=== PATIENT | female | born 1935 | race Caucasian/White ===

== ENCOUNTER 2022-09-19 14:57 | Outpatient (OUT) | payer MEDICARE, OTHER, SELFPAY ==
[2022-09-19 15:15] LABS: Basophils Absolute Auto 0.1 10^3/uL (0.0-0.1); Basophils Percent Auto 0.6 % (0.2-2.0); Eosinophils Absolute Auto 0.2 10^3/uL (0.0-0.7); Hematocrit 39.6 % (36.0-48.0); Hemoglobin 13.2 g/dL (12.0-16.0); Immature Granulocytes Abs Auto 0.03 10^3/uL (0.00-0.03); Immature Granulocytes Pct Auto 0.4 % (0.0-0.5); Lymphocytes Absolute Auto 2.6 10^3/uL (1.2-3.8); Lymphocytes Percent Auto 32.7 % (20.5-60.0); Mean Corpuscular HGB Conc 33.3 g/dL (29.9-35.2); Mean Platelet Volume 9.6 fL (9.5-13.5); Monocytes Absolute Auto 0.7 10^3/uL (0.3-0.8); Monocytes Percent Auto 8.8 % (1.7-12.0); Neutrophils Absolute Auto 4.3 10^3/uL (1.4-6.5); Neutrophils Percent Auto 54.5 % (43.0-75.0); Platelet Count 246 10^3/uL (150-450); Red Blood Count 4.26 10^6/uL (4.20-5.40); Red Cell Distribution Width 13.3 % (11.0-15.0); White Blood Count 7.9 10^3/uL (4.0-11.0)
[2022-09-19 15:26] LABS: Alanine Aminotransferase 18 U/L (14-59); Albumin Globulin Ratio 0.9; Albumin Level 3.8 g/dL (3.4-5.0); Alkaline Phosphatase 58 U/L (46-116); Anion Gap 11.6; Aspartate Amino Transferase 18 U/L (15-37); BUN Creatinine Ratio 18.8; Bilirubin Total 0.4 mg/dL (0.2-1.0); Carbon Dioxide 27.6 mmol/L (21.0-32.0); Chloride 100 mmol/L (98-107); Estimated GFR (African America >60 (>=60); Estimated GFR (Non-African Ame 52 (>=60); Glucose 95 mg/dL (74-106); Magnesium 2.1 mg/dL (1.8-2.4); Potassium 4.2 mmol/L (3.5-5.1); Sodium 135 mmol/L (136-145); Total Protein 7.8 g/dL (6.4-8.2)
== END 2022-09-19 14:58 | disposition home or self-care (01) ==
LOC: LAB 15:01
PROVIDERS: PCP Internal Medicine; Visit Provider Nurse Practitioner Acute Care
DX: I10 Essential (primary) hypertension (principal)
CPT/HCPCS: 36415; 80053; 83735; 85025

== ENCOUNTER 2022-09-29 08:38 | Outpatient (OUT) | payer MEDICARE, OTHER, SELFPAY ==
--- NOTE | 2022-09-29 09:33 | CA_ITS ---
Patient: HOWARD HOGUE Exam Date: 09/29/2022 : 1935 Gender:F Ordering : MRS. 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 Order #: [id number] CLICK HERE TO VIEW EXAM ECHOCARDIOGRAM REPORT PROCEDURE: CA ECHO DOPPLER COMPLETE INDICATIONS: Nonrheumatic mitral valve regurgitation, hypertension COMPARISON: None. DESCRIPTION: COMPLETE ECHOCARDIOGRAM Real-time transthoracic echocardiography with 2D, M-mode, spectral and color flow Doppler performed. QUALITY: Technical quality was good. LEFT VENTRICLE: Normal chamber size. Thickened septal wall. LV EF: Global left ventricular systolic function is normal; visually estimated ejection fraction is 60 to 65%. No significant wall motion abnormalities. DIASTOLIC: Diastolic function is indeterminate. ATRIAL SEPTUM: Inadequately seen. LEFT ATRIUM: Severe dilatation. RIGHT ATRIUM: Normal chamber size. RIGHT VENTRICLE: Normal chamber size. Normal systolic function. TRICUSPID VALVE: Normal mobility and thickness. No stenosis with trivial regurgitation. No evidence of pulmonary hypertension. RVSP 25 mmHg MITRAL VALVE: Normal mobility and thickness. No evidence of mitral valve stenosis. There is no mitral annular calcification. Mild mitral regurgitation. AORTIC VALVE: Normal trileaflet appearance. Thickened aortic valve. Mildly diminished mobility. No evidence of aortic valve stenosis. Mild aortic regurgitation. AORTIC ROOT: Normal diameter and appearance. PULMONIC VALVE: Normal thickness and mobility. No stenosis. No regurgitation. PERICARDIUM: Anterior free space; trivial effusion versus fat pad. IVC: Collapses with inspirations. CONCLUSION: Global left ventricular systolic function is normal; ejection fraction is estimated to be 60 to 65%. Diastolic function is indeterminate. The left atrium is severely dilated. The right ventricle is normal in size and systolic function. Mild mitral regurgitation. Mild aortic valve regurgitation. Anterior free space; trivial effusion versus fat pad. Adult Echocardiography Procedure Report Left Ventricle LVEDD (3.7 - 5.6 cm): 3.62 cm LVESD (2.2 - 4.0 cm): 2.59 cm LVIVS thickness (0.6 - 1.2 cm): 1.84 cm LVPW thickness (0.5 - 1.0 cm): 0.95 cm e': 0.07 m/s E - e': 8.37 LVOT Max Gradient: 4.03 mm[Hg] LVOT Area (cm2): 1.00 m/s Peak Velocity (LVOT): 1.00 m/s Mean Velocity (LVOT): 0.77 m/s LVOT Diameter 1.81 cm Left Atrium LA Volume Index (2D A2C): 56.59 ml/m2 Left Atrium Systolic Dimension: 3.52 cm Mitral Valve MV E to A Ratio: 0.79 Mitral Valve A-Wave Peak Velocity: 0.70 m/s Mitral Valve E-Wave Peak Velocity: 0.55 m/s Right Ventricle Aorta AO Root Diam: 3.54 cm Ascending Ao Diam: 2.66 cm Aortic Valve AoV Area (Peak Carmelo): 2.19 cm2, 2.19 cm2 AoV Area (VTI): 2.13 cm2, 2.13 cm2 Peak Velocity(Antegrade Flow): 1.18 m/s Peak Gradient(Antegrade Flow): 5.59 mm[Hg] Mean Velocity(Antegrade Flow): 0.93 m/s Mean Gradient(Antegrade Flow): 3.70 mm[Hg] Velocity Time Integral: 27.71 cm Tricuspid Valve Peak Velocity (Regurgitant Flow): 2.13 m/s, 2.37 m/s Pulmonic Valve Peak Velocity: 0.80 m/s Peak Gradient: 3.19 mm[Hg], 2.05 mm[Hg] Right Atrium Right Atrium Systolic Pressure: 28.54 ml, 28.54 ml Dictated by: Iwona Blackman M.D. on 09/29/2022 at 12:56 Approved by: Iwona Blackman M.D. on 09/29/2022 at 13:00
== END 2022-09-29 08:39 | disposition home or self-care (01) ==
LOC: CARD 08:38
PROVIDERS: PCP Internal Medicine; Visit Provider Nurse Practitioner Acute Care
DX: I34.0 Nonrheumatic mitral (valve) insufficiency (principal)
CPT/HCPCS: 93306

== ENCOUNTER 2023-06-14 11:47 | Outpatient (OUT) | payer MEDICARE, SELFPAY ==
--- NOTE | 2023-06-14 11:57 | XR_ITS ---
The [address] [address] Patient Name: HOWARD HOGUE MRN: [id number] date: 1935 Sex: F Assigned Patient Location: [facility] Current Patient Location: [facility] Accession/Order Number: [id number] Exam Date: 06/14/2023 12:15 Report Date: 06/14/2023 12:53 At the request of: SALVADOR PEREIRA Procedure: XR ribs BI min 4V w CXR1V EXAMINATION: XR ribs BI min 4V w CXR1V HISTORY: rib pain R07.81 COMPARISON: No relevant comparison available. FINDINGS: LUNGS: No significant pulmonary parenchymal abnormalities. PLEURA: No pneumothorax, effusion, or pleural thickening. MEDIASTINUM: No visible mass or adenopathy. Aortic atherosclerosis CARDIAC: Mild cardiomegaly RIBS: No acute rib fracture OTHER: Retrocardiac opacity suggesting a small hiatal hernia XR/XR ribs BI min 4V w CXR1V IMPRESSION: Clear lungs Cardiomegaly No acute rib fracture Electronically authenticated by: GLADYS WERNER Date: 06/14/2023 12:53
== END 2023-06-14 11:48 | disposition home or self-care (01) ==
PROVIDERS: PCP Internal Medicine; Visit Provider Physician Assistant
DX: R07.81 Pleurodynia (principal); I51.7 Cardiomegaly
CPT/HCPCS: 71111

== ENCOUNTER 2023-06-24 18:07 | Emergency (ER) | payer OTHER, MEDICARE, SELFPAY ==
[2023-06-24 18:11] VITALS: BP 160/96; PULSE 83; TEMP 36.8; O2SAT 98; BMI 24.2
--- OUTSIDE RECORDS SUMMARY | 2023-06-24 18:14 | XMS_ITS | CCD ---
Author Organization [facility] Care Team Providers Care Demolition Engineer Name Role Phone JOHANN, DR SCHMID Primary Care Unavailable PAY, DR COOMBS Admitting Unavailable PAY, DR COOMBS Attending Unavailable PAY, DR COOMBS Consulting Unavailable JENNI MABRY Attending Unavailable Allergies Allergy Classification Reported Allergen(s) Allergy Type Date of Onset Reaction(s) Facility (2 sources) Penicillins; Translations: [PENICILLINS] Drug allergy (disorder) 06-17-2012 [facility] Repository Problems Active Problems Problem Classification Problem Date Documented Da te Episodic/Chronic Essential hypertension (3 sources) Essential (primary) hypertension; Translations: [ESSENTIAL PRIMARY HYPERTENSION] Onset: 11-08-2021 Chronic Heart valve disorders (2 sources) Nonrheumatic mitral (valve) insufficiency; Translations: [Nonrheumatic mitral (valve) insufficiency] Onset: 09-18-2022 Chronic Unclassified (3 sources) COUGH, UNSPECIFIED; Translations: [COUGH, UNSPECIFIED] Onset: 11-08-2021 Viral infection (1 source) COVID-19; Translations: [COVID-19] Onset: 11-08-2021 Past or Other Problems Problem Classification Problem Date Documented Da te Episodic/Chronic Other aftercare (1 source) Other [place] [facility] (current) drug therapy; Translations: [OTH HIDE CURER CURRENT DRUG THERAPY] Onset: 11-08-2021 Episodic Other upper respiratory infections (1 source) Acute upper respiratory infection, unspecified; Translations: [ACUTE UP RESPIRATORY INFECTION UNS] Onset: 11-08-2021 Episodic Unclassified (1 source) COUGH, UNSPECIFIED; Translations: [COUGH, UNSPECIFIED] Onset: 11-07-2021 Results Test Name Value Interpretation Reference Range Facility Office Visiton 09-19-2022 Follow-up visit [id number] HogueHoward 1935 F Date Provider Department Center 09/19/2022 [id number] MABRY [facility] Family History Problem Relation Age of Onset Cancer Father Colon cancer Sister Heart attack Brother Family Status - Relation Status Age at Father Sister Brother Level of Service:07403 NM OFFICE/OUTPATIENT NEW LOW MDM 30-[address] [facility] Covid-19 PCR (CVDTB)on 10-14 SARS-CoV-2 (COVID-19) RNA REYNALDO+probe Ql (Unsp spec) Detected Critically abnormal NOT DETECTED [facility] Comment on above: Result Comment: This test is not yet approved or cleared by the [place] FDA. When there are no FDA-approved or cleared tests available, and other criteria are met, FDA can make tests available under an emergency access mechanism called an Emergency Use Authorization (EUA). The EUA for this test is supported by the [place] of Health and Human Service's declaration that circumstances exist to justify the emergency use of in vitro diagnostics for the detection and/or diagnosis of the virus that causes COVID-19. This EUA will remain in effect for the duration of the COVID-19 declaration justifying emergency of IVDs, unless it is terminated or revoked by the FDA (after which the test may no longer be used). Performed By: #### C VDTB #### [facility] [address] [place], [place] [address] Dr. Leslie Tejeda Complete Blood Counton 03-01 Erythrocyte distribution width (RBC) [Ratio] 12.4 % Normal 11.0-15.0 [facility] Clerk Comment on above: Performed By: #### C BC, LIPD, CMP #### [facility] [address], [place] [id number] Hematocrit (Bld) [Volume fraction] 38.4 % Normal 35.0-47.0 [facility] Comment on above: Performed By: #### C BC, LIPD, CMP #### [facility] [address], [place] [id number] Hemoglobin (Bld) [Mass/Vol] 12.7 g/dL Normal 11.6-15.5 [facility] Comment on above: Performed By: #### C BC, LIPD, CMP #### [facility] [address], [place] [id number] MCH (RBC) [Entitic mass] 31.7 pg Normal 27.0-33.0 [facility] Specialist Comment on above: Performed By: #### ERNIE GRIGSBY, CMP #### [facility] [address], [place] [id number] MCHC (RBC) [Mass/Vol] 33.1 g/dL Normal 32.0-36.0 [facility] Specialist Comment on above: Performed By: #### Renan BECERRA LIPD, CMP #### [facility] [address], [place] [id number] MCV (RBC) [Entitic vol] 96 fL Normal 80-100 [facility] Specialist Comment on above: Performed By: #### ERNIE GRIGSBY, CMP #### [facility] [address], [place] [id number] Platelet mean volume (Bld) [Entitic vol] 9.70 fL Normal 7.50-12.50 [facility] Specialist Comment on above: Performed By: #### ERNIE GRIGSBY, CMP #### [facility] [address], [place] [id number] Platelets (Bld) [#/Vol] 240 10*3/uL Normal 140-400 [facility] Comment on above: Performed By: #### ERNIE GRIGSBY, CMP #### [facility] [address], [place] [id number] RBC (Bld) [#/Vol] 4.01 10*6/uL Normal 3.90-5.20 [facility] Comment on above: Performed By: #### Renna BECERRA LIPD, CMP #### [facility] [address], [place] [id number] RDW-SD 43.9 fL Normal 37.0-50.0 [facility] Comment on above: Performed By: #### ERNIE GRIGSBY, CMP #### [facility] [address], [place] [id number] WBC (Bld) [#/Vol] 5.1 10*3/uL Normal 3.8-11.0 [facility] Comment on above: Performed By: #### Renan BECERRA LIPD, CMP #### [facility] [address] [facility] [place] [id number] Comprehensive Metabolic Pane melquiades 03-01-2021 Albumin [Mass/Vol] 4.1 g/dL Normal 3.6-5.1 [facility] Comment on above: Performed By: #### C BC, LIPD, CMP #### [facility] [address] [facility] [place] [id number] Albumin/Globulin [Mass ratio] 1.7 {ratio} Normal 1.0-2.5 [facility] Comment on above: Performed By: #### C BC, LIPD, CMP #### [facility] [address] [facility] [place] [id number] ALP [Catalytic activity/Vol] 58 U/L Normal 35-119 [facility] Comment on above: Performed By: #### C BC, LIPD, CMP #### [facility] [address], [place] [id number] ALT [Catalytic activity/Vol] 9 U/L Normal 6-33 [facility] Comment on above: Result Comment: 01/12 Female reference range changed. Performed By: #### C BC, LIPD, CMP #### [facility] [address] [facility] [place] [id number] Anion gap [Moles/Vol] 15 mmol/L Normal 12-20 [facility] Comment on above: Result Comment: Effe ctive 02/17/2019 reference range changed. Performed By: #### C BC, LIPD, CMP #### [facility] [address], [place] [id number] AST [Catalytic activity/Vol] 14 U/L Normal 9-34 [facility] Comment on above: Performed By: #### C BC, LIPD, CMP #### [facility] [address] [facility] [place] [id number] Bilirubin [Mass/Vol] 0.42 mg/dL Normal 0.30-1.20 [facility] Comment on above: Performed By: #### C BC, LIPD, CMP #### [facility] [address] [facility] [place] [id number] BUN/CREA 23 Ratio High 6-22 [facility] [place] [facility] Comment on above: Performed By: #### C HERNAN LIPD, CMP #### [facility] [address] [place] [id number] Calcium [Mass/Vol] 9.4 mg/dL Normal 8.6-10.2 [facility] Clerk Comment on above: Performed By: #### C HERNAN LIPD, CMP #### [facility] [address] [place] [id number] Chloride [Moles/Vol] 102 mmol/L Normal 98-107 [facility] Specialist Comment on above: Performed By: #### C HERNAN LIPD, CMP #### [facility] [address] [place] [id number] CO2 [Moles/Vol] 25 mmol/L Normal 20-31 [facility] Comment on above: Performed By: #### C HERNAN LIPD, CMP #### [facility] [address] [facility] [place] [id number] Creatinine [Mass/Vol] 0.9 mg/dL Normal 0.6-1.4 [facility] Comment on above: Performed By: #### C HERNAN LIPD, CMP #### [facility] [address] [facility] [place] [id number] eGFRAA 71 mL/min/1.73m2 Normal >60 [facility] Comment on above: Performed By: #### Renan BECERRA LIPD, CMP #### [facility] [address] [facility] [place] [id number] eGFRNAA 59 mL/min/1.73m2 Low >60 [facility] Comment on above: Performed By: #### C HERNAN LIPD, CMP #### [facility] [address] [facility] [place] [id number] Globulin (S) [Mass/Vol] 2.4 g/dL Normal 1.9-3.7 [facility] Comment on above: Performed By: #### C HERNAN, LIPD, CMP #### [facility] [address] [facility] [place] [id number] Glucose [Mass/Vol] 96 mg/dL Normal 65-99 [facility] Comment on above: Result Comment: For FASTING Glucose --- ADA reference ranges: Normal 65-99 mg/dl Prediabetes 100-125 Diabetes >/= 126 Performed By: #### C BC, LIPD, CMP #### [facility] [address], [place] [id number] Potassium [Moles/Vol] 4.3 mmol/L Normal 3.5-5.5 [facility] Comment on above: Performed By: #### C BC, LIPD, CMP #### [facility] [address], [place] [id number] Protein [Mass/Vol] 6.5 g/dL Normal 6.1-8.1 [facility] Clerk Comment on above: Performed By: #### C BC, LIPD, CMP #### [facility] [address], [place] [id number] Sodium [Moles/Vol] 138 mmol/L Normal 135-146 [facility] Clerk Comment on above: Performed By: #### C BC, LIPD, CMP #### [facility] [address], [place] [id number] Urea nitrogen [Mass/Vol] 21 mg/dL Normal 7-25 [facility] Clerk Comment on above: Performed By: #### C BC, LIPD, CMP #### [facility] [address], [place] [id number] Lipid Panelon 03-01-2021 Cholesterol [Mass/Vol] 242 mg/dL High 125-200 [facility] Comment on above: Result Comment: Low risk < 200mg/dL Borderline risk 201-239 mg/dl High risk > or equal to 240 Performed By: #### C BC, LIPD, CMP #### [facility] [address], [place] [id number] Cholesterol in HDL [Mass/Vol] 64 mg/dL Normal >40 [facility] Comment on above: Result Comment: High Cardiovascular Risk HDL <40 mg/dL Low Cardiovascular Risk HDL > or equal to 60 mg/dl Performed By: #### C BC, LIPD, CMP #### [facility] [address], [place] [id number] Cholesterol in LDL [Mass/Vol] 166 mg/dL Normal [facility] Comment on above: Result Comment: LDL ATP III CLASSIFICATION LDL less than 100 mg/dl Optimal LDL 100-129 mg/dl Near or above optimal LDL 130-159 Borderline high LDL 160-189 High LDL greater than 189 mg/dl Very High Performed By: #### C HERNAN, LIPD, CMP #### [facility] [address], [place] [id number] Cholesterol in VLDL [Mass/Vol] 12 mg/dL Normal [facility] Comment on above: Performed By: #### C BC, LIPD, CMP #### [facility] [address], [place] [id number] Cholesterol.total/ Cholesterol in HDL [Mass ratio] 4 {ratio} Normal [facility] Comment on above: Performed By: #### C HERNNA, LIPD, CMP #### [facility] [address], [place] [id number] Triglyceride [Mass/Vol] 60 mg/dL Normal 30-150 [facility] Comment on above: Result Comment: TRIG ATPIII CLASSIFICATIONS TRIG less than 150 mg/dl Normal TRIG 150-199 mg/dl Borderline High TRIG 200-500 mg/dl High TRIG greather than 500 mg/dl Very High Performed By: #### C HERNAN, LIPD, CMP #### [facility] [address], [place] [id number] TSHon 03-01-2021 TSH Qn 3.13 m[IU]/L Normal 0.40-4.50 [facility] Comment on above: Order Comment: [facility] Testing performed at: [facility], [facility], [address] [place] [address], [address] [place] [address], [phone], Dishwashing Machine Operator: Joao Graham MD [facility] Collection Date/Time: [id number] [facility] Results Received Date/Time: [id number] [facility] Reported Date/Time: [id number] Performed By: #### T SH #### [facility] [address] [place] [address] Encounters Encounter Date Encounter Type Care Provider Facility Start: 09-19-2022 End: 09-19-2022 ambulatory [facility] Start: 11-07-2021 End: 11-07-[address] SHARMAINE WILLS Facility:[facility]1 Payers Date Payer Category Payer Medicare [id number] 1960 Unknown [id number] 1935 Unknown [id number] Progress note 09-19-2022 Note Date & Type Note Facility 09-19-2022 Note Patient here to re-e stablish care. She was last seen by Dr. Blackman in July of 2018 for hypertension, diastolic dysfunction, and hyperlipidemia. She wants to re-establish care today because she believes she had a recent mini stroke , for which she did not seek medical attention. This happened 4-5 days ago. Symptoms included right handed numbness. She denies chest pain, SOB, lightheadedness, palpitations, and syncope. Has LE edema, which she isn't sure when this started. Used to take lasix a long time ago. C/o fatigue and dry cough. She says PCP wanted to start her on statin when she had lipid profile last year. Patient declined to start it, and instead takes OTC fish oil. Review of Systems Cardiovascular: Positive for leg swelling. Respiratory: Positive for cough. Musculoskeletal: Positive for arthritis, back pain and muscle cramps. Neurological: Positive for numbness and paresthesias. All other systems reviewed and are negative. [facility] Progress note 09-19-2022 Note Date & Type Note Facility 09-19-2022 Note Cardiology Clinic No te Subjective Howard Hogue is a 86 y.o. year old female patient past medical history of hypertension, diastolic dysfunction, severely enlarged left atrium and mild pulmonary hypertension on echocardiogram (2016) here to reestablish care. Patient Active Problem List Diagnosis Acquired spondylolisthesis Age related osteoporosis Osteoporosis Aortic valve disorder Benign essential hypertension Cardiomegaly Chronic bronchitis (CMS/HCC) Degeneration of lumbar intervertebral disc Depressive disorder Diastolic dysfunction Gastroesophageal reflux disease without esophagitis Heart disease Hyperlipidemia Inflamed seborrheic keratosis Malignant tumor of sigmoid colon (CMS/HCC) Pure hypercholesterolemia Varicose veins of lower extremity Family History Problem Relation Name Age of Onset Cancer Father Colon cancer Sister Heart attack Brother Social History Tobacco Use Smoking status: Never Smokeless tobacco: Never Substance Use Topics Alcohol use: Not Currently Update: She developed numbness and tingling in her right hand to forearm which concerned her for a mini stroke Symptoms occurred for two consecutive days on and Sunday lasting less than 10 minutes on both occassions She started a baby Aspirin about a year ago to help with blood draws as she was difficult stick She is doing well from a cardiac standpoint without chest pain, dyspnea, or palpitations No significant lower extremity edema Review of Systems Cardiovascular: Negative for chest pain, dyspnea on exertion, irregular heartbeat, leg swelling, near-syncope, orthopnea, palpitations and syncope. Objective Visit Vitals BP 119/75 (BP Location: Left arm, Patient Position: Sitting) Pulse 59 Ht 1.626 m (5' 4 ) Wt 64.4 kg (142 lb) SpO2 99% BMI 24.37 kg/m??? Smoking Status Never BSA 1.71 m??? Physical Exam General: Awake, alert, NAD Neck: No elevated JVP. No carotid bruit Pulm: Breath sounds clear to ascultation bilaterally with no wheeze, crackles or rhonchi Cards: Regular rate and rhythm, S1, S2. No S3 or S4 gallop. Murmur: none Extr: Lower extremity edema: None. DP pulses:2+ Skin: warm, dry, well perfused Neuro: A&Ox3, No gross deficits Allergies Allergies Allergen Reactions Penicillins Other and Unknown Medications Current Outpatient Medications: aspirin 81 mg EC tablet, Take 81 mg by mouth in the morning., Disp: , Rfl: fish oil concentrate (Fish OiL) 120-180 mg capsule, Take by mouth in the morning., Disp: , Rfl: lisinopril 10 mg tablet, Take 10 mg by mouth in the morning., Disp: , Rfl: metoprolol tartrate (Lopressor) 25 mg tablet, Take 0.5 tablets every day by oral route for 90 days., Disp: , Rfl: Recent Labs 06/21/2016 Cholesterol 2 8, HDL 58, triglycerides 69, LDL 134 Imaging and other tests Echocardiogram: 05/16/2016 Global left ventricular systolic function is normal (visually estimated EF 60%) Grade 2 moderate diastolic dysfunction (pseudonormalized LV filling Katherine) Normal right ventricular systolic function Left atrium is severely enlarged The right atrium is mildly enlarged Mild mitral regurgitation Doppler studies suggest mildly elevated right-sided pressures There is minimal pericardial effusion Assessment Diagnoses and all orders for this visit: Benign essential hypertension - ECG 12 lead - Comprehensive metabolic panel; Future - CBC; Future - Magnesium; Future Nonrheumatic mitral valve regurgitation - Complete Echo (TTE) w/wo Imaging Agent, Strain, 3D, Bubble Study; Future Mixed hyperlipidemia Plan Hypertension -Well controlled, continue metoprolol and Lisinopril. Check labs today. 2. Mitral valve regurgitation -Mild on last echo 6 years ago, she is agreeable to repeat for surveillance. Clinically stable, appears euvolemic. 3. Hyperlipidemia -Discussed importance of management for CVD prevention. She is not interested in statins and reports taking fish oil. -She is preemptively taking Aspirin 81 mg -Unclear cause of brief arm numbness, I encouraged follow-up with PCP. -Check labs and electrolytes. No follow-ups on file. Jenni Mabry APRN-FARM CONSULTANT [facility] Summary Purpose Family History No Family History Records FoundNo Family History Records FoundNo Family History Records Found Advance Directives No Advanced Directives Records FoundNo Advanced Directives Records FoundNo Advanced Directives Records Found Additional Source Comments INFORMATION SOURCE (unrecogn ized section and content) DATE CREATED AUTHOR 03/02/2021 [facility] dical Specialist DATE CREATED AUTHOR AUTHOR'S ORGANIZ ATION 03/29/2022 [facility] pital DATE CREATED AUTHOR AUTHOR'S ORGANIZ ATION 10/05/2022 [facility] FOR RECORDS PERTAINING TO PATIENTS WHO ARE OR HAVE BEEN ENROLLED IN A CHEMICAL DEPENDENCY/SUBSTANCEABUSE PROGRAM, SOME INFORMATION MAY BE OMITTED. This clinical summary was aggregated from multiple sources. Caution should be exercised in using it in the provision of clinical care. This summary normalizes information from multiple sources, and as a consequence, information in this document may materially change the coding, format and clinical context of patient data. In addition, data may be omitted in some cases. CLINICAL DECISIONS SHOULD BE BASED ON THE PRIMARY CLINICAL RECORDS. [employer] provides no warranty or guarantee of the accuracy or completeness of information in this document.
--- NOTE | 2023-06-24 18:18 | XR_ITS ---
The [address] [address] Patient Name: HOWARD HOGUE MRN: [id number] date: 1935 Sex: F Assigned Patient Location: ED.MAIN Current Patient Location: Accession/Order Number: [id number] Exam Date: 06/24/2023 19:10 Report Date: 06/24/2023 20:15 At the request of: ISSA DORAN Procedure: XR forearm RT 2V EXAM: XR forearm RT 2V HISTORY: Dog bite COMPARISON: None. TECHNIQUE: 2 views of the right forearm FINDINGS: A subacute appearing fracture of the distal ulna is seen. The soft tissues appear unremarkable. XR/XR forearm RT 2V IMPRESSION: Subacute appearing fracture of the distal ulna. Electronically authenticated by: AIRAM MAYER Date: 06/24/2023 20:15
--- NOTE | 2023-06-24 18:22 | ED.ANIMALBI1 ---
HPI - Animal Bite General Chief Complaint: Animal Bite Stated Complaint: Bite - Dog Time Seen by Provider: 06/24/23 18:08 Source: patient Mode of arrival: walk-in Limitations: no limitations History of Present Illness HPI narrative: Is an 87-year-old female brought to the emergency department by her son for evaluation of multiple puncture wounds from a dog bite to the right hand and forearm. Patient states this occurred about 2 hours ago. The patient's son's dog bit her. He is fully vaccinated. She sustained multiple puncture wounds to the right arm. Unknown last tetanus. Bleeding is well-controlled. She reports some pain at the right distal ulna. She took ibuprofen prior to arrival. Related Data Home Medications ?Medication ?Instructions ?Recorded ?Confirmed denosumab 60 mg/mL subcutaneous mg subcut 06/24/23 syringe (Prolia) fluoxetine 20 mg capsule 20 mg PO DAILY 06/24/23 06/24/23 lisinopril 10 mg tablet 10 mg PO DAILY 06/24/23 06/24/23 metoprolol tartrate 25 mg tablet 12.5 mg PO DAILY 06/24/23 06/24/23 Previous Rx's ?Medication ?Instructions ?Recorded ciprofloxacin HCl 500 mg tablet 500 mg PO BID #7 tabs 06/24/23 (Cipro) metronidazole 500 mg tablet 500 mg PO Q12H 7 days #14 tabs 06/24/23 ondansetron 4 mg disintegrating 4 mg PO Q6H PRN nausea and 06/24/23 tablet vomiting #12 tabs tramadol 50 mg tablet 50 mg PO Q4H PRN pain 3 days #15 06/24/23 tabs Allergies Allergy/AdvReac Type Severity Reaction Status Date / Time Penicillins Allergy Intermediate Verified 06/24/23 18:18 Review of Systems ROS Constitutional Denies: fever or chills Ears, nose, mouth, and throat Denies: throat pain or nasal congestion Respiratory Denies: shortness of breath Gastrointestinal Denies: nausea or vomiting Integumentary/Breast Denies: rash Hematologic/Lymphatic Denies: easy bruising or easy bleeding Exam Narrative Exam Narrative: Gen.: Awake, alert, in no distress Head: Normocephalic, atraumatic ENT: Moist mucous membranes Respiratory: No respiratory distress Extremities: Moves extremities equally, 2+ right radial pulse with multiple small puncture wounds in the dorsum of the right hand extending over the forearm. Mild tenderness and swelling at the right distal ulna. No obvious deformity.No large lacerations or skin tears noted. Minimal venous oozing from one of the puncture wounds adjacent to the wrist. Psych: Normal mood and affect Neuro: No focal neuro deficit Skin: Warm, dry, intact Constitutional Vital Signs, click to edit/add: Last Vital Signs Temp 98.3 F 06/24/23 18:11 Pulse 83 06/24/23 18:11 Resp 18 06/24/23 18:11 BP 160/96 H 06/24/23 18:11 Pulse Ox 98 06/24/23 18:11 O2 Del Method Room Air 06/24/23 18:11 Course Vital Signs Vital signs: Vital Signs Temperature 98.3 F 06/24/23 18:11 Pulse Rate 83 06/24/23 18:11 Respiratory Rate 18 06/24/23 18:11 Blood Pressure 160/96 H 06/24/23 18:11 Pulse Oximetry 98 06/24/23 18:11 Oxygen Delivery Method Room Air 06/24/23 18:11 Temperature 98.3 F 06/24/23 18:11 Pulse Rate 83 06/24/23 18:11 Respiratory Rate 18 06/24/23 18:11 Blood Pressure 160/96 H 06/24/23 18:11 Pulse Oximetry 98 06/24/23 18:11 Oxygen Delivery Method Room Air 06/24/23 18:11 MDM - Animal Bite MDM Narrative Medical decision making narrative: Areas of puncture wound were cleansed, dressed with bacitracin. Tetanus updated in the ER and the patient is placed on Cipro and Flagyl for antibiotic coverage of the dog bite. She is noted on x-ray to have a nondisplaced fracture of the right distal ulna. She was placed in a metal forearm splint and will be referred to orthopedics for this. She is neurovascularly intact at discharge. We will avoid an OCL splint so the patient can continue to clean the puncture wounds. She was prescribed Cipro and Flagyl for the dog bite as she is allergic to penicillins. A short course of analgesics given for home. She is neurovascularly intact at discharge. Medical Records Attestation: I reviewed the patient's medical records. Imaging Data XR forearm: Attestation: I have reviewed the pertinent imaging results. Discharge Plan Discharge Stand Alone Forms: Portal Instructions Chief Complaint: Animal Bite Clinical Impression: Dog bite, Fracture of distal end of right ulna Patient Disposition: Home, Self-Care Time of Disposition Decision: 18:20 Condition: Good Prescriptions / Home Meds: New metronidazole 500 mg tablet 500 mg PO Q12H 7 Days Qty: 14 0RF ciprofloxacin HCl [Cipro] 500 mg tablet 500 mg PO BID Qty: 7 0RF ondansetron 4 mg tablet,disintegrating 4 mg PO Q6H PRN (Reason: nausea and vomiting) Qty: 12 0RF tramadol 50 mg tablet 50 mg PO Q4H PRN (Reason: pain) 3 Days Qty: 15 0RF Rx Instructions: DX: M79.601 No Action fluoxetine 20 mg capsule 20 mg PO DAILY Prolia 60 mg/mL syringe SUBCUT lisinopril 10 mg tablet 10 mg PO DAILY metoprolol tartrate 25 mg tablet 12.5 mg PO DAILY Print Language: Indonesian Instructions: Animal Bite (ED), Wrist Fracture in Adults (ED) Referrals: SHARMAINE WILLS [Primary Care Provider] - 1 week Dominick Montalvo MD [Physician] - 1 week Santosh Freire MD [Physician] - 07/02/23 11:00 am
[2023-06-24] MEDS: METRONIDAZOLE 250 MG TABLET 500 MG PO (18:34)
[2023-06-24] MEDS: CIPROFLOXACIN HCL 500 MG TABLET PO (18:34)
[2023-06-24] MEDS: ADACEL DIPH,PERTUSS(ACELL),TET VAC/PF 0.5 ML ADULT SYRINGE IM (18:35)
[2023-06-24] MEDS: BACITRACIN OINTMENT 28.4 GM TUBE 1 APPLIC TOPICAL (18:36)
[2023-06-24] MEDS: TRAMADOL HCL 50 MG TABLET PO (19:28)
[2023-06-24 19:33] VITALS: BP 100/99; PULSE 78; O2SAT 97
== END 2023-06-24 19:36 | disposition home or self-care (01) ==
PROVIDERS: Emergency Provider Emergency Medicine; PCP Internal Medicine
DX: S52.601A Unspecified fracture of lower end of right ulna, initial encounter for closed fracture (principal); S51.831A Puncture wound without foreign body of right forearm, initial encounter; S61.431A Puncture wound without foreign body of right hand, initial encounter; W54.0XXA Bitten by dog, initial encounter; Z23 Encounter for immunization
CPT/HCPCS: 73090; 90471; 90715; 99285

== ENCOUNTER 2023-07-02 12:05 | Outpatient (OUT) | payer OTHER, MEDICARE, SELFPAY ==
--- NOTE | 2023-07-02 | XR_ITS ---
The [address] [address] Patient Name: HOWARD HOGUE MRN: [id number] date: 1935 Sex: F Assigned Patient Location: Current Patient Location: Accession/Order Number: [id number] Exam Date: 07/02/2023 11:55 Report Date: 07/03/2023 08:22 At the request of: PATT JOHNSON Procedure: XR wrist RT min 3V PROCEDURE: XR wrist RT min 3V HISTORY: RIGHT WRIST PAIN COMPARISON: XR form right 06/24/2023 FINDINGS: BONES:Transverse fracture through distal ulna at the diametaphyseal junction with 2.5 mm medial displacement of the distal fragment. 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 SOFT TISSUES:Mild soft tissue swelling. Images were obtained to cast material. EFFUSION:None visible. OTHER: Negative. XR/XR wrist RT min 3V IMPRESSION: 1. Acute mildly displaced fracture of the distal ulna, with greater displacement than seen on the prior study. Electronically authenticated by: PATT FLOWERS Date: 07/03/2023 08:22
== END 2023-07-02 12:06 | disposition home or self-care (01) ==
LOC: EC 12:06
PROVIDERS: PCP Internal Medicine; Visit Provider Orthopaedic Surgery
DX: M25.531 Pain in right wrist (principal); S52.691D Other fracture of lower end of right ulna, subsequent encounter for closed fracture with routine healing
CPT/HCPCS: 73110

== ENCOUNTER 2023-07-18 14:24 | Outpatient (OUT) | payer OTHER, MEDICARE, SELFPAY | END 2023-07-18 14:25 | disposition home or self-care (01) | LOC: CARD 14:24 | PROVIDERS: PCP Internal Medicine; Visit Provider Internal Medicine | DX: R55 Syncope and collapse (principal) | CPT/HCPCS: 93242 ==

== ENCOUNTER 2023-07-30 09:00 | Outpatient (OUT) | payer OTHER, MEDICARE, SELFPAY ==
--- NOTE | 2023-07-30 | XR_ITS ---
The [address] [address] Patient Name: HOWARD HOGUE MRN: [id number] date: 1935 Sex: F Assigned Patient Location: Current Patient Location: Accession/Order Number: [id number] Exam Date: 07/30/2023 09:02 Report Date: 07/30/2023 16:42 At the request of: PATT JOHNSON Procedure: XR wrist RT min 3V EXAM: XR wrist RT min 3V HISTORY: RIGHT WRIST PAIN COMPARISON: 07/10/2023 TECHNIQUE: 3 views of the right wrist are performed. FINDINGS: Casting material obscures fine bony detail. The distal ulnar fracture demonstrates similar alignment. No definite signs of healing are seen through the cast. There are degenerative changes within the wrist and at the first CMC joint. XR/XR wrist RT min 3V IMPRESSION: No significant change in alignment to the distal ulnar fracture. Degenerative changes within the hand and wrist. Electronically authenticated by: TIBURCIO GONSALEZ Date: 07/30/2023 16:42
== END 2023-07-30 09:01 | disposition home or self-care (01) ==
LOC: EC 09:01
PROVIDERS: PCP Internal Medicine; Visit Provider Orthopaedic Surgery
DX: S52.691D Other fracture of lower end of right ulna, subsequent encounter for closed fracture with routine healing (principal)
CPT/HCPCS: 73110

== ENCOUNTER 2023-08-13 09:01 | Outpatient (OUT) | payer OTHER, MEDICARE, SELFPAY ==
--- NOTE | 2023-08-13 | XR_ITS ---
The [address] [address] Patient Name: HOWARD HOGUE MRN: [id number] date: 1935 Sex: F Assigned Patient Location: Current Patient Location: Accession/Order Number: [id number] Exam Date: 08/13/2023 09:05 Report Date: 08/14/2023 07:19 At the request of: PATT JOHNSON Procedure: XR wrist RT min 3V PROCEDURE: XR wrist RT min 3V HISTORY: RIGHT WRIST PAIN COMPARISON: XR wrist right 07/30/2023 FINDINGS: BONES:Prior distal ulna fracture with callus formation along the margins. Minimal angulation; stable. Moderate degenerative changes of the scaphoid-trapezium joint. SOFT TISSUES:Cast material has been removed. EFFUSION:None visible. OTHER: Negative. XR/XR wrist RT min 3V IMPRESSION: 1. Stable alignment since and ongoing bone healing of distal ulnar fracture. Electronically authenticated by: PATT FLOWERS Date: 08/14/2023 07:19
== END 2023-08-13 09:02 | disposition home or self-care (01) ==
LOC: EC 09:02
PROVIDERS: PCP Internal Medicine; Visit Provider Orthopaedic Surgery
DX: S52.691D Other fracture of lower end of right ulna, subsequent encounter for closed fracture with routine healing (principal)
CPT/HCPCS: 73110

== ENCOUNTER 2023-09-17 08:38 | Outpatient (OUT) | payer MEDICARE, SELFPAY ==
--- NOTE | 2023-09-17 | XR_ITS ---
[address] [address] Patient Name: HOWARD HOGUE MRN: [id number] date: 1935 Sex: F Assigned Patient Location: Current Patient Location: Accession/Order Number: [id number] Exam Date: 09/17/2023 08:40 Report Date: 09/18/2023 11:16 At the request of: PATT JOHNSON Procedure: XR wrist RT min 3V PROCEDURE: XR wrist RT min 3V HISTORY: RIGHT WRIST PAIN COMPARISON: XR wrist right 08/13/2023 FINDINGS: BONES:Stable alignment is an increasing density and callus formation of distal ulnar fracture. Intact radiocarpal joint. Degenerative changes of the scaphoid-trapezium joint of the wrist. SOFT TISSUES:No visible soft tissue swelling. EFFUSION:None visible. OTHER: Negative. XR/XR wrist RT min 3V IMPRESSION: 1. Stable alignment and ongoing bone healing of distal right ulnar fracture. Electronically authenticated by: PATT FLOWERS Date: 09/18/2023 11:16
--- OUTSIDE RECORDS SUMMARY | 2023-09-17 08:42 | XMS_ITS | CCD ---
Author Organization [facility] Inform ion Partnership [facility] Care Team Providers Care Gold Charmer Name Role Phone DR SHARMAINE WILLS Primary Care Unavailable PAY, DR COOMBS Admitting Unavailable PAY, DR COOMBS Attending Unavailable PAY, DR COOMBS Consulting Unavailable JENNI MABRY Attending Unavailable SHARMAINE WILLS Attending Unavailable SHARMAINE WILLS Referring Unavailable Allergies Allergy Classification Reported Allergen(s) Allergy Type Date of Onset Reaction(s) Facility (2 sources) Penicillins; Translations: [PENICILLINS] Drug allergy (disorder) 06-17-2012 [facility] Repository Problems Active Problems Problem Classification [...] te Episodic/Chronic Other aftercare (1 source) 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; Translations: [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] Onset: 11-08-2021 Episodic Other upper respiratory infections (1 source) Acute upper respiratory infection, unspecified; Translations: [ACUTE UP RESPIRATORY INFECTION UNS] Onset: 11-08-2021 Episodic Unclassified (1 source) COUGH, UNSPECIFIED; Translations: [COUGH, UNSPECIFIED] Onset: 11-07-2021 Results Test Name Value Interpretation Reference Range Facility [facility] US CAROTID ARTERY DUPLE X BILATERALon 07-13-2023 [facility] US CAROTID ARTERY DUPLEX BILATERAL FINDINGS: Right ICA 72 (normal) Right Ratio 0.9 (normal) Left ICA 58 (normal) Left Ratio 0.8 (normal) Scattered echogenic and soft plaque throughout both common carotid and bulb and proximal internal carotid locations. No significant stenosis is present based on visual inspection or velocity and ratio values. Both vertebral arteries have normal cephalad-directed flow. IMPRESSION: Estimated stenosis mild, not hemodynamically significant *COMMENT: These estimates represent a median value within a 95% confidence interval range. They represent percent diameter ICA stenosis derived from regression curve analysis using the NASCET method and Doppler ultrasound velocities. Please note with high-grade stenosis (greater than 95%), an actual reduction in velocity will occur. Reference: Noe Farley. carotid ultrasound, in [facility], 39 (3), Jun, 2000. TRANSCRIBED BY: ELECTRONICALLY SIGNED BY: Noe Garland MD Normal Not Available Office Visiton 09-19-2022 Follow-up visit [id number] Howard Hogue 1935 F Date Provider Department Center 09/19/2022 [id number] MABRY [facility] Family History Problem Relation Age of Onset Cancer Father Colon cancer Sister Heart attack Brother Family Status - Relation Status Age at Father Sister Brother Level of Service:[id number] PA OFFICE/OUTPATIENT NEW LOW MDM 30-44 MINUTES Normal [facility] Covid-19 PCR ([facility])on 10-14 SARS-CoV-2 (COVID-19) RNA REYNALDO+probe Ql (Unsp spec) Detected Critically abnormal NOT DETECTED [facility] Comment on above: Result Comment: This test is not yet approved or cleared by the [place] FDA. When there are no FDA-approved or cleared tests available, and other criteria are met, FDA can make tests available under an emergency access mechanism called an Emergency Use Authorization (EUA). The EUA for this test is supported by the [place] of Health and Human Service's declaration that [...] longer be used). Performed By: #### [facility] #### [facility] [address], [place] [address] Dr. Leslie Tejeda Complete Blood Counton 03-01 Erythrocyte distribution width (RBC) [Ratio] 12.4 % Normal 11.0-15.0 [facility] Comment on above: Performed By: #### C BC LIPD, CMP #### [facility] [address] [place], [place] [id number] Hematocrit (Bld) [Volume fraction] 38.4 % Normal 35.0-47.0 [facility] Comment on above: Performed By: #### C BC LIPD, CMP #### [facility] [address] [facility] [place] [place] [id number] Hemoglobin (Bld) [Mass/Vol] 12.7 g/dL Normal 11.6-15.5 [facility] Comment on above: Performed By: #### C HERNAN LIPD, CMP #### [facility] [address] [facility] [place] [id number] MCH (RBC) [Entitic mass] 31.7 pg Normal 27.0-33.0 [facility] Comment on above: Performed By: #### C HERNAN LIPD, CMP #### [facility] [address] [facility] [place] [id number] MCHC (RBC) [Mass/Vol] 33.1 g/dL Normal 32.0-36.0 [facility] Comment on above: Performed By: #### C HERNAN LIPD, CMP #### [facility] [address] [facility] [place] [id number] MCV (RBC) [Entitic vol] 96 fL Normal 80-100 [facility] Comment on above: Performed By: #### C BC LIPD, CMP #### [facility] [address] [facility] [place] [id number] Platelet mean volume (Bld) [Entitic vol] 9.70 fL Normal 7.50-12.50 [facility] Comment on above: Performed By: #### C BC, LIPD, CMP #### [facility] [address] [facility] [place] [id number] Platelets (Bld) [#/Vol] 240 10*3/uL Normal 140-400 [facility] Comment on above: Performed By: #### C BC LIPD, CMP #### [facility] [address] [place], [place] [id number] RBC (Bld) [#/Vol] 4.01 10*6/uL Normal 3.90-5.[address] [facility] Comment on above: Performed By: #### C BC LIPD, CMP #### [facility] [address] [place], [place] [id number] RDW-SD 43.9 fL Normal 37.0-50.0 [facility] Comment on above: Performed By: #### C BC LIPD, CMP #### [facility] [address] [place], [place] [id number] WBC (Bld) [#/Vol] 5.1 10*3/uL Normal 3.8-11.0 [facility] Comment on above: Performed By: #### C BC LIPD, CMP #### [facility] [address] [place], [place] [id number] [facility] 03-01-2021 Albumin [Mass/Vol] 4.1 g/dL Normal 3.6-5.1 [facility] Comment on above: Performed By: #### C BC LIPD, CMP #### [facility] [address] [place], [place] [id number] Albumin/Globulin [Mass ratio] 1.7 {ratio} Normal 1.0-2.5 [facility] Comment on above: Performed By: #### C BC LIPD, CMP #### [facility] [address] [place], [place] [id number] ALP [Catalytic activity/Vol] 58 U/L Normal 35-119 [facility] Comment on above: Performed By: #### C BC LIPD, CMP #### [facility] [address] [place], [place] [id number] ALT [Catalytic activity/Vol] 9 U/L Normal 6-33 [facility] Comment on above: Result Comment: 01/12 Female reference range changed. Performed By: #### C BC LIPD, CMP #### [facility] [address] [place], [place] [id number] Anion gap [Moles/Vol] 15 mmol/L Normal 12-20 [facility] Comment on above: Result Comment: Effmirna ctive 02/17/2019 reference range changed. Performed By: #### C HERNAN LIPD, CMP #### [facility] [address] [place] [id number] AST [Catalytic activity/Vol] 14 U/L Normal 9-34 [facility] Comment on above: Performed By: #### C BC, LIPD, CMP #### [facility] [address] [place] [id number] Bilirubin [Mass/Vol] 0.42 mg/dL Normal 0.30-1.20 [facility] Comment on above: Performed By: #### C HERNAN LIPD, CMP #### [facility] [address] [facility] [facility] [place] [id number] BUN/CREA 23 Ratio High 6-22 [facility] Comment on above: Performed By: #### C HERNAN LIPD, CMP #### [facility] [address] [place] [id number] Calcium [Mass/Vol] 9.4 mg/dL Normal 8.6-10.2 [facility] Comment on above: Performed By: #### C HERNAN LIPD, CMP #### [facility] [address] [facility] [place] [id number] Chloride [Moles/Vol] 102 mmol/L Normal 98-107 [facility] Comment on above: Performed By: #### C BC, LIPD, CMP #### [facility] [address] [facility] [place] [id number] CO2 [Moles/Vol] 25 mmol/L Normal 20-31 [facility] Comment on above: Performed By: #### C BC LIPD, CMP #### [facility] [address] [facility] [place] [id number] Creatinine [Mass/Vol] 0.9 mg/dL Normal 0.6-1.4 [facility] Comment on above: Performed By: #### C BC, LIPD, CMP #### [facility] [address] [place], [place] [id number] eGFRAA 71 mL/min/1.73m2 Normal >60 [facility] Comment on above: Performed By: #### ERNIE GRIGSBY, CMP #### [facility] [address] [place], [place] [id number] eGFRNAA 59 mL/min/1.73m2 Low >60 [facility] Comment on above: Performed By: #### Renan BECERRA LIPD, CMP #### [facility] [address] [place], [place] [id number] Globulin (S) [Mass/Vol] 2.4 g/dL Normal 1.9-3.7 [facility] Comment on above: Performed By: #### ERNIE GRIGSBY, CMP #### [facility] [address] [place], [place] [id number] Glucose [Mass/Vol] 96 mg/dL Normal 65-99 [facility] Comment on above: Result Comment: For FASTING Glucose --- ADA reference ranges: Normal 65-99 mg/dl Prediabetes 100-125 Diabetes >/= 126 Performed By: #### C ERNIE BECERRA, CMP #### [facility] [address] [place], [place] [id number] Potassium [Moles/Vol] 4.3 mmol/L Normal 3.5-5.5 [facility] Comment on above: Performed By: #### Renan BECERRA LIPD, CMP #### [facility] [address] [place], [place] [id number] Protein [Mass/Vol] 6.5 g/dL Normal 6.1-8.1 [facility] Comment on above: Performed By: #### Renan BECERRA LIPD, CMP #### [facility] [address] [place], [place] [id number] Sodium [Moles/Vol] 138 mmol/L Normal 135-146 [facility] Comment on above: Performed By: #### Renan BECERRA LIPD, CMP #### [facility] [address] [place], [place] [id number] Urea nitrogen [Mass/Vol] 21 mg/dL Normal 7-25 [facility] Comment on above: Performed By: #### C BC, LIPD, CMP #### [facility] [address] [place], [place] [id number] Lipid Panelon 03-01-2021 Cholesterol [Mass/Vol] 242 mg/dL High 125-200 [facility] Comment on above: Result Comment: Low risk < 200mg/dL Borderline risk 201-239 mg/dl High risk > or equal to 240 Performed By: #### C BC, LIPD, CMP #### [facility] [address] [place], [place] [id number] Cholesterol in HDL [Mass/Vol] 64 mg/dL Normal >40 [facility] Comment on above: Result Comment: High Cardiovascular Risk HDL <40 mg/dL Low Cardiovascular Risk HDL > or equal to 60 mg/dl Performed By: #### C BC, LIPD, CMP #### [facility] [address] [place], [place] [id number] Cholesterol in LDL [Mass/Vol] 166 mg/dL Normal [facility] Comment on above: Result Comment: LDL ATP III CLASSIFICATION LDL less than 100 mg/dl Optimal LDL 100-129 mg/dl Near or above optimal LDL 130-159 Borderline high LDL 160-189 High LDL greater than 189 mg/dl Very High Performed By: #### C BC, LIPD, CMP #### [facility] [address] [place], [place] [id number] Cholesterol in VLDL [Mass/Vol] 12 mg/dL Normal [facility] Comment on above: Performed By: #### C BC, LIPD, CMP #### [facility] [address] [place], [place] [id number] Cholesterol.total/ Cholesterol in HDL [Mass ratio] 4 {ratio} Normal [facility] Comment on above: Performed By: #### C BC, LIPD, CMP #### [facility] [address] [place], [place] [id number] Triglyceride [Mass/Vol] 60 mg/dL Normal 30-150 [facility] Comment on above: Result Comment: TRIG ATPIII CLASSIFICATIONS TRIG less than 150 mg/dl Normal TRIG 150-199 mg/dl Borderline High TRIG 200-500 mg/dl High TRIG greather than 500 mg/dl Very High Performed By: #### C BC, LIPD, CMP #### [facility] [address] [place] [id number] TSHon 03-01-2021 TSH Qn 3.13 m[IU]/L Normal 0.40-4.50 [facility] Comment on above: Order Comment: [facility] performed at: QPT, [facility], [address], [address] [facility], [place], [address], Avionics Integration Engineer: Joao Graham MD [facility] Collection Date/Time: [facility] Results Received Date/Time: [facility] Reported Date/Time: Performed By: #### T #### [facility] Default [address] [place] [address] Encounters Encounter Date Encounter Type Care Provider Facility Start: 07-13-2023 End: 07-13-2023 ambulatory SHARMAINE WILLS Not Available Start: 07-02-2023 End: 07-02-2023 ambulatory SHARMAINE WILLS Not Available Start: 09-19-2022 End: 09-19-2022 ambulatory [facility] Start: 11-07-2021 End: 11-07-[address] SHARMAINE WILLS Facility: Payers Date Payer Category Payer Medicare [id number] 1960 Medicare [id number] 1960 Unknown [id number] 1935 Unknown [id number] 2.16.84 [id number] 1935 Unknown [id number] 2.16.84 [id number] 1935 Unknown [id number] 2.16.84 [id number] Progress note 09-19-2022 Note Date & Type [...] All other systems reviewed and are negative. [facility] Progress note 09-19-2022 Note Date & [...] electrolytes. No follow-ups on file. Jenni Mabry APRN-SANJUANITA [facility] Physicians Cardiovascular Medicine [facility] Summary Purpose Family History No Family History Records FoundNo Family History Records FoundNo Family History Records FoundNo Family History Records Found Advance Directives No Advanced Directives Records FoundNo Advanced Directives Records FoundNo Advanced Directives Records FoundNo Advanced Directives Records Found Additional Source Comments INFORMATION SOURCE (unrecogn ized section and content) DATE CREATED AUTHOR 03/02/2021 [facility] dical Specialist DATE CREATED AUTHOR AUTHOR'S ORGANIZ ATION 03/29/2022 [facility] DATE CREATED AUTHOR AUTHOR'S ORGANIZ ATION 10/05/2022 [facility] DATE CREATED AUTHOR AUTHOR'S ORGANIZ ATION 07/17/2023 [facility] dical Specialists EPIC FOR RECORDS PERTAINING TO PATIENTS WHO ARE [...] BE BASED ON THE PRIMARY CLINICAL RECORDS. [employer] provides no warranty or guarantee of the accuracy or completeness of information in this document.
== END 2023-09-17 08:39 | disposition home or self-care (01) ==
LOC: EC 08:38
PROVIDERS: PCP Internal Medicine; Visit Provider Orthopaedic Surgery
DX: S52.691D Other fracture of lower end of right ulna, subsequent encounter for closed fracture with routine healing (principal)
CPT/HCPCS: 73110

== ENCOUNTER 2023-10-19 08:48 | Outpatient (OUT) | payer MEDICARE, SELFPAY ==
--- NOTE | 2023-10-19 09:11 | XR_ITS ---
[address] [address] Patient Name: HOWARD HOGUE MRN: [id number] date: 1935 Sex: F Assigned Patient Location: [facility] Current Patient Location: [facility] Accession/Order Number: [id number] Exam Date: 10/19/2023 09:00 Report Date: 10/19/2023 11:42 At the request of: SHARMAINE WILLS Procedure: XR DEXA axial skeleton EXAMINATION: XR DEXA axial skeleton HISTORY: Estrogen Deficiency E28.39 COMPARISON: DEXA bone densitometry 09/20/2020 TECHNIQUE: Dual-energy X-ray absorptiometry (DXA) was performed. FINDINGS: SPINE ANALYSIS: Average bone mineral density is 0.869 g/cm2. T-score (standard deviation relative to young adult mean): -2.6 . +5.0% change since prior study. HIP ANALYSIS: Lowest bone mineral density is within the left femoral neck, 0.694 g/cm2. T-score (standard deviation relative to young adult mean): -2.5 . +2.6% change since prior study. XR/XR DEXA axial skeleton IMPRESSION: World Health Organization Classification: Osteoporosis - High Fracture Risk FRAX: Cannot calculate. Pharmacologic treatment recommendations * No uniform recommendation applies to all patients. Management plans must be individualized. * Consider initiating pharmacologic treatment in postmenopausal women and men >= 50 years of age who have the following: Primary fracture prevention: * T-score <= - 2.5 at the femoral neck, total hip, lumbar spine, 33% radius (some uncertainty with existing data) by DXA. * Low bone mass (osteopenia: T-score between - 1.0 and - 2.5) at the femoral neck or total hip by DXA with a 10-year hip fracture risk >= 3% or a 10-year major osteoporosis-related fracture risk >= 20% (i.e., clinical vertebral, hip, forearm, or proximal humerus) based on the [place]-adapted FRAXregistered model. Secondary fracture prevention: * Fracture of the hip or vertebra regardless of BMD [4, 5]. * Fracture of proximal humerus, pelvis, or distal forearm in persons with low bone mass (osteopenia: T-score between - 1.0 and - 2.5). The decision to treat should be individualized in persons with a fracture of the proximal humerus, pelvis, or distal forearm who do not have osteopenia or low BMD [12, 13]. Esdras MS, Abdulaziz SL, Delphine KL, Edu EM, Jonathon KG, AJ, Daniel ES. The clinician's guide to prevention and treatment of osteoporosis. Osteoporos Int. 2021;33(10):0743-2898. doi: 10.1007/z42827-406-85649-c. Epub 2021Jun 09. Erratum in: Osteoporos Int. 2021Sep 08;: PMID: 98016503; PMCID: [id number]. Electronically authenticated by: PATT FLOWERS Date: 10/19/2023 11:42
== END 2023-10-19 08:49 | disposition home or self-care (01) ==
LOC: RAD 08:48
PROVIDERS: PCP Internal Medicine; Visit Provider Internal Medicine
DX: E28.39 Other primary ovarian failure (principal); M81.0 Age-related osteoporosis without current pathological fracture
CPT/HCPCS: 77080

== ENCOUNTER 2023-10-29 09:01 | Outpatient (OUT) | payer MEDICARE, SELFPAY ==
--- NOTE | 2023-10-29 | XR_ITS ---
The [address] [address] Patient Name: HOWARD HOGUE MRN: [id number] date: 1935 Sex: F Assigned Patient Location: Current Patient Location: Accession/Order Number: [id number] Exam Date: 10/29/2023 09:35 Report Date: 10/29/2023 16:14 At the request of: PATT JOHNSON Procedure: XR wrist RT min 3V EXAM: XR wrist RT min 3V HISTORY: RIGHT WRIST PAIN COMPARISON: 09/17/2023 TECHNIQUE: 3 views the right wrist were obtained. FINDINGS: Again seen is the comminuted fracture involving the distal ulnar metaphysis. There is been slight interval worsening of the impaction fracture fragments and interval increase in the slight radial angulation of the distal fracture fragment. No significant osseous healing is identified. There is no other evidence of an acute fracture or dislocation. There is prominent narrowing of the joint spaces at the distal scaphoid bone. XR/XR wrist RT min 3V IMPRESSION: There has been interval worsening of the slightly impacted comminuted fracture of the distal ulna, with worsening of position and alignment, as described above. There is also very little evidence of ongoing osseous healing. Electronically authenticated by: ALVA JANSEN Date: 10/29/2023 16:14
== END 2023-10-29 09:02 | disposition home or self-care (01) ==
LOC: EC 09:02
PROVIDERS: PCP Internal Medicine; Visit Provider Orthopaedic Surgery
DX: S52.691G Other fracture of lower end of right ulna, subsequent encounter for closed fracture with delayed healing (principal)
CPT/HCPCS: 73110

== ENCOUNTER 2023-12-31 08:55 | Outpatient (OUT) | payer MEDICARE, SELFPAY ==
--- NOTE | 2023-12-31 | XR_ITS ---
[address] [address] Patient Name: HOWARD HOGUE MRN: [id number] date: 1935 Sex: F Assigned Patient Location: Current Patient Location: Accession/Order Number: [id number] Exam Date: 12/31/2023 08:57 Report Date: 01/01/2024 05:45 At the request of: PATT JOHNSON Procedure: XR wrist RT min 3V 3 views of the right wrist INDICATION: Pain COMPARISON: 10/29/2023 XR/XR wrist RT min 3V IMPRESSION: Displaced distal ulna fracture in worsened alignment compared to prior without significant interval healing. 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 Joint alignment is intact. Soft tissue swelling about the wrist. Electronically authenticated by: JACQUELIN CARREON Date: 01/01/2024 05:45
--- OUTSIDE RECORDS SUMMARY | 2023-12-31 09:18 | XMS_ITS | CCD ---
Author Organization [facility] Care Team Providers Care Workers Compensation Claims Supervisor Name Role Phone DR SHARMAINE WILLS Primary Care Unavailable PAY, DR COOMBS Admitting Unavailable PAY, DR COOMBS Attending Unavailable PAY, DR COOMBS Consulting Unavailable JENNI MABRY Attending Unavailable SHARMAINE WILLS Attending Unavailable SHARMAINE WILLS Referring Unavailable SHARMAINE WILLS Attending Unavailable Allergies Allergy Classification Reported Allergen(s) Allergy Type Date of Onset Reaction(s) Facility (2 sources) Penicillins; Translations: [PENICILLINS] Drug allergy (disorder) 06-17-2012 [facility] Repository Problems Active Problems Problem Classification Problem [...] te Episodic/Chronic Other aftercare (1 source) Other director of physical therapy (current) drug therapy; Translations: [[facility] CURRENT DRUG THERAPY] Onset: 11-08-2021 Episodic Other upper respiratory infections (1 source) Acute upper respiratory infection, unspecified; Translations: [ACUTE UP RESPIRATORY INFECTION UNS] Onset: 11-08-2021 Episodic Unclassified (1 source) COUGH, UNSPECIFIED; Translations: [COUGH, UNSPECIFIED] Onset: 11-07-2021 Results Test Name Value Interpretation Reference Range Facility VAS US CAROTID ARTERY DUPLE X BILATERALon 07-13-2023 VASC US CAROTID ARTERY DUPLEX BILATERAL FINDINGS: Right [...] Not Available Office Visiton 09-19-2022 Follow-up visit [id number] Howard Hogue 1935 F Date Provider Department Center 09/19/2022 [id number] MABRY [facility] Family History Problem Relation Age of Onset Cancer Father Colon cancer Sister Heart attack Brother Family Status - Relation Status Age at Father Sister Brother Level of Service:23626 NE OFFICE/OUTPATIENT NEW LOW MDM 30-44 MINUTES Normal [facility] Covid-19 PCR (CVDTB)on 10-14 SARS-CoV-2 (COVID-19) RNA REYNALDO+probe Ql (Unsp spec) Detected Critically abnormal NOT DETECTED [facility] Comment on above: Result Comment: This test is not yet approved or cleared by the [place] FDA. When there are no FDA-approved or cleared tests available, and other criteria are met, FDA can make tests available under an emergency access mechanism called an Emergency Use Authorization (EUA). The EUA for this test is supported by the [place] of Health and Human Service's declaration that [...] longer be used). Performed By: #### C VDTBH #### [facility] [address] [place], [place] [address] Dr. Leslie Tejeda Complete Blood Counton 03-01 Erythrocyte distribution width (RBC) [Ratio] 12.4 % Normal 11.0-15.0 [facility] Public Health Physician Comment on above: Performed By: #### C HERNAN LIPD, CMP #### [facility] [address] [place], [place] [id number] Hematocrit (Bld) [Volume fraction] 38.4 % Normal 35.0-47.0 [facility] Public [facility] Physician Comment on above: Performed By: #### C HERNAN LIPShraddha, CMP #### [facility] [address] [place], [place] [id number] Hemoglobin (Bld) [Mass/Vol] 12.7 g/dL Normal 11.6-15.5 [facility] Physician Comment on above: Performed By: #### C HERNAN LIPShraddha, CMP #### [facility] [address] [place], [place] [id number] MCH (RBC) [Entitic mass] 31.7 pg Normal 27.0-33.0 [facility] Public [facility] Physician Comment on above: Performed By: #### C HERNAN LIPShraddha, CMP #### [facility] [address] [place], [place] [id number] MCHC (RBC) [Mass/Vol] 33.1 g/dL Normal 32.0-36.0 [facility] Public [facility] Physician Comment on above: Performed By: #### C HERNAN LIPD, CMP #### [facility] [address] [place], [place] [id number] MCV (RBC) [Entitic vol] 96 fL Normal 80-100 [facility] Public [facility] Physician Comment on above: Performed By: #### C HERNAN LIPD, CMP #### [facility] [address] [place], [place] [id number] Platelet mean volume (Bld) [Entitic vol] 9.70 fL Normal 7.50-12.50 [facility] Public [facility] Physician Comment on above: Performed By: #### C HERNAN LIPD, CMP #### [facility] [address] [place], [place] [id number] Platelets (Bld) [#/Vol] 240 10*3/uL Normal 140-400 [facility] Specialist Comment on above: Performed By: #### C ERNIE BECERRA, CMP #### [facility] [address] [place], [place] [id number] RBC (Bld) [#/Vol] 4.01 10*6/uL Normal 3.90-5.20 [facility] Specialist Comment on above: Performed By: #### C BLANCA BECERRAD, CMP #### [facility] [address] [place], [place] [id number] RDW-SD 43.9 fL Normal 37.0-50.0 [facility] Specialist Comment on above: Performed By: #### C ERNIE BECERRA, CMP #### [facility] [address] [place], [place] [id number] WBC (Bld) [#/Vol] 5.1 10*3/uL Normal 3.8-11.0 [facility] Specialist Comment on above: Performed By: #### C ERNIE BECERRA, CMP #### [facility] [address] [place], [place] [id number] Comprehensive Metabolic Pane [facility] 03-01-2021 Albumin [Mass/Vol] 4.1 g/dL Normal 3.6-5.1 [facility] Specialist Comment on above: Performed By: #### C HERNAN LIPShraddha, CMP #### [facility] [address] [place], [place] [id number] Albumin/Globulin [Mass ratio] 1.7 {ratio} Normal 1.0-2.5 [facility] Specialist Comment on above: Performed By: #### C HERNAN LIPD, CMP #### [facility] [address] [place], [place] [id number] ALP [Catalytic activity/Vol] 58 U/L Normal 35-119 [facility] Specialist Comment on above: Performed By: #### C HERNAN LIPD, CMP #### [facility] [address] [place], [place] [id number] ALT [Catalytic activity/Vol] 9 U/L Normal 6-33 [facility] Specialist Comment on above: Result Comment: 01/12 Female reference range changed. Performed By: #### C BC, LIPD, CMP #### [facility] [address] [place], [place] [id number] Anion gap [Moles/Vol] 15 mmol/L Normal 12-20 [facility] Specialist Comment on above: Result Comment: Eli ctive 02/17/2019 reference range changed. Performed By: #### C BC, LIPD, CMP #### [facility] [address] [place], [place] [id number] AST [Catalytic activity/Vol] 14 U/L Normal 9-34 [facility] Specialist Comment on above: Performed By: #### C BC, LIPD, CMP #### [facility] [address] [place], [place] [id number] Bilirubin [Mass/Vol] 0.42 mg/dL Normal 0.30-1.20 [facility] Specialist Comment on above: Performed By: #### C BC, LIPD, CMP #### [facility] [address] [place], [place] [id number] BUN/CREA 23 Ratio High 6-22 [facility] Comment on above: Performed By: #### C BC, LIPD, CMP #### [facility] [address] [place], [place] [id number] Calcium [Mass/Vol] 9.4 mg/dL Normal 8.6-10.2 [facility] Comment on above: Performed By: #### C BC, LIPD, CMP #### [facility] [address] [place] [id number] Chloride [Moles/Vol] 102 mmol/L Normal 98-107 [facility] Specialist Comment on above: Performed By: #### C BC, LIPD, CMP #### [facility] [address] [place], [place] [id number] CO2 [Moles/Vol] 25 mmol/L Normal 20-31 [facility] Comment on above: Performed By: #### C BC, LIPD, CMP #### [facility] [address] [place] [id number] Creatinine [Mass/Vol] 0.9 mg/dL Normal 0.6-1.4 [facility] Comment on above: Performed By: #### C BC, LIPD, CMP #### [facility] [address] [place], [place] [id number] eGFRAA 71 mL/min/1.73m2 Normal >60 [facility] Public Health Physician Comment on above: Performed By: #### C HERNAN LIPD, CMP #### [facility] [address] [place], [place] [id number] eGFRNAA 59 mL/min/1.73m2 Low >60 [facility] Public [facility] Physician Comment on above: Performed By: #### C HERNAN LIPD, CMP #### [facility] [address] [place], [place] [id number] Globulin (S) [Mass/Vol] 2.4 g/dL Normal 1.9-3.7 [facility] Public [facility] Physician Comment on above: Performed By: #### C HERNAN LIPShraddha, CMP #### [facility] [address] [place], [place] [id number] Glucose [Mass/Vol] 96 mg/dL Normal 65-99 [facility] Public Health Physician Comment on above: Result Comment: For FASTING Glucose --- ADA reference ranges: Normal 65-99 mg/dl Prediabetes 100-125 Diabetes >/= 126 Performed By: #### C HERNAN LIPShraddha, CMP #### [facility] [address] [place], [place] [id number] Potassium [Moles/Vol] 4.3 mmol/L Normal 3.5-5.5 [facility] Public [facility] Physician Comment on above: Performed By: #### C HERNAN LIPD, CMP #### [facility] [address] [place], [place] [id number] Protein [Mass/Vol] 6.5 g/dL Normal 6.1-8.1 [place] [facility] Public [facility] Physician Comment on above: Performed By: #### C HERNAN LIPD, CMP #### [facility] [address] [place], [place] [id number] Sodium [Moles/Vol] 138 mmol/L Normal 135-146 [facility] [place] [facility] Physician Comment on above: Performed By: #### C HERNAN LIPD, CMP #### [facility] [address] [facility] [facility] [id number] Urea nitrogen [Mass/Vol] 21 mg/dL Normal 7-25 [place] [facility] Physician Comment on above: Performed By: #### C BC, LIPD, CMP #### [facility] [address] [place], [place] [id number] Lipid Panelon 03-01-2021 Cholesterol [Mass/Vol] 242 mg/dL High 125-200 [facility] Specialist Comment on above: Result Comment: Low risk < 200mg/dL Borderline risk 201-239 mg/dl High risk > or equal to 240 Performed By: #### C BC, LIPD, CMP #### [facility] [address] [place], [place] [id number] Cholesterol in HDL [Mass/Vol] 64 mg/dL Normal >40 [facility] Specialist Comment on above: Result Comment: High Cardiovascular Risk HDL <40 mg/dL Low Cardiovascular Risk HDL > or equal to 60 mg/dl Performed By: #### C BC, LIPD, CMP #### [facility] [address] [place], [place] [id number] Cholesterol in LDL [Mass/Vol] 166 mg/dL Normal [facility] Specialist Comment on above: Result Comment: LDL ATP III CLASSIFICATION LDL less than 100 mg/dl Optimal LDL 100-129 mg/dl Near or above optimal LDL 130-159 Borderline high LDL 160-189 High LDL greater than 189 mg/dl Very High Performed By: #### C BC, LIPD, CMP #### [facility] [address] [place], [place] [id number] Cholesterol in VLDL [Mass/Vol] 12 mg/dL Normal [facility] Specialist Comment on above: Performed By: #### C BC, LIPD, CMP #### [facility] [address] [place], [place] [id number] Cholesterol.total/ Cholesterol in HDL [Mass ratio] 4 {ratio} Normal [facility] Specialist Comment on above: Performed By: #### C BC, LIPD, CMP #### [facility] [address] [place], [place] [id number] Triglyceride [Mass/Vol] 60 mg/dL Normal 30-150 [facility] Specialist Comment on above: Result Comment: TRIG ATPIII CLASSIFICATIONS TRIG less than 150 mg/dl Normal TRIG 150-199 mg/dl Borderline High TRIG 200-500 mg/dl High TRIG greather than 500 mg/dl Very High Performed By: #### C BC, LIPD, CMP #### [facility] [address] [place], [place] [id number] TSHon 03-01-2021 TSH Qn 3.13 m[IU]/L Normal 0.40-4.50 [facility] Public Health Physician Comment on above: Order Comment: [facility] performed at: QPT, [facility], [address], [address] [place], [address], County Treasurer: Joao Graham MD [facility] Collection Date/Time: [facility] Results Received Date/Time: [facility] Reported Date/Time: Performed By: #### T SH #### [facility] Default [address] [place] [address] Encounters Encounter Date Encounter Type Care Provider Facility Start: 10-04-2023 End: 10-04-2023 ambulatory SHARMAINE WILLS Not Available Start: 07-13-2023 End: 07-13-2023 ambulatory SHARMAINE WILLS Not Available Start: 07-02-2023 End: 07-02-2023 ambulatory SHARMAINE WILLS Not Available Start: 09-19-2022 End: 09-19-[address] [facility] Start: 11-07-2021 End: 11-07-[address] SHARMAINE WILLS Facility: Payers Date Payer Category Payer Medicare [id number] 1960 Medicare [id number] 1960 Unknown [id number] 1935 Unknown [id number] 2.16.84 [id number] 1935 Unknown [id number] 2.16.84 [id number] 1935 Unknown [id number] 2.16.84 [id number] 1935 Unknown [id number] 2.16.84 [id number] Progress note 09-19-2022 Note Date & Type [...] All other systems reviewed and are negative. [facility] Progress note 09-19-2022 Note Date & [...] electrolytes. No follow-ups on file. Jenni Mabry APRN-MILLWRIGHT HELPER [facility] Physicians Cardiovascular Medicine [facility] Summary Purpose Family History No Family History Records FoundNo Family History Records FoundNo Family History Records FoundNo Family History Records Found Advance Directives No Advanced Directives Records FoundNo Advanced Directives Records FoundNo Advanced Directives Records FoundNo Advanced Directives Records Found Additional Source Comments INFORMATION SOURCE (unrecogn ized section and content) DATE CREATED AUTHOR 03/02/2021 [facility] dical Specialist DATE CREATED AUTHOR AUTHOR'S ORGANIZ ATION 03/29/2022 [facility] DATE CREATED AUTHOR AUTHOR'S ORGANIZ ATION 10/05/[address] [facility] DATE CREATED AUTHOR AUTHOR'S ORGANIZ ATION 10/06/2023 [facility] dical Specialists [facility] FOR RECORDS PERTAINING TO PATIENTS WHO ARE [...] BE BASED ON THE PRIMARY CLINICAL RECORDS. [employer] provides no warranty or guarantee of the accuracy or completeness of information in this document.
== END 2023-12-31 08:56 | disposition home or self-care (01) ==
LOC: EC 08:57
PROVIDERS: PCP Internal Medicine; Visit Provider Orthopaedic Surgery
DX: S52.6 Fracture of lower end of ulna (principal)
CPT/HCPCS: 73110

== ENCOUNTER 2024-02-03 12:26 | Inpatient (IN) | payer MEDICARE, SELFPAY ==
[2024-02-03] VITALS (37 sets, daily range): BP systolic 137–155; BP diastolic 76–105; PULSE 76–107; TEMP 36.6–36.8; O2SAT 89–100; BMI 24.2; BMI 24.4
--- OUTSIDE RECORDS SUMMARY | 2024-02-03 12:34 | XMS_ITS | CCD ---
Author Organization [facility] Inform ion Partnership [facility] Care Team Providers Care Radiation / Chemistry Technician Name Role Phone DR ALPESH TRINH Primary Care Unavailable PAY, DR COOMBS Admitting Unavailable PAY, DR COOMBS Attending Unavailable PAY, DR COOMBS Consulting Unavailable JENNI MABRY Attending Unavailable Alpesh Trinh MD Primary Care Provider [phone] ALPESH TRINH Attending ALPESH Huizar Referring Unavailable ALPESH TRINH Attending ALPESH Huizar Attending Unavailable Allergies Allergy Classification Reported Allergen(s) Allergy Type Date of Onset Reaction(s) Facility (2 sources) Penicillins; Translations: [PENICILLINS] Drug allergy (disorder) 06-17-2012 [facility] Repository (7 sources) Penicillin V Drug Allergy 12-07-2022 Unknown [facility] Healthcare (7 sources) Penicillins Drug Allergy 01-30-2014 Unknown [facility] Healthcare Medications Current Medications Medication Drug Class(es) Dates Sig (Normalized) Sig (Original) aspirin 81 mg delayed release oral tablet (7 sources) Platelet Aggregation Inhibitor, Nonsteroidal Anti-inflammatory Drug take 1 tablet by mouth in the morning aspirin 81 MG EC tablet Take 81 mg by mouth in the morning. Active FLUoxetine 20 mg oral capsule (7 sources) Serotonin Reuptake Inhibitor Start: 02-19-2023 take 1 capsule by mouth once daily FLUoxetine (PROzac) 20 MG capsule Indications: Major depressive disorder, single episode, unspecified (CMS/HCC) TAKE 1 CAPSULE BY MOUTH DAILY 100 capsule 3 02/19/2023 Active furosemide 20 mg oral tablet (7 sources) Loop Diuretic take 1 tablet by mouth in the morning furosemide (Lasix) 20 MG tablet Take 20 mg by mouth in the morning. Active lisinopril 10 mg oral tablet (7 sources) Angiotensin Converting Enzyme Inhibitor Start: 08-30-2023 take 1 tablet by mouth in the morning lisinopril 10 MG tablet Indications: Essential (primary) hypertension (CMS/HCC) TAKE 1 TABLET BY MOUTH IN THE MORNING 100 tablet 3 08/30/2023 Active metoprolol tartrate 25 mg oral tablet (7 sources) beta-Adrenergic Radha Start: 08-30-2023 take 0.5 tablet by mouth once daily metoprolol tartrate (Lopressor) 25 MG tablet Indications: Essential (primary) hypertension (CMS/HCC) TAKE 1/2 (ONE-HALF) OF A TABLET BY MOUTH DAILY 50 tablet 3 08/30/2023 Active 28 actuat teriparatide 0.02 mg/actuat pen injector (2 sources) Parathyroid Hormone Analog Start: 01-09-2024 inject 0.08 mL by subcutaneous injection once daily teriparatide (Forteo) injection Indications: 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, subsequent encounter Inject 0.08 mL (20 mcg) under the skin Daily 2.24 mL 2 01/09/2024 Active Start: 01-09-2024 inject 0.08 mL by eubanks bcutaneous injection once daily teriparatide (Forteo) injection Indications: 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 Take before meals. 10/04/2023 Discontinued Problems Active Problems Problem Classification Problem Date Documented Date Episodic/Chronic Cancer of colon (9 sources) Malignant tumor of sigmoid colon; Translations: [Malignant neoplasm of sigmoid colon] Onset: 04-18-2016 12-07-2022 Chronic Chronic kidney disease (2 sources) Chronic kidney disease stage 3A ; Translations: [Chronic kidney disease, stage 3a (HCC) (CMS/HCC)] 10-04-2023 Chronic Chronic obstructive pulmonary disease and bronchiectasis (9 sources) Chronic bronchitis; Translations: [Unspecified chronic bronchitis] Onset: 10-30-2011 12-07-2022 Chronic Disorders of lipid metabolism (16 sources) Pure hypercholesterolemia; Translations: [Pure hypercholesterolemia, unspecified] Onset: 10-30-2011 Resolved: 10-04-2023 12-07-2022 Chronic Esophageal disorders (9 sources) Gastroesophageal reflux disease without esophagitis; Translations: [Gastro-esophageal reflux disease without esophagitis] Onset: 02-06-2018 12-07-2022 Chronic Essential hypertension (12 sources) Essential (primary) hypertension; Translations: [Benign essential hypertension] Onset: 10-30-2011 Chronic Heart valve disorders (9 sources) Nonrheumatic mitral (valve) insufficiency; Translations: [Aortic valve disorder] Onset: 11-01-2011 Chronic Menopausal disorders (2 sources) Decreased estrogen level; Translations: [Other primary ovarian failure] 10-04-2023 Chronic Mood disorders (7 sources) Depressive disorder; Translations: [Depressive disorder] Onset: 04-18-2016 12-07-2022 Chronic Osteoporosis (14 sources) Senile osteoporosis; Translations: [Age-related osteoporosis without current pathological fracture] Onset: 10-30-2011 12-07-2022 Chronic Other and ill-defined heart disease (7 sources) Cardiomegaly; Translations: [Cardiomegaly] Onset: 04-18-2016 12-07-2022 Chronic Other and ill-defined heart disease (7 sources) Diastolic dysfunction; Translations: [Other ill-defined heart diseases] Onset: 09-18-2022 12-07-2022 Chronic Other and ill-defined heart disease (7 sources) Heart disease; Translations: [Heart disease, unspecified] Onset: 01-22-2018 12-07-2022 Chronic Other and ill-defined heart disease (9 sources) Left ventricular diastolic dysfunction ; Translations: [Other ill-defined heart diseases] Onset: 12-07-2022 12-07-2022 Chronic Pathological fracture (4 sources) Pathological fracture due to osteoporosis; Translations: [Age-related osteoporosis with current pathological fracture, unspecified site, subsequent encounter for fracture with nonunion] 01-09-2024 Episodic Spondylosis; intervertebral disc disorders; other back problems (7 sources) Degeneration of lumbar intervertebral disc; Translations: [Degeneration of intervertebral disc of lumbar region] Onset: 01-22-2018 12-07-2022 Chronic Unclassified (3 sources) COUGH, UNSPECIFIED; Translations: [COUGH, UNSPECIFIED] Onset: 11-08-2021 Viral infection (1 source) COVID-19; Translations: [COVID-19] Onset: 11-08-2021 Past or Other Problems Problem Classification Problem Date Documented Da te Episodic/Chronic Administrative/social admission (2 sources) Patient encounter status; Translations: [Other specified counseling] 10-04-2023 Episodic Other acquired deformities (7 sources) Acquired spondylolisthesis; Translations: [Spondylolisthesis, site unspecified] Onset: 05-30-2016 12-07-2022 Episodic Other acquired deformities (7 sources) Lumbar spondylolisthesis; Translations: [Spondylolisthesis, lumbar region] Onset: 12-07-2022 12-07-2022 Episodic Other aftercare (1 source) Other intermodal customer service (current) drug therapy; Translations: [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 DOCK 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 CURRENT DRUG THERAPY] Onset: 11-08-2021 Episodic Other nervous system disorders (7 sources) Ataxic gait; Translations: [Ataxic gait] Onset: 07-02-2023 07-02-2023 Episodic Other skin disorders (7 sources) Inflamed seborrheic keratosis; Translations: [Inflamed seborrheic keratosis] Onset: 04-18-2016 12-07-2022 Episodic Other upper respiratory infections (1 source) Acute upper respiratory infection, unspecified; Translations: [ACUTE UP RESPIRATORY INFECTION UNS] Onset: 11-08-2021 Episodic Unclassified (1 source) COUGH, UNSPECIFIED; Translations: [COUGH, UNSPECIFIED] Onset: 11-07-2021 Varicose veins of lower extremity (14 sources) Venous varices; Translations: [Asymptomatic varicose veins of unspecified lower extremity] Onset: 04-18-2016 12-07-2022 Episodic Results Test Name Value Interpretation Reference Range Facility [facility] US CAROTID ARTERY DUPLE X BILATERALon 07-13-2023 [facility] US CAROTID ARTERY DUPLEX BILATERAL FINDINGS: Right [...] Not Available Office Visiton 09-19-2022 Follow-up visit [id number] Gloria Roque 1935 F Date Provider Department Center 09/19/2022 [id number] MABRY [facility] Family History Problem Relation Age of Onset Cancer Father Colon cancer Sister Heart attack Brother Family Status - Relation Status Age at Father Sister Brother Level of Service:97445 [place] OFFICE/OUTPATIENT [facility] MDM 30-44 MINUTES Normal [facility] Covid-19 PCR ([facility])on 10-14 SARS-CoV-2 (COVID-19) RNA REYNALDO+probe Ql (Unsp spec) Detected Critically abnormal NOT DETECTED [facility] Comment on above: Result Comment: This test is not yet approved or cleared by the [place] FDA. When there are no FDA-approved or cleared tests available, and other criteria are met, FDA can make tests available under an emergency access mechanism called an Emergency Use Authorization (EUA). The EUA for this test is supported by the Resource Technician of Health and Human Service's declaration that [...] used). Performed By: #### C VDTBH #### [facility] [address], [place] [address] Dr. Leslie Tejeda Complete Blood Counton 03-01 Erythrocyte distribution width (RBC) [Ratio] 12.4 % Normal 11.0-15.0 [facility] Comment on above: Performed By: #### C BC, LIPD, CMP #### [facility] [address] [place], [place] [id number] Hematocrit (Bld) [Volume fraction] 38.4 % Normal 35.0-47.0 [facility] Comment on above: Performed By: #### ERNIE GRIGSBY, CMP #### [facility] [address], [place] [id number] Hemoglobin (Bld) [Mass/Vol] 12.7 g/dL Normal 11.6-15.5 [facility] Comment on above: Performed By: #### ERNIE GRIGSBY, CMP #### [facility] [address], [place] [id number] MCH (RBC) [Entitic mass] 31.7 pg Normal 27.0-33.0 [facility] Comment on above: Performed By: #### ERNIE GRIGSBY, CMP #### [facility] [address], [place] [id number] MCHC (RBC) [Mass/Vol] 33.1 g/dL Normal 32.0-36.0 [facility] Comment on above: Performed By: #### ERNIE GRIGSBY, CMP #### [facility] [address], [place] [id number] MCV (RBC) [Entitic vol] 96 fL Normal 80-100 [facility] Comment on above: Performed By: #### ERNIE GRIGSBY, CMP #### [facility] [address], [place] [id number] Platelet mean volume (Bld) [Entitic vol] 9.70 fL Normal 7.50-12.50 [facility] Comment on above: Performed By: #### ERNIE GRIGSBY, CMP #### [facility] [address], [place] [id number] Platelets (Bld) [#/Vol] 240 10*3/uL Normal 140-400 [facility] Comment on above: Performed By: #### ERNIE GRIGSBY, CMP #### [facility] [address], [place] [id number] RBC (Bld) [#/Vol] 4.01 10*6/uL Normal 3.90-5.20 [facility] Comment on above: Performed By: #### ERNIE GRIGSBY, CMP #### [facility] [address], [place] [id number] RDW-SD 43.9 fL Normal 37.0-50.0 [facility] Comment on above: Performed By: #### C BC, LIPD, CMP #### [facility] [address], [place] [id number] WBC (Bld) [#/Vol] 5.1 10*3/uL Normal 3.8-11.0 [facility] Comment on above: Performed By: #### C BC, LIPD, CMP #### [facility] [address], [place] [id number] Comprehensive Metabolic Pane melquiades 03-01-2021 Albumin [Mass/Vol] 4.1 g/dL Normal 3.6-5.1 [facility] Comment on above: Performed By: #### C BC, LIPD, CMP #### [facility] [address], [place] [id number] Albumin/Globulin [Mass ratio] 1.7 {ratio} Normal 1.0-2.5 [facility] Comment on above: Performed By: #### C BC, LIPD, CMP #### [facility] [address], [place] [id number] ALP [Catalytic activity/Vol] 58 U/L Normal 35-119 [facility] Comment on above: Performed By: #### C BC, LIPD, CMP #### [facility] [address], [place] [id number] ALT [Catalytic activity/Vol] 9 U/L Normal 6-33 [facility] Comment on above: Result Comment: 01/12 Female reference range changed. Performed By: #### C BC, LIPD, CMP #### [facility] [address], [place] [id number] Anion gap [Moles/Vol] 15 mmol/L Normal 12-20 [facility] Comment on above: Result Comment: Effe ctive 02/17/2019 reference range changed. Performed By: #### C BC, LIPD, CMP #### [facility] [address], [place] [id number] AST [Catalytic activity/Vol] 14 U/L Normal 9-34 [facility] Comment on above: Performed By: #### C BC LIPD, CMP #### [facility] [address] [place], [place] [id number] Bilirubin [Mass/Vol] 0.42 mg/dL Normal 0.30-1.20 [facility] Comment on above: Performed By: #### C BC, LIPD, CMP #### [facility] [address] [place], [place] [id number] BUN/CREA 23 Ratio High 6-22 [facility] Comment on above: Performed By: #### C BC, LIPD, CMP #### [facility] [address] [place], [place] [id number] Calcium [Mass/Vol] 9.4 mg/dL Normal 8.6-10.2 [facility] Comment on above: Performed By: #### C BC, LIPD, CMP #### [facility] [address] [facility] [place] [place] [id number] Chloride [Moles/Vol] 102 mmol/L Normal 98-107 [facility] Comment on above: Performed By: #### C BC, LIPD, CMP #### [facility] [address] [place], [place] [id number] CO2 [Moles/Vol] 25 mmol/L Normal 20-31 [facility] Comment on above: Performed By: #### C BC, LIPD, CMP #### [facility] [address] [facility] [place] [place] [id number] Creatinine [Mass/Vol] 0.9 mg/dL Normal 0.6-1.4 [facility] Comment on above: Performed By: #### C BC, LIPD, CMP #### [facility] [address] [place], [place] [id number] eGFRAA 71 mL/min/1.73m2 Normal >60 [facility] Comment on above: Performed By: #### C BC, LIPD, CMP #### [facility] [address] [place], [place] [id number] eGFRNAA 59 mL/min/1.73m2 Low >60 [facility] Comment on above: Performed By: #### C BC, LIPD, CMP #### [facility] [address] [place], [place] [id number] Globulin (S) [Mass/Vol] 2.4 g/dL Normal 1.9-3.7 [facility] Comment on above: Performed By: #### C BC, LIPD, CMP #### [facility] [address], [place] [id number] Glucose [Mass/Vol] 96 mg/dL Normal 65-99 [facility] Comment on above: Result Comment: For FASTING Glucose --- ADA reference ranges: Normal 65-99 mg/dl Prediabetes 100-125 Diabetes >/= 126 Performed By: #### C BC, LIPD, CMP #### [facility] [address], [place] [id number] Potassium [Moles/Vol] 4.3 mmol/L Normal 3.5-5.5 [facility] Comment on above: Performed By: #### C BC, LIPD, CMP #### [facility] [address], [place] [id number] Protein [Mass/Vol] 6.5 g/dL Normal 6.1-8.1 [facility] Comment on above: Performed By: #### C BC, LIPD, CMP #### [facility] [address], [place] [id number] Sodium [Moles/Vol] 138 mmol/L Normal 135-146 [facility] Comment on above: Performed By: #### C BC, LIPD, CMP #### [facility] [address], [place] [id number] Urea nitrogen [Mass/Vol] 21 mg/dL Normal 7-25 [facility] Comment on above: Performed By: #### C BC, LIPD, CMP #### [facility] [address], [place] [id number] Lipid Panelon 03-01-2021 Cholesterol [Mass/Vol] 242 mg/dL High 125-200 [facility] Comment on above: Result Comment: Low risk < 200mg/dL Borderline risk 201-239 mg/dl High risk > or equal to 240 Performed By: #### C BC, LIPD, CMP #### [facility] [address], [place] [id number] Cholesterol in HDL [Mass/Vol] 64 mg/dL Normal >40 [facility] Comment on above: Result Comment: High Cardiovascular Risk HDL <40 mg/dL Low Cardiovascular Risk HDL > or equal to 60 mg/dl Performed By: #### C BC, LIPD, CMP #### [facility] [address], [place] [id number] Cholesterol in LDL [Mass/Vol] 166 mg/dL Normal [facility] Comment on above: Result Comment: LDL ATP III CLASSIFICATION LDL less than 100 mg/dl Optimal LDL 100-129 mg/dl Near or above optimal LDL 130-159 Borderline high LDL 160-189 High LDL greater than 189 mg/dl Very High Performed By: #### C BC, LIPD, CMP #### [facility] [address], [place] [id number] Cholesterol in VLDL [Mass/Vol] 12 mg/dL Normal [facility] Comment on above: Performed By: #### C BC, LIPD, CMP #### [facility] [address], [place] [id number] Cholesterol.total/ Cholesterol in HDL [Mass ratio] 4 {ratio} Normal [facility] Comment on above: Performed By: #### C BC, LIPD, CMP #### [facility] [address], [place] [id number] Triglyceride [Mass/Vol] 60 mg/dL Normal 30-150 [facility] Comment on above: Result Comment: TRIG ATPIII CLASSIFICATIONS TRIG less than 150 mg/dl Normal TRIG 150-199 mg/dl Borderline High TRIG 200-500 mg/dl High TRIG greather than 500 mg/dl Very High Performed By: #### C BC, LIPD, CMP #### [facility] [address], [place] [id number] TSHon 03-01-2021 TSH Qn 3.13 m[IU]/L Normal 0.40-4.50 [facility] Comment on above: Order Comment: [facility] Testing performed at: [facility], [facility], [address] [facility], [address] [place] [address], [place], [address], [place] Laborer: Joao Graham MD [facility] Collection Date/Time: [id number] [facility] Results Received Date/Time: [id number] [facility] Reported Date/Time: [id number] Performed By: #### T #### [facility] Default [address] [place] [address] Vital Signs Date Time Vital Sign Value Performing Clinician Faci lity 01-09-2024 09:02-0500 Body height 163.8 cm Alpesh Trinh MD Work Phone: [facility] 01-09-2024 09:02-0500 Body mass index (BMI) [Ratio] 24 kg/m2 Alpesh Trinh MD Work Phone: [facility] 01-09-2024 09:02-0500 Body weight 64.41 kg Alpesh Trinh MD Work Phone: [facility] 01-09-2024 09:02-0500 Diastolic blood pressure 70 mm[Hg] Alpesh Trinh MD Work Phone: [facility] 01-09-2024 09:02-0500 Heart rate 68 /min Alpesh Trinh MD Work Phone: [facility] 01-09-2024 09:02-0500 SaO2% (BldA) [Mass fraction] 96 % Alpesh Trinh MD Work Phone: [facility] 01-09-2024 09:02-0500 Systolic blood pressure 130 mm[Hg] Alpesh Trinh MD Work Phone: [facility] 10-04-2023 12:59-0400 Body height 163.8 cm Alpesh Trinh MD Work Phone: [facility] 10-04-2023 12:59-0400 Diastolic blood pressure 74 mm[Hg] Alpesh Trinh MD Work Phone: [facility] 10-04-2023 12:59-0400 Heart rate 74 /min Alpesh Trinh MD Work Phone: [facility] 10-04-2023 12:59-0400 SaO2% (BldA) [Mass fraction] 96 % Alpesh Trinh MD Work Phone: [facility] 10-04-2023 12:59-0400 Systolic blood pressure 130 mm[Hg] Alpesh Trinh MD Work Phone: [facility] Encounters Encounter Date Encounter Type Care Provider Facility Start: 01-09-2024 End: 01-09-2024 Bamboo flowsheet Alpesh Trinh MD Work Phone: [facility] Start: 01-09-2024 End: 01-09-2024 Bamboo flowsheet Alpesh Trinh MD Work Phone: [facility] Start: 01-09-2024 End: 01-09-2024 Office outpatient visit 15 minutes Alpesh Trinh MD Work Phone: [facility] Comment on above: Age-related osteopor osis with current pathological fracture with nonunion, subsequent encounter Start: 01-09-2024 End: 01-09-2024 ambulatory ALPESH TRINH Not Available Start: 10-24-2023 End: 12-25-2023 Telephone encounter Alpesh Trinh MD Work Phone: [facility] Start: 10-04-2023 End: 10-04-2023 Bamboo flowsheet Alpesh Trinh MD Work Phone: [facility] Start: 10-04-2023 End: 10-04-2023 Bamboo flowsheet Alpesh Trinh MD Work Phone: [facility] Start: 10-04-2023 End: 10-04-2023 Assay of hemosiderin, quant Alpesh Trinh MD Work Phone: [facility] Work Phone: Start: 10-04-2023 End: 10-04-2023 Patient encounter procedure Alpesh Trinh MD Work Phone: [facility] Comment on above: Routine general medi zach examination at health care facility (Primary Dx); ACP (advance care planning); Estrogen deficiency; Chronic kidney disease, stage 3a (HCC) (CMS/HCC); Malignant neoplasm of sigmoid colon (CMS/HCC); Unspecified chronic bronchitis (CMS/HCC); Benign essential hypertension (CMS/HCC); Left ventricular diastolic dysfunction, NYHA class 2; Gastroesophageal reflux disease without esophagitis; Pure hypercholesterolemia ([facility]/HCC) Start: 10-04-2023 End: 10-04-2023 ambulatory ALPESH TRINH Not Available Start: 07-13-2023 End: 07-13-2023 ambulatory ALPESH TRINH Not Available Start: 07-02-2023 End: 07-02-2023 ambulatory ALPESH TRINH Not Available Start: 09-19-2022 End: 09-19-2022 ambulatory [facility] Start: 11-07-2021 End: 11-07-[address] ALPESH TRINH Facility: Plan of Treatment Date Care Activity Detail Author Start: 10-03-2024 Medicare Annual Wellness (AWV) Medicare Annual Wellness (AWV) [facility] Healthcare Start: 02-04-2024 End: 02-04-2024 Patient encounter procedure 02/04/2024 10:30 AM EST Office Visit [facility] [address] [facility] [address] [place] [id number] Alpesh Trinh MD [address] [facility] [address] [place] [address] [facility] Start: 01-09-2024 End: 01-09-2024 Patient encounter procedure [facility] Comment on above: Arrived Start: 10-14-2023 Influenza vaccination Influenza Vacc ine (#1) [facility] Healthcare Start: 10-04-2023 End: 10-03-2024 DXA Skeletal system Views for bone density DEXA bone density Imaging Routine Estrogen deficiency Expected: 10/04/2023 (Approximate), Expires: 10/03/2024 [facility] Healthcare Work Phone: Comment on above: Expected: 10/04/2023 (Approximate), Expires: 10/03/2024 Start: 10-04-2023 End: 10-04-2023 Patient encounter procedure 10/04/2023 1:00 PM EDT Office Visit [facility] [address] [facility] [address] [place] [id number] Alpesh Trinh MD [address] [facility] [address] [place] [address] Arrived [facility] Comment on above: Arrived Start: 05-11-2023 Medicare Annual Wellness (AWV) Medicare Annual Wellness (AWV) [facility] Healthcare Immunizations Immunization Date Immunization Notes Care Provider Fa cility 12-07-2023 influenza, high dose seasonal, preservative-free Alpesh Trinh MD Work Phone: [facility] 12-07-2023 influenza virus vacc ine, unspecified formulation Alpesh Trinh MD Work Phone: [facility] 10-20-2022 Influenza, Seasonal, Quadrivalent, Adjuvanted Alpesh Trinh MD Work Phone: [facility] 10-20-2022 influenza virus vacc ine, unspecified formulation Alpesh Trinh MD Work Phone: [facility] 10-26-2021 Influenza, High-dose Seasonal, Quadrivalent, Preservative Free Alpesh Trinh MD Work Phone: [facility] 11-16-2020 Influenza, High-dose Seasonal, Quadrivalent, Preservative Free Alpesh Trinh MD Work Phone: [facility] 12-09-2019 Influenza, High-dose Seasonal, Quadrivalent, Preservative Free Alpesh Trinh MD Work Phone: [facility] 12-07-2018 influenza, high dose seasonal, preservative-free Alpesh Trinh MD Work Phone: [facility] 01-18-2018 pneumococcal conjuga te vaccine, 13 valent Alpesh Trinh MD Work Phone: [facility] 11-18-2017 Seasonal trivalent influenza vaccine, adjuvanted, preservative free Alpesh Trinh MD Work Phone: [facility] 11-22-2016 Seasonal trivalent influenza vaccine, adjuvanted, preservative free Alpesh Trinh MD Work Phone: [facility] 11-26-2015 influenza, high dose gabriele, preservative-free Alpesh Trinh MD Work Phone: [facility] 11-02-2014 pneumococcal polysaccharide vaccine, 23 valent Alpesh Trinh MD Work Phone: [facility] 11-02-2014 seasonal influenza, intradermal, preservative free Alpesh Trinh MD Work Phone: [facility] 11-16-2013 influenza, high dose seasonal, preservative-free Alpesh Trinh MD Work Phone: [facility] 11-12-2013 influenza, seasonal, injectable Alpesh Trinh MD Work Phone: [facility] 12-04-2012 influenza, seasonal, injectable Alpesh Trinh MD Work Phone: [facility] 11-14-2011 influenza virus vacc ine, whole virus Alpesh Trinh MD Work Phone: [facility] 11-28-2010 influenza virus vacc ine, whole virus Alpesh Trinh MD Work Phone: [facility] 02-12-2010 zoster vaccine, live Alpesh Trinh MD Work Phone: [facility] 11-24-2009 influenza virus vacc ine, whole virus Alpesh Trinh MD Work Phone: [facility] 11-28-2006 influenza virus vacc ine, whole virus Alpesh Trinh MD Work Phone: [facility] 02-12-2005 pneumococcal polysaccharide vaccine, 23 valent Alpesh Trinh MD Work Phone: [facility] Payers Date Payer Category Payer Medicare (Managed Care) [employer] [id number] 2023 Medicare [id number] 2019 Unknown GENERIC [employer]IC [employer]ERCIAL [id number] 2019-Present [phone] [address] [address] [place] [address] [id number] 1999 Medicare [id number] 1959 Medicare [id number] 1959 Unknown [id number] 1935 Unknown [id number] 1934 Unknown [id number] 1934 Unknown [id number] 1934 Unknown [id number] 1934 Unknown [id number] Social History Date Type Detail Facility Start: 12-07-[address] [facility] Never smoked tobacco [facility] Start: 12-07-2022 Tobacco use and exposure Smoke less tobacco non-user [facility] Start: 07-02-2023 End: 10-04-2023 Alcoholic beverage intake Lifetime non-drinker (finding) [facility] Start: 07-02-2023 End: 10-04-2023 [facility] of [facility] Start: 07-02-2023 End: 10-04-2023 Tobacco use panel [facility] Start: 1935 Sex assigned at Not on file [facility] History of Present illness Narrative 01-09-2024 Alpesh Trinh MD - 01/09/2024 9:00 AM EST Note Date & Type Note Facility 01-09-2024 History of Presen t illness Narrative Images from the original note were not included. HPI prolia injection Additional comments: From jonathan Last edited by Ayleen Gross LPN on 01/09/2024 9:02 AM. Subjective Patient ID: Gloria Roque is a 88 y.o. female who presents for prolia injection (From [facility] ). Subjective Gloria Roque is a 87 y.o. female who I am asked to see in consultation for evaluation of osteoporosis. She was diagnosed with osteoporosis by a bone density scan Patient denies history of fracture. The cause of osteoporosis is felt to be due to postmenopausal estrogen deficiency. She is not currently being treated with calcium and vitamin D supplementation. She is currently being treated with prolia Current Outpatient Medications on File Prior to Visit Medication Sig Dispense Refill aspirin 81 MG EC tablet Take 81 mg by mouth in the morning. FLUoxetine (PROzac) 20 MG capsule TAKE 1 CAPSULE BY MOUTH DAILY 100 capsule 3 furosemide (Lasix) 20 MG tablet Take 20 mg by mouth in the morning. lisinopril 10 MG tablet TAKE 1 TABLET BY MOUTH IN THE MORNING 100 tablet 3 metoprolol tartrate (Lopressor) 25 MG tablet TAKE 1/2 (ONE-HALF) OF A TABLET BY MOUTH DAILY 50 tablet 3 No current facility-administered medications on file prior to visit. I have reviewed and reconciled the history and medication list with the patient today. Allergies Allergen Reactions Penicillin V Unknown Penicillins Unknown Social History Tobacco Use Smoking status: Never Smokeless tobacco: Never Substance Use Topics Alcohol use: Never Family History Problem Relation Name Age of Onset Cancer Mother Hypertension Father Heart disease Father Past Medical History: Diagnosis Date Aortic valve disorder Depression (CMS/HCC) Hypercholesteremia (CMS/HCC) Hypertension (CMS/HCC) Osteoporosis (CMS/HCC) Past Surgical History: Procedure Laterality Date CATARACT EXTRACTION Bilateral 2013 COLONOSCOPY 2007 VERTEBROPLASTY/KYPHOPLASTY 2015 Visit Vitals BP 130/70 Pulse 68 Ht 5' 4.5 Wt 142 lb SpO2 96% BMI 24.00 kg/m Smoking Status Never BSA 1.71 m Review of Systems Objective Physical Exam Cardiovascular: Rate and Rhythm: Normal rate and regular rhythm. Pulmonary: Effort: Pulmonary effort is normal. Breath sounds: Normal breath sounds. Neurological: Mental Status: She is oriented to person, place, and time. Cranial Nerves: No cranial nerve deficit. Sensory: No sensory deficit. Motor: No weakness. Coordination: Coordination abnormal. Gait: Gait abnormal. 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 Add Forteo daily. RTC 4 weeks, may re-image wrist on RTC. Risks of Osteosarcoma discussed. Follow up in about 4 weeks (around 02/06/2024) for F/U med changes. documented in this encounter [facility] Telephone encounter Note 12-25-2023 Telephone Encounter - CHARLI Maya - 12/25/2023 11:58 AM EST Note Date & Type Note Facility 12-25-2023 Telephone encounter Note No notes for encounter [facility] Work Phone: Note 12-25-2023 Telephone Encounter - CHARLI Maya - 12/25/2023 11:58 AM EST Note Date & Type Note Facility 12-25-2023 Miscellaneous Notes Formattin g of this note might be different from the original. No notes for encounter documented in this encounter [facility] History of Present illness Narrative 10-04-2023 Alpesh Trinh MD - 10/04/2023 1:00 PM EDT Note Date & Type Note Facility 10-04-2023 History of Presen t illness Narrative Images from the original note were not included. Subjective : Chief Complaint: Gloria Roque is an 87 y.o. female here for an annual wellness visit. I have reviewed and reconciled the history and medication list with the patient today. Current Outpatient Medications Medication Sig Dispense Refill aspirin 81 MG EC tablet Take 81 mg by mouth in the morning. FLUoxetine (PROzac) 20 MG capsule TAKE 1 CAPSULE BY MOUTH DAILY 100 capsule 3 furosemide (Lasix) 20 MG tablet Take 20 mg by mouth in the morning. lisinopril 10 MG tablet TAKE 1 TABLET BY MOUTH IN THE MORNING 100 tablet 3 metoprolol tartrate (Lopressor) 25 MG tablet TAKE 1/2 (ONE-HALF) OF A TABLET BY MOUTH DAILY 50 tablet 3 No current facility-administered medications for this visit. Review of Systems List of current healthcare providers: Patient Care Team: Alpesh Trinh MD as PCP - General (Internal Medicine) Medicare Annual Visit Over the past 2 weeks, how often have you been bothered by any of the following problems? Little interest or pleasure in doing things: Not at all Feeling down, depressed, or hopeless: Not at all Patient Health Questionnaire-2 Score: 0 Quinones Fall Risk History of Falling, Immediate or Within 3 Months: Yes Secondary Diagnosis: No Ambulatory Aid: Walks without aid/bedrest/nurse assist Health Risk Assessment Form Do you need help eating, bathing, using the toilet, dressing, or getting around your home?: No Can you prepare your own meals?: Yes Can you do your own housework without help?: Yes Can you shop for groceries or clothes without help?: No Do you exercise for about 20 minutes 3 or more days a week?: Yes How confident are you that you can control and manage most of your health problems?: Very confident Can you mange your money, credit cards and accounts, pay bills and taxes?: Yes Cognitive Screening Three Word Registration: Brayan Mueller, Finger Clock Drawing: Normal Clock - 2 Three Word Recall: 2/3 words correct - 2 Total Score (0-5 Points): 4 Pain Assessment Pain Score: 5 - Moderate pain Advance Care Planning Do you have a living will?: Yes Do you have a medical power of knitting demonstrator?: Yes Who is your medical power of knitting demonstrator?: son Objective : BP 130/74 Pulse 74 Ht 5' 4.5 SpO2 96% BMI 24.34 kg/m No results found. Physical Exam External Result Encounter on 07/06/2023 Component Date Value Ref Range Status TSH W/REFLEX TO FT4 07/06/2023 2.95 0.40 - 4.50 mIU/L Final External Result Encounter on 07/06/2023 Component Date Value Ref Range Status WHITE BLOOD CELL COUNT 07/06/2023 6.6 3.8 - 10.8 Thousand/uL Final RED BLOOD CELL COUNT 07/06/2023 4.32 3.80 - 5.10 Million/uL Final HEMOGLOBIN 07/06/2023 13.4 11.7 - 15.5 g/dL Final HEMATOCRIT 07/06/2023 43.3 35.0 - 45.0 % Final MCV 07/06/2023 100.2 (H) 80.0 - 100.0 fL Final MCH 07/06/2023 31.0 27.0 - 33.0 pg Final MCHC 07/06/2023 30.9 (L) 32.0 - 36.0 g/dL Final RDW 07/06/2023 14.3 11.0 - 15.0 % Final PLATELET COUNT 07/06/2023 314 140 - 400 Thousand/uL Final MPV 07/06/2023 10.5 7.5 - 12.5 fL Final ABSOLUTE NEUTROPHILS 07/06/2023 TNP cells/uL Final Comment: TEST(S) NOT PERFORMED: ABSOLUTE NEUTROPHILS ABSOLUTE MONOCYTES ABSOLUTE EOSINOPHILS ABSOLUTE BASOPHILS NEUTROPHILS LYMPHOCYTES MONOCYTES EOSINOPHILS BASOPHILS Unable to report due to degeneration of cellular morphology. External Result Encounter on 07/06/2023 Component Date Value Ref Range Status Glucose 07/06/2023 74 65 - 99 mg/dL Final Comment: Fasting reference interval BUN 07/06/2023 13 7 - 25 mg/dL Final Creatinine 07/06/2023 0.99 (H) 0.60 - 0.95 mg/dL Final EGFR 07/06/2023 55 (L) > OR = 60 mL/min/1.73m2 Final BUN/CREATININE RATIO 07/06/2023 13 6 - 22 (calc) Final Sodium 07/06/2023 133 (L) 135 - 146 mmol/L Final Potassium, Bld 07/06/2023 4.4 3.5 - 5.3 mmol/L Final Chloride 07/06/2023 100 98 - 110 mmol/L Final Carbon Dioxide 07/06/2023 25 20 - 32 mmol/L Final Calcium 07/06/2023 8.9 8.6 - 10.4 mg/dL Final PROTEIN, TOTAL 07/06/2023 7.0 6.1 - 8.1 g/dL Final ALBUMIN 07/06/2023 4.1 3.6 - 5.1 g/dL Final GLOBULIN 07/06/2023 2.9 1.9 - 3.7 g/dL (calc) Final ALBUMIN/GLOBULIN RATIO 07/06/2023 1.4 1.0 - 2.5 (calc) Final BILIRUBIN, TOTAL 07/06/2023 0.6 0.2 - 1.2 mg/dL Final ALKALINE PHOSPHATASE 07/06/2023 43 37 - 153 U/L Final AST 07/06/2023 17 10 - 35 U/L Final ALT 07/06/2023 11 6 - 29 U/L Final External Result Encounter on 07/06/2023 Component Date Value Ref Range Status CHOLESTEROL, TOTAL 07/06/2023 228 (H) <200 mg/dL Final HDL CHOLESTEROL 07/06/2023 61 > OR = 50 mg/dL Final TRIGLYCERIDES 07/06/2023 122 <150 mg/dL Final LDL-CHOLESTEROL 07/06/2023 143 (H) mg/dL (calc) Final Comment: Reference range: <100 Desirable range <100 mg/dL for primary prevention; <70 mg/dL for patients with CHD or diabetic patients with > or = 2 CHD risk factors. LDL-C is now calculated using the Shelton calculation, which is a validated novel method providing better accuracy than the Friedewald equation in the estimation of LDL-C. Sherman LOPEZ et al. DHARA. 2013;310(19): 7952-7445 (http://education.[employer].com/f aq/XHV506) CHOL/HDLC RATIO 07/06/2023 3.7 <5.0 (calc) Final NON HDL CHOLESTEROL 07/06/2023 167 (H) <130 mg/dL (calc) Final Comment: For patients with diabetes plus 1 major ASCVD risk factor, treating to a non-HDL-C goal of <100 mg/dL (LDL-C of <70 mg/dL) is considered a therapeutic option. Assessment/Plan : The following health maintenance schedule was reviewed with the patient and provided in printed form in the after visit summary: Health Maintenance Topic Date Due Medicare Annual Wellness (AWV) 05/11/2023 Influenza Vaccine (1) 10/14/2023 Pneumococcal Vaccine: 65+ Years Completed Advance Care Planning Patient agreed to discuss advance care planning at today's wellness visit. We discussed that an advance directive is a legal document that only goes into effect if the patient is incapacitated and unable to speak for himself or herself. This would help healthcare providers to ensure that the patient gets the care that he or she wishes to receive. The goal is to provide a patient with the best possible quality of life. Encouraged patient to obtain a living will and durable power of knitting demonstrator for healthcare. We discussed telling benítez people about their advance directives such as close family members, and requested a copy to scan into the patient's EHR. An advance directive packet was offered to the patient. Assessment/Plan Diagnoses and all orders for this visit: Routine general medical examination at health care facility ACP (advance care planning) Estrogen deficiency - DEXA bone density; Future Chronic kidney disease, stage 3a (HCC) ([facility]/HCC) Malignant neoplasm of sigmoid colon ([facility]/HCC) Unspecified chronic bronchitis ([facility]/HCC) Benign essential hypertension ([facility]/HCC) Left ventricular diastolic dysfunction, NYHA class 2 Gastroesophageal reflux disease without esophagitis Pure hypercholesterolemia ([facility]) Orders Placed This Encounter Procedures DEXA bone density Standing Status: Future Standing Expiration Date: 10/03/2024 Order Specific Question: Reason for exam: Answer: see dx Follow up in about 3 months (around 01/04/2024) for Routine F/U. Electronically signed by Alpesh Trinh MD on October 04, 2023 documented in this encounter [facility] Progress note 09-19-2022 Note Date & Type [...] All other systems reviewed and are negative. [facility] Progress note 09-19-2022 Note Date & Type Note Facility 09-19-2022 Note Cardiology Clinic No te Subjective Gloria Roque is a 86 y.o. year old female patient past medical history of hypertension, diastolic dysfunction, severely enlarged left atrium and mild pulmonary hypertension on echocardiogram (2017) here to reestablish care. Patient Active Problem [...] electrolytes. No follow-ups on file. 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, subsequent encounter documented in this encounter [facility] Evaluation note Note Date & Type Note Facility Evaluation note Diagnosis Routine general medical examination at health care facility- Primary Routine general medical examination at a health care facility ACP (advance care planning) Other specified counseling Estrogen deficiency Other ovarian failure Chronic kidney disease, stage 3a (HCC) (CMS/HCC) Malignant neoplasm of sigmoid colon (CMS/HCC) Malignant neoplasm of sigmoid colon Unspecified chronic bronchitis (CMS/HCC) Unspecified chronic bronchitis Benign essential hypertension (CMS/HCC) Essential hypertension, benign Left ventricular diastolic dysfunction, NYHA class 2 Gastroesophageal reflux disease without esophagitis Esophageal reflux Pure hypercholesterolemia (CMS/HCC) Pure hypercholesterolemia documented in this encounter [facility] Summary Purpose Family History No Family History Records FoundNo Family History Records FoundNo Family History Records FoundNo Family History Records Found Advance Directives No Advanced Directives Records FoundNo Advanced Directives Records FoundNo Advanced Directives Records FoundNo Advanced Directives Records Found Additional Source Comments INFORMATION SOURCE (unrecogn ized section and content) DATE CREATED AUTHOR 03/02/2021 [facility] dical Specialist DATE CREATED AUTHOR AUTHOR'S ORGANIZ ATION 03/29/2022 [facility] DATE CREATED AUTHOR AUTHOR'S ORGANIZ ATION 10/05/2022 [facility] DATE CREATED AUTHOR AUTHOR'S ORGANIZ ATION 01/11/2024 [facility] dical Specialists EPIC Care Teams (unrecognized sec tion and content) Radiation / Chemistry Technician Relationship Specialty Start Date End Date Alpesh Trinh MD [address] [facility] [address] [place] [address] PCP - General Internal Medicine 08/28/22 Radiation / Chemistry Technician Relationship Specialty Start Date End Date Alpesh Trinh MD [address] [facility] [address] [place] [address] PCP - General Internal Medicine 08/28/22 Radiation / Chemistry Technician Relationship Specialty Start Date End Date Alpesh Trinh MD [address] [facility] [address] [place] [address] PCP - General Internal Medicine 08/28/22 Radiation / Chemistry Technician Relationship Specialty Start Date End Date Alpesh Trinh MD [address] [facility] [address] [place] [address] PCP - General Internal Medicine 08/28/22 Reason for Visit (unrecogniz ed section and content) Reason Comments prolia injection From [employer] Reason Comments Medicare Annual Wellness Visit Subsequen t Results labs FOR RECORDS PERTAINING TO PATIENTS WHO ARE [...] BE BASED ON THE PRIMARY CLINICAL RECORDS. [facility] [employer] [facility]. provides no warranty or guarantee of the accuracy or completeness of information in this document.
--- NOTE | 2024-02-03 12:52 | ECG_ITS ---
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1935 Requested By: SHARMAINE WILLS Order Number: [id number] Reading MD: YOLANDA STORY Measurements Intervals [place] Rate: 77 P: -[id number] WI: 280 QRS: 67 QRSD: 76 T: 238 QT: 400 QTc: 432 Interpretive Statements Sinus rhythm with first degree AV block [address] depression, possible subendocardial injury or digitalis effect 60726 Twave abnormality, possible anterolateral ischemia or digitalis effect 40338 Twave abnormality, possible inferior ischemia or digitalis effect 5211 Minimal voltage criteria for LVH, may be normal variant 9150 abnormal ECG No previous ECG available for comparison Electronically Signed On 02-03-2024 17:57:25 EST by YOLANDA STORY
--- NOTE | 2024-02-03 12:52 | CT_ITS ---
The [address] [address] Patient Name: HOWARD HOGUE MRN: [id number] date: 1935 Sex: F Assigned Patient Location: ER Current Patient Location: ER Accession/Order Number: [id number] Exam Date: 02/03/2024 13:45 Report Date: 02/03/2024 15:17 At the request of: KELSI PIEDRA Procedure: CT lumbar spine wo con EXAM: CT lumbar spine wo con HISTORY: fall fall from standing, found down. Back pain. COMPARISON: None. TECHNIQUE: CT lumbar spine noncontrast. Axial scans with reformatted coronal and sagittal images. Individualized radiation dose reduction used for this exam. FINDINGS: 5 lumbar vertebra. No fracture or suspicious bone lesion. 5 mm anterolisthesis L4 felt to be degenerative. Mild disc bulging T12-L1, L1-2, L2-3 and L3-4. Moderate to severe disc space narrowing vacuum disc and minor spurring L4-5 and L5-S1. No disc protrusion. Facet arthropathy most prominent L4-5 and L5-S1. No findings suggesting canal or foraminal stenosis. No paraspinal fluid or hematoma . Normal caliber aorta. CT/CT lumbar spine wo con IMPRESSION: 1. Negative for fracture or suspicious bone lesion. No paraspinal fluid or hematoma. 2. Diffuse degenerative changes most prominent disc base narrowing L4-5 and L5-S1. No evidence of disc protrusion or significant stenosis. Electronically authenticated by: TETE WERNER Date: 02/03/2024 15:17
--- NOTE | 2024-02-03 12:52 | CT_ITS ---
The [address] [address] Patient Name: HOWARD HOGUE MRN: [id number] date: 1935 Sex: F Assigned Patient Location: ER Current Patient Location: Accession/Order Number: [id number] Exam Date: 02/03/2024 13:45 Report Date: 02/03/2024 14:56 At the request of: KELSI PIEDRA Procedure: CT head/brain wo con EXAM: CT head/brain wo con HISTORY: fall fall from standing, found down. COMPARISON: None. TECHNIQUE: A CT noncontrast. Axial scans with reformatted coronal sagittal images. Individualized radiation dose reduction used for this exam. FINDINGS: No intracranial hemorrhage seen. Low-attenuation there is a right basal ganglia which could be a recent or subacute infarct. Approximately 1.5 cm size. Areas of deep white matter low-attenuation elsewhere likely chronic although no comparison is available. Ventricles sulci are prominent consistent with atrophy. No mass effect or midline shift. A few incidental intracranial calcifications noted. No skull skull fracture or suspicious bone lesion. Visualized mastoid, middle ear cavities and sinuses clear. CT/CT head/brain wo con IMPRESSION: No evidence of intracranial hemorrhage. . Low-attenuation right basal ganglia area, subacute versus chronic ischemia/infarct. Size approximately 1.5 cm Consider follow-up, could be better assessed with MRI. Other areas of deep white matter low-attenuation noted likely chronic. Electronically authenticated by: TETE WERNER Date: 02/03/2024 14:56
[2024-02-03 13:23] LABS: Basophils Percent Auto 0.1 % (0.2-2.0); Eosinophils Percent Auto 0.1 % (0.9-7.0); Hematocrit 37.6 % (36.0-48.0); Hemoglobin 12.6 g/dL (12.0-16.0); Immature Granulocytes Abs Auto 0.03 10^3/uL (0.00-0.03); Immature Granulocytes Pct Auto 0.3 % (0.0-0.5); Lymphocytes Absolute Auto 1.2 10^3/uL (1.2-3.8); Mean Corpuscular HGB Conc 33.5 g/dL (29.9-35.2); Mean Corpuscular Hemoglobin 31.3 pg (26.7-34.0); Mean Corpuscular Volume 93.3 fL (81.0-99.0); Mean Platelet Volume 9.7 fL (9.5-13.5); Monocytes Percent Auto 10.2 % (1.7-12.0); Neutrophils Absolute Auto 7.8 10^3/uL (1.4-6.5); Neutrophils Percent Auto 77.3 % (43.0-75.0); Platelet Count 256 10^3/uL (150-450); Red Blood Count 4.03 10^6/uL (4.20-5.40); Red Cell Distribution Width 12.7 % (11.0-15.0); White Blood Count 10.1 10^3/uL (4.0-11.0)
[2024-02-03 13:45] LABS: INR 1.01; Prothrombin Time 10.7 sec (9.0-11.6)
[2024-02-03 13:46] LABS: Alanine Aminotransferase 15 U/L (14-59); Albumin Level 3.3 g/dL (3.4-5.0); Alkaline Phosphatase 63 U/L (46-116); Anion Gap 17.5; Aspartate Amino Transferase 27 U/L (15-37); BUN Creatinine Ratio 10.9; Bilirubin Total 0.7 mg/dL (0.2-1.0); Calcium 8.9 mg/dL (8.5-10.1); Carbon Dioxide 24.3 mmol/L (21.0-32.0); Chloride 98 mmol/L (98-107); Estimated GFR (African America 47 (>=60 mL/min/1.73m^2); Estimated GFR (Non-African Ame 39 (>=60 mL/min/1.73m^2); Globulin 3.4 g/dL; Glucose 113 mg/dL (74-106); Potassium 3.8 mmol/L (3.5-5.1); Sodium 136 mmol/L (136-145); Total Protein 6.7 g/dL (6.4-8.2)
[2024-02-03 14:11] LABS: Creatine Kinase 511 U/L (26-192)
[2024-02-03 14:16] LABS: Troponin I High Sensitivity 153.4 pg/mL (4.0-51.3)
--- NOTE | 2024-02-03 14:28 | XR_ITS ---
The [address] [address] Patient Name: HOWARD HOGUE MRN: [id number] date: 1935 Sex: F Assigned Patient Location: ER Current Patient Location: ER Accession/Order Number: [id number] Exam Date: 02/03/2024 14:36 Report Date: 02/03/2024 15:21 At the request of: KELSI PIEDRA Procedure: XR chest 1V EXAM: XR chest 1V HISTORY: left sided chest pain fall from standing, found down. COMPARISON: 07/02/2023. TECHNIQUE: AP upright chest x-ray FINDINGS: Cardiac enlargement is unchanged accentuated by magnification. Lung markings diffusely prominent increased from previous. No focal lung density, consolidation or contusion seen. No pleural effusion or pneumothorax. No displaced fracture seen. Ribs are not optimally visualized. Scoliosis. XR/XR chest 1V IMPRESSION: Diffuse increased lung markings without focal density, infiltrate or contusion. No definite fracture noted. Electronically authenticated by: TETE WERNER Date: 02/03/2024 15:21
[2024-02-03] MEDS: 0.9 % SODIUM CHLORIDE 1,000 ML 1000 ML IV (14:50)
[2024-02-03 15:34] LABS: Troponin I High Sensitivity 164.7 pg/mL (4.0-51.3)
--- NOTE | 2024-02-03 15:45 | ED.FALL1 ---
HPI HPI - Fall General Chief Complaint: Fall Stated Complaint: FALL LAST NIGHT, BODY PAIN Time Seen by Provider: 02/03/24 12:45 Source: patient Mode of arrival: walk-in Limitations: no limitations History of Present Illness HPI Narrative: Patient brought to us by the son for concern that for the last week the patient has been having more falls, almost on a daily basis, patient live by herself and apparently she had a fall yesterday and she was in the floor till he came and found her today, the patient did not eat or drink because of that fall She is complaining of lower back pain she did not hit her head, the patient son mentioned that when she goes to the store she has been favoring the right side and the team that she have some weakness in the left side The patient herself mentioned that sometime when she is standing up she cannot elevate her left leg and walk Related Data Home Medications ?Medication ?Instructions ?Recorded ?Confirmed denosumab 60 mg/mL subcutaneous mg subcut 06/24/23 syringe (Prolia) fluoxetine 20 mg capsule 20 mg PO DAILY 06/24/23 06/24/23 lisinopril 10 mg tablet 10 mg PO DAILY 06/24/23 06/24/23 metoprolol tartrate 25 mg tablet 12.5 mg PO DAILY 06/24/23 06/24/23 Previous Rx's ?Medication ?Instructions ?Recorded ciprofloxacin HCl 500 mg tablet 500 mg PO BID #7 tabs 06/24/23 (Cipro) metronidazole 500 mg tablet 500 mg PO Q12H 7 days #14 tabs 06/24/23 ondansetron 4 mg disintegrating 4 mg PO Q6H PRN nausea and 06/24/23 tablet vomiting #12 tabs tramadol 50 mg tablet 50 mg PO Q4H PRN pain 3 days #15 06/24/23 tabs Allergies Allergy/AdvReac Type Severity Reaction Status Date / Time Penicillins Allergy Intermediate Verified 06/24/23 18:18 Opioid HPI Opioid Management Most Recent Pain and Opioid Data: Last Pain Scale 5 02/03/24 12:40 02/03/24 Review of Systems ROS Status of ROS 10 or more systems reviewed and unremarkable except as noted in history and below PFSH PFSH Social History Little interest or pleasure in doing things: not at all Feeling down, depressed, or hopeless: not at all Exam Narrative Exam Narrative: Nurses notes and vital signs reviewed and patient is not hypoxic. General: Well-appearing and in no apparent distress. Skin: Warm, dry, no pallor noted. No rash. Head: Normocephalic, atraumatic. Neck: Supple, non-tender. Eye: Pupils are equal, round and EOMI. No scleral icterus. Ears, Nose, Mouth, and Throat: TM are clear, no nasal mucosal hypertrophy. Oral mucosa is moist, no posterior oropharynx erythema, uvula is mid-line Cardiovascular: Regular Rate and Rhythm without murmur, gallop or rub. Respiratory: No accessory muscle use or respiratory distress. Lungs are clear to auscultation, no wheezing, rales or rhonchi Chest Wall: no tenderness Back: No midline thoracic or lumbar vertebral tenderness. No CVA tenderness Musculoskeletal: normal ROM, no calf or popliteal tenderness, no lower extremity edema/swelling GI: Abdomen is soft, non-distended. Normal bowel sounds. No masses appreciated. No tenderness to palpation. No rebound, guarding, or rigidity noted. Neurological: A&O x2. No cranial nerve dysfunction observed. 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 Normal mood and affect. Constitutional Vital Signs, click to edit/add: Last Vital Signs Temp 98.3 F 02/03/24 12:30 Pulse 95 H 02/03/24 16:00 Resp 25 H 02/03/24 16:00 BP 145/92 H 02/03/24 15:00 Pulse Ox 100 02/03/24 16:00 O2 Del Method Room Air 02/03/24 12:30 Course Vital Signs Vital signs: Vital Signs Temperature 98.3 F 02/03/24 12:30 Pulse Rate 81 02/03/24 12:30 Respiratory Rate 18 02/03/24 12:30 Blood Pressure 149/82 H 02/03/24 12:30 Pulse Oximetry 95 02/03/24 12:30 Oxygen Delivery Method Room Air 02/03/24 12:30 Temperature 98.3 F 02/03/24 12:30 Pulse Rate 95 H 02/03/24 16:00 Respiratory Rate 25 H 02/03/24 16:00 Blood Pressure 145/92 H 02/03/24 15:00 Pulse Oximetry 100 02/03/24 16:00 Oxygen Delivery Method Room Air 02/03/24 12:30 MDM - Fall MDM Narrative Medical decision making narrative: Initially upon arrival the concern was mostly just multiple falls The patient apparently added to that the fact that she has been short of breath on exertion sometimes and she Head: Left-sided chest pain that she mentioned that it could be due to fall although she is not tender on examination for chest wall There is no old EKG for comparison but the patient have a lot of ST depression in the EKG with a sinus rhythm at 77 the patient also had some T wave inversion that is nonspecific on her EKG with no old EKG for comparison The patient troponin initially was found to be elevated with the second repeated troponin was not significantly trending up with a reading of 153 and 164 The patient chest x-ray showed no acute significant pathology The patient CT head shows right ganglia subacute possible stroke which could explain the patient's symptoms that been going on for the last week I did examine the patient and evaluated her gait in the ER and she does favor the right side to the left side when walking and she need to be assisted, The patient case was discussed with Dr. Bellamy regarding her cardiac workup and the right now although the patient is having elevated troponin and she would definitely need some cardiac workup including an echo and further evaluation of the troponin the patient can be admitted to our facility for further evaluation Patient case was discussed with Dr Sullivan and he agreed on above-mentioned plan Lab Data Labs: Lab Results 02/03/24 02/03/24 02/03/24 Range/Units 12:50 13:03 14:59 WBC 10.1 (4.0-11.0) 10^3/uL RBC 4.03 L (4.20-5.40) 10^6/uL Hgb 12.6 (12.0-16.0) g/dL Hct 37.6 (36.0-48.0) % MCV 93.3 (81.0-99.0) fL MCH 31.3 (26.7-34.0) pg MCHC 33.5 (29.9-35.2) g/dL RDW 12.7 (11.0-15.0) % Plt Count 256 (150-450) 10^3/uL MPV 9.7 (9.5-13.5) fL Neut % (Auto) 77.3 H (43.0-75.0) % Lymph % (Auto) 12.0 L (20.5-60.0) % Mcmullen % (Auto) 10.2 (1.7-12.0) % Eos % (Auto) 0.1 L (0.9-7.0) % Baso % (Auto) 0.1 L (0.2-2.0) % Neut # (Auto) 7.8 H (1.4-6.5) 10^3/uL Lymph # (Auto) 1.2 (1.2-3.8) 10^3/uL Mcmullen # (Auto) 1.0 H (0.3-0.8) 10^3/uL Eos # (Auto) 0.0 (0.0-0.7) 10^3/uL Baso # (Auto) 0.0 (0.0-0.1) 10^3/uL Abs Immat Gran (auto) 0.03 (0.00-0.03) 10^3/uL Imm/Tot Granulo (auto) 0.3 (0.0-0.5) % PT 10.7 (9.0-11.6) sec INR 1.01 Sodium 136 (136-145) mmol/L Potassium 3.8 (3.5-5.1) mmol/L Chloride 98 (98-107) mmol/L Carbon Dioxide 24.3 (21.0-32.0) mmol/L Anion Gap 17.5 BUN 14.0 (7.0-18.0) mg/dL Creatinine 1.29 H (0.55-1.02) mg/dL Est GFR ( Amer) 47 L (>=60 mL/min/1.73m^2) Est GFR (Non-Af Amer) 39 L (>=60 mL/min/1.73m^2) BUN/Creatinine Ratio 10.9 Glucose 113 H (74-106) mg/dL Calcium 8.9 (8.5-10.1) mg/dL Total Bilirubin 0.7 (0.2-1.0) mg/dL AST 27 (15-37) U/L ALT 15 (14-59) U/L Alkaline Phosphatase 63 (46-116) U/L Total Creatine Kinase 511 H* (26-192) U/L Troponin I High Sens 153.4 H* 164.7 H* (4.0-51.3) pg/mL NT-Pro-B Natriuret Pep 5015.0 H* (<=1800.0) pg/mL Total Protein 6.7 (6.4-8.2) g/dL Albumin 3.3 L (3.4-5.0) g/dL Globulin 3.4 g/dL Albumin/Globulin Ratio 1.0 Discharge Plan Discharge Chief Complaint: Fall Clinical Impression: Stroke, Non-ST elevation VA (NSTEMI), Multiple falls, Back pain, Elevated CK Patient Disposition: Admitted As Inpatient Time of Disposition Decision: 16:31
[2024-02-03] MEDS: ASPIRIN 81 MG TAB.CHEW 324 MG PO (16:12)
--- NOTE | 2024-02-03 16:36 | CT_ITS ---
[address] [address] Patient Name: HOWARD HOGUE MRN: [id number] date: 1935 Sex: F Assigned Patient Location: ER Current Patient Location: ICU Accession/Order Number: [id number] Exam Date: 02/03/2024 17:26 Report Date: 02/03/2024 19:48 At the request of: SHAIKH MAHAMED Procedure: CT angio head CTA HEAD/NECK. CLINICAL HISTORY: Stroke COMPARISON: None. TECHNIQUE: Initially, unenhanced head CT was obtained. CT angiogram of the head and neck obtained after administration of nonionic intravenous contrast material, Multiplanar and volume rendered 3-D reformats were created. NASCET criteria was used for evaluation of luminal stenosis. 3-D vascular images were constructed on a separate workstation. FINDINGS: THORACIC AORTA: Normal. There is a normal anatomy at the origin of the great vessels. RIGHT COMMON CAROTID ARTERY: No significant stenosis. RIGHT EXTERNAL CAROTID ARTERY: No significant stenosis. RIGHT INTERNAL CAROTID ARTERY: No significant stenosis. LEFT COMMON CAROTID ARTERY: No significant stenosis. LEFT EXTERNAL CAROTID ARTERY: No significant stenosis. LEFT INTERNAL CAROTID ARTERY: No significant stenosis. There is approximately 20% stenosis of the origin of the ICA secondary to mixed calcified and noncalcified atherosclerotic plaque. RIGHT VERTEBRAL ARTERY: No significant stenosis. LEFT VERTEBRAL ARTERY: No significant stenosis. [place]: The bilateral intracranial internal carotid arteries, anterior cerebral arteries, middle cerebral arteries and anterior and posterior communicating arteries are normal. There is ectasia of the bilateral cavernous ICA. POSTERIOR INTRACRANIAL CIRCULATION: The basilar artery and posterior cerebral arteries are patent, without stenosis or occlusion. DURAL SINUSES: Patent. No intracranial aneurysm measuring least 2 mm identified. No intracranial AVM. LUNG APICES: The lung apices are clear. There is thickening of the midesophagus. SOFT TISSUES: The prevertebral soft tissues are normal. No soft tissue inflammation. OSSEOUS STRUCTURES: No acute osseous abnormality throughout the imaged axial skeleton and skull base. NONCONTRAST CT HEAD: EXTRA-AXIAL SPACE: Age-appropriate ventricles. No acute extra-axial collection. No extra-axial mass. No midline shift. CEREBRUM: No focal abnormality. No CT evidence of acute large territorial cortical infarct, hemorrhage or mass effect. CEREBELLUM: No focal abnormality. No CT evidence of acute infarct, hemorrhage or mass effect. BRAINSTEM: No focal abnormality. No CT evidence of acute infarct, hemorrhage or mass effect. EXTRACRANIAL STRUCTURES. The paranasal sinuses are clear. Mastoid air cells are clear. Orbits are unremarkable No discrete pituitary mass. Intact calvarium. CT/CT angio head IMPRESSION: 1. No high-grade or hemodynamically flow-limiting stenosis of the major arteries of the head and neck. 2. Thickening of the mid esophagus. Correlate for esophagitis and consider upper endoscopy. Electronically authenticated by: APRIL ENG Date: 02/03/2024 19:48
--- NOTE | 2024-02-03 16:36 | CA_ITS ---
Patient Name: HOWARD HOGUE MR#: [id number] : 1935 Exam Date: 02/04/2024 Ordering Doctor: SHAIKH Shawna IRBY . ECHOCARDIOGRAM REPORT PROCEDURE: CA ECHO DOPPLER COMPLETE INDICATIONS: stroke, elevated BNP COMPARISON: None. DESCRIPTION: COMPLETE ECHOCARDIOGRAM Real-time transthoracic echocardiography with 2D, M-mode, spectral and color flow Doppler performed. QUALITY: Technical quality was good. LEFT VENTRICLE: Normal chamber size. Mild concentric left ventricular hypertrophy. LV EF: Global left ventricular systolic function is hyperdynamic; visually estimated ejection fraction of 65 to 70%. No obvious wall motion abnormalities. DIASTOLIC: Unable to assess diastolic function due to underlying rhythm. ATRIAL SEPTUM: Inadequately seen. LEFT ATRIUM: Severe dilatation. RIGHT ATRIUM: Normal chamber size. RIGHT VENTRICLE: Normal chamber size. Normal right ventricular systolic function. TRICUSPID VALVE: Normal mobility and thickness. No stenosis with trivial regurgitation. No evidence of pulmonary hypertension. RVSP 33 mmHg MITRAL VALVE: Normal mobility and thickness. No evidence of mitral valve stenosis. Mild mitral annular calcification. Trivial mitral regurgitation. AORTIC VALVE: Normal trileaflet appearance. No visible sclerosis. Normal leaflet mobility. No evidence of aortic valve stenosis. Trivial aortic regurgitation. AORTIC ROOT: Normal diameter and appearance. PULMONIC VALVE: Normal thickness and mobility. No stenosis. No regurgitation. PERICARDIUM: No evidence of pericardial effusion. IVC: Collapses with inspirations. IVC is normal in size. CONCLUSION: 1. Global left ventricular systolic function is hyperdynamic; visually estimated ejection fraction is 65 to 70% 2. Normal right ventricular size and systolic function 3. Mild left ventricular hypertrophy 4. The left atrium is severely dilated 5. Unable to assess diastolic function due to underlying rhythm 6. No significant valvular abnormalities Adult Echocardiography Procedure Report Left Ventricle LVEDD (3.7 - 5.6 cm): 3.38 cm LVESD (2.2 - 4.0 cm): 2.74 cm LVIVS thickness (0.6 - 1.2 cm): 1.19 cm LVPW thickness (0.5 - 1.0 cm): 1.11 cm e': 0.07 m/s E - e': 12.25 LVOT Max Gradient: 2.91 mm[Hg] LVOT Area (cm2): 0.85 m/s Peak Velocity (LVOT): 0.85 m/s Mean Velocity (LVOT): 0.57 m/s LVOT Diameter 1.88 cm Left Atrium LA Volume Index (2D A2C): 57.56 ml/m2 Left Atrium Systolic Dimension: 3.96 cm Mitral Valve MV E to A Ratio: Mitral Valve A-Wave Peak Velocity: Mitral Valve E-Wave Peak Velocity: 0.82 m/s Right Ventricle Aorta AO Root Diam: 3.43 cm Aortic Valve AoV Area (Peak Carmelo): 2.39 cm2, 2.39 cm2 AoV Area (VTI): 2.25 cm2, 2.25 cm2 Peak Velocity(Antegrade Flow): 0.99 m/s Peak Gradient(Antegrade Flow): 3.95 mm[Hg] Mean Velocity(Antegrade Flow): 0.69 m/s Mean Gradient(Antegrade Flow): 2.11 mm[Hg] Velocity Time Integral: 24.46 cm Tricuspid Valve Peak Velocity (Regurgitant Flow): 2.75 m/s Pulmonic Valve Mean Gradient: 0.98 mm[Hg] Mean Velocity: 0.47 m/s Peak Velocity: 0.62 m/s, 0.64 m/s Peak Gradient: 1.62 mm[Hg], 1.55 mm[Hg] Right Atrium Right Atrium Systolic Pressure: 37.18 ml, 37.18 ml Dictated by: Iwona Blackman M.D. on 02/04/2024 at 12:20 Approved by: Iwona Blackman M.D. on 02/04/2024 at 12:25
--- NOTE | 2024-02-03 16:36 | CT_ITS ---
[address] [address] Patient Name: HOWARD HOGUE MRN: [id number] date: 1935 Sex: F Assigned Patient Location: ER Current Patient Location: ICU Accession/Order Number: [id number] Exam Date: 02/03/2024 17:26 Report Date: 02/03/2024 19:48 At the request of: SHAIKH MAHAMED Procedure: CT angio neck CTA HEAD/NECK. CLINICAL HISTORY: Stroke COMPARISON: None. TECHNIQUE: Initially, unenhanced head CT was obtained. CT angiogram of the head and neck obtained after administration of nonionic intravenous contrast material, Multiplanar and volume rendered 3-D reformats were created. NASCET criteria was used for evaluation of luminal stenosis. 3-D vascular images were constructed on a separate workstation. FINDINGS: THORACIC AORTA: Normal. There is a normal anatomy at the origin of the great vessels. RIGHT COMMON CAROTID ARTERY: No significant stenosis. RIGHT EXTERNAL CAROTID ARTERY: No significant stenosis. RIGHT INTERNAL CAROTID ARTERY: No significant stenosis. LEFT COMMON CAROTID ARTERY: No significant stenosis. LEFT EXTERNAL CAROTID ARTERY: No significant stenosis. LEFT INTERNAL CAROTID ARTERY: No significant stenosis. There is approximately 20% stenosis of the origin of the ICA secondary to mixed calcified and noncalcified atherosclerotic plaque. RIGHT VERTEBRAL ARTERY: No significant stenosis. LEFT VERTEBRAL ARTERY: No significant stenosis. [place]: The bilateral intracranial internal carotid arteries, anterior cerebral arteries, middle cerebral arteries and anterior and posterior communicating arteries are normal. There is ectasia of the bilateral cavernous ICA. POSTERIOR INTRACRANIAL CIRCULATION: The basilar artery and posterior cerebral arteries are patent, without stenosis or occlusion. DURAL SINUSES: Patent. No intracranial aneurysm measuring least 2 mm identified. No intracranial AVM. LUNG APICES: The lung apices are clear. There is thickening of the midesophagus. SOFT TISSUES: The prevertebral soft tissues are normal. No soft tissue inflammation. OSSEOUS STRUCTURES: No acute osseous abnormality throughout the imaged axial skeleton and skull base. NONCONTRAST CT HEAD: EXTRA-AXIAL SPACE: Age-appropriate ventricles. No acute extra-axial collection. No extra-axial mass. No midline shift. CEREBRUM: No focal abnormality. No CT evidence of acute large territorial cortical infarct, hemorrhage or mass effect. CEREBELLUM: No focal abnormality. No CT evidence of acute infarct, hemorrhage or mass effect. BRAINSTEM: No focal abnormality. No CT evidence of acute infarct, hemorrhage or mass effect. EXTRACRANIAL STRUCTURES. The paranasal sinuses are clear. Mastoid air cells are clear. Orbits are unremarkable No discrete pituitary mass. Intact calvarium. CT/CT angio neck IMPRESSION: 1. No high-grade or hemodynamically flow-limiting stenosis of the major arteries of the head and neck. 2. Thickening of the mid esophagus. Correlate for esophagitis and consider upper endoscopy. Electronically authenticated by: APRIL ENG Date: 02/03/2024 19:48
[2024-02-03 16:55] LABS: Bilirubin Urine NEGATIVE (NEGATIVE); Blood Urine SMALL (NEGATIVE); Clarity Urine CLEAR (CLEAR); Color Urine LT. YELLOW (YELLOW); Glucose Urine UA NEGATIVE (NEGATIVE); Ketones Urine 40 mg/dL (NEGATIVE); Leukocyte Esterase Urine SMALL (NEGATIVE); Nitrite Urine NEGATIVE (NEGATIVE); Protein Urine TRACE mg/dL (NEG/TRACE); Urobilinogen Urine 0.2 EU/dL (0.2-1.0)
[2024-02-03 17:04] LABS: Urine Microscopic Indicated YES
[2024-02-03 17:04] LABS: Estimated Average Glucose 108 mg/dL; Glycohemoglobin A1C 5.4 % (4.5-6.2)
[2024-02-03 17:08] LABS: Bacteria Urine SMALL #/HPF (NONE SEEN); Cast Seen? SEEN #/LPF (NONE SEEN); Hyaline Casts Urine FEW; Mucus Urine SMALL (NONE SEEN); Squamous Epithelial Cell Urine FEW #/LPF (NONE/RARE); Urine Culture Indicated YES
[2024-02-03 17:17] LABS: Chol HDL Ratio 2.8; Cholesterol 229 mg/dL (<=200); HDL Cholesterol 81 mg/dL (40-60); Triglycerides 60 mg/dL (<=150)
--- OUTSIDE RECORDS SUMMARY | 2024-02-03 18:29 | XMS_ITS | CCD ---
Author Organization [facility] Inform ion Partnership [facility] Care Team Providers Care Fire Operations Forester Name Role Phone DR ALPESH TRINH Primary Care Unavailable PAY, DR COOMBS Admitting Unavailable PAY, DR COOMBS Attending Unavailable PAY, DR COOMBS Consulting Unavailable JENNI MABRY Attending Unavailable Alpesh Trinh MD Primary Care Provider ALPESH TRINH Attending ALPESH Huizar Referring Unavailable ALPESH TRINH Attending ALPESH Huizar Attending Unavailable Allergies Allergy Classification Reported Allergen(s) Allergy Type Date of Onset Reaction(s) Facility (2 sources) Penicillins; Translations: [PENICILLINS] Drug allergy (disorder) 06-17-[address] [facility] Repository (7 sources) Penicillin V Drug Allergy 12-07-2022 Unknown [facility] Healthcare (7 sources) Penicillins Drug Allergy 01-30-2014 Unknown [facility] Healthcare Medications Current Medications Medication [...] 12-07-2022 Episodic Other aftercare (1 source) Other intermediate frame tender (current) drug therapy; Translations: [OTH JORDAN MAN CURRENT DRUG THERAPY] Onset: 11-08-2021 Episodic Other [...] Test Name Value Interpretation Reference Range Facility [facility] US CAROTID ARTERY DUPLE X BILATERALon 07-13-2023 [facility] US CAROTID ARTERY DUPLEX BILATERAL FINDINGS: Right [...] Not Available Office Visiton 09-19-2022 Follow-up visit [id number] Gloria Roque 1935 F Date Provider Department Center 09/19/2022 [id number] MABRY [facility] Family History Problem Relation Age of Onset Cancer Father Colon cancer Sister Heart attack Brother Family Status - Relation Status Age at Father Sister Brother Level of Service:[address] [place] OFFICE/OUTPATIENT NEW [facility] MDM 30-[address] [facility] Covid-19 PCR ([facility])on 10-14 SARS-CoV-2 (COVID-19) RNA REYNALDO+probe Ql (Unsp spec) Detected Critically abnormal NOT DETECTED [facility] Comment on above: Result Comment: This test is not yet approved or cleared by the [place] FDA. When there are no FDA-approved or cleared tests available, and other criteria are met, FDA can make tests available under an emergency access mechanism called an Emergency Use Authorization (EUA). The EUA for this test is supported by the [employer] of Health and Human Service's declaration that [...] used). Performed By: #### C VDTBH #### [facility] [address] [place], [place] [address] Dr. Leslie Tejeda Complete Blood Counton 03-01 Erythrocyte distribution width (RBC) [Ratio] 12.4 % Normal 11.0-15.[address] [facility] Comment on above: Performed By: #### C BC, LIPD, CMP #### [facility] [address] [place], [place] [id number] Hematocrit (Bld) [Volume fraction] 38.4 % Normal 35.0-47.[address] [facility] Comment on above: Performed By: #### ERNIE GRIGSBY, CMP #### [facility] [address] [place], [place] [id number] Hemoglobin (Bld) [Mass/Vol] 12.7 g/dL Normal 11.6-15.[address] [facility] Comment on above: Performed By: #### ERNIE GRIGSBY, CMP #### [facility] [address] [place], [place] [id number] MCH (RBC) [Entitic mass] 31.7 pg Normal 27.0-33.[address] [facility] Comment on above: Performed By: #### ERNIE GRIGSBY, CMP #### [facility] [address] [place], [place] [id number] MCHC (RBC) [Mass/Vol] 33.1 g/dL Normal 32.0-36.[address] [facility] Comment on above: Performed By: #### ERNIE GRIGSBY, CMP #### [facility] [address] [place], [place] [id number] MCV (RBC) [Entitic vol] 96 fL Normal 80-[address] [facility] Comment on above: Performed By: #### ERNIE GRIGSBY, CMP #### [facility] [address] [place], [place] [id number] Platelet mean volume (Bld) [Entitic vol] 9.70 fL Normal 7.50-12.[address] [facility] Comment on above: Performed By: #### ERNIE GRIGSBY, CMP #### [facility] [address] [place], [place] [id number] Platelets (Bld) [#/Vol] 240 10*3/uL Normal 140-[address] [facility] Comment on above: Performed By: #### ERNIE GRIGSBY, CMP #### [facility] [address] [place], [place] [id number] RBC (Bld) [#/Vol] 4.01 10*6/uL Normal 3.90-5.20 [facility] Comment on above: Performed By: #### ERNIE GRIGSBY, CMP #### [facility] [address] [place], [place] [id number] RDW-SD 43.9 fL Normal 37.0-50.[address] [facility] Comment on above: Performed By: #### C BC, LIPD, CMP #### [facility] [address] [place], [place] [id number] WBC (Bld) [#/Vol] 5.1 10*3/uL Normal 3.8-11.0 [facility] [place] [facility] Comment on above: Performed By: #### C BC, LIPD, CMP #### [facility] [address] [place], [place] [id number] Comprehensive Metabolic Pane melquiades 03-01-2021 Albumin [Mass/Vol] 4.1 g/dL Normal 3.6-5.1 [facility] [place] [facility] Comment on above: Performed By: #### C BC, LIPD, CMP #### [facility] [address] [place], [place] [id number] Albumin/Globulin [Mass ratio] 1.7 {ratio} Normal 1.0-2.[address] [facility] Comment on above: Performed By: #### C BC, LIPD, CMP #### [facility] [address] [place], [place] [id number] ALP [Catalytic activity/Vol] 58 U/L Normal 35-[address] [facility] Comment on above: Performed By: #### C BC, LIPD, CMP #### [facility] [address] [place], [place] [id number] ALT [Catalytic activity/Vol] 9 U/L Normal 6-[address] [facility] Comment on above: Result Comment: 01/12 Female reference range changed. Performed By: #### C BC, LIPD, CMP #### [facility] [address] [place], [place] [id number] Anion gap [Moles/Vol] 15 mmol/L Normal 12-[address] [facility] Comment on above: Result Comment: Effe ctive 02/17/2019 reference range changed. Performed By: #### C BC, LIPD, CMP #### [facility] [address] [place], [place] [id number] AST [Catalytic activity/Vol] 14 U/L Normal 9-34 [facility] [place] [facility] Comment on above: Performed By: #### C BC LIPD, CMP #### [facility] [address] [place], [place] [id number] Bilirubin [Mass/Vol] 0.42 mg/dL Normal 0.30-1.20 [facility] Comment on above: Performed By: #### C BC, LIPD, CMP #### [facility] [address] [place], [place] [id number] BUN/CREA 23 Ratio High 6-22 [facility] Comment on above: Performed By: #### C BC, LIPD, CMP #### [facility] [address] [place], [place] [id number] Calcium [Mass/Vol] 9.4 mg/dL Normal 8.6-10.2 [facility] Comment on above: Performed By: #### C BC, LIPD, CMP #### [facility] [address] [facility] [place] [place] [id number] Chloride [Moles/Vol] 102 mmol/L Normal 98-107 [facility] Comment on above: Performed By: #### C BC, LIPD, CMP #### [facility] [address] [place], [place] [id number] CO2 [Moles/Vol] 25 mmol/L Normal 20-31 [facility] Comment on above: Performed By: #### C BC, LIPD, CMP #### [facility] [address] [facility] [place] [place] [id number] Creatinine [Mass/Vol] 0.9 mg/dL Normal 0.6-1.4 [facility] Comment on above: Performed By: #### C BC, LIPD, CMP #### [facility] [address] [place], [place] [id number] eGFRAA 71 mL/min/1.73m2 Normal >60 [facility] Comment on above: Performed By: #### C BC, LIPD, CMP #### [facility] [address] [place], [place] [id number] eGFRNAA 59 mL/min/1.73m2 Low >60 [facility] Comment on above: Performed By: #### C BC, LIPD, CMP #### [facility] [address] [place], [place] [id number] Globulin (S) [Mass/Vol] 2.4 g/dL Normal 1.9-3.[address] [facility] Comment on above: Performed By: #### C BC, LIPD, CMP #### [facility] [address] [place], [place] [id number] Glucose [Mass/Vol] 96 mg/dL Normal 65-99 [facility] Comment on above: Result Comment: For FASTING Glucose --- ADA reference ranges: Normal 65-99 mg/dl Prediabetes 100-125 Diabetes >/= 126 Performed By: #### C BC, LIPD, CMP #### [facility] [address] [place], [place] [id number] Potassium [Moles/Vol] 4.3 mmol/L Normal 3.5-5.[address] [facility] Comment on above: Performed By: #### C BC, LIPD, CMP #### [facility] [address] [place], [place] [id number] Protein [Mass/Vol] 6.5 g/dL Normal 6.1-8.1 [facility] Comment on above: Performed By: #### C BC, LIPD, CMP #### [facility] [address] [place], [place] [id number] Sodium [Moles/Vol] 138 mmol/L Normal 135-146 [facility] Comment on above: Performed By: #### C BC, LIPD, CMP #### [facility] [address] [place], [place] [id number] Urea nitrogen [Mass/Vol] 21 mg/dL Normal 7-[address] [facility] Comment on above: Performed By: #### C BC, LIPD, CMP #### [facility] [address] [place], [place] [id number] Lipid Panelon 03-01-2021 Cholesterol [Mass/Vol] 242 mg/dL High 125-[address] [facility] Comment on above: Result Comment: Low risk < 200mg/dL Borderline risk 201-239 mg/dl High risk > or equal to 240 Performed By: #### C BC, LIPD, CMP #### [facility] [address] [place], [place] [id number] Cholesterol in HDL [Mass/Vol] 64 mg/dL Normal >40 [facility] Comment on above: Result Comment: High Cardiovascular Risk HDL <40 mg/dL Low Cardiovascular Risk HDL > or equal to 60 mg/dl Performed By: #### C BC, LIPD, CMP #### [facility] [address] [place], [place] [id number] Cholesterol in LDL [Mass/Vol] 166 mg/dL Normal [facility] Comment on above: Result Comment: LDL ATP III CLASSIFICATION LDL less than 100 mg/dl Optimal LDL 100-129 mg/dl Near or above optimal LDL 130-159 Borderline high LDL 160-189 High LDL greater than 189 mg/dl Very High Performed By: #### C BC, LIPD, CMP #### [facility] [address] [place], [place] [id number] Cholesterol in VLDL [Mass/Vol] 12 mg/dL Normal [facility] Comment on above: Performed By: #### C BC, LIPD, CMP #### [facility] [address] [place], [place] [id number] Cholesterol.total/ Cholesterol in HDL [Mass ratio] 4 {ratio} Normal [facility] Comment on above: Performed By: #### C BC, LIPD, CMP #### [facility] [address] [place], [place] [id number] Triglyceride [Mass/Vol] 60 mg/dL Normal 30-150 [facility] Comment on above: Result Comment: TRIG ATPIII CLASSIFICATIONS TRIG less than 150 mg/dl Normal TRIG 150-199 mg/dl Borderline High TRIG 200-500 mg/dl High TRIG greather than 500 mg/dl Very High Performed By: #### C BC, LIPD, CMP #### [facility] [address] [place], [place] [id number] TSHon 03-01-2021 TSH Qn 3.13 m[IU]/L Normal 0.40-4.50 [facility] Specialist Comment on above: Order Comment: [facility] Testing performed at: QPT, [facility], [address], [address] [place] [address], [place], [address], Residential Sales Executive: Joao Graham MD [facility] Collection Date/Time: [id number] [facility] Results Received Date/Time: [id number] [facility] Reported Date/Time: [id number] Performed By: #### T #### [facility] Default [address] [place] [address] Vital Signs Date Time Vital Sign Value Performing Clinician Faci lity 01-09-2024 09:02-0500 Body height 163.8 cm Alpesh Trinh MD Work Phone: [facility] 01-09-2024 09:02-0500 Body mass index (BMI) [Ratio] 24 kg/m2 Alpesh Trinh MD Work Phone: [facility] 01-09-2024 09:02-0500 Body weight 64.41 kg Alpesh Trinh MD Work Phone: [facility] 01-09-2024 09:02-0500 Diastolic blood pressure 70 mm[Hg] Alpesh Trinh MD Work Phone: [facility] 01-09-2024 09:02-0500 Heart rate 68 /min Alpesh Trinh MD Work Phone: [facility] 01-09-2024 09:02-0500 SaO2% (BldA) [Mass fraction] 96 % Alpesh Trinh MD Work Phone: [facility] 01-09-2024 09:02-0500 Systolic blood pressure 130 mm[Hg] Alpesh Trinh MD Work Phone: [facility] 10-04-2023 12:59-0400 Body height 163.8 cm Alpesh Trinh MD Work Phone: [facility] 10-04-2023 12:59-0400 Diastolic blood pressure 74 mm[Hg] Alpesh Trinh MD Work Phone: [facility] 10-04-2023 12:59-0400 Heart rate 74 /min Alpesh Trinh MD Work Phone: [facility] 10-04-2023 12:59-0400 SaO2% (BldA) [Mass fraction] 96 % Alpesh Trinh MD Work Phone: [facility] 10-04-2023 12:59-0400 Systolic blood pressure 130 [...] Gastroesophageal reflux disease without esophagitis; Pure hypercholesterolemia ([facility]/HCC) Start: 10-04-2023 End: 10-04-2023 ambulatory ALPESH TRINH Not Available Start: 07-13-2023 End: 07-13-2023 ambulatory ALPESH TRINH Not Available Start: 07-02-2023 End: 07-02-2023 ambulatory ALPESH TRINH Not Available Start: 09-19-2022 End: 09-19-2022 ambulatory [facility] Start: 11-07-2021 End: 11-07-[address] ALPESH TRINH Facility: Plan of Treatment Date Care Activity Detail Author Start: 10-03-2024 Medicare Annual Wellness (AWV) Medicare Annual Wellness (AWV) [facility] Healthcare Start: 02-04-2024 End: 02-04-2024 Patient encounter procedure 02/04/2024 10:30 AM EST Office Visit [facility] [address] [facility] [address] [place] [id number] Alpesh Trinh MD [address] [facility] [address] [place] [address] [facility] Start: 01-09-2024 End: 01-09-2024 Patient encounter procedure [facility] Comment on above: Arrived Start: 10-14-2023 Influenza vaccination Influenza Vacc ine (#1) [facility] Healthcare Start: 10-04-2023 End: 10-03-2024 DXA Skeletal system Views for bone density DEXA bone density Imaging Routine Estrogen deficiency Expected: 10/04/2023 (Approximate), Expires: 10/03/2024 [facility] Healthcare Work Phone: Comment on above: Expected: 10/04/2023 (Approximate), Expires: 10/03/2024 Start: 10-04-2023 End: 10-04-2023 Patient encounter procedure 10/04/2023 1:00 PM EDT Office Visit [facility] [address] [facility] [address] [place] [id number] Alpesh Trinh MD [address] [facility] [address] [place] [address] Arrived [facility] Comment on above: Arrived Start: 05-11-2023 Medicare Annual Wellness (AWV) Medicare Annual Wellness (AWV) [facility] Healthcare Immunizations Immunization Date Immunization Notes Care Provider Fa cility 12-07-2023 influenza, high dose seasonal, preservative-free Alpesh Trinh MD Work Phone: [facility] 12-07-2023 influenza virus vacc ine, unspecified formulation Alpesh Trinh MD Work Phone: [facility] 10-20-2022 Influenza, Seasonal, Quadrivalent, Adjuvanted Alpesh Trinh MD Work Phone: [facility] 10-20-2022 influenza virus vacc ine, unspecified formulation Alpesh Trinh MD Work Phone: [facility] 10-26-2021 Influenza, High-dose Seasonal, Quadrivalent, Preservative Free Alpesh Trinh MD Work Phone: [facility] 11-16-2020 Influenza, High-dose Seasonal, Quadrivalent, Preservative Free Alpesh Trinh MD Work Phone: [facility] 12-09-2019 Influenza, High-dose Seasonal, Quadrivalent, Preservative Free Alpesh Trinh MD Work Phone: [facility] 12-07-2018 influenza, high dose seasonal, preservative-free Alpesh Trinh MD Work Phone: [facility] 01-18-2018 pneumococcal conjuga te vaccine, 13 valent Alpesh Trinh MD Work Phone: [facility] 11-18-2017 Seasonal trivalent influenza vaccine, adjuvanted, preservative free Alpesh Trinh MD Work Phone: [facility] 11-22-2016 Seasonal trivalent influenza vaccine, adjuvanted, preservative free Alpesh Trinh MD Work Phone: [facility] 11-26-2015 influenza, high dose gabriele, preservative-free Alpesh Trinh MD Work Phone: [facility] 11-02-2014 pneumococcal polysaccharide vaccine, 23 valent Alpesh Trinh MD Work Phone: [facility] 11-02-2014 seasonal influenza, intradermal, preservative free Alpesh Trinh MD Work Phone: [facility] 11-16-2013 influenza, high dose seasonal, preservative-free Alpesh Trinh MD Work Phone: [facility] 11-12-2013 influenza, seasonal, injectable Alpesh Trinh MD Work Phone: [facility] 12-04-2012 influenza, seasonal, injectable Alpesh Trinh MD Work Phone: [facility] 11-14-2011 influenza virus vacc ine, whole virus Alpesh Trinh MD Work Phone: [facility] 11-28-2010 influenza virus vacc ine, whole virus Alpesh Trinh MD Work Phone: [facility] 02-12-2010 zoster vaccine, live Alpesh Trinh MD Work Phone: [facility] 11-24-2009 influenza virus vacc ine, whole virus Alpesh Trinh MD Work Phone: [facility] 11-28-2006 influenza virus vacc ine, whole virus Alpesh Trinh MD Work Phone: [facility] 02-12-2005 pneumococcal polysaccharide vaccine, 23 valent Alpesh Trinh MD Work Phone: [facility] Payers Date Payer Category Payer Medicare (Managed Care) [employer] M [employer] ADVANTAGE [id number] 2023 Medicare [id number] 2019 Unknown GENERIC [employer]ERCI AL GENERIC COMMERCIAL [id number] 2019-Present [phone] [address] [address] [place] [address] [id number] 1999 Medicare [id number] 1959 Medicare [id number] 1959 Unknown [id number] 1934 Unknown [id number] 1934 Unknown [id number] 1934 Unknown [id number] 1934 Unknown [id number] 1934 Unknown [id number] Social History Date Type Detail Facility Start: 12-07-2022 Tobacco smoking stat [facility] Never smoked tobacco [facility] Start: 12-07-2022 [...] female who presents for prolia injection (From [facility] ). Subjective Gloria Roque is a 87 [...] F/U med changes. documented in this encounter [facility] Healthcare Telephone encounter Note 12-25-2023 Telephone Encounter - CHARLI Maya - 12/25/2023 11:58 AM EST Note Date & Type Note Facility 12-25-2023 Telephone encounter Note No notes for encounter [facility] Work Phone: Note 12-25-2023 Telephone Encounter - CHARLI Maya - 12/25/2023 11:58 AM EST Note Date & Type Note Facility 12-25-2023 Miscellaneous Notes Formattin g of this note might be different from the original. No notes for encounter documented in this encounter [facility] History of Present illness [...] Do you have a medical power of litigation attorney?: Yes Who is your medical power of litigation attorney?: son Objective : BP 130/74 Pulse 74 [...] LDL-C. Sherman LOPEZ et al. DHARA. 2013;310(19): 3583-4039 (http://education.QuantuModeling.com/f aq/EAX005) CHOL/HDLC RATIO 07/06/2023 3.7 <5.0 (calc) Final [...] a living will and durable power of litigation attorney for healthcare. We discussed telling benítez people [...] Future Chronic kidney disease, stage 3a (HCC) ([facility]/HCC) Malignant neoplasm of sigmoid colon ([facility]/HCC) Unspecified chronic bronchitis ([facility]/HCC) Benign essential hypertension ([facility]/HCC) Left ventricular diastolic dysfunction, NYHA class 2 Gastroesophageal reflux disease without esophagitis Pure hypercholesterolemia ([facility]) Orders Placed This Encounter Procedures DEXA bone [...] All other systems reviewed and are negative. [facility] Progress note 09-19-2022 Note Date & [...] electrolytes. No follow-ups on file. Jenni Mabry APRN-SOLE LEVELER [facility] Cardi[facility] Evaluation note Note Date & Type [...] section and content) DATE CREATED AUTHOR 03/02/2021 [facility] dical Specialist DATE CREATED AUTHOR AUTHOR'S ORGANIZ ATION 03/29/2022 [facility] pital DATE CREATED AUTHOR AUTHOR'S ORGANIZ ATION 10/05/2022 [facility] DATE CREATED AUTHOR AUTHOR'S ORGANIZ ATION 01/11/2024 [facility] dical Specialists EPIC Care Teams (unrecognized sec tion and content) Fire Operations Forester Relationship Specialty Start Date End Date Alpesh Trinh MD [address] [facility] [address] [place] [address] PCP - General Internal Medicine 08/28/22 Fire Operations Forester Relationship Specialty Start Date End Date Alpesh Trinh MD [address] [facility] [address] [place] [address] PCP - General Internal Medicine 08/28/22 Fire Operations Forester Relationship Specialty Start Date End Date Alpesh Trinh MD [address] [facility] [address] [place] [address] PCP - General Internal Medicine 08/28/22 Fire Operations Forester Relationship Specialty Start Date End Date Alpesh Trinh MD [address] [facility] [address] [place] [address] PCP - General Internal Medicine 08/28/22 Reason for Visit (unrecogniz ed section and content) Reason Comments prolia injection From [facility] Reason Comments Medicare Annual Wellness Visit Subsequen [...] BE BASED ON THE PRIMARY CLINICAL RECORDS. [facility] [email or web address] [facility]. provides no warranty or guarantee of the accuracy or completeness of information in this document.
[2024-02-03] MEDS: ACETAMINOPHEN 325 MG TABLET 650 MG PO (20:02)
[2024-02-03] MEDS: ENOXAPARIN SODIUM 30 MG/0.3 ML SYRINGE SUBQ (20:02)
[2024-02-03] MEDS: LACTATED RINGER'S SOLUTION 1,000 ML 100 ML IV (20:02)
[2024-02-03] MEDS: ATORVASTATIN CALCIUM 40 MG TABLET PO (22:15)
[2024-02-03 23:14] LABS: Troponin I High Sensitivity 158.9 pg/mL (4.0-51.3)
[2024-02-04] VITALS (55 sets, daily range): BP systolic 125–144; BP diastolic 59–82; PULSE 61–98; TEMP 36.2–36.6; O2SAT 92–97
--- NOTE | 2024-02-04 | MR_ITS ---
The [address] [address] Patient Name: HOWARD HOGUE MRN: [id number] date: 1935 Sex: F Assigned Patient Location: ICU Current Patient Location: ICU Accession/Order Number: [id number] Exam Date: 02/04/2024 10:00 Report Date: 02/04/2024 11:09 At the request of: SHAIKH MAHAMED Procedure: MR head/brain wo con MR head/brain wo con, 02/04/2024 10:00 AM EST INDICATION: stroke COMPARISON: Prior CT and CTA dated 02/03/2024 TECHNIQUE: Multiplanar, multisequential MRI images of brain were obtained without injection of contrast. FINDINGS: The sensitivity of the study has been decreased due to motion artifact. The cerebral sulci as well as ventricular system are enlarged consistent with moderate ex vacuo cerebral volume loss. There is focal restricted diffusion in the right putamen and the globus pallidus extending superiorly to the body of the right caudate nucleus. No hemorrhagic change is noted. Hyperintensities on T2 and FLAIR images in the frank radiata and centrum semiovale with sparing of U fibers are nonspecific, statistically most likely consistent with moderate to severe microvascular ischemic changes. There is no intracranial mass, mass effect, midline shift, intra or extra-axial fluid collection or large hemorrhage. Normal flow-void in the intracranial vessels is noted. The visualized portions of orbits, mastoid air cells as well as paranasal sinuses are unremarkable. There is status post bilateral lens replacement. MR/MR head/brain wo con IMPRESSION: Limited study. 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 A stat note was submitted to inform the clinician at 11:08 AM. Electronically authenticated by: JOEL DESHPANDE Date: 02/04/2024 11:09
[2024-02-04 05:48] LABS: Basophils Percent Auto 0.5 % (0.2-2.0); Eosinophils Absolute Auto 0.1 10^3/uL (0.0-0.7); Eosinophils Percent Auto 1.1 % (0.9-7.0); Hematocrit 33.6 % (36.0-48.0); Hemoglobin 11.2 g/dL (12.0-16.0); Immature Granulocytes Abs Auto 0.03 10^3/uL (0.00-0.03); Immature Granulocytes Pct Auto 0.4 % (0.0-0.5); Lymphocytes Absolute Auto 2.2 10^3/uL (1.2-3.8); Lymphocytes Percent Auto 25.1 % (20.5-60.0); Mean Corpuscular HGB Conc 33.3 g/dL (29.9-35.2); Mean Corpuscular Hemoglobin 31.3 pg (26.7-34.0); Mean Corpuscular Volume 93.9 fL (81.0-99.0); Monocytes Absolute Auto 1.1 10^3/uL (0.3-0.8); Monocytes Percent Auto 12.7 % (1.7-12.0); Neutrophils Absolute Auto 5.2 10^3/uL (1.4-6.5); Neutrophils Percent Auto 60.2 % (43.0-75.0); Platelet Count 224 10^3/uL (150-450); Red Blood Count 3.58 10^6/uL (4.20-5.40); Red Cell Distribution Width 12.8 % (11.0-15.0); White Blood Count 8.6 10^3/uL (4.0-11.0)
[2024-02-04] MEDS: LACTATED RINGER'S SOLUTION 1,000 ML 100 ML IV (05:54)
[2024-02-04 06:05] LABS: Alanine Aminotransferase 15 U/L (14-59); Albumin Level 2.9 g/dL (3.4-5.0); Alkaline Phosphatase 52 U/L (46-116); Anion Gap 13.2; Aspartate Amino Transferase 30 U/L (15-37); BUN Creatinine Ratio 10.4; Bilirubin Total 0.7 mg/dL (0.2-1.0); Calcium 8.2 mg/dL (8.5-10.1); Carbon Dioxide 26.2 mmol/L (21.0-32.0); Chloride 103 mmol/L (98-107); Estimated GFR (African America >60 (>=60 mL/min/1.73m^2); Estimated GFR (Non-African Ame 55 (>=60 mL/min/1.73m^2); Globulin 2.8 g/dL; Glucose 90 mg/dL (74-106); Potassium 3.4 mmol/L (3.5-5.1); Sodium 139 mmol/L (136-145); Total Protein 5.7 g/dL (6.4-8.2)
[2024-02-04 06:14] LABS: Creatine Kinase 397 U/L (26-192)
[2024-02-04] MEDS: FLUOXETINE HCL 20 MG CAPSULE PO (08:40)
[2024-02-04] MEDS: ASPIRIN 81 MG TAB.CHEW PO (08:40)
[2024-02-04] MEDS: METOPROLOL TARTRATE 25 MG TABLET 12.5 MG PO (08:40)
--- NOTE | 2024-02-04 09:30 | CM.NOTE ---
Rounds made with Dr. Sullivan, pt having cardiac echo at this time.
[2024-02-04] MEDS: POTASSIUM CHLORIDE 10 MEQ ER TABLET 40 MEQ PO (09:53)
[2024-02-04] MEDS: CEFTRIAXONE 1,000 MG in 0.9 % SODIUM CHLORIDE 50 ML 100 MG IV (10:50)
--- NOTE | 2024-02-04 11:28 | PC.NURSE ---
pt sitting up in chair. a/o, denies pain. pt asked for menu, given to pt. pt holding menu upside down, did not make attempt to correct it. this nurse flipped menu over for pt. pt answers questions appropriately with some prompting.
--- NOTE | 2024-02-04 12:09 | PM.HP ---
HPI H&P: HPI History of Present Illness Chief complaint: FALL LAST NIGHT, BODY PAIN STROKE MULTIPLE FALLS Narrative: 88 y o female, who lives by herself was brought over by her son for frequent falls at home. He also noticed that patient was favoring her right side upon ambulation. Patient at baseline does not require any assistive devices to ambulate. According the son, he found her laying on the floor and brought her over here. Patient does not recall that but admits to frequent fall and that she feels weak overall. Work up in ED revealed elevation in CK, Trop and BNP and CT imaging revealed possible sub acute right basal ganglia infarct. She was noted to have mild left sided weakness upon exam in ED. Her work up also revealed abnormal UA c/w UTI. She reports polyuria but denies dysuria, hematuria or abdominal pain. At the time of my eval, she has no active complaints to offer, except for low back pain from her fall. Opioid HPI Opioid Management Most Recent Pain and Opioid Data: Last Pain Scale 2 02/04/24 09:05 02/04/24 Last Pain Intensity 2 02/04/24 09:05 02/04/24 Last Pain Assessment 02/04/24 11:38 Last ORT Total Score 0 02/03/24 18:34 02/03/24 Last ORT Risk Category Low Risk 02/03/24 18:34 02/03/24 Review of Systems ROS Status of ROS 10 or more systems reviewed and unremarkable except as noted in history and below [facility] Medical History (Updated 02/04/24 @ 12:20 by Shaikh Nate MD) HTN (hypertension) ?I10 - Essential (primary) hypertension (ICD-10) HLD (hyperlipidemia) ?E78.5 - Hyperlipidemia, unspecified (ICD-10) Social History (Updated 02/04/24 @ 12:16 by Shaikh Nate MD) Within the past year, how often did you have a drink containing alcohol: never Score interpretation: A score less than 3 is consistent with normal alcohol consumption. Smoking status: Never smoker Highest level of school completed/degree received: high school graduate Little interest or pleasure in doing things: several days Feeling down, depressed, or hopeless: not at all Meds Home Medications and Allergies Home Medications ?Medication ?Instructions ?Recorded ?Confirmed ?Type denosumab 60 mg/mL subcutaneous 60 mg subcut .every 6 months 06/24/23 02/04/24 History syringe (Prolia) fluoxetine 20 mg capsule 20 mg PO DAILY 06/24/23 02/03/24 History lisinopril 10 mg tablet 10 mg PO DAILY 06/24/23 02/03/24 History metoprolol tartrate 25 mg tablet 12.5 mg PO DAILY 06/24/23 02/03/24 History Allergies Allergy/AdvReac Type Severity Reaction Status Date / Time Penicillins Allergy Intermediate Verified 06/24/23 18:18 Exam Constitutional Vital Signs, click to edit/add: Last Vital Signs Temp 97.8 F 02/04/24 08:00 Pulse 68 02/04/24 11:38 Resp 18 02/04/24 11:22 BP 125/64 02/04/24 11:22 Pulse Ox 92 L 02/04/24 11:21 O2 Del Method Room Air 02/04/24 11:26 Documenting provider has reviewed patient's vital signs: yes Common normals: no apparent distress and oriented x3 General appearance: cooperative HENMT Common normals: normocephalic and head/scalp atraumatic Head and scalp: normocephalic and atraumatic Eye Common normals: conjunctivae normal and no scleral icterus Conjunctiva: conjunctiva(e) normal Respiratory Common normals: normal respiratory effort and clear to auscultation bilaterally Effort & inspection: able to speak in complete sentences Auscultation: clear to auscultation bilaterally Cardio Common normals: regular rate, S1 normal heart sound and S2 normal heart sound Rate: regular rate Heart sounds: S1 normal and S2 normal GI Common normals: Normal to inspection, nondistended, normoactive bowel sounds present, soft to palpation, non-tender and no hepatosplenomegaly Palpation: soft and no hepatosplenomegaly Extremity Common normals: no clubbing, cyanosis or edema Neuro Common normals: oriented x3, moves all extremities and no sensory deficits noted Motor exam: strength 5/5 throughout Psych Common normals: mental status grossly normal, denies hallucinations, denies homicidal ideation and denies suicidal ideation Results Labs Labs: Short CBC 02/03/24 02/04/24 Range/Units 13:03 05:03 WBC 10.1 8.6 (4.0-11.0) 10^3/uL Hgb 12.6 11.2 L (12.0-16.0) g/dL Hct 37.6 33.6 L (36.0-48.0) % Plt Count 256 224 (150-450) 10^3/uL BMP 02/03/24 02/04/24 12:50 05:03 Sodium 136 139 Potassium 3.8 3.4 L Chloride 98 103 Carbon Dioxide 24.3 26.2 BUN 14.0 10.0 Creatinine 1.29 H 0.96 Glucose 113 H 90 Calcium 8.9 8.2 L Cardiac Enzymes 02/03/24 02/04/24 Range/Units 13:03 05:03 Total Creatine Kinase 511 H* 397 H* (26-192) U/L Liver Function 02/03/24 02/04/24 Range/Units 12:50 05:03 Total Bilirubin 0.7 0.7 (0.2-1.0) mg/dL AST 27 30 (15-37) U/L ALT 15 15 (14-59) U/L Alkaline Phosphatase 63 52 (46-116) U/L Albumin 3.3 L 2.9 L (3.4-5.0) g/dL Urine 02/03/24 Range/Units 16:45 Urine Color Lt. yellow (YELLOW) Urine Clarity Clear (CLEAR) Urine pH 6.0 (5.0-9.0) Ur Specific [place] 1.020 (1.005-1.025) Urine Protein Trace (NEG/TRACE) mg/dL Urine Glucose (UA) Negative (NEGATIVE) mg/dL Assessment and Plan Assessment and Plan (1) Acute ischemic stroke: Assessment and Plan: Acute right basal ganglia stroke on MRI. CTA head/neck - no acute finding. On ASA, statin. C/w tele monitoring and neuro checks Tele stroke consult pending. ECHO for stroke work up - official report pending. (2) Dehydration determined by examination: Assessment and Plan: Improved with hydration. D/c IVF. (3) Elevated CK: Assessment and Plan: Due to fall, being on the floor for prolonged period of time. Improved. (4) Elevated troponin: Assessment and Plan: Trending down. No symptoms of active cardiac ischemia. On ASA, statin. ECHO pending. (5) Multiple falls: Assessment and Plan: Likely because of acute stroke. PT/OT eval. Recommend Rolling walker for safe ambulation with her recent stroke and frequent falls especially since she lives by herself. (6) Elevated brain natriuretic peptide (BNP) level: Assessment and Plan: Was clinically dry on arrival and required IVF. D/C IVF. ECHO pending. (7) HTN (hypertension): Assessment and Plan: Stable BP. c/w home medications. Qualifiers: Hypertension type: primary hypertension Qualified Code(s): I10 - Essential (primary) hypertension (8) UTI (urinary tract infection): Assessment and Plan: Abnormal UA, no specific symptoms to suggest UTI except for polyuria. Will treat with IV rocephin. Fu urine cx. Qualifiers: Urinary tract infection type: acute cystitis Hematuria presence: without hematuria Qualified Code(s): N30.00 - Acute cystitis without hematuria
--- NOTE | 2024-02-04 13:44 | SWNOTE1 ---
MANUELA received a call from pt's son, Tyree. He was asking if we had her HCPOA paperwork scanned in. He stated she had one done many years ago, but he can't find it. He called her PCP earlier today to let them know she was at hospital, but they told him he was not on her HIPAA form. He was wondering if pt was willing to do one if SW could complete with pt. SW let pt's son know that SW will assess and determine if pt is capable of completing one. If she is, SW will complete with her. SW also let him know that therapy recommended Home health services and a walker. Pt's son in agreement with everything. He voiced she is stubborn and she may not want any of it. SW to assess pt. SW did let her son know that she may be discharged later today. Tyree voiced he could get her after work around 5:30 if needed. He stated there is not anyone else besides him to help care for her. SW met with pt to discuss dc needs. SW advised pt that therapy did recommend she return home with home health services. Pt voiced she is open to this and does not have any preferences on HH company, as she has never had it before. SW did ask her about using a walker or cane at home. Pt voiced she does not want to use a walker and that her hallway is narrow and she does not feel it will fit. Pt voiced she was fine without one. SW asked pt if she still drove? She stated no her son took her keys away. She does go to the grocery store with him. She stated Tyree is her only child and he is very helpful. She stated he does everything for her; yard work, snow blowing, shopping, etc. SW asked if he comes over everyday to check on her? She stated yes and on his days off he comes over 2-3 times a day. SW then spoke with pt about completing HCPOA. She stated she went to a magnetic healer at a bank about 5 years ago and did one. She stated it is in a cabinet behind her couch. She voiced that Tyree is listed in it as he is all that she has. Pt is open to completing a new HCPOA. SW did ask her all the questions and pt did answer appropriately. Pt is aware of where she is, the date, the month, the year, and the President. SW to come back and complete HCPOA. Referral sent to [address] . Referral included face sheet, ED note, H&P, provider notes, and PT/OT notes.
--- NOTE | 2024-02-04 14:32 | SWNOTE1 ---
Important Message from [employer] reviewed and discussed with patient. Pt. verbalized understanding and signed the form. Original given to patient and copy placed in patient?s chart.
--- NOTE | 2024-02-04 14:32 | SWNOTE1 ---
SW started HCPOA, but telestroke called in and pt and nurse had to complete there assessment. SW to stop back in and finish HCPOA with pt. SW received a call from [address] and they are able to accept and plan on seeing pt tomorrow if she does discharge today.
--- NOTE | 2024-02-04 15:17 | SWNOTE1 ---
MANUELA went back in and completed HCPOA. SW to make copy for pt and take one down to medical records. MANUELA also again asked pt if she would like a wheeled walker for at home. She then stated she would like one. MANUELA called [employer] and they do not take insurance. Ciara Neal does not either. MANUELA called [facility] and they do take that insurance. MANUELA sent PT note, H&P, demographic sheet, and script to [facility]
[2024-02-04 15:23] LABS: BOX Test Reference Lab FIRELANDS
[2024-02-04] MEDS: CLOPIDOGREL BISULFATE 75 MG TABLET PO (15:47)
--- NOTE | 2024-02-04 18:00 | PC.NURSE ---
discharge instructions given to son and grandson, verbalize understanding. pt taken to exit via wheelchair with belongings. discharge to private vehicle
--- NOTE | 2024-02-07 11:48 | CM.DCFOLLOWU ---
Person spoke with:patient's sonTyree How are you feeling? she is doing alright, pretty tired How is your pain? no pain Did you understand your discharge instructions? yes Do you have any questions about your discharge instructions? no Were you given any prescriptions at discharge? yes Were you able to get your prescriptions filled?yes Do you understand how to take your medications as ordered? yes Do you have any questions about your follow up appointment and do you plan to keep your follow up appointment? no questions follow up reviewed, plans on talking to Dr. Trinh about her meds. Spoke about AL and custodial care and private caregivers with son. HH did come in and see patient Is there anything else that you would like to discuss?no Questions/Comments/Concerns/Other: none
== END 2024-02-04 18:00 | disposition home health service (06) | DRG 65 ==
LOC: ER 16:31 → ICU 18:27
PROVIDERS: Admitting Provider Internal Medicine; Emergency Provider Emergency Medicine; PCP Internal Medicine; Visit Provider Internal Medicine
DX: I63.9 Cerebral infarction, unspecified (principal); G81.94 Hemiplegia, unspecified affecting left nondominant side; N30.00 Acute cystitis without hematuria; I10 Essential (primary) hypertension; E86.0 Dehydration; M54.50 Low back pain, unspecified; R29.6 Repeated falls; R79.89 Other specified abnormal findings of blood chemistry; Z91.81 History of falling; Z79.620 Long term (current) use of immunosuppressive biologic; Z79.899 Other long term (current) drug therapy; Z88.0 Allergy status to penicillin; W19.XXXA Unspecified fall, initial encounter; Y92.009 Unspecified place in unspecified non-institutional (private) residence as the place of occurrence of the external cause
CPT/HCPCS: 36415; 70450; 70496; 70498; 70551; 71045; 72131; 80053; 80061; 81001; 82550; 83036; 83880; 84484; 85025; 85610; 87086; 93005; 93270; 93306; 94761; 97161; 97165; 99285; J0696; J1650; Q9967

== ENCOUNTER 2024-02-08 17:28 | Outpatient (OUT) | payer MEDICARE, SELFPAY ==
--- OUTSIDE RECORDS SUMMARY | 2024-02-08 17:31 | XMS_ITS | CCD ---
Author Organization [facility] Care Team Providers Care Glass Fitter Name Role Phone DR ALPESH TRINH Primary Care Unavailable PAY, DR COOMBS Admitting Unavailable PAY, DR COOMBS Attending Unavailable PAY, DR COOMBS Consulting Unavailable JENNI AMBRY Attending Unavailable Alpesh Trinh MD Primary Care Provider [phone] ALPESH TRINH Attending Unavailable ALPESH TRINH Referring Unavailable ALPESH TRINH Attending Unavailable ALPESH TRINH Attending Unavailable Unavailable Primary Care Provider UnavailEvelia Cook Attending Unavailable Evelia Pineda Admitting Unavailable Allergies Allergy Classification Reported Allergen(s) Allergy Type Date of Onset Reaction(s) Facility (2 sources) Penicillins; Translations: [PENICILLINS] Drug allergy (disorder) 06-17-2012 [facility] Repository (7 sources) Penicillin V Drug Allergy 12-07-2022 Unknown [facility] Healthcare (7 sources) Penicillins Drug Allergy 01-30-2014 Unknown [facility] Healthcare Medications Current Medications Medication [...] Problem Classification Problem Date Documented Date Episodic/Chronic Acute cerebrovascular disease (1 source) Acute cerebrovascular disease Onset: 02-04-2024 Cancer of colon (9 sources) Malignant tumor [...] encounter for fracture with nonunion] 01-09-2024 Episodic Residual codes; unclassified (1 source) Pain, unspecified; Translations: [Pain, unspecified] Onset: 02-07-2024 Episodic Spondylosis; intervertebral disc disorders; other back [...] Episodic Other aftercare (1 source) Other intermediate (current) drug therapy; Translations: [OTH SHELTER CURRENT DRUG THERAPY] Onset: 11-08-2021 Episodic Other [...] Test Name Value Interpretation Reference Range Facility Urine Cultureon 02-04-2024 Bacteria identified Cx Nom (U) <9,000 colonies/ml mixed bacterial skin contaminants 2 Days PERFORMED BY: [place] [address] [place] [address] PATHOLOGIST SENIOR SOFTWARE ENGINEER MARTITA FLORENTINO M.D. Normal [facility] Comment on above: Performed By: #### C UU #### [facility] [address] US CAROTID ARTERY DUPLE X BILATERALon 07-13-2023 [facility] US CAROTID ARTERY DUPLEX BILATERAL [...] Not Available Office Visiton 09-19-2022 Follow-up visit [id number] Howard Roque 1935 F Date Provider Department Center 09/19/2022 [id number] MABRY [facility] Family History Problem Relation Age of Onset Cancer Father Colon cancer Sister Heart attack Brother Family Status - Relation Status Age at Father Sister Brother Level of Service:50488 ND OFFICE/OUTPATIENT NEW [facility] 30-44 MINUTES [facility] Covid-19 PCR (CVDTBH)on 10-14 SARS-CoV-2 (COVID-19) RNA REYNALDO+probe Ql (Unsp spec) Detected Critically abnormal NOT DETECTED [facility] Comment on above: Result Comment: This test is not yet approved or cleared by the [place] FDA. When there are no FDA-approved or cleared tests available, and other criteria are met, FDA can make tests available under an emergency access mechanism called an Emergency Use Authorization (EUA). The EUA for this test is supported by the [place] of Health and Human Service's declaration that [...] used). Performed By: #### C VDTB #### [facility] [address] [place], [place] [address] Dr. Leslie Tejeda Complete Blood Counton 03-01 Erythrocyte distribution width (RBC) [Ratio] 12.4 % Normal 11.0-15.0 [facility] Specialist Comment on above: Performed By: #### C ERNIE BECERRA CMP #### [facility] [address], [place] [id number] Hematocrit (Bld) [Volume fraction] 38.4 % Normal 35.0-47.0 [facility] [employer] Comment on above: Performed By: #### C ERNIE BECERRA, CMP #### [facility] [address], [place] [id number] Hemoglobin (Bld) [Mass/Vol] 12.7 g/dL Normal 11.6-15.5 [facility] Specialist Comment on above: Performed By: #### C ERNIE BECERRA, CMP #### [facility] [address], [place] [id number] MCH (RBC) [Entitic mass] 31.7 pg Normal 27.0-33.0 [facility] [employer] Comment on above: Performed By: #### C ERNIE BECERRA, CMP #### [facility] [address], [place] [id number] MCHC (RBC) [Mass/Vol] 33.1 g/dL Normal 32.0-36.0 [facility] Specialist Comment on above: Performed By: #### ERNIE GRIGSBY, CMP #### [facility] [address], [place] [id number] MCV (RBC) [Entitic vol] 96 fL Normal 80-100 [facility] [employer] Comment on above: Performed By: #### ERNIE GRIGSBY, CMP #### [facility] [address], [place] [id number] Platelet mean volume (Bld) [Entitic vol] 9.70 fL Normal 7.50-12.50 [facility] Specialist Comment on above: Performed By: #### C BLANCA BECERRAD, CMP #### [facility] [address], [place] [id number] Platelets (Bld) [#/Vol] 240 10*3/uL Normal 140-400 [facility] Specialist Comment on above: Performed By: #### C HERNAN LIPD, CMP #### [facility] [address], [place] [id number] RBC (Bld) [#/Vol] 4.01 10*6/uL Normal 3.90-5.20 [facility] Specialist Comment on above: Performed By: #### C ERNIE BECERRA, CMP #### [facility] [address], [place] [id number] RDW-SD 43.9 fL Normal 37.0-50.0 [facility] Specialist Comment on above: Performed By: #### C HERNAN LIPD, CMP #### [facility] [address], [place] [id number] WBC (Bld) [#/Vol] 5.1 10*3/uL Normal 3.8-11.0 [facility] Senior Mortgage Loan Processor Comment on above: Performed By: #### C HERNAN LIPD, CMP #### [facility] [address], [place] [id number] Comprehensive Metabolic P[facility] 03-01-2021 Albumin [Mass/Vol] 4.1 g/dL Normal 3.6-5.1 [facility] [employer] Comment on above: Performed By: #### C BC LIPD, CMP #### [facility] [address], [place] [id number] Albumin/Globulin [Mass ratio] 1.7 {ratio} Normal 1.0-2.5 [facility] Specialist Comment on above: Performed By: #### C BC LIPD, CMP #### [facility] [address], [place] [id number] ALP [Catalytic activity/Vol] 58 U/L Normal 35-119 [facility] Specialist Comment on above: Performed By: #### C BC, LIPD, CMP #### [facility] [address] [place], [place] [id number] ALT [Catalytic activity/Vol] 9 U/L Normal 6-33 [facility] Comment on above: Result Comment: 01/12 Female reference range changed. Performed By: #### C BC, LIPD, CMP #### [facility] [address] [place], [place] [id number] Anion gap [Moles/Vol] 15 mmol/L Normal 12-20 [facility] Comment on above: Result Comment: Effe ctive 02/17/2019 reference range changed. Performed By: #### C BC, LIPD, CMP #### [facility] [address] [place], [place] [id number] AST [Catalytic activity/Vol] 14 U/L Normal 9-34 [facility] Comment on above: Performed By: #### C BC, LIPD, CMP #### [facility] [address] [place], [place] [id number] Bilirubin [Mass/Vol] 0.42 mg/dL Normal 0.30-1.20 [facility] Comment on above: Performed By: #### C BC, LIPD, CMP #### [facility] [address] [facility] [place] [id number] BUN/CREA 23 Ratio High 6-22 [facility] Comment on above: Performed By: #### C BC, LIPD, CMP #### [facility] [address] [facility] [place] [id number] Calcium [Mass/Vol] 9.4 mg/dL Normal 8.6-10.2 [facility] Comment on above: Performed By: #### C BC, LIPD, CMP #### [facility] [address] [place], [place] [id number] Chloride [Moles/Vol] 102 mmol/L Normal 98-107 [facility] Comment on above: Performed By: #### C BC, LIPD, CMP #### [facility] [address] [facility] [place] [id number] CO2 [Moles/Vol] 25 mmol/L Normal 20-31 [facility] Comment on above: Performed By: #### C BC, LIPD, CMP #### [facility] [address], [place] [id number] Creatinine [Mass/Vol] 0.9 mg/dL Normal 0.6-1.4 [facility] [employer] Comment on above: Performed By: #### C HERNAN LIPD, CMP #### [facility] [address], [place] [id number] eGFRAA 71 mL/min/1.73m2 Normal >60 [facility] [employer] Comment on above: Performed By: #### C HERNAN LIPD, CMP #### [facility] [address], [place] [id number] eGFRNAA 59 mL/min/1.73m2 Low >60 [facility] [employer] Comment on above: Performed By: #### C HERNAN LIPShraddha, CMP #### [facility] [address], [place] [id number] Globulin (S) [Mass/Vol] 2.4 g/dL Normal 1.9-3.7 [facility] [employer] Comment on above: Performed By: #### Renan BECERRA LIPD, CMP #### [facility] [address] [facility] [place] [id number] Glucose [Mass/Vol] 96 mg/dL Normal 65-99 [facility] [employer] Comment on above: Result Comment: For FASTING Glucose --- ADA reference ranges: Normal 65-99 mg/dl Prediabetes 100-125 Diabetes >/= 126 Performed By: #### Renan BECERRA LIPD, CMP #### [facility] [address], [place] [id number] Potassium [Moles/Vol] 4.3 mmol/L Normal 3.5-5.5 [facility] [employer] Comment on above: Performed By: #### C HERNAN LIPD, CMP #### [facility] [address] [facility] [place] [id number] Protein [Mass/Vol] 6.5 g/dL Normal 6.1-8.1 [facility] [employer] Loan Processor Comment on above: Performed By: #### C HERNAN, LIPD, CMP #### [facility] [address] [facility] [place] [id number] Sodium [Moles/Vol] 138 mmol/L Normal 135-146 [facility] Comment on above: Performed By: #### C BC, LIPD, CMP #### [facility] [address], [place] [id number] Urea nitrogen [Mass/Vol] 21 mg/dL Normal 7-25 [facility] Specialist Comment on above: Performed By: #### C BC, LIPD, CMP #### [facility] [address], [place] [id number] Lipid Panelon 03-01-2021 Cholesterol [Mass/Vol] 242 mg/dL High 125-200 [facility] Specialist Comment on above: Result Comment: Low risk < 200mg/dL Borderline risk 201-239 mg/dl High risk > or equal to 240 Performed By: #### C BC, LIPD, CMP #### [facility] [address], [place] [id number] Cholesterol in HDL [Mass/Vol] 64 mg/dL Normal >40 [facility] Specialist Comment on above: Result Comment: High Cardiovascular Risk HDL <40 mg/dL Low Cardiovascular Risk HDL > or equal to 60 mg/dl Performed By: #### C BC, LIPD, CMP #### [facility] [address], [place] [id number] Cholesterol in LDL [Mass/Vol] 166 mg/dL Normal [facility] Comment on above: Result Comment: LDL ATP III CLASSIFICATION LDL less than 100 mg/dl Optimal LDL 100-129 mg/dl Near or above optimal LDL 130-159 Borderline high LDL 160-189 High LDL greater than 189 mg/dl Very High Performed By: #### C BC, LIPD, CMP #### [facility] [address], [place] [id number] Cholesterol in VLDL [Mass/Vol] 12 mg/dL Normal [facility] Specialist Comment on above: Performed By: #### C BC, LIPD, CMP #### [facility] [address], [place] [id number] Cholesterol.total/ Cholesterol in HDL [Mass ratio] 4 {ratio} Normal [facility] Specialist Comment on above: Performed By: #### C BC, LIPD, CMP #### [facility] [address], [place] [id number] Triglyceride [Mass/Vol] 60 mg/dL Normal 30-150 [facility] [employer] Loan [employer] Comment on above: Result Comment: TRIG ATPIII CLASSIFICATIONS TRIG less than 150 mg/dl Normal TRIG 150-199 mg/dl Borderline High TRIG 200-500 mg/dl High TRIG greather than 500 mg/dl Very High Performed By: #### C BC, LIPD, CMP #### [facility] [address] [place], [place] [id number] TSHon 03-01-2021 TSH Qn 3.13 m[IU]/L Normal 0.40-4.50 [facility] Senior Mortgage Loan Processor Comment on above: Order Comment: [facility] Testing performed at: [facility], [employer] [facility], [address] [place] [address], [address] [place] [address], [id number], Tow Car Driver: Joao Graham MD [facility] Collection Date/Time: [facility] Results Received Date/Time: [facility] Reported Date/Time: Performed By: #### T #### [facility] Default [address] [place] [address] Vital Signs Date Time Vital Sign Value Performing Clinician Faci lity 01-09-2024 09:02-0500 Body height 163.8 cm Alpesh Trinh MD Work Phone: [facility] 01-09-2024 09:02-0500 Body mass index (BMI) [Ratio] 24 kg/m2 Alpesh Trinh MD Work Phone: [facility] 01-09-2024 09:02-0500 Body weight 64.41 kg Alpesh Trinh MD Work Phone: [facility] 01-09-2024 09:02-0500 Diastolic blood pressure 70 mm[Hg] Alpesh Trinh MD Work Phone: [facility] 01-09-2024 09:02-0500 Heart rate 68 /min Alpesh Trinh MD Work Phone: [facility] 01-09-2024 09:02-0500 SaO2% (BldA) [Mass fraction] 96 % Alpesh Trinh MD Work Phone: [facility] 01-09-2024 09:02-0500 Systolic blood pressure 130 mm[Hg] Alpesh Trinh MD Work Phone: [facility] 10-04-2023 12:59-0400 Body height 163.8 cm Alpesh Trinh MD Work Phone: [facility] 10-04-2023 12:59-0400 Diastolic blood pressure 74 mm[Hg] Alpesh Trinh MD Work Phone: [facility] 10-04-2023 12:59-0400 Heart rate 74 /min Alpesh Trinh MD Work Phone: [facility] 10-04-2023 12:59-0400 SaO2% (BldA) [Mass fraction] 96 % Alpesh Trinh MD Work Phone: [facility] 10-04-2023 12:59-0400 Systolic blood pressure 130 mm[Hg] Alpesh Trinh MD Work Phone: [facility] Healthcare Encounters Encounter Date Encounter Type Care Provider Facility Start: 02-07-2024 ambulatory [facility] Start: 02-04-2024 End: 02-04-2024 ambulatory [facility] Facility:[facility] Start: 02-04-2024 End: 02-04-2024 Telephone encounter Lima Mitchell MD Work Phone: [facility] Start: 02-04-2024 End: 02-07-2024 Emergency department patient visit [facility] Start: 01-09-2024 End: 01-09-2024 Bamboo flowsheet Alpesh [...] Gastroesophageal reflux disease without esophagitis; Pure hypercholesterolemia (CMS/HCC) Start: 10-04-2023 End: 10-04-2023 ambulatory ALPESH TRINH Not Available Start: 07-13-2023 End: 07-13-2023 ambulatory ALPESH TRINH Not Available Start: 07-02-2023 End: 07-02-2023 ambulatory ALPESH TRINH Not Available Start: 09-19-2022 End: 09-19-2022 ambulatory [facility] Start: 11-07-2021 End: 11-07-[address] ALPESH TRINH Facility:H1 Plan of Treatment Date Care Activity Detail Author Start: 10-03-2024 Medicare Annual Well ness (AWV) Medicare Annual Wellness (AWV) [facility] Start: 04-10-2024 End: 04-10-2024 Patient encounter procedure 04/10/2024 11:30 AM EST Office Visit [facility] [place] [phone] [place] [address] [place] [address], [address] [place] [phone] [facility] Start: 02-04-2024 End: 02-04-2024 Patient encounter procedure 02/04/2024 10:30 AM EST Office Visit [facility] [address] [facility] [address] [place] [address] Alpesh Trinh MD [address] [facility] [address] [place] [address] [facility] Start: 01-09-2024 End: 01-09-2024 Patient encounter procedure [facility] Comment on above: Arrived Start: 10-14-2023 COVID-19 Vaccine () COVID-19 Vaccine () [facility] Start: 10-14-2023 Influenza vaccination Influenza Vacc ine (#1) [facility] Start: 10-04-2023 End: 10-03-2024 DXA Skeletal system Views for bone density DEXA bone density Imaging Routine Estrogen deficiency Expected: 10/04/2023 (Approximate), Expires: 10/03/2024 [facility] Work Phone: Comment on above: Expected: 10/04/2023 (Approximate), Expires: 10/03/2024 Start: 10-04-2023 End: 10-04-2023 Patient encounter procedure 10/04/2023 1:00 PM EDT Office Visit [facility] [address] [facility] [address] [place] [phone] Alpesh Trinh MD [address] [facility] [address] [place] [address] Arrived [facility] Comment on above: Arrived Start: 05-11-2023 Medicare Annual Well ness (AWV) Medicare Annual Wellness (AWV) [facility] Start: 04-09-2010 Administration of varicella zoster vaccine Zoster (Shingles) Vaccine (2 of 3) [facility] Start: 11-24-1999 Fall Risk Screening Fall Risk Screen ing [facility] Start: 1953 DTaP,Tdap and Td Vac cines (1 - Tdap) DTaP,Tdap and Td Vaccines (1 - Tdap) [facility] Start: 1946 Depression Screening Depression Scre ening [facility] Start: 1946 Tobacco Screening Tobacco Screening [facility] Immunizations Immunization Date Immunization Notes Care Provider Fa cility 12-07-2023 influenza, high dose seasonal, preservative-free Alpesh Trinh MD Work Phone: [facility] 12-07-2023 influenza virus vacc ine, unspecified formulation Alpesh Trinh MD Work Phone: [facility] 10-20-2022 Influenza, Seasonal, Quadrivalent, Adjuvanted Alpesh Trinh MD Work Phone: [facility] 10-20-2022 influenza virus vacc ine, unspecified formulation Alpesh Trinh MD Work Phone: [facility] 10-26-2021 Influenza, High-dose Seasonal, Quadrivalent, Preservative Free Alpesh Trinh MD Work Phone: [facility] 11-16-2020 Influenza, High-dose Seasonal, Quadrivalent, Preservative Free Alpesh Trinh MD Work Phone: [facility] 12-09-2019 Influenza, High-dose Seasonal, Quadrivalent, Preservative Free Alpesh Trinh MD Work Phone: [facility] 12-07-2018 influenza, high dose seasonal, preservative-free Alpesh Trinh MD Work Phone: [facility] 01-18-2018 pneumococcal conjuga te vaccine, 13 valent Alpesh Trinh MD Work Phone: [facility] 11-18-2017 Seasonal trivalent influenza vaccine, adjuvanted, preservative free Alpesh Trinh MD Work Phone: [facility] 11-22-2016 Seasonal trivalent influenza vaccine, adjuvanted, preservative free Alpesh Trinh MD Work Phone: [facility] 11-26-2015 influenza, high dose seasonal, preservative-free Alpesh Trinh MD Work Phone: [facility] 11-02-2014 pneumococcal polysaccharide vaccine, 23 valent Alpesh Trinh MD Work Phone: [facility] 11-02-2014 seasonal influenza, intradermal, preservative free Alpesh Trinh MD Work Phone: [facility] 11-16-2013 influenza, high dose seasonal, preservative-free Alpesh Trinh MD Work Phone: [facility] 11-12-2013 influenza, seasonal, injectable Alpesh Trinh MD Work Phone: [facility] 12-04-2012 influenza, seasonal, injectable Alpesh Trinh MD Work Phone: [facility] 11-14-2011 influenza virus vacc ine, whole virus Alpesh Trinh MD Work Phone: [facility] 11-28-2010 influenza virus vacc ine, whole virus Alpesh Trinh MD Work Phone: [facility] 02-12-2010 zoster vaccine, live Alpesh Trinh MD Work Phone: [facility] 02-12-2010 zoster vaccine, unspecified formulation Lima Mitchell MD Work Phone: [facility] 11-24-2009 influenza virus vacc ine, whole virus Alpseh Trinh MD Work Phone: [facility] 11-28-2006 influenza virus vacc ine, whole virus Alpesh Trinh MD Work Phone: [facility] 02-12-2005 pneumococcal polysaccharide vaccine, 23 valent Alpesh Trinh MD Work Phone: [facility] Payers Date Payer Category Payer Self-pay 2023 Medicare (Managed Care) [employer] [id number] 2023 Medicare [id number] 2019 Unknown [employer]IC [employer] [id number] 2019-Present [phone] [address] [address] [place] [address] [id number] 1999 Medicare [id number] 1959 Medicare [id number] 1959 Unknown [id number] 1934 Unknown [id number] 1934 Unknown [id number] [id number] 1934 Unknown [id number] [id number] 1934 Unknown [id number] [id number] 1934 Unknown [id number] [id number] Unknown [id number] [id number] Social History Date Type Detail Facility Start: 12-07-[address] [facility] Never smoked tobacco [facility] Start: 12-07-2022 Tobacco use and exposure Smokeless tobacco non-user [facility] Start: 07-02-2023 End: 10-04-2023 Alcoholic beverage intake Lifetime non-drinker (finding) [facility] Start: 07-24-2018 End: 10-04-2023 History of Social function [facility] Start: 07-24-2018 End: 10-04-2023 Tobacco use panel [facility] Healthcare Start: 1935 Sex assigned at Not on file [facility] Childcare Unknown [facility] Start: 09-17-2014 Sex Female (finding) [facility] Clinical Notes 09-19-2022 to 02-04-2024 Telephone Encounter - Poly Joe - 02/04/2024 5:35 PM ESTTelephone Encounter - Poly Joe - 02/04/2024 5:35 PM ESTTelephone Encounter - Polylisbet Diaz - 02/04/2024 5:35 PM EST Note Date & Type Note Facility 02-04-2024 Miscellaneous Notes ----- Message from CHARLI Gibson sent at 02/04/2024 4:57 PM EST ----- Regarding: [place] This is a patient with a R MCA ischemic stroke. Dr. Andre wants her to FU in Stroke clinic after 30 day cardiac event monitoring is completed. She can see Paula, Luz Maria or fellow. She also needs referred to [facility]: Dr. Vick to be seen at his [facility] for recent stroke and abnormal echo. Please help arrange this referral/ follow up. If needed you can place referral order under my name. Thanks! Scheduled Called patient and left Vm Called [facility]- ICU floor, [place] and scheduled appt. Patient to be D/C 02/04/24 Tyree patients son is the POA documented in this encounter [facility] 02-04-2024 Telephone encounter Note ----- Message from CHARLI Gibson sent at 02/04/2024 4:57 PM EST ----- Regarding: [facility] This is a patient with a R MCA ischemic stroke. Dr. Andre wants her to FU in Stroke clinic after 30 day cardiac event monitoring is completed. She can see Luz Maria Mitchell or fellow. She also needs referred to [facility]: Dr. Vick to be seen at his [facility] for recent stroke and abnormal echo. Please help arrange this referral/ follow up. If needed you can place referral order under my name. Thanks! [facility] 02-04-2024 Telephone encounter Note Scheduled Called patient and left Vm Called [facility]- ICU floor, [place] and scheduled appt. Patient to be D/C 02/04/24 Tyree patients son is the POA [facility] 01-09-2024 History of Present illness Narrative Images from the original note were not included. HPI prolia injection Additional comments: From jonathan Last edited by Ayleen Gross LPN on 01/09/2024 9:02 AM. Subjective Patient ID: Howard Roque is a 88 y.o. female who presents for prolia injection (From shankarkirsty ). Subjective Howard Roque is a 87 y.o. female who [...] Date CATARACT EXTRACTION Bilateral 2013 COLONOSCOPY 2007 VL VERTEBROPLASTY/KYPHOPLASTY 2015 Visit [facility] 130/70 Pulse [...] F/U med changes. documented in this encounter [facility] 12-25-2023 Telephone encounter Note No notes for encounter [facility] Work Phone: 12-25-2023 Miscellaneous Notes No notes for encounter documented in this encounter [facility] 10-04-2023 History of Present illness Narrative Images from the original note were not included. Subjective : Chief Complaint: Howard Roque is an 87 y.o. female here [...] Do you have a medical power of trade mark attorney?: Yes Who is your medical power of trade mark attorney?: son Objective : BP 130/74 Pulse [...] factors. LDL-C is now calculated using the Sherman-Abebe calculation, which is a validated novel method providing better accuracy than the Friedewald equation in the estimation of LDL-C. Sherman LOPEZ et al. DHARA. 2013;310(19): 1286-0939 (http://education.Loaded Pocket .com/faq/HXR054) CHOL/HDLC RATIO 07/06/2023 3.7 <5.0 (calc) Final [...] a living will and durable power of trade mark attorney for healthcare. We discussed telling benítez [...] Future Chronic kidney disease, stage 3a (HCC) (CMS/HCC) Malignant neoplasm of sigmoid colon (CMS/HCC) Unspecified chronic bronchitis (CMS/HCC) Benign essential hypertension (CMS/HCC) Left ventricular diastolic dysfunction, NYHA class 2 Gastroesophageal reflux disease without esophagitis Pure hypercholesterolemia (CMS/HCC) Orders Placed This Encounter Procedures DEXA bone density Standing Status: Future Standing Expiration Date: 10/03/2024 Order Specific Question: Reason for exam: Answer: see dx Follow up in about 3 months (around 01/04/2024) for Routine F/U. Electronically signed by Alpesh Trinh MD on October 04, 2023 documented in this encounter [facility] 09-19-2022 Note Patient here to re-e stablish [...] All other systems reviewed and are negative. [facility] 09-19-2022 Note Cardiology Clinic No te Subjective Howard Roque is a 86 y.o. year old [...] electrolytes. No follow-ups on file. 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, subsequent encounter documented [facility] this encounter [facility] Diagnosis Routine general medical examination at health [...] Pure hypercholesterolemia documented in this encounter [facility]ructionsNot on filedocumented in [facility] Purpose Family History No Family History [...] section and content) DATE CREATED AUTHOR 03/02/2021 [facility] DATE CREATED AUTHOR AUTHOR'S ORGANIZ ATION 03/29/2022 [facility] DATE CREATED AUTHOR AUTHOR'S ORGANIZ ATION 10/05/2022 [facility] DATE CREATED AUTHOR AUTHOR'S ORGANIZ ATION 01/11/2024 [facility] Specialists EPIC DATE CREATED AUTHOR AUTHOR'S ORGANIZ ATION 02/07/2024 [facility] DATE CREATED AUTHOR AUTHOR'S ORGANIZ ATION 02/08/2024 [facility] Care Teams (unrecognized sec tion and content) Glass Fitter Relationship Specialty Start Date End Date Alpesh Trinh MD [address] [place] [address] PCP - General Internal Medicine 08/28/22 Glass Fitter Relationship Specialty Start Date End Date Alpesh Trinh MD [address] [place] [address] PCP - General Internal Medicine 08/28/22 Glass Fitter Relationship Specialty Start Date End Date Alpesh Trinh MD [address] [facility] [address] [place] [address] PCP - General Internal Medicine 08/28/22 Glass Fitter Relationship Specialty Start Date End Date Alpesh Trinh MD [address] [facility] [address] [place] [address] PCP - General Internal Medicine 08/28/22 Reason for Visit (unrecogniz ed section and content) Reason Comments prolia injection From [facility] Reason Comments Medicare Annual Wellness Visit Subsequen [...] BE BASED ON THE PRIMARY CLINICAL RECORDS. [facility]. provides no warranty or guarantee of the accuracy or completeness of information in this document.
--- NOTE | 2024-02-08 17:33 | US_ITS ---
The [address] [address] Patient Name: HOWARD HOGUE MRN: [id number] date: 1935 Sex: F Assigned Patient Location: Current Patient Location: US Accession/Order Number: [id number] Exam Date: 02/08/2024 17:40 Report Date: 02/12/2024 09:52 At the request of: SHAIKH AMHAMED Procedure: US carotid duplex BI DUPLEX ULTRASOUND EXAMINATION OF THE CAROTID ARTERIES. COMPARISON: None. HISTORY / INDICATIONS: Evaluate carotid stenosis. TECHNIQUE: Bilateral common carotid arteries, extracranial internal and external carotid arteries are evaluated with james-scale imaging, color Doppler, and spectral analysis according to a standard protocol. ICA-CCA ratios are calculated with roofing sales representative peak-systolic velocities and recorded. Vertebral arteries are evaluated in one segment to evaluate for patency and character of flow. Comparison with previous evaluation is performed when available. Unless otherwise specified, all velocities are measured in cm/sec. Carotid stenosis is reported according to validated velocity parameters, similar to NASCET criteria. FINDINGS: Right Carotid: Mild plaque was noted. Velocity measurements as follows: Internal Carotid Artery 79/16 and 72/13. ICA to CCA ratio: 1.5. Left Carotid: Mild plaque was noted. Velocity measurements as follows: Internal Carotid Artery 53/11 and 62/15. ICA to CCA ratio: 1.9. Antegrade flow was seen in both vertebral arteries. CONCLUSION: 1. Less than 50% stenosis of the right ICA. 2. Less than 50% stenosis of the left ICA. 3. Vertebral arteries are patent and demonstrate antegrade flow. Electronically authenticated by: Alonzo RIGGS Date: 02/12/2024 09:52
== END 2024-02-08 17:29 | disposition home or self-care (01) ==
LOC: US 17:29
PROVIDERS: PCP Internal Medicine; Visit Provider Internal Medicine
DX: I63.50 Cerebral infarction due to unspecified occlusion or stenosis of unspecified cerebral artery (principal); I63.9 Cerebral infarction, unspecified
CPT/HCPCS: 93880

== ENCOUNTER 2024-02-13 14:30 | Inpatient (IN) | payer MEDICARE, SELFPAY ==
[2024-02-13] VITALS (13 sets, daily range): BP systolic 116–174; BP diastolic 74–98; PULSE 59–92; TEMP 36.6–36.9; O2SAT 94–99; BMI 23.8; BMI 23.5
--- NOTE | 2024-02-13 14:35 | CT_ITS ---
The [address] [address] Patient Name: HOWARD HOGUE MRN: [id number] date: 1935 Sex: F Assigned Patient Location: ER Current Patient Location: ER Accession/Order Number: [id number] Exam Date: 02/13/2024 14:58 Report Date: 02/13/2024 15:52 At the request of: KELSI PIEDRA Procedure: CT cervical spine wo con EXAM: CT cervical spine wo con HISTORY: fall COMPARISON: CT angiogram neck including the cervical spine 02/03/2024. TECHNIQUE: CT C-spine noncontrast. Axial scans with reformatted coronal sagittal images. Individualized radiation dose reduction used for this exam. FINDINGS: There for fracture or subluxation moderate to marked degenerative disc disease C3-4, C4-5 and C6-7 and [id number] diffuse facet arthropathy similar to previous. There is a mild bony foraminal encroachment. No severe canal stenosis. Prevertebral soft tissues unremarkable. CT/CT cervical spine wo con IMPRESSION: Negative for fracture or traumatic subluxation. Degenerative changes. Electronically authenticated by: TETE WERNER Date: 02/13/2024 15:52
--- NOTE | 2024-02-13 14:35 | ECG_ITS ---
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
--- NOTE | 2024-02-13 14:35 | CT_ITS ---
The [address] [address] Patient Name: HOWARD HOGUE MRN: [id number] date: 1935 Sex: F Assigned Patient Location: ER Current Patient Location: ER Accession/Order Number: [id number] Exam Date: 02/13/2024 14:58 Report Date: 02/13/2024 15:46 At the request of: KELSI PIEDRA Procedure: CT head/brain wo con EXAM: CT head/brain wo con HISTORY: fall COMPARISON: PET/CT 02/03/2024. MRI 02/04/2024. TECHNIQUE: CT head noncontrast. Axial scans with reformatted coronal and sagittal images. Individualized radiation dose reduction used for this exam FINDINGS: Brain density stable without acute or new edema or hemorrhage. Basal ganglia edema from recent ischemia/infarct unchanged from prior head CT. Restricted diffusion seen in this area previous MRI. Areas of deep white matter low-attenuation noted most prominent left ventricular parietal area stable. Reconstructed diffusion seen in these areas on MRI. Prominent ventricles sulci consistent with atrophy unchanged. No extra-axial or subdural fluid collection or hematoma. No mass effect or ventricular compression or shift. Incidental basal ganglia calcification unchanged. No skull fracture or suspicious bone lesion. Visualized mastoid, middle ear cavities and sinuses clear. CT/CT head/brain wo con IMPRESSION: Stable head CT with area of deep white matter low density unchanged. The right basal ganglia area consistent with recent stroke on prior head CT and MRI is unchanged. No hemorrhage or new abnormality seen. Electronically authenticated by: TETE WERNER Date: 02/13/2024 15:46
--- OUTSIDE RECORDS SUMMARY | 2024-02-13 14:40 | XMS_ITS | CCD ---
Author Organization [facility] Care Team Providers Care Realtime Reporter Name Role Phone DR ALPESH TRINH Primary Care Unavailable PAY, DR COOMBS Admitting Unavailable PAY, DR COOMBS Attending Unavailable PAY, DR COOMBS Consulting Unavailable JENNI MBARY Attending Unavailable Alpesh Trinh MD Primary Care Provider [phone] Unavailable Primary Care Provider UnavailEvelia Cook Attending Unavailable Evelia Pineda Admitting Unavailable Sunday Suzy VOGEL Unavailable ALPESH TRINH Attending ALPESH Huizar Referring Unavailable ALPESH TRINH Attending Unavailable ALPESH TRINH Attending Unavailable ALPESH TRINH Attending Unavailable Allergies Allergy Classification Reported Allergen(s) Allergy Type Date of Onset Reaction(s) Facility (2 sources) Penicillins; Translations: [PENICILLINS] Drug allergy (disorder) 06-17-2012 [facility] Repository (10 sources) Penicillin V Drug Allergy 12-07-2022 Unknown [facility] Healthcare (10 sources) Penicillins Drug Allergy 01-30-2014 Unknown [facility] Healthcare Medications Current Medications Medication Drug Class(es) Dates Sig (Normalized) Sig (Original) aspirin 81 mg delayed release oral tablet (10 sources) Platelet Aggregation Inhibitor, Nonsteroidal Anti-inflammatory Drug take 1 tablet by mouth in the morning aspirin 81 MG EC tablet Take 81 mg by mouth in the morning. Active atorvastatin 40 mg oral tablet (2 sources) HMG-CoA Reductase Inhibitor Start: 02-04-2024 take 1 tablet by mouth once daily atorvastatin (Lipitor) 40 MG tablet Take 40 mg by mouth Daily 02/04/2024 Active cefuroxime 500 mg oral tablet (2 sources) Cephalosporin Antibacterial Start: 02-04-2024 End: 02-12-2024 take 1 tablet by mouth in the morning cefuroxime (Ceftin) 500 MG tablet Take 500 mg by mouth in the morning and 500 mg before bedtime. 02/04/2024 02/12/2024 Active clopidogrel 75 mg oral tablet (2 sources) P2Y12 Platelet Inhibitor Start: 02-04-2024 take 1 tablet by mouth once daily clopidogrel (Plavix) 75 MG tablet Take 75 mg by mouth Daily 02/04/2024 Active FLUoxetine 20 mg oral capsule (10 sources) Serotonin Reuptake Inhibitor Start: 02-19-2023 take 1 capsule by mouth once daily FLUoxetine (PROzac) 20 MG capsule Indications: Major depressive disorder, single episode, unspecified (CMS/HCC) TAKE 1 CAPSULE BY MOUTH DAILY 100 capsule 3 02/19/2023 Active furosemide 20 mg oral tablet (10 sources) Loop Diuretic take 1 tablet by mouth in the morning furosemide (Lasix) 20 MG tablet Take 20 mg by mouth in the morning. Active lisinopril 10 mg oral tablet (10 sources) Angiotensin Converting Enzyme Inhibitor Start: 08-30-2023 take 1 tablet by mouth in the morning lisinopril 10 MG tablet Indications: Essential (primary) hypertension (CMS/HCC) TAKE 1 TABLET BY MOUTH IN THE MORNING 100 tablet 3 08/30/2023 Active metoprolol tartrate 25 mg oral tablet (10 sources) beta-Adrenergic Radha Start: 08-30-2023 take 0.5 tablet by mouth once daily metoprolol tartrate (Lopressor) 25 MG tablet Indications: Essential (primary) hypertension (CMS/HCC) TAKE 1/2 (ONE-HALF) OF A TABLET BY MOUTH DAILY 50 tablet 3 08/30/2023 Active 28 actuat teriparatide 0.02 mg/actuat pen injector (5 sources) Parathyroid Hormone Analog Start: 01-14-2024 inject 0.08 mL by subcutaneous injection once daily teriparatide (Forteo) injection Indications: 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, subsequent encounter INJECT 0.08 ml SUBCUTANEOUSLY (UNDER THE SKIN) DAILY 2.4 mL 2 01/14/2024 Active Start: 01-09-2024 inject 0.08 mL by [...] Date Documented Date Episodic/Chronic Acute cerebrovascular disease (4 sources) 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; Translations: [Cerebral infarction due to unspecified occlusion or stenosis of unspecified cerebral artery] 02-11-2024 Chronic Acute cerebrovascular disease (1 source) Acute cerebrovascular disease Onset: 02-04-2024 Cancer of colon (12 sources) Malignant tumor of sigmoid colon; Translations: [Malignant neoplasm of sigmoid colon] Onset: 04-18-2016 12-07-2022 Chronic Chronic kidney disease (2 sources) Chronic kidney disease stage 3A ; Translations: [Chronic kidney disease, stage 3a (HCC) (CMS/HCC)] 10-04-2023 Chronic Chronic obstructive pulmonary disease and bronchiectasis (12 sources) Chronic bronchitis; Translations: [Unspecified chronic bronchitis] Onset: 10-30-2011 12-07-2022 Chronic Disorders of lipid metabolism (20 sources) Pure hypercholesterolemia; Translations: [Pure hypercholesterolemia, unspecified] Onset: 10-30-2011 Resolved: 10-04-2023 12-07-2022 Chronic Esophageal disorders (12 sources) Gastroesophageal reflux disease without esophagitis; Translations: [Gastro-esophageal reflux disease without esophagitis] Onset: 02-06-2018 12-07-2022 Chronic Essential hypertension (15 sources) Essential (primary) hypertension; Translations: [Benign essential hypertension] Onset: 10-30-2011 Chronic Heart valve disorders (12 sources) Nonrheumatic mitral (valve) insufficiency; Translations: [Aortic valve disorder] Onset: 11-01-2011 Chronic Menopausal disorders (2 sources) Decreased estrogen level; Translations: [Other primary ovarian failure] 10-04-2023 Chronic Mood disorders (10 sources) Depressive disorder; Translations: [Depressive disorder] Onset: 04-18-2016 12-07-2022 Chronic Osteoporosis (20 sources) Senile osteoporosis; Translations: [Age-related osteoporosis without current pathological fracture] Onset: 10-30-2011 12-07-2022 Chronic Other and ill-defined cerebrovascular disease (2 sources) Ataxia; 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] 02-11-2024 Chronic Other and ill-defined cerebrovascular disease (2 sources) Cerebrovascular disease; Translations: [Other cerebrovascular vasospasm and vasoconstriction] 02-12-2024 Chronic Other and ill-defined heart disease (10 sources) Cardiomegaly; Translations: [Cardiomegaly] Onset: 04-18-2016 12-07-2022 Chronic Other and ill-defined heart disease (10 sources) Diastolic dysfunction; Translations: [Other ill-defined heart diseases] Onset: 09-18-2022 12-07-2022 Chronic Other and ill-defined heart disease (10 sources) Heart disease; Translations: [Heart disease, unspecified] Onset: 01-22-2018 12-07-2022 Chronic Other and ill-defined heart disease (12 sources) Left ventricular diastolic dysfunction ; Translations: [Other ill-defined heart diseases] Onset: 12-07-2022 12-07-2022 Chronic Other connective tissue disease (2 sources) Recurrent falls ; Translations: [Repeated falls] 02-11-2024 Episodic Pathological fracture (4 sources) Pathological fracture due to osteoporosis; Translations: [Age-related osteoporosis with current pathological fracture, unspecified site, subsequent encounter for fracture with nonunion] 01-09-2024 Episodic Residual codes; unclassified (1 source) Pain, unspecified; Translations: [Pain, unspecified] Onset: 02-07-2024 Episodic Spondylosis; intervertebral disc disorders; other back problems (12 sources) Degeneration of lumbar intervertebral disc; Translations: [...] specified counseling] 10-04-2023 Episodic Other acquired deformities (10 sources) Acquired spondylolisthesis; Translations: [Spondylolisthesis, site unspecified] Onset: 05-30-2016 12-07-2022 Episodic Other acquired deformities (10 sources) Lumbar spondylolisthesis; Translations: [Spondylolisthesis, lumbar region] Onset: 12-07-2022 12-07-2022 Episodic Other aftercare (1 source) Other prison (current) drug therapy; Translations: [OTH CLINIC PHYSICIAN CURRENT DRUG THERAPY] Onset: 11-08-2021 Episodic Other nervous system disorders (10 sources) Ataxic gait; Translations: [Ataxic gait] Onset: 07-02-2023 07-02-2023 Episodic Other skin disorders (10 sources) Inflamed seborrheic keratosis; Translations: [Inflamed seborrheic keratosis] Onset: 04-18-2016 12-07-2022 Episodic Other upper respiratory infections (1 source) Acute upper respiratory infection, unspecified; Translations: [ACUTE UP RESPIRATORY INFECTION UNS] Onset: 11-08-2021 Episodic Unclassified (1 source) COUGH, UNSPECIFIED; Translations: [COUGH, UNSPECIFIED] Onset: 11-07-2021 Varicose veins of lower extremity (20 sources) Venous varices; Translations: [Asymptomatic varicose veins of unspecified lower extremity] Onset: 04-18-2016 12-07-2022 Episodic Results Test Name Value Interpretation Reference Range Facility Urine Cultureon 02-04-2024 Bacteria identified Cx Nom (U) <9,000 colonies/ml mixed bacterial skin contaminants 2 Days PERFORMED BY: [place] [address] PATHOLOGIST FIELD ACCOUNT MANAGER MARTITA FLORENTINO M.D. Normal [facility] Comment on above: Performed By: #### C UU #### [address] VAS US CAROTID ARTERY DUPLE X BILATERALon [...] Not Available Office Visiton 09-19-2022 Follow-up visit [id number] Gloria Roque 1935 F Date Provider Department Center 09/19/2022 [id number] MABRY [facility] Family History Problem Relation Age of Onset Cancer Father Colon cancer Sister Heart attack Brother Family Status - Relation Status Age at Father Sister Brother Level of Service:[address] [place] OFFICE/OUTPATIENT [facility] MDM 30-44 MINUTES Normal [facility] Covid-19 PCR (CVDTBH)on 10-14 SARS-CoV-2 (COVID-19) RNA REYNALDO+probe Ql (Unsp spec) Detected Critically abnormal NOT DETECTED [facility] Comment on above: Result Comment: This test is not yet approved or cleared by the [place] FDA. When there are no FDA-approved or cleared tests available, and other criteria are met, FDA can make tests available under an emergency access mechanism called an Emergency Use Authorization (EUA). The EUA for this test is supported by the Purchasing Internship of Health and Human Service's declaration that [...] used). Performed By: #### C VDTB #### [facility] [address] [place] [address] Dr. Leslie Tejeda Complete Blood Counton 03-01 Erythrocyte distribution width (RBC) [Ratio] 12.4 % Normal 11.0-15.0 [facility] [employer] Comment on above: Performed By: #### ERNIE GRIGSBY, CMP #### [facility] [address] [place], [place] [id number] Hematocrit (Bld) [Volume fraction] 38.4 % Normal 35.0-47.0 [facility] [employer] Comment on above: Performed By: #### ERNIE GRIGSBY, CMP #### [facility] [address] [place], [place] [id number] Hemoglobin (Bld) [Mass/Vol] 12.7 g/dL Normal 11.6-15.5 [facility] [employer] Comment on above: Performed By: #### ERNIE GRIGSBY, CMP #### [facility] [address] [place], [place] [id number] MCH (RBC) [Entitic mass] 31.7 pg Normal 27.0-33.0 [facility] [employer] Comment on above: Performed By: #### ERNIE GRIGSBY, CMP #### [facility] [address] [place], [place] [id number] MCHC (RBC) [Mass/Vol] 33.1 g/dL Normal 32.0-36.0 [facility] [employer] Comment on above: Performed By: #### ERNIE GRIGSBY, CMP #### [facility] [address] [place], [place] [id number] MCV (RBC) [Entitic vol] 96 fL Normal 80-100 [facility] [employer] Comment on above: Performed By: #### ERNIE GRIGSBY, CMP #### [facility] [address] [place], [place] [id number] Platelet mean volume (Bld) [Entitic vol] 9.70 fL Normal 7.50-12.50 [facility] [employer] Comment on above: Performed By: #### ERNIE GRIGSBY, CMP #### [facility] [address] [place], [place] [id number] Platelets (Bld) [#/Vol] 240 10*3/uL Normal 140-400 [facility] [employer] Comment on above: Performed By: #### ERNIE GRIGSBY, CMP #### [facility] [address] [place], [place] [id number] RBC (Bld) [#/Vol] 4.01 10*6/uL Normal 3.90-5.20 [facility] Specialist Comment on above: Performed By: #### C BC, LIPD, CMP #### [facility] [address] [place], [place] [id number] RDW-SD 43.9 fL Normal 37.0-50.0 [facility] Specialist Comment on above: Performed By: #### C BC, LIPD, CMP #### [facility] [address] [place], [place] [id number] WBC (Bld) [#/Vol] 5.1 10*3/uL Normal 3.8-11.0 [facility] [employer] Comment on above: Performed By: #### C BC LIPD, CMP #### [facility] [address] [place], [place] [id number] Comprehensive Metabolic Pane melquiades 03-01-2021 Albumin [Mass/Vol] 4.1 g/dL Normal 3.6-5.1 [facility] [employer] Comment on above: Performed By: #### C BC, LIPD, CMP #### [facility] [address] [place], [place] [id number] Albumin/Globulin [Mass ratio] 1.7 {ratio} Normal 1.0-2.5 [facility] Comment on above: Performed By: #### C BC, LIPD, CMP #### [facility] [address] [place], [place] [id number] ALP [Catalytic activity/Vol] 58 U/L Normal 35-119 [facility] Specialist Comment on above: Performed By: #### C BC, LIPD, CMP #### [facility] [address] [place], [place] [id number] ALT [Catalytic activity/Vol] 9 U/L Normal 6-33 [facility] Specialist Comment on above: Result Comment: 01/12 Female reference range changed. Performed By: #### C BC, LIPD, CMP #### [facility] [address] [place], [place] [id number] Anion gap [Moles/Vol] 15 mmol/L Normal 12-20 [facility] Specialist Comment on above: Result Comment: [place] ctive 02/17/2019 reference range changed. Performed By: #### C HERNAN LIPD, CMP #### [facility] [address] [place], [place] [id number] AST [Catalytic activity/Vol] 14 U/L Normal 9-34 [facility] Specialist Comment on above: Performed By: #### C BC LIPD, CMP #### [facility] [address] [place], [place] [id number] Bilirubin [Mass/Vol] 0.42 mg/dL Normal 0.30-1.20 [facility] Specialist Comment on above: Performed By: #### C HERNAN LIPD, CMP #### [facility] [address] [place], [place] [id number] BUN/CREA 23 Ratio High 6-22 [facility] Specialist Comment on above: Performed By: #### C EHRNAN LIPD, CMP #### [facility] [address] [place], [place] [id number] Calcium [Mass/Vol] 9.4 mg/dL Normal 8.6-10.2 [facility] Comment on above: Performed By: #### C HERNAN LIPD, CMP #### [facility] [address] [place], [place] [id number] Chloride [Moles/Vol] 102 mmol/L Normal 98-107 [facility] Specialist Comment on above: Performed By: #### C HERNAN LIPD, CMP #### [facility] [address] [place], [place] [id number] CO2 [Moles/Vol] 25 mmol/L Normal 20-31 [facility] Specialist Comment on above: Performed By: #### C HERNAN LIPD, CMP #### [facility] [address] [place], [place] [id number] Creatinine [Mass/Vol] 0.9 mg/dL Normal 0.6-1.4 [facility] Specialist Comment on above: Performed By: #### Renan BC LIPD, CMP #### [facility] [address] [place], [place] [id number] eGFRAA 71 mL/min/1.73m2 Normal >60 [place] [employer] Comment on above: Performed By: #### C BC LIPD, CMP #### [facility] [address] [place], [place] [id number] eGFRNAA 59 mL/min/1.73m2 Low >60 [facility] [employer] Comment on above: Performed By: #### C BC, LIPD, CMP #### [facility] [address] [place], [place] [id number] Globulin (S) [Mass/Vol] 2.4 g/dL Normal 1.9-3.7 [facility] [employer] Comment on above: Performed By: #### C BC LIPD, CMP #### [facility] [address] [place], [place] [id number] Glucose [Mass/Vol] 96 mg/dL Normal 65-99 [facility] [place] [employer] Comment on above: Result Comment: For FASTING Glucose --- ADA reference ranges: Normal 65-99 mg/dl Prediabetes 100-125 Diabetes >/= 126 Performed By: #### C HERNAN LIPD, CMP #### [facility] [address] [place], [place] [id number] Potassium [Moles/Vol] 4.3 mmol/L Normal 3.5-5.5 [facility] [employer] Comment on above: Performed By: #### C HERNAN LIPD, CMP #### [facility] [address] [place], [place] [id number] Protein [Mass/Vol] 6.5 g/dL Normal 6.1-8.1 [place] [facility] [place] [employer] Comment on above: Performed By: #### C BC LIPD, CMP #### [facility] [address] [place], [place] [id number] Sodium [Moles/Vol] 138 mmol/L Normal 135-146 [facility] [place] [employer] Comment on above: Performed By: #### C BC, LIPD, CMP #### [facility] [address] [place], [place] [id number] Urea nitrogen [Mass/Vol] 21 mg/dL Normal 7-25 [facility] [employer] Comment on above: Performed By: #### C BC, LIPD, CMP #### [facility] [address] [place], [place] [id number] Lipid Panelon 03-01-2021 Cholesterol [Mass/Vol] 242 mg/dL High 125-200 [facility] Specialist Comment on above: Result Comment: Low risk < 200mg/dL Borderline risk 201-239 mg/dl High risk > or equal to 240 Performed By: #### C BC, LIPD, CMP #### [facility] [address] [place], [place] [id number] Cholesterol in HDL [Mass/Vol] 64 mg/dL Normal >40 [facility] [employer] Comment on above: Result Comment: High Cardiovascular Risk HDL <40 mg/dL Low Cardiovascular Risk HDL > or equal to 60 mg/dl Performed By: #### C BC, LIPD, CMP #### [facility] [address] [place], [place] [id number] Cholesterol in LDL [Mass/Vol] 166 mg/dL Normal [facility] Specialist Comment on above: Result Comment: LDL ATP III CLASSIFICATION LDL less than 100 mg/dl Optimal LDL 100-129 mg/dl Near or above optimal LDL 130-159 Borderline high LDL 160-189 High LDL greater than 189 mg/dl Very High Performed By: #### C BC, LIPD, CMP #### [facility] [address] [place], [place] [id number] Cholesterol in VLDL [Mass/Vol] 12 mg/dL Normal [facility] Specialist Comment on above: Performed By: #### C BC, LIPD, CMP #### [facility] [address] [place], [place] [id number] Cholesterol.total/ Cholesterol in HDL [Mass ratio] 4 {ratio} Normal [facility] Specialist Comment on above: Performed By: #### C BC, LIPD, CMP #### [facility] [address] [place], [place] [id number] Triglyceride [Mass/Vol] 60 mg/dL Normal 30-150 [facility] Specialist Comment on above: Result Comment: TRIG ATPIII CLASSIFICATIONS TRIG less than 150 mg/dl Normal TRIG 150-199 mg/dl Borderline High TRIG 200-500 mg/dl High TRIG greather than 500 mg/dl Very High Performed By: #### C BC, LIPD, CMP #### [facility] [address] [place], [place] [id number] TSHon 03-01-2021 TSH Qn 3.13 m[IU]/L Normal 0.40-4.50 [facility] o [employer] Comment on above: Order Comment: [facility] Testing performed at: [facility], [facility], [address], [address] [facility], [place], [address], Crew Leader: Joao Graham MD [facility] Collection Date/Time: [id number] [facility] Results Received Date/Time: [facility] Reported Date/Time: Performed By: #### T #### [facility] Laboratory Default [address] [place] [address] Vital Signs Date Time Vital Sign Value Performing Clinician Faci lity 02-11-2024 09:30-0500 Body height 163.8 cm Alpesh Trinh MD Work Phone: [facility] 02-11-2024 09:30-0500 Body mass index (BMI) [Ratio] 24.17 kg/m2 Alpesh Trinh MD Work Phone: [facility] 02-11-2024 09:30-0500 Body weight 64.86 kg Alpesh Trinh MD Work Phone: [facility] 02-11-2024 09:30-0500 Diastolic blood pressure 64 mm[Hg] Alpesh Trinh MD Work Phone: [facility] 02-11-2024 09:30-0500 Heart rate 58 /min Alpesh Trinh MD Work Phone: [facility] 02-11-2024 09:30-0500 SaO2% (BldA) [Mass fraction] 96 % Alpesh Trinh MD Work Phone: [facility] 02-11-2024 09:30-0500 Systolic blood pressure 114 mm[Hg] Alpesh Trinh MD Work Phone: [facility] 01-09-2024 09:02-0500 Body height 163.8 cm Alpesh Trinh MD Work Phone: [facility] 01-09-2024 09:02-0500 Body mass index (BMI) [Ratio] 24 kg/m2 Alpesh Trinh MD Work Phone: [facility] 01-09-2024 09:02-0500 Body weight 64.41 kg Alpesh Trinh MD Work Phone: [facility] 01-09-2024 09:02-0500 Diastolic blood pressure 70 mm[Hg] Alpesh Trinh MD Work Phone: [facility] 01-09-2024 09:02-0500 Heart rate 68 /min Alpesh Trinh MD Work Phone: [facility] 01-09-2024 09:02-0500 SaO2% (BldA) [Mass fraction] 96 % Alpesh Trinh MD Work Phone: [facility] 01-09-2024 09:02-0500 Systolic blood pressure 130 mm[Hg] Alpesh Trinh MD Work Phone: [facility] 10-04-2023 12:59-0400 Body height 163.8 cm Alpesh Trinh MD Work Phone: [facility] 10-04-2023 12:59-0400 Diastolic blood pressure 74 mm[Hg] Alpesh Trinh MD Work Phone: [facility] 10-04-2023 12:59-0400 Heart rate 74 /min Alpesh Trinh MD Work Phone: [facility] 10-04-2023 12:59-0400 SaO2% (BldA) [Mass fraction] 96 % Alpesh Trinh MD Work Phone: [facility] 10-04-2023 12:59-0400 Systolic blood pressure 130 mm[Hg] Alpesh Trinh MD Work Phone: [facility] Healthcare Encounters Encounter Date Encounter Type Care Provider Facility Start: 02-12-2024 End: 02-12-2024 Orders Only Shalini Liz RN [facility] Comment on above: Cerebrovascular acci dent (CVA), unspecified mechanism (CMS- HCC) (Primary Dx); Other cerebrovascular vasospasm and vasoconstriction Start: 02-11-2024 End: 02-11-2024 Bamboo flowsheet Alpesh Trinh MD Work Phone: [facility] Start: 02-11-2024 End: 02-11-2024 Bamboo flowsheet Alpesh Trinh MD Work Phone: [facility] Start: 02-11-2024 End: 02-11-2024 Transitional care manage srvc 14 day discharge Alpesh Trinh MD Work Phone: [facility] Comment on above: Cerebrovascular acci dent (CVA) due to occlusion of cerebral artery (CMS/HCC) (Primary Dx); Ataxia due to acute cerebrovascular disease; Frequent falls; Degeneration of intervertebral disc of lumbar region, unspecified whether pain present Start: 02-11-2024 End: 02-11-2024 ambulatory ALPESH TRINH Not Available Start: 02-07-2024 ambulatory [facility] Start: 02-04-2024 End: 02-04-2024 ambulatory [facility] Facility:[facility] Start: 02-04-2024 End: 02-04-2024 Telephone encounter Lima Mitchell MD Work Phone: [facility] Start: 02-04-2024 End: 02-07-2024 Emergency department patient visit [facility] Start: 01-09-2024 End: 01-09-2024 Bamboo [...] Not Available Start: 09-19-2022 End: 09-19-2022 ambulatory [facility] Start: 11-07-2021 End: 11-07-[address] ALPESH TRINH Facility: Plan of Treatment Date Care Activity Detail Author Start: 10-03-2024 Medicare Annual Wellness (AWV) Medicare Annual Wellness (AWV) [facility] Start: 04-10-2024 End: 04-10-2024 Patient encounter procedure 04/10/2024 11:30 AM EST Office Visit [facility] [address] [place] [phone] Paul Loera MD [address] [place] [address], [address] [phone] [facility] Start: 02-12-2024 End: 02-11-2025 Wireless Telemetry (In Office) [facility] Work Phone: Comment on above: Expected: 02/12/2024, Expires: Start: 02-12-2024 End: 02-12-2024 Professional / ancillary services management 02/12/2024 12:15 PM EST Ancillary Procedure [facility] [address] [place] [id number] Cerebrovascular accident (CVA), unspecified mechanism (CMS-HCC); Other cerebrovascular vasospasm and vasoconstriction [facility] Comment on above: Cerebrovascular accident (CVA), unspecif ied mechanism (CMS-HCC); Other cerebrovascular vasospasm and vasoconstriction Start: 02-11-2024 End: 02-11-2024 Patient encounter procedure 02/11/2024 9:30 AM EST Office Visit [facility] [address] [facility] [address] [place] [address] Alpesh Trinh MD [address] [facility] [place] [address] [place] [address] Arrived [facility] Comment on above: Arrived Start: 02-04-2024 End: 02-04-2024 Patient encounter procedure 02/04/2024 10:30 AM EST Office Visit [facility] [address] [facility] [address] [place] [phone] Alpesh Trinh MD [address] [facility] [address] [place] [address] [facility] Start: 01-09-2024 End: 01-09-2024 Patient encounter procedure [facility] Comment on above: Arrived Start: 10-14-2023 COVID-19 Vaccine ( season) COVID-19 Vaccine ( season) [facility] Start: 10-14-2023 Influenza vaccination Influenza Vaccine (#1) [facility] Start: 10-04-2023 End: 10-03-2024 DXA Skeletal system Views for bone density DEXA bone density Imaging Routine Estrogen deficiency Expected: 10/04/2023 (Approximate), Expires: 10/03/2024 [facility] Work Phone: Comment on above: Expected: 10/04/2023 (Approximate), Expi res: 10/03/2024 Start: 10-04-2023 End: 10-04-2023 Patient encounter procedure 10/04/2023 1:00 PM EDT Office Visit [facility]PHERD [address] [facility] [address] [place] [id number] Alpesh Trinh MD [address] [facility] [place] [address] [place] [address] Arrived [facility] Comment on above: Arrived Start: 05-11-2023 Medicare Annual Wellness (AWV) Medicare Annual Wellness (AWV) [facility] Start: 04-09-2010 Administration of varicella zoster vaccine Zoster (Shingles) Vaccine (2 of 3) [facility] Start: 11-24-1999 Fall Risk Screening Fall Risk Screening [facility] Start: 1953 DTaP,Tdap and Td Vaccines (1 - Tdap) DTaP,Tdap and Td Vaccines (1 - Tdap) [facility] Start: 1946 Depression Screening Depression Screening [facility] Start: 1946 Tobacco Screening Tobacco Screening [facility] Immunizations Immunization Date Immunization Notes Care Provider Fa cili 12-07-2023 influenza, high dose seasonal, preservative-free Alpesh Trinh MD Work Phone: [facility] 12-07-2023 influenza virus vacc ine, unspecified formulation Alpesh Trinh MD Work Phone: [facility] 10-20-2022 Influenza, Seasonal, Quadrivalent, Adjuvanted Alpesh Trinh MD Work Phone: [facility] 10-20-2022 influenza virus vacc ine, unspecified formulation Alpesh Trinh MD Work Phone: [facility] 10-26-2021 Influenza, High-dose Seasonal, Quadrivalent, Preservative Free Alpesh Trinh MD Work Phone: [facility] 11-16-2020 Influenza, High-dose Seasonal, Quadrivalent, Preservative Free Alpesh Trinh MD Work Phone: [facility] 12-09-2019 Influenza, High-dose Seasonal, Quadrivalent, Preservative Free Alpesh Trinh MD Work Phone: [facility] 12-07-2018 influenza, high dose seasonal, preservative-free Alpesh Trinh MD Work Phone: [facility] 01-18-2018 pneumococcal conjuga te vaccine, 13 valent Alpesh Trinh MD Work Phone: [facility] 11-18-2017 Seasonal trivalent influenza vaccine, adjuvanted, preservative free Alpesh Trinh MD Work Phone: [facility] 11-22-2016 Seasonal trivalent influenza vaccine, adjuvanted, preservative free Alpesh Trinh MD Work Phone: [facility] 11-26-2015 influenza, high dose gabriele, preservative-free Alpesh Trinh MD Work Phone: [facility] 11-02-2014 pneumococcal polysaccharide vaccine, 23 valent Alpesh Trinh MD Work Phone: [facility] 11-02-2014 seasonal influenza, intradermal, preservative free Alpesh Trinh MD Work Phone: [facility] 11-16-2013 influenza, high dose gabriele, preservative-free Alpesh Trinh MD Work Phone: [facility] 11-12-2013 influenza, seasonal, injectable Alpesh Trinh MD Work Phone: [facility] 12-04-2012 influenza, seasonal, injectable Alpesh Trinh MD Work Phone: [facility] 11-14-2011 influenza virus vacc ine, whole virus Alpesh Trinh MD Work Phone: [facility] 11-28-2010 influenza virus vacc ine, whole virus Alpesh Trinh MD Work Phone: [facility] 02-12-2010 zoster vaccine, live Alpesh Trinh MD Work Phone: [facility] 02-12-2010 zoster vaccine, unspecified formulation Lima Mitchell MD Work Phone: [facility] 11-24-2009 influenza virus vacc ine, whole virus Alpesh Trinh MD Work Phone: [facility] 11-28-2006 influenza virus vacc ine, whole virus Alpesh Trinh MD Work Phone: [facility] 02-12-2005 pneumococcal polysaccharide vaccine, 23 valent Alpesh Trinh MD Work Phone: [facility] Healthcare Payers Date Payer Category Payer Self-pay 2023 Medicare (Managed Care) [employer] [id number] 2023 Medicare [id number] 2019 Unknown [employer]IC [employer]CIAL [id number] 2019-Present [phone] [address] [address] [place] [address] [id number] 1999 Medicare [id number] 1959 Medicare [id number] 1959 Unknown [id number] 1934 Unknown [id number] 1934 Unknown [id number] 1934 Unknown [id number] 1934 Unknown [id number] 1934 Unknown [id number] 1934 Unknown [id number] Unknown [id number] Social History Date Type Detail Facility Start: 12-07-2022 Tobacco smoking stat [facility] Never smoked tobacco [facility] Start: 12-07-2022 Tobacco use and exposure Smokeless tobacco non-user [facility] Start: 10-04-2023 End: 02-11-2024 Alcoholic beverage intake Lifetime non-drinker (finding) [facility] Start: 07-24-2018 End: 10-04-2023 History of Social function [facility] Start: 07-24-2018 End: 10-04-2023 Tobacco use panel [facility] Start: 1935 Sex assigned at Not on file [facility] Tobacco smoking stat [facility] Tobacco smoking consumption unknown [facility] Childcare Unknown [facility] Start: 09-17-2014 Sex Female (finding[facility] Notes 09-19-2022 to 02-11-2024 Alpesh Trinh MD - 02/11/2024 9:30 AM ESTTelephone Encounter - Poly Diaz - 02/04/2024 5:35 PM ESTTelephone Encounter - Poly Diaz - 02/04/2024 5:35 PM EST Note Date & Type Note Facility 02-11-2024 History of Present illness Narrative Images from the original note were not included. HPI Follow-up Additional comments: Admitted [facility] 02/03/24 dx: CVA,UTI discharged home 02/04/24 started on ASA, plavx x 21 days and Ceftin Has follow up appts with cardiology 02/18/24 and neurology 04/10/24 Last edited by Ayleen Gross LPN on 02/11/2024 9:30 AM. Subjective Patient ID: Gloria Roque is a 88 y.o. female who presents for Follow-up (Admitted [facility] 02/03/24 dx: CVA,UTI discharged home 02/04/24 started on ASA, plavx x 21 days and Ceftin/Has follow up appts with cardiology 02/18/24 and neurology 04/10/24). Flowsheet Row Documentation from 06/25/2023 in [facility] with Debi Tomlinman [place] Hospital Information ED, Hospital or Usp Facility Discharge? ED Patient has been contacted within 1 week of being seen in the ED Yes Discharge Date 06/24/23 Discharged To: Home Setting Discharge Hospital [facility] Engagement Call Start Time 1643 Medications Discharge medications reviewed and reconciled from hospital? Yes Is the patient having any side effects they believe may be caused by any medication additions or changes? No Does the patient have all medications ordered at discharge? Yes Appointments Does the patient have a primary care provider? Yes Self Management Patient Teaching Does the patient have access to their discharge instructions? Yes What is the patient's perception of their health status since discharge? Improving Wrap Up Call End Time 1645 Pt has felt fatigued and weak since discharged from hosp Taking meds as directed Pt states DM is trying to get Forteo from specialty pharmacy Pt has home health coming in --home PT/OT has not started yert Current Outpatient Medications on File Prior to Visit Medication Sig Dispense Refill aspirin 81 MG EC tablet Take 81 mg by mouth in the morning. atorvastatin (Lipitor) 40 MG tablet Take 40 mg by mouth Daily cefuroxime (Ceftin) 500 MG tablet Take 500 mg by mouth in the morning and 500 mg before bedtime. clopidogrel (Plavix) 75 MG tablet Take 75 mg by mouth Daily FLUoxetine (PROzac) 20 MG capsule TAKE 1 CAPSULE BY MOUTH DAILY 100 capsule 3 furosemide (Lasix) 20 MG tablet Take 20 mg by mouth in the morning. lisinopril 10 MG tablet TAKE 1 TABLET BY MOUTH IN THE MORNING 100 tablet 3 metoprolol tartrate (Lopressor) 25 MG tablet TAKE 1/2 (ONE-HALF) OF A TABLET BY MOUTH DAILY 50 tablet 3 teriparatide (Forteo) injection INJECT 0.08 ml SUBCUTANEOUSLY (UNDER THE SKIN) DAILY (Patient not taking: Reported on 02/11/2024) 2.4 mL 2 No current facility-administered medications on file prior [...] 2007 VL VERTEBROPLASTY/KYPHOPLASTY 2015 Visit Vitals BP 114/64 Pulse 58 Ht 5' 4.5 Wt 143 lb SpO2 96% BMI 24.17 kg/m Smoking Status Never BSA 1.72 m Review of Systems Objective Physical Exam Constitutional: General: She is awake. Comments: Frail Cardiovascular: Rate and Rhythm: Normal rate and regular rhythm. Pulmonary: Effort: Pulmonary effort is normal. Breath sounds: Normal breath sounds. Neurological: Mental Status: She is alert and oriented to person, place, and time. Cranial Nerves: No cranial nerve deficit. Sensory: No sensory deficit. Motor: No weakness. Coordination: Coordination abnormal. Gait: Gait abnormal. Assessment/Plan Diagnoses and all orders for this visit: Cerebrovascular accident (CVA) due to occlusion of cerebral artery (CMS/HCC) - The patient was seen today in follow up of recent hospital stay. All available hospital records were reviewed and discussed with the patient. Hospital discharge meds were reviewed. Any changes are noted above. Ataxia due to acute cerebrovascular disease - Post CVA. I encouraged Rehab at a retirement Facility. She is a fall risk at home, in fact has fallen several times since her recent hospital discharge. Frequent falls Degeneration of intervertebral disc of lumbar region, unspecified whether pain present - Handicap Placard 5 Years Follow up in about 4 weeks (around 03/10/2024) for Routine F/U. documented in this encounter [facility] 02-04-2024 Miscellaneous Notes ----- Message from CHARLI Gibson sent at 02/04/2024 4:57 PM EST ----- Regarding: [facility] This is a patient with a R MCA ischemic stroke. Dr. Andre wants her to FU in Stroke clinic after 30 day cardiac event monitoring is completed. She can see Luz Maria Mitchell or fellow. She also needs referred to [facility]: Dr. Vick to be seen at his [place] for recent stroke and abnormal echo. Please help arrange this referral/ follow up. If needed you can place referral order under my name. Thanks! Scheduled Called patient and left Vm Called [facility]- ICU floor, Ayleen and scheduled appt. Patient to be D/C 02/04/24 Tyree patients son is the POA documented in this encounter [facility] 02-04-2024 Telephone encounter Note ----- Message from CHARLI Gibson sent at 02/04/2024 4:57 PM EST ----- Regarding: [facility] This is a patient with a R MCA ischemic stroke. Dr. Andre wants her to FU in Stroke clinic after 30 day cardiac event monitoring is completed. She can see Luz Maria Mitchell or fellow. She also needs referred to [facility]: Dr. Vick to be seen at his [place] clinic for recent stroke and abnormal echo. Please help arrange this referral/ follow up. If needed you can place referral order under my name. Thanks! [employer] 02-04-2024 Telephone encounter Note Scheduled Called patient and left Vm Called [facility]- ICU floor, Ayleen and scheduled appt. Patient to be D/C 02/04/24 Tyree patients son is the POA [employer] 01-09-2024 History of Present illness Narrative Images from the original note were not included. HPI prolia injection Additional comments: From jonathan Last edited by Ayleen Gross LPN on 01/09/2024 9:02 AM. Subjective Patient ID: Gloria Roque is a 88 y.o. female who presents for prolia injection (From jonathan ). Subjective Gloria Roque is a 87 [...] Laterality Date CATARACT EXTRACTION Bilateral 2013 COLONOSCOPY 2008 VL VERTEBROPLASTY/KYPHOPLASTY 2015 Visit Vitals BP 130/70 [...] F/U med changes. documented in this encounter [facility] 12-25-2023 Telephone encounter Note No notes for encounter [facility] Work Phone: 12-25-2023 Miscellaneous Notes No notes for encounter documented in this encounter [facility] 10-04-2023 History of Present illness Narrative [...] taxes?: Yes Cognitive Screening Three Word Registration: River, Nation, Finger Clock Drawing: Normal Clock - 2 Three Word Recall: 2/3 words correct - 2 Total Score (0-5 Points): 4 Pain Assessment Pain Score: 5 - Moderate pain Advance Care Planning Do you have a living will?: Yes Do you have a medical power of veterinary science teacher?: Yes Who is your medical power of veterinary science teacher?: son Objective : BP 130/74 Pulse 74 [...] factors. LDL-C is now calculated using the Sherman-Lomas calculation, which is a validated novel method providing better accuracy than the Friedewald equation in the estimation of LDL-C. Sherman LOPEZ et al. DHARA. 2013;310(19): 6216-4628 (http://education.[employer]/faq/WQZ126) CHOL/HDLC RATIO 07/06/2023 3.7 <5.0 (calc) Final [...] a living will and durable power of veterinary science teacher for healthcare. We discussed telling benítez people [...] October 04, 2023 documented in this encounter [facility] 09-19-2022 Note Patient here to re-e [...] All other systems reviewed and are negative. [facility] 09-19-2022 Note Cardiology Clinic Madonna Hennessy Gloria Roque is a 86 y.o. year [...] electrolytes. No follow-ups on file. 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, subsequent encounter documented in this encounter [facility] HealthcareEvaluation note* Diagnosis Routine general medical examination [...] (CMS/HCC) Pure hypercholesterolemia documented in this encounter [facility] HealthcareEvaluation note* Diagnosis Cerebrovascular accident (CVA) due to occlusion of cerebral artery (CMS/HCC)- Primary Ataxia due to acute cerebrovascular disease Frequent falls Degeneration of intervertebral disc of lumbar region, unspecified whether pain present documented in this encounter [facility] Diagnosis Cerebrovascular accident (CVA), unspecified mechanism (CMS-HCC)- Primary Other cerebrovascular vasospasm and vasoconstriction Cerebrovascular accident (CVA), unspecified mechanism (CMS-HCC) Other cerebrovascular vasospasm and vasoconstriction [facility] filed[facility] this [facility] Summary Purpose Family History No Family History Records FoundNo Family History Records FoundNo Family History Records FoundNo Family History Records FoundNo Family History Records FoundNo Family History Records Found Advance Directives Healthcare Agents on File Name Relationship Healthcare Agent Relationship Communication Tyree Roque Son First Alternate Health Care Agent jourdan Roque Friend Second Alterna te Health Care Agent jourdan Healthcare Agents on File Name Relationship Healthcare Agent Relationship Communication Tyree Roque Son First Alternate Health Care Agent jourdan Roque Friend Second Alterna te Health Care Agent m Additional Source Comments INFORMATION SOURCE (unrecogn ized section and content) DATE CREATED AUTHOR 03/02/2021 [facility] dical Specialist DATE CREATED AUTHOR AUTHOR'S ORGANIZ ATION 03/29/2022 [facility] DATE CREATED AUTHOR AUTHOR'S ORGANIZ ATION 10/05/2022 [facility] DATE CREATED AUTHOR AUTHOR'S ORGANIZ ATION 02/07/2024 [facility] DATE CREATED AUTHOR AUTHOR'S ORGANIZ ATION 02/08/2024 [facility] DATE CREATED AUTHOR AUTHOR'S ORGANIZ ATION 02/11/2024 [facility] dical Specialists EPIC Care Teams (unrecognized sec tion and content) Realtime Reporter Relationship Specialty Start Date End Date Alpesh Trinh MD [address] [facility] [place] [address] [place] [address] PCP - General Internal Medicine 08/28/22 Realtime Reporter Relationship Specialty Start Date End Date Alpesh Trinh MD [address] [facility] [address] [place] [address] PCP - General Internal Medicine 08/28/22 Realtime Reporter Relationship Specialty Start Date End Date Alpesh Trinh MD [address] [facility] [address] [place] [address] PCP - General Internal Medicine 08/28/22 Realtime Reporter Relationship Specialty Start Date End Date Alpesh Trinh MD [address] [facility] [address] [place] [address] PCP - General Internal Medicine 08/28/22 Realtime Reporter Relationship Specialty Start Date End Date Alpesh Trinh MD [address] [facility] [address] [place] [address] PCP - General Internal Medicine 08/28/22 Realtime Reporter Relationship Specialty Start Date End Date Alpesh Trinh MD [address] [facility] [address] [place] [address] PCP - General Internal Medicine 08/28/22SundaySuzy LPN [address] [place] [address] Licensed Practical Nurse Family Medicine 02/11/24 Reason for Visit (unrecogniz ed section and content) Reason Comments prolia injection From [facility] Reason Comments Medicare Annual Wellness Visit Subsequen t Results labs Reason Comments Follow-up Admitted [facility] 4 dx: CVA,UTI discharged home 02/04/24 started on ASA, plavx x 21 days and CeftinHas follow up appts with cardiology 02/18/24 and neurology 04/10/24 FOR RECORDS PERTAINING TO PATIENTS WHO ARE [...] BE BASED ON THE PRIMARY CLINICAL RECORDS. [facility]. provides no warranty or guarantee of the accuracy or completeness of information in this document.
[2024-02-13 15:10] LABS: Basophils Absolute Auto 0.1 10^3/uL (0.0-0.1); Basophils Percent Auto 0.6 % (0.2-2.0); Eosinophils Absolute Auto 0.2 10^3/uL (0.0-0.7); Eosinophils Percent Auto 2.8 % (0.9-7.0); Hemoglobin 11.9 g/dL (12.0-16.0); Immature Granulocytes Abs Auto 0.03 10^3/uL (0.00-0.03); Immature Granulocytes Pct Auto 0.4 % (0.0-0.5); Lymphocytes Absolute Auto 1.7 10^3/uL (1.2-3.8); Mean Corpuscular HGB Conc 33.1 g/dL (29.9-35.2); Mean Corpuscular Hemoglobin 31.6 pg (26.7-34.0); Mean Corpuscular Volume 95.5 fL (81.0-99.0); Mean Platelet Volume 9.1 fL (9.5-13.5); Monocytes Absolute Auto 0.8 10^3/uL (0.3-0.8); Monocytes Percent Auto 10.4 % (1.7-12.0); Neutrophils Absolute Auto 5.1 10^3/uL (1.4-6.5); Neutrophils Percent Auto 64.8 % (43.0-75.0); Platelet Count 318 10^3/uL (150-450); Red Blood Count 3.77 10^6/uL (4.20-5.40); Red Cell Distribution Width 13.2 % (11.0-15.0); White Blood Count 7.9 10^3/uL (4.0-11.0)
[2024-02-13 15:35] LABS: Alanine Aminotransferase 29 U/L (14-59); Albumin Level 3.2 g/dL (3.4-5.0); Alkaline Phosphatase 70 U/L (46-116); Anion Gap 12.5; Aspartate Amino Transferase 22 U/L (15-37); BUN Creatinine Ratio 13.5; Bilirubin Total 0.5 mg/dL (0.2-1.0); Calcium 9.1 mg/dL (8.5-10.1); Carbon Dioxide 27.5 mmol/L (21.0-32.0); Chloride 101 mmol/L (98-107); Estimated GFR (African America >60 (>=60 mL/min/1.73m^2); Estimated GFR (Non-African Ame 50 (>=60 mL/min/1.73m^2); Globulin 3.2 g/dL; Glucose 91 mg/dL (74-106); Sodium 137 mmol/L (136-145); Total Protein 6.4 g/dL (6.4-8.2); Troponin I High Sensitivity 35.4 pg/mL (4.0-51.3)
--- NOTE | 2024-02-13 15:52 | ED.GENADUL1 ---
HPI HPI - General Adult General Chief complaint: Fall Stated complaint: FALL Time Seen by Provider: 02/13/24 14:34 Mode of arrival: walk-in History of Present Illness HPI narrative: 88 years old female who live by herself is coming to the ER after her family was concerned because she had multiple falls over the last few days, patient was evaluated for similar concern almost 8 days ago when she was admitted to the hospital for a stroke diagnosis, patient is coming to the ER after she had another fall according to the EMS she had no loss of consciousness and the patient herself denies any complaints She mentioned that she is here just because her family was concerned and she herself does not have any complaint Related Data Home Medications ?Medication ?Instructions ?Recorded ?Confirmed denosumab 60 mg/mL subcutaneous 60 mg subcut .every 6 months 06/24/23 02/13/24 syringe (Prolia) fluoxetine 20 mg capsule 20 mg PO DAILY 06/24/23 02/13/24 lisinopril 10 mg tablet 10 mg PO DAILY 06/24/23 02/13/24 Previous Rx's ?Medication ?Instructions ?Recorded aspirin 81 mg chewable tablet 81 mg PO DAILY #30 tabs 02/04/24 atorvastatin 40 mg tablet (Lipitor) 40 mg PO DAILY #30 tabs 02/04/24 cefuroxime axetil 500 mg tablet 500 mg PO BID 7 days #14 tabs 02/04/24 clopidogrel 75 mg tablet (Plavix) 75 mg PO DAILY 20 days #20 tabs 02/04/24 metoprolol succinate 25 mg 25 mg PO DAILY #30 tabs 02/04/24 tablet,extended release 24 hr (Toprol XL) Allergies Allergy/AdvReac Type Severity Reaction Status Date / Time Penicillins Allergy Intermediate Verified 06/24/23 18:18 Opioid HPI Opioid Management Most Recent Opioid Data: Last Pain Scale 2 02/04/24 09:05 02/04/24 Last Pain Intensity 2 02/04/24 09:05 02/04/24 Last ORT Total Score 0 02/03/24 18:34 02/03/24 Last ORT Risk Category Low Risk 02/03/24 18:34 02/03/24 Review of Systems ROS Status of ROS 10 or more systems reviewed and unremarkable except as noted in history and below [facility] Medical History (Updated 02/13/24 @ 16:45 by Evelia Pineda MD) UTI (urinary tract infection) ?N39.0 - Urinary tract infection, site not specified (ICD-10) Elevated brain natriuretic peptide (BNP) level ?R79.89 - Other specified abnormal findings of blood chemistry (ICD-10) Elevated troponin ?R79.89 - Other specified abnormal findings of blood chemistry (ICD-10) Acute ischemic stroke ?I63.9 - Cerebral infarction, unspecified (ICD-10) Elevated CK ?R74.8 - Abnormal levels of other serum enzymes (ICD-10) Back pain ?M54.9 - Dorsalgia, unspecified (ICD-10) Multiple falls ?R29.6 - Repeated falls (ICD-10) Stroke ?I63.9 - Cerebral infarction, unspecified (ICD-10) HTN (hypertension) ?I10 - Essential (primary) hypertension (ICD-10) HLD (hyperlipidemia) ?E78.5 - Hyperlipidemia, unspecified (ICD-10) Social History (Updated 02/04/24 @ 12:16 by Shaikh Nate MD) Within the past year, how often did you have a drink containing alcohol: never Score interpretation: A score less than 3 is consistent with normal alcohol consumption. Smoking status: Never smoker Highest level of school completed/degree received: high school graduate Little interest or pleasure in doing things: not at all Feeling down, depressed, or hopeless: not at all Exam Narrative Exam Narrative: Nurses notes and vital signs reviewed and patient is not hypoxic. General: Well-appearing and in no apparent distress. Skin: Warm, dry, no pallor noted. No rash. Head: Normocephalic, atraumatic. Neck: Supple, non-tender. Eye: Pupils are equal, round and EOMI. No scleral icterus. Ears, Nose, Mouth, and Throat: TM are clear, no nasal mucosal hypertrophy. Oral mucosa is moist, no posterior oropharynx erythema, uvula is mid-line Cardiovascular: Regular Rate and Rhythm without murmur, gallop or rub. Respiratory: No accessory muscle use or respiratory distress. Lungs are clear to auscultation, no wheezing, rales or rhonchi Chest Wall: no tenderness Back: No midline thoracic or lumbar vertebral tenderness. No CVA tenderness Musculoskeletal: normal ROM, no calf or popliteal tenderness, no lower extremity edema/swelling GI: Abdomen is soft, non-distended. Normal bowel sounds. No masses appreciated. No tenderness to palpation. No rebound, guarding, or rigidity noted. Neurological: A&O x4. No cranial nerve dysfunction observed. No truncal ataxia. Moves all extremities. Sensation intact. Psychiatric: Cooperative and interactive. Normal mood and affect. Constitutional Vital Signs, click to edit/add: Last Vital Signs Temp 97.9 F 02/13/24 14:34 Pulse 77 02/13/24 16:00 Resp 16 02/13/24 16:00 BP 159/84 H 02/13/24 15:30 Pulse Ox 97 02/13/24 16:00 O2 Del Method Room Air 02/13/24 14:34 Course Vital Signs Vital signs: Vital Signs Temperature 97.9 F 02/13/24 14:34 Pulse Rate 71 02/13/24 14:34 Respiratory Rate 18 02/13/24 14:34 Blood Pressure 149/98 H 02/13/24 14:34 Pulse Oximetry 99 02/13/24 14:34 Oxygen Delivery Method Room Air 02/13/24 14:34 Temperature 97.9 F 02/13/24 14:34 Pulse Rate 77 02/13/24 16:00 Respiratory Rate 16 02/13/24 16:00 Blood Pressure 159/84 H 02/13/24 15:30 Pulse Oximetry 97 02/13/24 16:00 Oxygen Delivery Method Room Air 02/13/24 14:34 Medical Decision Making [facility] Narrative Medical decision making narrative: The patient EKG showing A-fib with a heart rate of 74 which is a new finding compared to the patient's sinus rhythm but it could explain the patient's stroke The patient CBC and chemistry showed no acute significant pathology otherwise CT of the head as well as CT cervical spine shows no acute pathology The patient still able to ambulate with a walker but she need assistance and according to the family at the bedside the patient has been having multiple falls there is a home health care nurse comes in twice a week which is according to the family members is not enough for assistance The patient still deconditioned and she needs more help and she is agreeable to go for rehab as it is needed at this moment The patient with her history of A-fib further evaluation for anticoagulation is needed specially with the patient being on aspirin Plavix and the fact that she have multiple falls I discussed the case with and he agreed to admit the patient for further evaluation of her A-fib and her multiple falls and recent stroke Lab Data Labs: Lab Results 02/13/24 02/13/24 Range/Units 14:53 14:53 WBC 7.9 (4.0-11.0) 10^3/uL RBC 3.77 L (4.20-5.40) 10^6/uL Hgb 11.9 L (12.0-16.0) g/dL Hct 36.0 (36.0-48.0) % MCV 95.5 (81.0-99.0) fL MCH 31.6 (26.7-34.0) pg MCHC 33.1 (29.9-35.2) g/dL RDW 13.2 (11.0-15.0) % Plt Count 318 (150-450) 10^3/uL MPV 9.1 L (9.5-13.5) fL Neut % (Auto) 64.8 (43.0-75.0) % Lymph % (Auto) 21.0 (20.5-60.0) % [place] % (Auto) 10.4 (1.7-12.0) % Eos % (Auto) 2.8 (0.9-7.0) % Baso % (Auto) 0.6 (0.2-2.0) % Neut # (Auto) 5.1 (1.4-6.5) 10^3/uL Lymph # (Auto) 1.7 (1.2-3.8) 10^3/uL [place] # (Auto) 0.8 (0.3-0.8) 10^3/uL Eos # (Auto) 0.2 (0.0-0.7) 10^3/uL Baso # (Auto) 0.1 (0.0-0.1) 10^3/uL Abs Immat Gran (auto) 0.03 (0.00-0.03) 10^3/uL Imm/Tot Granulo (auto) 0.4 (0.0-0.5) % Sodium 137 (136-145) mmol/L Potassium 4.0 (3.5-5.1) mmol/L Chloride 101 (98-107) mmol/L Carbon Dioxide 27.5 (21.0-32.0) mmol/L Anion Gap 12.5 BUN 14.0 (7.0-18.0) mg/dL Creatinine 1.04 H (0.55-1.02) mg/dL Est GFR ( Amer) >60 (>=60 mL/min/1.73m^2) Est GFR (Non-Af Amer) 50 L (>=60 mL/min/1.73m^2) BUN/Creatinine Ratio 13.5 Glucose 91 (74-106) mg/dL Calcium 9.1 (8.5-10.1) mg/dL Total Bilirubin 0.5 (0.2-1.0) mg/dL AST 22 (15-37) U/L ALT 29 (14-59) U/L Alkaline Phosphatase 70 (46-116) U/L Troponin I High Sens 35.4 34.0 (4.0-51.3) pg/mL Total Protein 6.4 (6.4-8.2) g/dL Albumin 3.2 L (3.4-5.0) g/dL Globulin 3.2 g/dL Albumin/Globulin Ratio 1.0 Discharge Plan Discharge Chief Complaint: Fall Clinical Impression: Multiple falls, A-fib Patient Disposition: Admitted As Inpatient Time of Disposition Decision: 16:45
--- NOTE | 2024-02-13 17:17 | PM.HP ---
HPI H&P: HPI History of Present Illness Chief complaint: GENERAL WEAKNESS Opioid HPI Opioid Management Most Recent Pain and Opioid Data: Last Pain Scale 2 02/04/24 09:05 02/04/24 Last Pain Intensity 2 02/04/24 09:05 02/04/24 Last ORT Total Score 0 02/03/24 18:34 02/03/24 Last ORT Risk Category Low Risk 02/03/24 18:34 02/03/24 PFSH PFSH Medical History UTI (urinary tract infection) ?N39.0 - Urinary tract infection, site not specified (ICD-10) Elevated brain natriuretic peptide (BNP) level ?R79.89 - Other specified abnormal findings of blood chemistry (ICD-10) Elevated troponin ?R79.89 - Other specified abnormal findings of blood chemistry (ICD-10) Acute ischemic stroke ?I63.9 - Cerebral infarction, unspecified (ICD-10) Elevated CK ?R74.8 - Abnormal levels of other serum enzymes (ICD-10) Back pain ?M54.9 - Dorsalgia, unspecified (ICD-10) Multiple falls ?R29.6 - Repeated falls (ICD-10) Stroke ?I63.9 - Cerebral infarction, unspecified (ICD-10) HTN (hypertension) ?I10 - Essential (primary) hypertension (ICD-10) HLD (hyperlipidemia) ?E78.5 - Hyperlipidemia, unspecified (ICD-10) Social History (Updated 02/04/24 @ 12:16 by Shaikh Nate MD) Within the past year, how often did you have a drink containing alcohol: never Score interpretation: A score less than 3 is consistent with normal alcohol consumption. Smoking status: Never smoker Highest level of school completed/degree received: high school graduate Little interest or pleasure in doing things: not at all Feeling down, depressed, or hopeless: not at all Meds Home Medications and Allergies Home Medications ?Medication ?Instructions ?Recorded ?Confirmed ?Type denosumab 60 mg/mL subcutaneous 60 mg subcut .every 6 months 06/24/23 02/13/24 History syringe (Prolia) fluoxetine 20 mg capsule 20 mg PO DAILY 06/24/23 02/13/24 History lisinopril 10 mg tablet 10 mg PO DAILY 06/24/23 02/13/24 History aspirin 81 mg chewable tablet 81 mg PO DAILY #30 tabs 02/04/24 02/13/24 Rx atorvastatin 40 mg tablet (Lipitor) 40 mg PO DAILY #30 tabs 02/04/24 02/13/24 Rx cefuroxime axetil 500 mg tablet 500 mg PO BID 7 days #14 tabs 02/04/24 02/13/24 Rx clopidogrel 75 mg tablet (Plavix) 75 mg PO DAILY 20 days #20 tabs 02/04/24 02/13/24 Rx metoprolol succinate 25 mg 25 mg PO DAILY #30 tabs 02/04/24 02/13/24 Rx tablet,extended release 24 hr (Toprol XL) Allergies Allergy/AdvReac Type Severity Reaction Status Date / Time Penicillins Allergy Intermediate Verified 06/24/23 18:18 Exam Constitutional Vital Signs, click to edit/add: Last Vital Signs Temp 97.9 F 02/13/24 14:34 Pulse 83 02/13/24 16:30 Resp 19 02/13/24 16:30 BP 159/84 H 02/13/24 15:30 Pulse Ox 96 02/13/24 16:30 O2 Del Method Room Air 02/13/24 14:34 Results Labs Labs: Short CBC 02/13/24 Range/Units 14:53 WBC 7.9 (4.0-11.0) 10^3/uL Hgb 11.9 L (12.0-16.0) g/dL Hct 36.0 (36.0-48.0) % Plt Count 318 (150-450) 10^3/uL BMP 02/13/24 14:53 Sodium 137 Potassium 4.0 Chloride 101 Carbon Dioxide 27.5 BUN 14.0 Creatinine 1.04 H Glucose 91 Calcium 9.1 Liver Function 02/13/24 Range/Units 14:53 Total Bilirubin 0.5 (0.2-1.0) mg/dL AST 22 (15-37) U/L ALT 29 (14-59) U/L Alkaline Phosphatase 70 (46-116) U/L Albumin 3.2 L (3.4-5.0) g/dL
--- OUTSIDE RECORDS SUMMARY | 2024-02-13 17:31 | XMS_ITS | CCD ---
Author Organization [facility] Care Team Providers Care Plant And Instrument Engineer Name Role Phone DR ALPESH TRINH Primary Care Unavailable PAY, DR COOMBS Admitting Unavailable PAY, DR COOMBS Attending Unavailable PAY, DR COOMBS Consulting Unavailable JENNI MABRY Attending Unavailable Alpesh Trinh MD Primary Care Provider [phone] Unavailable Primary Care Provider UnavailEvelia Cook Attending Unavailable Evelia Pineda Admitting Unavailable Sunday Suzy VOGEL Unavailable ALPESH TRINH Attending ALPESH Huizar Referring Unavailable ALPESH TRINH Attending Unavailable ALPESH TRINH Attending Unavailable ALPESH TRINH Attending Unavailable Allergies Allergy Classification Reported Allergen(s) Allergy Type Date of Onset Reaction(s) Facility (2 sources) Penicillins; Translations: [PENICILLINS] Drug allergy (disorder) 06-17-2012 [facility] Repository (10 sources) Penicillin V Drug Allergy 12-07-[address] [facility] Healthcare (10 sources) Penicillins Drug Allergy 01-30-[address] [facility] Healthcare Medications Current Medications Medication Drug [...] 12-07-2022 Episodic Other aftercare (1 source) Other nursing home (current) drug therapy; Translations: [OTH SOLID WASTE MANAGER CURRENT DRUG THERAPY] Onset: 11-08-2021 Episodic Other [...] bacterial skin contaminants 2 Days PERFORMED BY: [place] [address] PATHOLOGIST SUPERVISORY GEOGRAPHER MARTITA FLORENTINO M.D. Normal [facility] Comment on above: Performed By: #### C UU #### [address] VAS US CAROTID ARTERY DUPLE X [...] Not Available Office Visiton 09-19-2022 Follow-up visit [id number] Gloria Roque 1935 F Date Provider Department Center 09/19/2022 [id number] MABRY [facility] Family History Problem Relation Age of Onset Cancer Father Colon cancer Sister Heart attack Brother Family Status - Relation Status Age at Father Sister Brother Level of Service:10066 [place] OFFICE/OUTPATIENT NEW [facility] MDM 30-44 MINUTES Normal [facility] Covid-19 PCR (CVDTBH)on 10-14 SARS-CoV-2 (COVID-19) RNA REYNALDO+probe Ql (Unsp spec) Detected Critically abnormal NOT DETECTED [facility] Comment on above: Result Comment: This test is not yet approved or cleared by the [place] FDA. When there are no FDA-approved or cleared tests available, and other criteria are met, FDA can make tests available under an emergency access mechanism called an Emergency Use Authorization (EUA). The EUA for this test is supported by the Assistant Professor Of Forestry of Health and Human Service's declaration that [...] used). Performed By: #### C VDTB #### [facility] [address] [place] [address] Dr. Leslie Tejeda Complete Blood Counton 03-01 Erythrocyte distribution width (RBC) [Ratio] 12.4 % Normal 11.0-15.0 [facility] Audio Visual Engineer Comment on above: Performed By: #### ERNIE GRIGSBY, CMP #### [facility] [address], [place] [id number] Hematocrit (Bld) [Volume fraction] 38.4 % Normal 35.0-47.0 [facility] Audio Visual Engineer Comment on above: Performed By: #### ERNIE GRIGSBY, CMP #### [facility] [address], [place] [id number] Hemoglobin (Bld) [Mass/Vol] 12.7 g/dL Normal 11.6-15.5 [facility] Audio Visual Engineer Comment on above: Performed By: #### ERNIE GRIGSBY, CMP #### [facility] [address], [place] [id number] MCH (RBC) [Entitic mass] 31.7 pg Normal 27.0-33.0 [facility] Audio Visual Engineer Comment on above: Performed By: #### ERNIE GRIGSBY, CMP #### [facility] [address], [place] [id number] MCHC (RBC) [Mass/Vol] 33.1 g/dL Normal 32.0-36.0 [facility] Audio Visual Engineer Comment on above: Performed By: #### ERNIE GRIGSBY, CMP #### [facility] [address], [place] [id number] MCV (RBC) [Entitic vol] 96 fL Normal 80-100 [facility] Audio Visual Engineer Comment on above: Performed By: #### ERNIE GRIGSBY, CMP #### [facility] [address], [place] [id number] Platelet mean volume (Bld) [Entitic vol] 9.70 fL Normal 7.50-12.50 [facility] Audio Visual Engineer Comment on above: Performed By: #### ERNIE GRIGSBY, CMP #### [facility] [address], [place] [id number] Platelets (Bld) [#/Vol] 240 10*3/uL Normal 140-400 [facility] Audio Visual Engineer Comment on above: Performed By: #### ERNIE GRIGSBY, CMP #### [facility] [address], [place] [id number] RBC (Bld) [#/Vol] 4.01 10*6/uL Normal 3.90-5.20 [facility] Specialist Comment on above: Performed By: #### C BC, LIPD, CMP #### [facility] [address], [place] [id number] RDW-SD 43.9 fL Normal 37.0-50.0 [facility] Specialist Comment on above: Performed By: #### C BC, LIPD, CMP #### [facility] [address], [place] [id number] WBC (Bld) [#/Vol] 5.1 10*3/uL Normal 3.8-11.0 [facility] Audio Visual Engineer Comment on above: Performed By: #### C BC LIPD, CMP #### [facility] [address], [place] [id number] Comprehensive Metabolic Pane melquiades 03-01-2021 Albumin [Mass/Vol] 4.1 g/dL Normal 3.6-5.1 [facility] Audio Visual Engineer Comment on above: Performed By: #### C BC, LIPD, CMP #### [facility] [address], [place] [id number] Albumin/Globulin [Mass ratio] 1.7 {ratio} Normal 1.0-2.5 [facility] Comment on above: Performed By: #### C BC, LIPD, CMP #### [facility] [address], [place] [id number] ALP [Catalytic activity/Vol] 58 U/L Normal 35-119 [facility] Specialist Comment on above: Performed By: #### C BC, LIPD, CMP #### [facility] [address], [place] [id number] ALT [Catalytic activity/Vol] 9 U/L Normal 6-33 [facility] Specialist Comment on above: Result Comment: 01/12 Female reference range changed. Performed By: #### C BC, LIPD, CMP #### [facility] [address], [place] [id number] Anion gap [Moles/Vol] 15 mmol/L Normal 12-20 [facility] Specialist Comment on above: Result Comment: [place] ctive 02/17/2019 reference range changed. Performed By: #### C HERNAN LIPD, CMP #### [facility] [address], [place] [id number] AST [Catalytic activity/Vol] 14 U/L Normal 9-34 [facility] Specialist Comment on above: Performed By: #### C BC LIPD, CMP #### [facility] [address], [place] [id number] Bilirubin [Mass/Vol] 0.42 mg/dL Normal 0.30-1.20 [facility] Specialist Comment on above: Performed By: #### C HERNAN LIPD, CMP #### [facility] [address], [place] [id number] BUN/CREA 23 Ratio High 6-22 [facility] Specialist Comment on above: Performed By: #### C HERNAN LIPD, CMP #### [facility] [address], [place] [id number] Calcium [Mass/Vol] 9.4 mg/dL Normal 8.6-10.2 [facility] Comment on above: Performed By: #### C HERNAN LIPD, CMP #### [facility] [address], [place] [id number] Chloride [Moles/Vol] 102 mmol/L Normal 98-107 [facility] Specialist Comment on above: Performed By: #### C HERNAN LIPD, CMP #### [facility] [address], [place] [id number] CO2 [Moles/Vol] 25 mmol/L Normal 20-31 [facility] Specialist Comment on above: Performed By: #### C HERNAN LIPD, CMP #### [facility] [address], [place] [id number] Creatinine [Mass/Vol] 0.9 mg/dL Normal 0.6-1.4 [facility] Specialist Comment on above: Performed By: #### Renan BC LIPD, CMP #### [facility] [address], [place] [id number] eGFRAA 71 mL/min/1.73m2 Normal >60 [place] Audio Visual Engineer Comment on above: Performed By: #### C BC LIPD, CMP #### [facility] [address], [place] [id number] eGFRNAA 59 mL/min/1.73m2 Low >60 [facility] Audio Visual Engineer Comment on above: Performed By: #### C BC, LIPD, CMP #### [facility] [address], [place] [id number] Globulin (S) [Mass/Vol] 2.4 g/dL Normal 1.9-3.7 [facility] Audio Visual Engineer Comment on above: Performed By: #### C BC LIPD, CMP #### [facility] [address], [place] [id number] Glucose [Mass/Vol] 96 mg/dL Normal 65-99 [facility] [place] Audio Visual Engineer Comment on above: Result Comment: For FASTING Glucose --- ADA reference ranges: Normal 65-99 mg/dl Prediabetes 100-125 Diabetes >/= 126 Performed By: #### C HERNAN LIPD, CMP #### [facility] [address], [place] [id number] Potassium [Moles/Vol] 4.3 mmol/L Normal 3.5-5.5 [facility] Audio Visual Engineer Comment on above: Performed By: #### C HERNAN LIPD, CMP #### [facility] [address], [place] [id number] Protein [Mass/Vol] 6.5 g/dL Normal 6.1-8.1 [facility] [place] Audio Visual Engineer Comment on above: Performed By: #### C BC LIPD, CMP #### [facility] [address], [place] [id number] Sodium [Moles/Vol] 138 mmol/L Normal 135-146 [facility] [place] Audio Visual Engineer Comment on above: Performed By: #### C BC, LIPD, CMP #### [facility] [address], [place] [id number] Urea nitrogen [Mass/Vol] 21 mg/dL Normal 7-25 [facility] Audio Visual Engineer Comment on above: Performed By: #### C BC, LIPD, CMP #### [facility] [address], [place] [id number] Lipid Panelon 03-01-2021 Cholesterol [Mass/Vol] 242 mg/dL High 125-200 [facility] Specialist Comment on above: Result Comment: Low risk < 200mg/dL Borderline risk 201-239 mg/dl High risk > or equal to 240 Performed By: #### C BC, LIPD, CMP #### [facility] [address], [place] [id number] Cholesterol in HDL [Mass/Vol] 64 mg/dL Normal >40 [facility] Audio Visual Engineer Comment on above: Result Comment: High Cardiovascular Risk HDL <40 mg/dL Low Cardiovascular Risk HDL > or equal to 60 mg/dl Performed By: #### C BC, LIPD, CMP #### [facility] [address], [place] [id number] Cholesterol in LDL [Mass/Vol] 166 mg/dL Normal [facility] Specialist Comment on above: Result Comment: LDL ATP III CLASSIFICATION LDL less than 100 mg/dl Optimal LDL 100-129 mg/dl Near or above optimal LDL 130-159 Borderline high LDL 160-189 High LDL greater than 189 mg/dl Very High Performed By: #### C BC, LIPD, CMP #### [facility] [address], [place] [id number] Cholesterol in VLDL [Mass/Vol] 12 mg/dL Normal [facility] Specialist Comment on above: Performed By: #### C BC, LIPD, CMP #### [facility] [address], [place] [id number] Cholesterol.total/ Cholesterol in HDL [Mass ratio] 4 {ratio} Normal [facility] Specialist Comment on above: Performed By: #### C BC, LIPD, CMP #### [facility] [address], [place] [id number] Triglyceride [Mass/Vol] 60 mg/dL Normal 30-150 [facility] Specialist Comment on above: Result Comment: TRIG ATPIII CLASSIFICATIONS TRIG less than 150 mg/dl Normal TRIG 150-199 mg/dl Borderline High TRIG 200-500 mg/dl High TRIG greather than 500 mg/dl Very High Performed By: #### C BC, LIPD, CMP #### [facility] [address], [place] [id number] TSHon 03-01-2021 TSH Qn 3.13 m[IU]/L Normal 0.40-4.50 [facility] o Audio Visual Engineer Comment on above: Order Comment: [facility] Testing performed at: QPT, [employer] [facility], [address], [address] [facility], [place], [address], Sales And Customer Relations Rep: Joao Graham MD [facility] Collection Date/Time: [id number] [facility] Results Received Date/Time: [facility] Reported Date/Time: Performed By: #### T #### [facility] Default [address] [place] [address] Vital Signs Date Time Vital Sign Value Performing Clinician Faci lity 02-11-2024 09:30-0500 Body height 163.8 cm Alpesh Trinh MD Work Phone: [facility] 02-11-2024 09:30-0500 Body mass index (BMI) [Ratio] 24.17 kg/m2 Alpesh Trnih MD Work Phone: [facility] 02-11-2024 09:30-0500 Body weight 64.86 kg Alpesh Trinh MD Work Phone: [facility] 02-11-2024 09:30-0500 Diastolic blood pressure 64 mm[Hg] Alpesh Trinh MD Work Phone: [facility] 02-11-2024 09:30-0500 Heart rate 58 /min Alpesh Trinh MD Work Phone: [facility] 02-11-2024 09:30-0500 SaO2% (BldA) [Mass fraction] 96 % Alpesh Trinh MD Work Phone: [facility] 02-11-2024 09:30-0500 Systolic blood pressure 114 mm[Hg] Alpesh Trinh MD Work Phone: [facility] 01-09-2024 09:02-0500 Body height 163.8 cm Alpesh Trinh MD Work Phone: [facility] 01-09-2024 09:02-0500 Body mass index (BMI) [Ratio] 24 kg/m2 Alpesh Trinh MD Work Phone: [facility] 01-09-2024 09:02-0500 Body weight 64.41 kg Alpesh Trinh MD Work Phone: [facility] 01-09-2024 09:02-0500 Diastolic blood pressure 70 mm[Hg] Alpesh Trinh MD Work Phone: [facility] 01-09-2024 09:02-0500 Heart rate 68 /min Alpesh Trinh MD Work Phone: [facility] 01-09-2024 09:02-0500 SaO2% (BldA) [Mass fraction] 96 % Alpesh Trinh MD Work Phone: [facility] 01-09-2024 09:02-0500 Systolic blood pressure 130 mm[Hg] Alpesh Trinh MD Work Phone: [facility] 10-04-2023 12:59-0400 Body height 163.8 cm Alpesh Trinh MD Work Phone: [facility] 10-04-2023 12:59-0400 Diastolic blood pressure 74 mm[Hg] Alpesh Trinh MD Work Phone: [facility] 10-04-2023 12:59-0400 Heart rate 74 /min Alpesh Trinh MD Work Phone: [facility] 10-04-2023 12:59-0400 SaO2% (BldA) [Mass fraction] 96 % Alpesh Trinh MD Work Phone: [facility] 10-04-2023 12:59-0400 Systolic blood pressure 130 mm[Hg] Alpesh Trinh MD Work Phone: [facility] Healthcare Encounters Encounter Date Encounter Type Care Provider Facility Start: 02-12-2024 End: 02-12-2024 Orders Only Shalini Liz RN [facility] Comment on above: Cerebrovascular acci dent (CVA), unspecified mechanism (CMS- HCC) (Primary Dx); Other cerebrovascular vasospasm and vasoconstriction Start: 02-11-2024 End: 02-11-2024 Bamboo flowsheet Alpesh Trinh MD Work Phone: [facility] Start: 02-11-2024 End: 02-11-2024 Bamboo [...] ALPESH TRINH Not Available Start: 02-07-2024 ambulatory [facility] Start: 02-04-2024 End: 02-04-[address] [facility] Facility:[facility] Start: 02-04-2024 End: 02-04-2024 Telephone encounter Lima Mitchell MD [facility] Start: 02-04-2024 End: 02-07-2024 Emergency department patient visit [facility] Start: 01-09-2024 End: [...] Not Available Start: 09-19-2022 End: 09-19-2022 ambulatory [facility] Start: 11-07-2021 End: 11-07-[address] ALPESH TRINH Facility: Plan of Treatment Date Care Activity Detail Author Start: 10-03-2024 Medicare Annual Wellness (AWV) Medicare Annual Wellness (AWV) [facility] Start: 04-10-2024 End: 04-10-2024 Patient encounter procedure 04/10/2024 11:30 AM EST Office Visit [facility] [address] [place] [id number] Paul Loera MD [address] [place] [address], [address] [phone] [facility] Start: 02-12-2024 End: 02-11-2025 Wireless Telemetry (In Office) [facility] Work Phone: Comment on above: Expected: 02/12/2024, Expires: Start: 02-12-2024 End: 02-12-2024 Professional / ancillary services management 02/12/2024 12:15 PM EST Ancillary Procedure [facility] [address] [place] [id number] Cerebrovascular accident (CVA), unspecified mechanism (CMS-HCC); Other cerebrovascular vasospasm and vasoconstriction [facility] Comment on above: Cerebrovascular accident (CVA), unspecif ied mechanism (CMS-HCC); Other cerebrovascular vasospasm and vasoconstriction Start: 02-11-2024 End: 02-11-2024 Patient encounter procedure 02/11/2024 9:30 AM EST Office Visit [facility] [address] [facility] [address] [place] [address] Alpesh Trinh MD [address] [facility] [address] [place] [address] Arrived [facility] Comment on above: Arrived Start: 02-04-2024 End: 02-04-2024 Patient encounter procedure 02/04/2024 10:30 AM EST Office Visit [facility] [address] [facility] [address] [place] [address] Alpesh Trinh MD [address] [facility] [address] [place] [address] [facility] Start: 01-09-2024 End: 01-09-2024 Patient encounter procedure [facility] Comment on above: Arrived Start: 10-14-2023 COVID-19 Vaccine ( season) COVID-19 Vaccine ( season) [facility] Start: 10-14-2023 Influenza vaccination Influenza Vaccine (#1) [facility] Start: 10-04-2023 End: 10-03-2024 DXA Skeletal system Views for bone density DEXA bone density Imaging Routine Estrogen deficiency Expected: 10/04/2023 (Approximate), Expires: 10/03/2024 [facility] Work Phone: Comment on above: Expected: 10/04/2023 (Approximate), Expi res: 10/03/2024 Start: 10-04-2023 End: 10-04-2023 Patient encounter procedure 10/04/2023 1:00 PM EDT Office Visit [facility] [address] [facility] [address] [place] [id number] Alpesh Trinh MD [address] [facility] [address] [place] [address] Arrived [facility] Comment on above: Arrived Start: 05-11-2023 Medicare Annual Wellness (AWV) Medicare Annual Wellness (AWV) [facility] Start: 04-09-2010 Administration of varicella zoster vaccine Zoster (Shingles) Vaccine (2 of 3) [facility] Start: 11-24-1999 Fall Risk Screening Fall Risk Screening [facility] Start: 1953 DTaP,Tdap and Td Vaccines (1 - Tdap) DTaP,Tdap and Td Vaccines (1 - Tdap) [facility] Start: 1946 Depression Screening Depression Screening [facility] Start: 1946 Tobacco Screening Tobacco Screening [facility] Immunizations Immunization Date Immunization Notes Care Provider Fa cili 12-07-2023 influenza, high dose seasonal, preservative-free Alpesh Trinh MD Work Phone: [facility] 12-07-2023 influenza virus vacc ine, unspecified formulation Alpesh Trinh MD Work Phone: [facility] 10-20-2022 Influenza, Seasonal, Quadrivalent, Adjuvanted Alpesh Trinh MD Work Phone: [facility] 10-20-2022 influenza virus vacc ine, unspecified formulation Alpesh Trinh MD Work Phone: [facility] 10-26-2021 Influenza, High-dose Seasonal, Quadrivalent, Preservative Free Alpesh Trinh MD Work Phone: [facility] 11-16-2020 Influenza, High-dose Seasonal, Quadrivalent, Preservative Free Alpesh Trinh MD Work Phone: [facility] 12-09-2019 Influenza, High-dose Seasonal, Quadrivalent, Preservative Free Alpesh Trinh MD Work Phone: [facility] 12-07-2018 influenza, high dose seasonal, preservative-free Alpesh Trinh MD Work Phone: [facility] 01-18-2018 pneumococcal conjuga te vaccine, 13 valent Alpesh Trinh MD Work Phone: [facility] 11-18-2017 Seasonal trivalent influenza vaccine, adjuvanted, preservative free Alpesh Trinh MD Work Phone: [facility] 11-22-2016 Seasonal trivalent influenza vaccine, adjuvanted, preservative free Alpesh Trinh MD Work Phone: [facility] 11-26-2015 influenza, high dose gabriele, preservative-free Alpesh Trinh MD Work Phone: [facility] 11-02-2014 pneumococcal polysaccharide vaccine, 23 valent Alpesh Trinh MD Work Phone: [facility] 11-02-2014 seasonal influenza, intradermal, preservative free Alpesh Trinh MD Work Phone: [facility] 11-16-2013 influenza, high dose gabriele, preservative-free Alpesh Trinh MD Work Phone: [facility] 11-12-2013 influenza, seasonal, injectable Alpesh Trinh MD Work Phone: [facility] 12-04-2012 influenza, seasonal, injectable Alpesh Trinh MD Work Phone: [facility] 11-14-2011 influenza virus vacc ine, whole virus Alpesh Trinh MD Work Phone: [facility] 11-28-2010 influenza virus vacc ine, whole virus Alpesh Trinh MD Work Phone: [facility] 02-12-2010 zoster vaccine, live Alpesh Trinh MD Work Phone: [facility] 02-12-2010 zoster vaccine, unspecified formulation Lima Mitchell MD Work Phone: [facility] 11-24-2009 influenza virus vacc ine, whole virus Alpesh Trinh MD Work Phone: [facility] 11-28-2006 influenza virus vacc ine, whole virus Alpesh Trinh MD Work Phone: [facility] 02-12-2005 pneumococcal polysaccharide vaccine, 23 valent Alpesh Trinh MD Work Phone: [facility] Healthcare Payers Date Payer Category Payer Self-pay 2023 Medicare (Managed Care) [employer] ADV[employer]AGE [id number] 2023 Medicare [id number] 2019 Unknown GENERIC COMMERCI AL GENERIC COMMERCIAL [id number] 2019-Present [phone] [address] [address] [place] [address] [id number] 1999 Medicare [id number] 1959 Medicare [id number] 1959 Unknown [id number] 1934 Unknown [id number] 1934 Unknown [id number] [id number] 1934 Unknown [id number] [id number] 1934 Unknown [id number] [id number] 1934 Unknown [id number] [id number] 1934 Unknown [id number] [id number] Unknown [id number] [id number] Social History Date Type Detail Facility Start: 12-07-2022 Tobacco smoking stat [facility] Never smoked tobacco [facility] Start: 12-07-2022 Tobacco use and exposure Smokeless tobacco non-user [facility] Start: 10-04-2023 End: 02-11-2024 Alcoholic beverage intake Lifetime non-drinker (finding) [facility] Start: 07-24-2018 End: 10-04-2023 History of Social function [facility] Start: 07-24-2018 End: 10-04-2023 Tobacco use panel [facility] Start: 1935 Sex assigned at Not on file [facility] Tobacco smoking stat [facility] Tobacco smoking consumption unknown [facility] Childcare Unknown [facility] Start: 09-17-2014 Sex Female (finding) [facility] Clinical Notes 09-19-2022 to 02-11-2024 Alpesh Trinh MD - 02/11/2024 9:30 AM ESTTelephone Encounter - Poly Diaz - 02/04/2024 5:35 PM ESTTelephone Encounter - Poly Diaz - 02/04/2024 5:35 PM EST Note Date & Type Note Facility 02-11-2024 History of Present illness Narrative Images from the original note were not included. HPI Follow-up Additional comments: Admitted [facility] 02/03/24 dx: CVA,UTI discharged home 02/04/24 started on ASA, plavx x 21 days and Ceftin Has follow up appts with cardiology 02/18/24 and neurology 04/10/24 Last edited by Ayleen Gross LPN on 02/11/2024 9:30 AM. Subjective Patient ID: Gloria Roque is a 88 y.o. female who presents for Follow-up (Admitted [facility] 02/03/24 dx: CVA,UTI discharged home 02/04/24 started on ASA, plavx x 21 days and Ceftin/Has follow up appts with cardiology 02/18/24 and neurology 04/10/24). Flowsheet Row Documentation from 06/25/2023 in [facility] with Debi Tomlinman [place] Hospital Information ED, Hospital or Prison Facility Discharge? ED Patient has been contacted within 1 week of being seen in the ED Yes Discharge Date 06/24/23 Discharged To: Home Setting Discharge Hospital [facility] Engagement Call Start Time 1643 Medications [...] Post CVA. I encouraged Rehab at a [facility] Facility. She is a fall risk at home, in fact has fallen several times since her recent hospital discharge. Frequent falls Degeneration of intervertebral disc of lumbar region, unspecified whether pain present - Handicap Placard 5 Years Follow up in about 4 weeks (around 03/10/2024) for Routine F/U. documented in this encounter [facility] 02-04-2024 Miscellaneous Notes ----- Message from CHARLI Gibson sent at 02/04/2024 4:57 PM EST ----- Regarding: [facility] This is a patient with a R MCA ischemic stroke. Dr. Andre wants her to FU in Stroke clinic after 30 day cardiac event monitoring is completed. She can see Luz Maria Mitchell or fellow. She also needs referred to [facility]: Dr. Vick to be seen at his [facility] for recent stroke and abnormal echo. Please help arrange this referral/ follow up. If needed you can place referral order under my name. Thanks! Scheduled Called patient and left Vm Called [facility]- ICU floor, [place] and scheduled appt. Patient to be D/C 02/04/24 Tyree patients son is the POA [facility] encounter Note ----- Message from CHARLI Gibson sent at 02/04/2024 4:57 PM EST ----- Regarding: [facility] This is a patient with a R MCA ischemic stroke. Dr. Andre wants her to FU in Stroke clinic after 30 day cardiac event monitoring is completed. She can see Luz Maria Mitchell or fellow. She also needs referred to [facility]: Dr. Vick to be seen at his [facility] for recent stroke and abnormal echo. Please help arrange this referral/ follow up. If needed you can place referral order under my name. Thanks! [facility] 02-04-2024 Telephone encounter Note Scheduled Called patient and left Vm Called [facility]- [facility] floor, [place] and scheduled appt. Patient to be D/C 02/04/24 Tyree patients son is the POA [facility] 01-09-2024 History of Present illness Narrative Images [...] F/U med changes. documented in this encounter [facility] 12-25-2023 Telephone encounter Note No notes for encounter [facility] Work Phone: 12-25-2023 Miscellaneous Notes No notes for encounter documented in this encounter [facility] 10-04-2023 History of Present illness Narrative Images [...] Do you have a medical power of diamond merchant?: Yes Who is your medical power of diamond merchant?: son Objective : BP 130/74 Pulse 74 [...] LDL-C. Sherman LOPEZ et al. DHARA. 2013;310(19): 7814-7030 (http://education.Adnexus/faq/JYJ914) CHOL/HDLC RATIO 07/06/2023 3.7 <5.0 (calc) Final [...] a living will and durable power of diamond merchant for healthcare. We discussed telling benítez people [...] October 04, 2023 documented in this encounter [facility] 09-19-2022 Note Patient here to re-e stablish [...] systems reviewed and are negative. [facility] 09-19-2022 Note Cardiology Clinic Madonna Hennessy [...] electrolytes. No follow-ups on file. 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 HealthcareEvaluation note* Diagnosis Routine general medical examination [...] (CMS/HCC) Pure hypercholesterolemia documented in this encounter [facility] HealthcareEvaluation note* Diagnosis Cerebrovascular accident (CVA) [...] section and content) DATE CREATED AUTHOR 03/02/2021 [facility] dical Specialist DATE CREATED AUTHOR AUTHOR'S ORGANIZ ATION 03/29/2022 [facility] DATE CREATED AUTHOR AUTHOR'S ORGANIZ ATION 10/05/2022 [facility] DATE CREATED AUTHOR AUTHOR'S ORGANIZ ATION 02/07/2024 [facility] DATE CREATED AUTHOR AUTHOR'S ORGANIZ ATION 02/08/2024 [facility] DATE CREATED AUTHOR AUTHOR'S ORGANIZ ATION 02/11/2024 [facility] dical Specialists EPIC Care Teams (unrecognized sec tion and content) Plant And Instrument Engineer Relationship Specialty Start Date End Date Alpesh Trinh MD [address] [facility] [address] [place] [address] PCP - General Internal Medicine 08/28/22 Plant And Instrument Engineer Relationship Specialty Start Date End Date Alpesh Trinh MD [address] [place] [address] PCP - General Internal Medicine 08/28/22 Plant And Instrument Engineer Relationship Specialty Start Date End Date Alpesh Trinh MD [address] [place] [address] PCP - General Internal Medicine 08/28/22 Plant And Instrument Engineer Relationship Specialty Start Date End Date Alpesh Trinh MD [address] [place] [address] PCP - General Internal Medicine 08/28/22 Plant And Instrument Engineer Relationship Specialty Start Date End Date Alpesh Trinh MD [address] [place] [address] PCP - General Internal Medicine 08/28/22 Plant And Instrument Engineer Relationship Specialty Start Date End Date Alpesh Trinh MD [address] [place] [address] PCP - General Internal Medicine 08/28/22SundaySuzy LPN [address] [place] [address] Licensed Practical Nurse Family Medicine 02/11/24 Reason [...] BE BASED ON THE PRIMARY CLINICAL RECORDS. [facility] [facility]. provides no warranty or guarantee of the accuracy or completeness of information in this document.
[2024-02-13] MEDS: LACTATED RINGER'S SOLUTION 1,000 ML 100 ML IV (17:44)
--- NOTE | 2024-02-13 17:59 | P.HP_ITS ---
HPI H&P: HPI History of Present Illness Chief complaint: A-Fib Multiple Falls Narrative: Patient scented emergency room with frequent falls, found to be in atrial fibrillation. Trying to assess her history to see if this is new or old, with the high risk falls, would hold off on anticoagulation at this time Patient lives by herself so uncertain if these were syncopal episodes, she required cardiac monitoring. Opioid HPI Opioid Management Most Recent Pain and Opioid Data: Last Pain Scale 2 02/04/24 09:05 02/04/24 Last Pain Intensity 2 02/04/24 09:05 02/04/24 Last Pain Assessment 02/14/24 10:30 Last ORT Total Score 0 02/13/24 17:44 02/13/24 Last ORT Risk Category Low Risk 02/13/24 17:44 02/13/24 Review of Systems ROS Status of ROS 10 or more systems reviewed and unremark able except as noted in history and below PFS PFS Medical History UTI (urinary tract infection) ?N39.0 - Urinary tract infection, site not specified (ICD-10) Elevated brain natriuretic peptide (BNP) level ?R79.89 - Other specified abnormal findings of blood chemistry (ICD-10) Elevated troponin ?R79.89 - Other specified abnormal findings of blood chemistry (ICD-10) Acute ischemic stroke ?I63.9 - Cerebral infarction, unspecified (ICD-10) Elevated CK ?R74.8 - Abnormal levels of other serum enzymes (ICD-10) Back pain ?M54.9 - Dorsalgia, unspecified (ICD-10) Multiple falls ?R29.6 - Repeated falls (ICD-10) Stroke ?I63.9 - Cerebral infarction, unspecified (ICD-10) HTN (hypertension) ?I10 - Essential (primary) hypertension (ICD-10) HLD (hyperlipidemia) ?E78.5 - Hyperlipidemia, unspecified (ICD-10) Family History (Updated 02/13/24 @ 17:37 by Martha Araujo RN) Father Family history of cancer Family history of hypertension Sister Family history of cancer Mother Family history of hypertension Brother Family history of myocardial infarction Family history of CHF (congestive heart failure) Social History (Updated 02/13/24 @ 17:37 by Martha Araujo RN) Within the past year, how often did you have a drink containing alcohol: never Score interpretation: A score less than 3 is consistent with normal alcohol consumption. Smoking status: Never smoker Non-prescribed substance use: denies use Highest level of school completed/degree received: high school graduate Little interest or pleasure in doing things: not at all Feeling down, depressed, or hopeless: not at all Meds Home Medications and Allergies Home Medications ?Medication ?Instructions ?Recorded ?Confirmed ?Type denosumab 60 mg/mL subcutaneous 60 mg subcut .every 6 months 06/24/23 02/13/24 History syringe (Prolia) fluoxetine 20 mg capsule 20 mg PO DAILY 06/24/23 02/13/24 History lisinopril 10 mg tablet 10 mg PO DAILY 06/24/23 02/13/24 History aspirin 81 mg chewable tablet 81 mg PO DAILY #30 tabs 02/04/24 02/13/24 Rx atorvastatin 40 mg tablet (Lipitor) 40 mg PO DAILY #30 tabs 02/04/24 02/13/24 Rx cefuroxime axetil 500 mg tablet 500 mg PO BID 7 days #14 tabs 02/04/24 02/13/24 Rx clopidogrel 75 mg tablet (Plavix) 75 mg PO DAILY 20 days #20 tabs 02/04/24 02/13/24 Rx metoprolol succinate 25 mg 25 mg PO DAILY #30 tabs 02/04/24 02/13/24 Rx tablet,extended release 24 hr (Toprol XL) Allergies Allergy/AdvReac Type Severity Reaction Status Date / Time Penicillins Allergy Intermediate Verified 06/24/23 18:18 Exam Constitutional Vital Signs, click to edit/add: Last Vital Signs Temp 97.9 F 02/13/24 14:34 Pulse 79 02/13/24 17:45 Resp 19 02/13/24 16:30 BP 159/84 H 02/13/24 15:30 Pulse Ox 96 02/13/24 16:30 O2 Del Method Room Air 02/13/24 14:34 Documenting provider has reviewed patient's vital signs: yes Common normals: no apparent distress Lymph Lymphatic: no lymphadenopathy noted Chest Common normals: inspection of chest normal and palpation of chest normal Respiratory Common normals: normal respiratory effort and no retractions Cardio Common normals: regular rate; irregular rhythm Rhythm: abnormal rhythm GI Common normals: Normal to inspection, nondistended, normoactive bowel sounds present Results Labs Labs: Short CBC 02/13/24 Range/Units 14:53 WBC 7.9 (4.0-11.0) 10^3/uL Hgb 11.9 L (12.0-16.0) g/dL Hct 36.0 (36.0-48.0) % Plt Count 318 (150-450) 10^3/uL BMP 02/13/24 14:53 Sodium 137 Potassium 4.0 Chloride 101 Carbon Dioxide 27.5 BUN 14.0 Creatinine 1.04 H Glucose 91 Calcium 9.1 Liver Function 02/13/24 Range/Units 14:53 Total Bilirubin 0.5 (0.2-1.0) mg/dL AST 22 (15-37) U/L ALT 29 (14-59) U/L Alkaline Phosphatase 70 (46-116) U/L Albumin 3.2 L (3.4-5.0) g/dL Assessment and Plan Assessment and Plan (1) A-fib: (2) Multiple falls: (3) Acute ischemic stroke: (4) HTN (hypertension): Qualifiers: Hypertension type: primary hypertension Qualified Code(s): I10 - Essential (primary) hypertension Plan Admission findings: Frequent falls status post right basal ganglia stroke, she also has some respiratory distress and uncontrolled hypertension and bradycardia, falls may be related to the bradycardia Atrial fibrillation with mild bradycardia-Place patient on telemetry, consult to cardiology, BNP is elevated on admission but improved today, will reevaluate with echocardiogram shows patient require monitoring for etiology of her falls Acute UTI-treat patient IV antibiotics Acute elevation in BUN and creatinine but improved this morning. Likely secondary to mild dehydration Hypothyroidism-start patient on Synthroid Admission status: Patient with fall status post right basal ganglia stroke, concern for deterioration extension of the stroke but would hold off on MRI she is having no further symptoms. Maintain current anticoagulation and monitor. If any signs for progression of the stroke occur will obtain MRI stat, medically necessary treatment will span 2 midnights. Inpatient status
[2024-02-13 21:13] LABS: Free T3 2.28 pg/mL (2.18-3.98); Thyroid Stimulating Hormone 5.155 uIU/mL (0.358-3.740)
[2024-02-13] MEDS: CEFUROXIME AXETIL 250 MG TABLET 500 MG PO (21:34)
[2024-02-13 22:11] LABS: Bilirubin Urine NEGATIVE (NEGATIVE); Blood Urine NEGATIVE (NEGATIVE); Color Urine LT. YELLOW (YELLOW); Glucose Urine UA NEGATIVE (NEGATIVE); Ketones Urine NEGATIVE (NEGATIVE); Leukocyte Esterase Urine SMALL (NEGATIVE); Nitrite Urine NEGATIVE (NEGATIVE); Protein Urine NEGATIVE (NEG/TRACE); Specific Gravity Urine 1.015 (1.005-1.025); Urobilinogen Urine 0.2 EU/dL (0.2-1.0)
[2024-02-13 22:22] LABS: Clarity Urine CLEAR (CLEAR)
[2024-02-13 22:27] LABS: Bacteria Urine TRACE #/HPF (NONE SEEN); Cast Seen? NONE SEEN #/LPF (NONE SEEN); Crystals Seen? None Seen #/HPF (None Seen); Mucus Urine NONE SEEN (NONE SEEN); RBC Urine NONE SEEN #/HPF (0-2); Squamous Epithelial Cell Urine RARE #/LPF (NONE/RARE); Urine Culture Indicated YES
[2024-02-14] VITALS (20 sets, daily range): BP systolic 121–156; BP diastolic 83–97; PULSE 68–91; TEMP 36.6–37.2; O2SAT 92–95
[2024-02-14] MEDS: LACTATED RINGER'S SOLUTION 1,000 ML 100 ML IV (05:56)
[2024-02-14 06:49] LABS: Anion Gap 10.2; BUN Creatinine Ratio 11.7; Calcium 8.8 mg/dL (8.5-10.1); Carbon Dioxide 27.8 mmol/L (21.0-32.0); Chloride 103 mmol/L (98-107); Estimated GFR (African America >60 (>=60 mL/min/1.73m^2); Estimated GFR (Non-African Ame 56 (>=60 mL/min/1.73m^2); Glucose 89 mg/dL (74-106); Magnesium 1.9 mg/dL (1.8-2.4); Sodium 137 mmol/L (136-145); Troponin I High Sensitivity 41.3 pg/mL (4.0-51.3)
[2024-02-14 06:57] LABS: Basophils Absolute Auto 0.1 10^3/uL (0.0-0.1); Basophils Percent Auto 0.7 % (0.2-2.0); Eosinophils Absolute Auto 0.3 10^3/uL (0.0-0.7); Eosinophils Percent Auto 3.9 % (0.9-7.0); Hematocrit 34.4 % (36.0-48.0); Hemoglobin 11.5 g/dL (12.0-16.0); Immature Granulocytes Abs Auto 0.03 10^3/uL (0.00-0.03); Immature Granulocytes Pct Auto 0.4 % (0.0-0.5); Lymphocytes Absolute Auto 2.1 10^3/uL (1.2-3.8); Lymphocytes Percent Auto 29.5 % (20.5-60.0); Mean Corpuscular HGB Conc 33.4 g/dL (29.9-35.2); Mean Corpuscular Hemoglobin 31.6 pg (26.7-34.0); Mean Corpuscular Volume 94.5 fL (81.0-99.0); Mean Platelet Volume 9.4 fL (9.5-13.5); Monocytes Absolute Auto 0.7 10^3/uL (0.3-0.8); Monocytes Percent Auto 9.4 % (1.7-12.0); Neutrophils Absolute Auto 4.1 10^3/uL (1.4-6.5); Neutrophils Percent Auto 56.1 % (43.0-75.0); Platelet Count 326 10^3/uL (150-450); Red Blood Count 3.64 10^6/uL (4.20-5.40); Red Cell Distribution Width 13.2 % (11.0-15.0); White Blood Count 7.2 10^3/uL (4.0-11.0)
--- NOTE | 2024-02-14 09:26 | P.PN_ITS ---
Progress Note: Subjective Subjective Interval history: Patient with no new complaints this morning. Exam Constitutional Vital Signs, click to edit/add: Last Vital Signs Temp 98.8 F 02/14/24 07:36 Pulse 75 02/14/24 07:56 Resp 18 02/14/24 07:36 BP 144/97 H 02/14/24 07:36 Pulse Ox 94 L 02/14/24 07:36 O2 Del Method Room Air 02/14/24 07:36 Documenting provider has reviewed patient's vital signs: yes Common normals: no apparent distress Lymph Lymphatic: no lymphadenopathy noted Chest Common normals: inspection of chest normal and palpation of chest normal Respiratory Common normals: normal respiratory effort and no retractions Auscultation: no rhonchi and no wheezes Cardio Common normals: regular rate and no murmurs; irregular rhythm Rhythm: abnormal rhythm GI Common normals: Normal to inspection, nondistended, normoactive bowel sounds present Progress Note: Objective Labs Labs: Short CBC 02/13/24 02/14/24 Range/Units 14:53 05:38 WBC 7.9 7.2 (4.0-11.0) 10^3/uL Hgb 11.9 L 11.5 L (12.0-16.0) g/dL Hct 36.0 34.4 L (36.0-48.0) % Plt Count 318 326 (150-450) 10^3/uL BMP 02/13/24 02/14/24 14:53 05:38 Sodium 137 137 Potassium 4.0 4.0 Chloride 101 103 Carbon Dioxide 27.5 27.8 BUN 14.0 11.0 Creatinine 1.04 H 0.94 Glucose 91 89 Calcium 9.1 8.8 Liver Function 02/13/24 Range/Units 14:53 Total Bilirubin 0.5 (0.2-1.0) mg/dL AST 22 (15-37) U/L ALT 29 (14-59) U/L Alkaline Phosphatase 70 (46-116) U/L Albumin 3.2 L (3.4-5.0) g/dL Urine 02/13/24 Range/Units 21:50 Urine Color Lt. yellow (YELLOW) Urine Clarity Clear (CLEAR) Urine pH 6.0 (5.0-9.0) Ur Specific [place] 1.015 (1.005-1.025) Urine Protein Negative (NEG/TRACE) mg/dL Urine Glucose (UA) Negative (NEGATIVE) mg/dL Progress Note: A&P Assessment and Plan (1) A-fib: (2) Multiple falls: Plan Admission findings: Frequent falls status post right basal ganglia stroke, she also has some respiratory distress and uncontrolled hypertension and bradycardia, falls may be related to the bradycardia Atrial fibrillation with mild bradycardia-check on echo Acute UTI-treat patient IV antibiotics - cx pending Acute elevation in BUN and creatinine but improved this morning. checkl on tomorrow Hypothyroidism-started patient on Synthroid Admission status: Patient with fall status post right basal ganglia stroke, concern for deterioration extension of the stroke but would hold off on MRI she is having no further symptoms. Maintain current anticoagulation and monitor. If any signs for progression of the stroke occur will obtain MRI stat, medically necessary treatment will span 2 midnights. Inpatient status ?
[2024-02-14] MEDS: ASPIRIN 81 MG TAB.CHEW PO (09:39)
[2024-02-14] MEDS: FLUOXETINE HCL 20 MG CAPSULE PO (09:39)
[2024-02-14] MEDS: LEVOFLOXACIN IN DEXTROSE 5 % 750 MG/150 ML PREMIX 100 MG IV (09:39)
[2024-02-14] MEDS: ATORVASTATIN CALCIUM 40 MG TABLET PO (09:39)
[2024-02-14] MEDS: LISINOPRIL 10 MG TABLET PO (09:39)
[2024-02-14] MEDS: METOPROLOL SUCCINATE 25 MG TAB.ER.24H PO (09:39)
[2024-02-14] MEDS: CLOPIDOGREL BISULFATE 75 MG TABLET PO (09:39)
[2024-02-14] MEDS: CEFUROXIME AXETIL 250 MG TABLET 500 MG PO ×2 (09:39→21:26)
--- NOTE | 2024-02-14 09:56 | CM.NOTE ---
Rounds made with Dr. Olmos, PT and OT will evaluate pt today for discharge planning. Pt has had several falls at home and is interested in looking into skilled therapy at discharge ([facility] is pt's preference).
--- NOTE | 2024-02-14 10:04 | SWNOTE1 ---
SW spoke to case management and pt will need rehab as rehab is recommended. Pt would like to go to [facility]. Referral sent to [facility]. Referral included face sheet, ED note, H&P, provider notes, case management report, wound consult, nursing notes, diagnostic imaging, med list, and PT/OT notes.
--- NOTE | 2024-02-14 10:18 | CM.NOTE ---
Important Message From Medicare discussed with pt, pt verbalizes understanding and signs paper. Original given to pt and copy placed in pt's chart.
--- NOTE | 2024-02-14 10:31 | SWNOTE1 ---
SW received a message back from [facility] and they have a precert going for patient already as they started it Sunday. They received information from pt's HH company, [employer] , and they were able to start precert with that information for pt to go skilled.
--- NOTE | 2024-02-14 11:37 | SWNOTE1 ---
SW sent OT and H&P to Lilian at [facility] for precert.
[2024-02-14] MEDS: ARTIFICIAL TEARS 300 DROP/15 ML BOTTLE OP (16:25)
[2024-02-14] MEDS: ONDANSETRON PF 4 MG/2 ML VIAL IV (18:21)
[2024-02-15] VITALS (10 sets, daily range): BP systolic 138–163; BP diastolic 75–81; PULSE 74–93; TEMP 36–36.9; O2SAT 92–95
[2024-02-15 06:31] LABS: Basophils Percent Auto 0.5 % (0.2-2.0); Eosinophils Absolute Auto 0.2 10^3/uL (0.0-0.7); Eosinophils Percent Auto 2.3 % (0.9-7.0); Hematocrit 35.7 % (36.0-48.0); Hemoglobin 11.7 g/dL (12.0-16.0); Immature Granulocytes Abs Auto 0.03 10^3/uL (0.00-0.03); Immature Granulocytes Pct Auto 0.4 % (0.0-0.5); Mean Corpuscular HGB Conc 32.8 g/dL (29.9-35.2); Mean Corpuscular Volume 94.4 fL (81.0-99.0); Mean Platelet Volume 8.8 fL (9.5-13.5); Monocytes Absolute Auto 0.8 10^3/uL (0.3-0.8); Monocytes Percent Auto 10.4 % (1.7-12.0); Neutrophils Absolute Auto 4.6 10^3/uL (1.4-6.5); Neutrophils Percent Auto 60.4 % (43.0-75.0); Platelet Count 306 10^3/uL (150-450); Red Blood Count 3.78 10^6/uL (4.20-5.40); Red Cell Distribution Width 13.1 % (11.0-15.0); White Blood Count 7.7 10^3/uL (4.0-11.0)
[2024-02-15] MEDS: LEVOTHYROXINE SODIUM 25 MCG TABLET 50 MCG PO (06:39)
[2024-02-15 06:51] LABS: Anion Gap 9.7; BUN Creatinine Ratio 7.8; Carbon Dioxide 29.2 mmol/L (21.0-32.0); Chloride 102 mmol/L (98-107); Estimated GFR (African America 54 (>=60 mL/min/1.73m^2); Estimated GFR (Non-African Ame 44 (>=60 mL/min/1.73m^2); Glucose 97 mg/dL (74-106); Magnesium 1.9 mg/dL (1.8-2.4); Potassium 3.9 mmol/L (3.5-5.1); Sodium 137 mmol/L (136-145); Troponin I High Sensitivity 45.4 pg/mL (4.0-51.3)
[2024-02-15 07:56] LABS: BOX Test Reference Lab FIRELANDS
[2024-02-15] MEDS: LISINOPRIL 10 MG TABLET PO (08:56)
[2024-02-15] MEDS: CEFUROXIME AXETIL 250 MG TABLET 500 MG PO (08:56)
[2024-02-15] MEDS: FLUOXETINE HCL 20 MG CAPSULE PO (08:56)
[2024-02-15] MEDS: CLOPIDOGREL BISULFATE 75 MG TABLET PO (08:56)
[2024-02-15] MEDS: ATORVASTATIN CALCIUM 40 MG TABLET PO (08:56)
[2024-02-15] MEDS: ASPIRIN 81 MG TAB.CHEW PO (08:56)
[2024-02-15] MEDS: METOPROLOL SUCCINATE 25 MG TAB.ER.24H PO (08:57)
[2024-02-15] MEDS: ARTIFICIAL TEARS 300 DROP/15 ML BOTTLE OP (08:59)
--- NOTE | 2024-02-15 09:23 | SWNOTE1 ---
MANUELA recevied an email from Linda at [facility] and pt's insurance is intending to deny for rehab. Dr. perry has option of doing peer to peer. Linda sent MANUELA peer to peer information and MANUELA sent to Dr. Perry. Dr. Perry completed peer to peer and now we are waiting to see what insurance decides.
--- NOTE | 2024-02-15 09:41 | CM.NOTE ---
Rounds made with Dr. Olmos. Dr Olmos discussed treatment plan and currently awaiting precert to [facility].
--- NOTE | 2024-02-15 09:54 | P.DS_ITS ---
DS: Providers Provider Date of admission: 02/13/24 17:26 Primary care physician: SHARMAINE WILLS Consults: 02/13/24 17:03 Occupational Therapy Eval and Treat Routine Reason for consultation: Only if needed for Rehab Has provider been notified: No Physical Therapy Eval and Treat Routine Reason for consultation: Eval and Treat Has provider been notified: No 02/14/24 06:46 Consult to Cardiology Routine Reason for consultation: A-fib - Anticoagulation choices in fall Has provider been notified: No DS: Diagnosis Discharge Diagnosis (1) A-fib: (2) Multiple falls: Plan Admission findings: Frequent falls status post right basal ganglia stroke, she also has some respiratory distress and uncontrolled hypertension and bradycardia, falls may be related to the bradycardia Atrial fibrillation with mild bradycardia-check on echo Acute UTI-treat patient IV antibiotics - cx pending Acute elevation in BUN and creatinine but improved this morning. checkl on tomorrow Hypothyroidism-started patient on Synthroid Admission status: Patient with fall status post right basal ganglia stroke, concern for deterioration extension of the stroke but would hold off on MRI she is having no further symptoms. Maintain current anticoagulation and monitor. If any signs for progression of the stroke occur will obtain MRI stat, medically necessary treatment will span 2 midnights. Inpatient status DS: Summary Hospital Course Hospital Course: Patient admitted with frequent falls, she recently had a basal ganglia stroke, there was not really a concern for that extending, she was found of atrial fibrillation and an acute UTI which may be leading to her weakness and imbalance and frequent falls. Patient did fairly well here, she is improving overall but still with significant balance disorder, medically stable for discharge, medically beneficial to have her go to rehabilitation for 2 to 3 weeks to prevent further falls and limiting her fracture risk. Medications see list. Follow-up PCP at rehab Time Spent with Patient Time attestation: Total time spent providing and/or coordinating discharge services: Exam Constitutional Vital Signs, click to edit/add: Last Vital Signs Temp 96.8 F L 02/15/24 09:08 Pulse 74 02/15/24 09:53 Resp 18 02/15/24 09:08 BP 163/81 H 02/15/24 09:08 Pulse Ox 94 L 02/15/24 09:08 O2 Del Method Room Air 02/15/24 09:08 Documenting provider has reviewed patient's vital signs: yes Common normals: no apparent distress Lymph Lymphatic: no lymphadenopathy noted Chest Common normals: inspection of chest normal and palpation of chest normal Respiratory Common normals: normal respiratory effort and no retractions Auscultation: no rhonchi and no wheezes Cardio Common normals: regular rate and no murmurs; irregular rhythm Rhythm: abnormal rhythm GI Common normals: Normal to inspection, nondistended, normoactive bowel sounds present DS: Data Data Completed and Pending Labs on day of discharge: Labs from last 24 hours 02/15/24 02/13/24 06:18 21:50 WBC 7.7 RBC 3.78 L Hgb 11.7 L Hct 35.7 L MCV 94.4 MCH 31.0 MCHC 32.8 RDW 13.1 Plt Count 306 MPV 8.8 L Neut % (Auto) 60.4 Lymph % (Auto) 26.0 Bureau % (Auto) 10.4 Eos % (Auto) 2.3 Baso % (Auto) 0.5 Neut # (Auto) 4.6 Lymph # (Auto) 2.0 Bureau # (Auto) 0.8 Eos # (Auto) 0.2 Baso # (Auto) 0.0 Abs Immat Gran (auto) 0.03 Imm/Tot Granulo (auto) 0.4 Sodium 137 Potassium 3.9 Chloride 102 Carbon Dioxide 29.2 Anion Gap 9.7 BUN 9.0 Creatinine 1.15 H Est GFR ( Amer) 54 L Est GFR (Non-Af Amer) 44 L BUN/Creatinine Ratio 7.8 Glucose 97 Calcium 9.0 Magnesium 1.9 Troponin I High Sens 45.4 NT-Pro-B Natriuret Pep 3813.0 H* Ref Lab Order Date 02/13/24 Ref Lab Test Name Urine culture Ref Test Addition Info [facility] Discharge Plan Discharge Disposition: Xfer [facility] Discharge Medications: New levofloxacin 500 mg tablet 500 mg PO DAILY 7 Days Qty: 7 0RF Continued fluoxetine 20 mg capsule 20 mg PO DAILY Prolia 60 mg/mL syringe 60 mg SUBCUT .every 6 months lisinopril 10 mg tablet 10 mg PO DAILY aspirin 81 mg tablet,chewable 81 mg PO DAILY Qty: 30 0RF clopidogrel [Plavix] 75 mg tablet 75 mg PO DAILY 20 Days Qty: 20 0RF atorvastatin [Lipitor] 40 mg tablet 40 mg PO DAILY Qty: 30 0RF metoprolol succinate [Toprol XL] 25 mg tablet extended release 24 hr 25 mg PO DAILY Qty: 30 0RF Discontinued cefuroxime axetil 500 mg tablet 500 mg PO BID 7 Days Qty: 14 0RF 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
--- NOTE | 2024-02-15 10:46 | PT.DAILY ---
Physical Therapy Daily Note PT Daily Note/Assess Start: 02/15/24 10:38 Freq: Status: Active Protocol: Document 02/15/24 10:38 ANTONIO (Rec: 02/15/24 10:45 ANTONIO [id number]) Physical Therapy Daily Note/Assessment Time In/Time Out Time In 09:05 Time Out 09:30 Pain In Pain N/A Pain Out Pain N/A Subjective Subjective Pt supine upon arrival. reports not sleeping well but agreeable to PT at this time. Therapeutic Exercise Time Therapeutic Exercise 5 Minutes (minutes) Therapeutic Exercise 0 Units Therapeutic Exercise Treatment Therapeutic Exercise Bilat LE strengthening ex complete while sitting Treatment unsupported at EOB 10x ea to improve functional mobility prior to gait/transfers Therapeutic Activity Time Therapeutic Activity 20 Minutes (minutes) Therapeutic Activity 2 Units Therapeutic Activity Treatment Bed Mobility Ability Standby Assistance Chair Transfer Contact Guard Assist Ability Therapeutic Activity Sits EOB for 5 min unsupported to complete bilat LE Comments strengthening ex without LOB. Pt sits>stand to RW CGA for safety - min posterior lean but able to self correct. Pt amb 15' to restroom. Pt demonstrates L veer with gait - running into bathroom door. Difficulty turning RW around to sit on toilet - requires outside help to adjust walker in small space. Pt performs toilet transfer using grab bar. Pt needs assistance doffing brief and donning new pull up. Pt able to perform pericare without assistance. Sit>stand from toilet using grab bar - able to pull up her pullup but this requires increased time and widened [place]. Pt amb 5' with RW over to sink in restroom. Pt washes her face and hands and fix her hair with set up required. Static standing balance 5 min without LOB. Pt then amb 120' with RW, CGA and assistance to steer walker as pt tends to veer to L. Pt aware of this but unable to correct. Pt returned to room in BS chair. Performs 5x sit>stand from BS chair with CGA - increased time to complete but steady. Pt remains in BS chair upon completion with call light in reach and chair alarm activated. Total Physical Therapy Time Total Therapy 25 Minutes Total Physical 2 Therapy Units Summary Daily Note Summary Improved gait endurance but cont to veer to L significantly. Steady with static standing while at sink. Minimal fatigue reported upon completion.
--- NOTE | 2024-02-15 11:43 | SWNOTE1 ---
MANUELA received a call from Hasmukh at [facility] and the insurance has approved pt. [facility] is able to transport at 1:00. MANUELA let nursing know time and called and left a message for pt's son Tyree. MANUELA sent dc med rec, PT from today, and vitals to [facility]. MANUELA took packet to the floor and completed HENS. Pt is going to [facility] skilled.
== END 2024-02-15 12:52 | DRG 690 ==
LOC: ER 16:45 → MS 17:29
PROVIDERS: Admitting Provider Family Medicine; Emergency Provider Emergency Medicine; PCP Internal Medicine; Visit Provider Family Medicine
DX: N39.0 Urinary tract infection, site not specified (principal); I48.91 Unspecified atrial fibrillation; R29.6 Repeated falls; I10 Essential (primary) hypertension; R00.1 Bradycardia, unspecified; E03.9 Hypothyroidism, unspecified; Z86.73 Personal history of transient ischemic attack (TIA), and cerebral infarction without residual deficits; Z79.02 Long term (current) use of antithrombotics/antiplatelets; Z79.82 Long term (current) use of aspirin; Z79.620 Long term (current) use of immunosuppressive biologic; Z79.899 Other long term (current) drug therapy; Z88.1 Allergy status to other antibiotic agents
CPT/HCPCS: 36415; 70450; 72125; 80048; 80053; 81001; 83735; 83880; 84436; 84443; 84481; 84484; 85025; 87086; 93005; 94667; 94668; 94761; 97161; 97165; 97530; 99285; J2405

== ENCOUNTER 2024-05-04 05:55 | Emergency (ER) | payer MEDICARE, SELFPAY ==
[2024-05-04 05:56] VITALS: BP 182/127; PULSE 98; TEMP 36.6; O2SAT 98; BMI 27.9
--- NOTE | 2024-05-04 06:04 | ECG_ITS ---
[facility] Test Date: 2024-05-04 Pat Name: HOWARD HOGUE Department: Room: - Gender: Female Secretary [employer]: : 1935 Requested By: [id number] Order Number: [id number] Reading MD: ROBBIN CHOWDHURY M.D. Measurements Intervals [place] Rate: 81 P: -05963 MI: -09940 QRS: 74 QRSD: 72 T: 242 QT: 374 QTc: 412 Interpretive Statements Atrial fibrillation Twave abnormality, possible inferolateral ischemia or digitalis effect abnormal ECG Compared to ECG 02/13/2024 14:39:14 No significant changes Electronically Signed On 05-05-2024 7:06:40 EDT by ROBBIN CHOWDHURY M.D.
--- OUTSIDE RECORDS SUMMARY | 2024-05-04 06:06 | XMS_ITS | CCD ---
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 Name Role Phone DR ALPESH TRINH Primary Care Unavailable PAY, DR COOMBS Admitting Unavailable PAY, DR COOMBS Attending Unavailable PAY, DR COOMBS Consulting Unavailable Alpesh Trinh MD Primary Care Provider [phone] Unavailable Primary Care Provider Unavailabl e Sunday DIGITAL RETOUCHERSuzy Unavailable ALPESH TRINH Attending Unavailable ALPESH TRINH Referring Unavailable ALPESH TRINH Attending Unavailable ALPESH TRINH Attending Unavailable ALPESH TRINH Attending Unavailable CARSON JACOBS Referring Unava ilable Evelia Pineda Attending Unavailable Evelia Pineda Admitting Unavailable Adilson Olmos Admitting Unavailable Adilson Olmos Attending Unavailable Evelia Pineda MD Attending Provider Adilson Olmos MD Attending Provider RITCHIE GUERRERO Attending Unavailable Allergies Allergy Classification Reported Allergen(s) Allergy Type Date of Onset Reaction(s) Facility (2 sources) Penicillins; Translations: [PENICILLINS] Drug allergy (disorder) 06-17-2012 [facility] Repository (10 sources) Penicillin V Drug Allergy 12-07-2022 Unknown [facility] Healthcare (10 sources) Penicillins Drug Allergy 01-30-2014 Unknown [facility] Healthcare Medications Current Medications Medication [...] Date Documented Date Episodic/Chronic Acute cerebrovascular disease (5 sources) 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; Translations: [Cerebral infarction due to unspecified occlusion or stenosis of unspecified cerebral artery] Onset: 02-12-2024 02-11-2024 Chronic Acute cerebrovascular disease (1 source) Acute cerebrovascular disease Onset: 02-04-2024 Cancer of colon (12 sources) Malignant tumor of sigmoid colon; Translations: [Malignant neoplasm of sigmoid colon] Onset: 04-18-2016 12-07-2022 Chronic Cardiac dysrhythmias (2 sources) Atrial fibrillation; Translations: [Atrial Fibrillation] Onset: 02-18-2024 Chronic Cardiac dysrhythmias (2 sources) Palpitations; Translations: [Palpitations] Onset: 02-18-2024 Episodic Chronic kidney disease (2 sources) Chronic kidney [...] hypertension; Translations: [Benign essential hypertension] Onset: 10-30-2011 12-07-2022 Chronic Heart valve disorders (10 sources) Aortic valve disorder; 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, unspecified] Onset: 11-01-2011 12-07-2022 Chronic Menopausal disorders (2 sources) Decreased estrogen [...] and vasoconstriction] 02-12-2024 Chronic Other and ill-defined cerebrovascular disease (1 source) Other cerebrovascular vasospasm and vasoconstriction; Translations: [Other cerebrovascular vasospasm and vasoconstriction] Onset: 02-12-2024 Chronic Other and ill-defined heart disease [...] COUGH, UNSPECIFIED; Translations: [COUGH, UNSPECIFIED] Onset: 11-08-2021 Unclassified (2 sources) Hospital Follow-up; Translations: [Hospital Follow-up] Onset: 02-18-2024 Unclassified (2 sources) Valve Disorder; Translations: [Valve Disorder] Onset: 02-18-2024 Viral infection (1 source) COVID-19; Translations: [COVID-19] [...] 12-07-2022 Episodic Other aftercare (1 source) [facility] [place] drug therapy; Translations: [OTH NURSING HOME CURRENT DRUG THERAPY] Onset: 11-08-2021 Episodic Other [...] Test Name Value Interpretation Reference Range Facility 29on 02-18-2024 29 Addended by: RITCHIE GUERRERO on: 02/23/2024 07:55 PM Modules accepted: Orders Normal [facility] Office Visiton 02-18-2024 Follow-up visit [id number] Gloria Roque 1935 F Date Provider Department Center 02/18/2024 [id number] GUERRERO CARD [facility] Family History Problem Relation Age of Onset Cancer Father Colon cancer Sister Heart attack Brother Family Status - Relation Status Age at Father Sister Brother Level of Service:85293 [place] OFFICE/OUTPATIENT ESTABLISHED MOD MDM 30 MIN Reason for Visit and Comments: Hospital Follow-up [832] - Discharged from [facility] a few weeks ago for CVA. Discharged on aspirin and Plavix x21 days. Hyperlipidemia [182] Hypertension [713381] Valve Disorder [3372] Atrial Fibrillation [80] - She presented to [facility] ED again on 02/13/2024 for fall and found to be in afib. She was not started on Eliquis due to very frequent falls. She denies lightheadedness/sync ope. Palpitations [466166] - Does feel palpitations but not more than usual for her. Normal [facility] Urine Cultureon 02-13-2024 Bacteria identified Cx Nom (U) ORGANISM: Pseudomonas aeruginosa (O:PSEAER) [place] Count 10,000 Aerobic MARIUM Charge (NMIC56) ----- SUSCEPTIBILITY ---- ORGANISM: O:PSEAER ANTIBIOTIC INTERPRETATION MARIUM Amikacin S <16 Aztreonam IB <4 Cefepime S <2 Ceftazidime IB <1 Ceftazidime/Avibacta m S <4 Ceftolozane/Tazobact am S <2 Ciprofloxacin S <0.25 Gentamicin S <2 Levofloxacin S <0.5 Meropenem S <1 Piperacillin/Tazobac marlow IB <8 Tobramycin S <2 S = SUSCEPTIBLE I = INTERMEDIATE R = RESISTANT BLANK = DATA NOT AVAILABLE, OR DRUG NOT ADVISABLE OR TESTED R* = RESISTANCE DUE TO EXTENDED SPECTRUM BETA-LACTAMASES ESBL = EXTENDED SPECTRUM BETA-LACTAMASE TFG = THYMIDINE-DEPENDENT STRAIN WALTER = BETA-LACTAMASE POSITIVE IB = INDUCIBLE BETA-LACTAMASE. APPEARS IN PLACE OF 'S' WITH SPECIES KNOWN TO POSSESS INDUCIBLE BETA-LACTAMASES. POTENTIALLY THEY MAY BECOME RESISTANT TO ALL B-LACTAM DRUGS. PERFORMED BY: [place] [address] PATHOLOGIST TOBACCO DRUMMER MARTITA FLORENTINO M.D. Normal [facility] Comment on above: Performed By: #### C UU #### [address] Urine Cultureon 02-04-2024 Bacteria identified Cx Nom (U) <9,000 colonies/ml mixed bacterial skin contaminants 2 Days PERFORMED BY: [place] [address] PATHOLOGIST TOBACCO DRUMMER MARTITA FLORENTINO M.D. Normal [facility] Comment on above: Performed By: #### C UU #### [address] Urine cultureOrdered By: Elaine Pineda on 02-04-2024 Bacteria identified Cx Nom (U) Urine culture [facility] US CAROTID ARTERY DUPLE X BILATERALon 07-13-2023 [facility] US CAROTID ARTERY DUPLEX BILATERAL FINDINGS: Right [...] BY: Noe Garland MD Normal Not Available Covid-19 PCR (CVDTB)on 10-14 SARS-CoV-2 (COVID-19) RNA REYNALDO+probe Ql (Unsp spec) Detected Critically abnormal NOT DETECTED [facility] Comment on above: Result Comment: This test is not yet approved or cleared by the [place] FDA. When there are no FDA-approved or cleared tests available, and other criteria are met, FDA can make tests available under an emergency access mechanism called an Emergency Use Authorization (EUA). The EUA for this test is supported by the [employer] Operator of Health and Human Service's declaration that [...] used). Performed By: #### C VDTB #### [facility] [address] [place] [address] Dr. Leslie Tejeda Complete Blood Counton 03-01 Erythrocyte distribution width (RBC) [Ratio] 12.4 % Normal 11.0-15.0 [facility] Heating And Ventilation Engineer Comment on above: Performed By: #### C BC, LIPD, CMP #### [facility] [address] [place], [place] [id number] Hematocrit (Bld) [Volume fraction] 38.4 % Normal 35.0-47.0 [facility]ating And Ventilation Engineer Comment on above: Performed By: #### C BCERNIE, CMP #### [facility] [address] [place], [place] [id number] Hemoglobin (Bld) [Mass/Vol] 12.7 g/dL Normal 11.6-15.5 [facility] Heating And Ventilation Engineer Comment on above: Performed By: #### C BC, LIPD, CMP #### [facility] [address] [place], [place] [id number] MCH (RBC) [Entitic mass] 31.7 pg Normal 27.0-33.0 [facility] Specialist Comment on above: Performed By: #### ERNIE GRIGSBY, CMP #### [facility] [address], [place] [id number] MCHC (RBC) [Mass/Vol] 33.1 g/dL Normal 32.0-36.0 [facility] Specialist Comment on above: Performed By: #### C ERNIE BECERRA, CMP #### [facility] [address] [place], [place] [id number] MCV (RBC) [Entitic vol] 96 fL Normal 80-100 [facility] Specialist Comment on above: Performed By: #### ERNIE GRIGSBY, CMP #### [facility] [address] [place], [place] [id number] Platelet mean volume (Bld) [Entitic vol] 9.70 fL Normal 7.50-12.50 [facility] Specialist Comment on above: Performed By: #### ERNIE GRIGSBY, CMP #### [facility] [address] [place], [place] [id number] Platelets (Bld) [#/Vol] 240 10*3/uL Normal 140-400 [facility] Specialist Comment on above: Performed By: #### ERNIE GRIGSBY, CMP #### [facility] [address] [place], [place] [id number] RBC (Bld) [#/Vol] 4.01 10*6/uL Normal 3.90-5.20 [facility] Specialist Comment on above: Performed By: #### C HERNAN LIPD, CMP #### [facility] [address] [place], [place] [id number] RDW-SD 43.9 fL Normal 37.0-50.0 [facility] Specialist Comment on above: Performed By: #### Renan BECERRA LIPD, CMP #### [facility] [address], [place] [id number] WBC (Bld) [#/Vol] 5.1 10*3/uL Normal 3.8-11.0 [facility] Comment on above: Performed By: #### C BC, LIPD, CMP #### [facility] [address] [place], [place] [id number] Comprehensive Metabolic Pane melquiades 03-01-2021 Albumin [Mass/Vol] 4.1 g/dL Normal 3.6-5.1 [facility] Comment on above: Performed By: #### C BC, LIPD, CMP #### [facility] [address] [facility] [place] [id number] Albumin/Globulin [Mass ratio] 1.7 {ratio} Normal 1.0-2.5 [facility] Comment on above: Performed By: #### C BC, LIPD, CMP #### [facility] [address] [place] [id number] ALP [Catalytic activity/Vol] 58 U/L Normal 35-119 [facility] Comment on above: Performed By: #### C BC, LIPD, CMP #### [facility] [address] [facility] [place] [id number] ALT [Catalytic activity/Vol] 9 U/L Normal 6-33 [facility] Comment on above: Result Comment: 01/12 Female reference range changed. Performed By: #### C BC, LIPD, CMP #### [facility] [address] [facility] [place] [id number] Anion gap [Moles/Vol] 15 mmol/L Normal 12-20 [facility] Specialist Comment on above: Result Comment: Effe ctive 02/17/2019 reference range changed. Performed By: #### C BC, LIPD, CMP #### [facility] [address] [facility] [place] [place] [id number] AST [Catalytic activity/Vol] 14 U/L Normal 9-34 [facility] Specialist Comment on above: Performed By: #### C BC, LIPD, CMP #### [facility] [address] [place] [id number] Bilirubin [Mass/Vol] 0.42 mg/dL Normal 0.30-1.20 [facility] Specialist Comment on above: Performed By: #### C BC, LIPD, CMP #### [facility] [address] [facility] [place] [id number] BUN/CREA 23 Ratio High 6-22 [place] [facility]ating [facility] Ventilation Engineer Comment on above: Performed By: #### C BC, LIPD, CMP #### [facility] [address] [place], [place] [id number] Calcium [Mass/Vol] 9.4 mg/dL Normal 8.6-10.2 [facility] Heating And Ventilation Engineer Comment on above: Performed By: #### C BC, LIPD, CMP #### [facility] [address] [place], [place] [id number] Chloride [Moles/Vol] 102 mmol/L Normal 98-107 [facility] Specialist Comment on above: Performed By: #### C BC, LIPD, CMP #### [facility] [address] [place], [place] [id number] CO2 [Moles/Vol] 25 mmol/L Normal 20-31 [facility] Specialist Comment on above: Performed By: #### C BC, LIPD, CMP #### [facility] [address] [place] [id number] Creatinine [Mass/Vol] 0.9 mg/dL Normal 0.6-1.4 [facility] Specialist Comment on above: Performed By: #### C BC, LIPD, CMP #### [facility] [address] [place], [place] [id number] eGFRAA 71 mL/min/1.73m2 Normal >60 [facility] Specialist Comment on above: Performed By: #### C BC, LIPD, CMP #### [facility] [address] [place], [place] [id number] eGFRNAA 59 mL/min/1.73m2 Low >60 [facility] Heating And Ventilation Engineer Comment on above: Performed By: #### C BC, LIPD, CMP #### [facility] [address] [place], [place] [id number] Globulin (S) [Mass/Vol] 2.4 g/dL Normal 1.9-3.7 [facility]ating And Ventilation Engineer Comment on above: Performed By: #### C BC, LIPD, CMP #### [facility] [address] [place], [place] [id number] Glucose [Mass/Vol] 96 mg/dL Normal 65-99 [facility] Heating And Ventilation Engineer Comment on above: Result Comment: For FASTING Glucose --- ADA reference ranges: Normal 65-99 mg/dl Prediabetes 100-125 Diabetes >/= 126 Performed By: #### C HERNAN LIPD, CMP #### [facility] [address] [place], [place] [id number] Potassium [Moles/Vol] 4.3 mmol/L Normal 3.5-5.5 [facility] Heating And Ventilation Engineer Comment on above: Performed By: #### Renan BECERRA LIPD, CMP #### [facility] [address] [place], [place] [id number] Protein [Mass/Vol] 6.5 g/dL Normal 6.1-8.1 [facility] Heating And Ventilation Engineer Comment on above: Performed By: #### C HERNAN LIPD, CMP #### [facility] [address] [place], [place] [id number] Sodium [Moles/Vol] 138 mmol/L Normal 135-146 [facility] Heating And Ventilation Engineer Comment on above: Performed By: #### Renan BECERRA LIPD, CMP #### [facility] [address] [place], [place] [id number] Urea nitrogen [Mass/Vol] 21 mg/dL Normal 7-25 [facility] Heating And Ventilation Engineer Comment on above: Performed By: #### Renan BECERRA LIPD, CMP #### [facility] [address] [place], [place] [id number] Lipid Panelon 03-01-2021 Cholesterol [Mass/Vol] 242 mg/dL High 125-200 [facility] Heating And Ventilation Engineer Comment on above: Result Comment: Low risk < 200mg/dL Borderline risk 201-239 mg/dl High risk > or equal to 240 Performed By: #### C BC LIPD, CMP #### [facility] [address] [place], [place] [id number] Cholesterol in HDL [Mass/Vol] 64 mg/dL Normal >40 [facility] Heating And Ventilation Engineer Comment on above: Result Comment: High Cardiovascular Risk HDL <40 mg/dL Low Cardiovascular Risk HDL > or equal to 60 mg/dl Performed By: #### C BC, LIPD, CMP #### [facility] [address] [place], [place] [id number] Cholesterol in LDL [Mass/Vol] 166 mg/dL Normal [facility] Heating And Ventilation Engineer Comment on above: Result Comment: LDL ATP III CLASSIFICATION LDL less than 100 mg/dl Optimal LDL 100-129 mg/dl Near or above optimal LDL 130-159 Borderline high LDL 160-189 High LDL greater than 189 mg/dl Very High Performed By: #### C BC, LIPD, CMP #### [facility] [address] [place], [place] [id number] Cholesterol in VLDL [Mass/Vol] 12 mg/dL Normal [facility] Specialist Comment on above: Performed By: #### C BC, LIPD, CMP #### [facility] [address] [place], [place] [id number] Cholesterol.total/C holesterol in HDL [Mass ratio] 4 {ratio} Normal [facility] Specialist Comment on above: Performed By: #### C BC, LIPD, CMP #### [facility] [address] [place], [place] [id number] Triglyceride [Mass/Vol] 60 mg/dL Normal 30-150 [facility] Heating And Ventilation Engineer Comment on above: Result Comment: TRIG ATPIII CLASSIFICATIONS TRIG less than 150 mg/dl Normal TRIG 150-199 mg/dl Borderline High TRIG 200-500 mg/dl High TRIG greather than 500 mg/dl Very High Performed By: #### C BC, LIPD, CMP #### [facility] [address] [place], [place] [id number] TSHon 03-01-2021 TSH Qn 3.13 m[IU]/L Normal 0.40-4.50 [facility] Heating And Ventilation Engineer Comment on above: Order Comment: [facility] Testing performed at: QPT, [facility], [address] [place] [address], [address] [place] [address], [id number], Lobby Porter: Joao Graham MD [facility] Collection Date/Time: [facility] Results Received Date/Time: [facility] Reported Date/Time: Performed By: #### T SH #### [facility] Default [address] [place] [address] Vital Signs Date Time Vital Sign Value Performing Clinician Jett llanes 02-11-2024 09:30-0500 Body height 163.8 cm Alpesh Trinh MD Work Phone: [facility] 02-11-2024 09:30-0500 Body mass index (BMI) [Ratio] 24.17 kg/m2 Alpesh Trinh MD Work Phone: [facility] 02-11-2024 09:30-0500 Body weight 64.86 kg Alpesh Trinh MD Work Phone: [facility] 02-11-2024 09:30-0500 Diastolic blood pressure 64 mm[Hg] Alpesh Trinh MD Work Phone: [facility] 02-11-2024 09:30-0500 Heart rate 58 /min Alpesh Trinh MD Work Phone: [facility] 02-11-2024 09:30-0500 SaO2% (BldA) [Mass fraction] 96 % Alpesh Trinh MD Work Phone: [facility] 02-11-2024 09:30-0500 Systolic blood pressure 114 mm[Hg] Alpesh Trinh MD Work Phone: [facility] 01-09-2024 09:02-0500 Body height 163.8 cm Alpesh Trinh MD Work Phone: [facility] 01-09-2024 09:02-0500 Body mass index (BMI) [Ratio] 24 kg/m2 Alpesh Trinh MD Work Phone: [facility] 01-09-2024 09:02-0500 Body weight 64.41 kg Alpesh Trinh MD Work Phone: [facility] 01-09-2024 09:02-0500 Diastolic blood pressure 70 mm[Hg] Alpesh Trinh MD Work Phone: [facility] 01-09-2024 09:02-0500 Heart rate 68 /min Alpesh Trinh MD Work Phone: [facility] 01-09-2024 09:02-0500 SaO2% (BldA) [Mass fraction] 96 % Alpesh Trinh MD Work Phone: [facility] 01-09-2024 09:02-0500 Systolic blood pressure 130 mm[Hg] Alpesh Trinh MD Work Phone: [facility] 10-04-2023 12:59-0400 Body height 163.8 cm Alpesh Trinh MD Work Phone: [facility] 10-04-2023 12:59-0400 Diastolic blood pressure 74 mm[Hg] Alpesh Trinh MD Work Phone: [facility] 10-04-2023 12:59-0400 Heart rate 74 /min Alpesh Trinh MD Work Phone: [facility] 10-04-2023 12:59-0400 SaO2% (BldA) [Mass fraction] 96 % Alpesh Trinh MD Work Phone: [facility] 10-04-2023 12:59-0400 Systolic blood pressure 130 mm[Hg] Alpesh Trinh MD Work Phone: [facility] Healthcare Encounters Encounter Date Encounter Type Care Provider Facility Start: 02-20-2024 End: 02-20-2024 Telephone encounter Shalini Liz RN [facility] Start: 02-18-2024 End: 02-18-2024 ambulatory [place] Start: 02-13-2024 End: 02-13-2024 ambulatory Adilson Bowser vahid Facility:[facility] Start: 02-13-2024 End: 02-13-2024 Departed Referred Evelia Pineda MD Work Phone: [facility] Start: 02-12-2024 End: 02-12-2024 Orders Only Shalini Liz RN [facility] Comment on above: Cerebrovascular acci dent (CVA), unspecified mechanism ([facility]) (Primary Dx); Other cerebrovascular vasospasm and vasoconstriction Start: 02-11-2024 End: 02-11-2024 Bamboo flowsheet Alpesh Trinh MD Work Phone: [facility] Start: 02-11-2024 End: 02-11-2024 Bamboo [...] ALPESH TRINH Not Available Start: 02-07-2024 ambulatory [facility] Start: 02-04-2024 End: 02-04-2024 ambulatory Evelia Pineda Facility:[facility] Start: 02-04-2024 End: 02-04-2024 Departed Referred Evelia Pineda MD Work Phone: [facility] Start: 02-04-2024 End: 02-18-2024 Telephone encounter Lima Mitchell MD Work Phone: [facility] Comment on above: Hospital Follow-up Start: 02-04-2024 End: 02-07-2024 Emergency department patient visit [facility] Start: 01-09-2024 End: 01-09-2024 Bamboo [...] 07-02-2023 ambulatory ALPESH TRINH Not Available Start: 11-07-2021 End: 11-07-[address] ALPESH TRINH Facility: Procedures Date Procedure Procedure Detail Performing Clinician Start: 02-04-2024 Urine culture Evelia Cruz MD Work Phone: Plan of Treatment Date Care Activity Detail Author Start: 10-03-2024 Medicare Annual Wellness (AWV) Medicare Annual Wellness (AWV) [facility] Start: 04-10-2024 End: 04-10-2024 Patient encounter procedure 04/10/2024 11:30 AM EST Office Visit [facility] [address] [place] [phone] Paul Loera MD [address] [place] [address], [address] [phone] [facility] Start: 02-13-2024 Urine culture [facility] Start: 02-13-2024 Bacteria identified in Urine by Culture Urine Culture [facility] Start: 02-12-2024 End: 02-11-2025 Wireless Telemetry (In Office) [facility] Work Phone: Comment on above: Expected: 02/12/2024, Expires: Start: 02-12-2024 End: 02-12-2024 Professional / ancillary services management 02/12/2024 12:15 PM EST Ancillary Procedure [facility] [address] [place] [id number] Cerebrovascular accident (CVA), unspecified mechanism (CMS-HCC); Other cerebrovascular vasospasm and vasoconstriction [facility] Comment on above: Cerebrovascular accident (CVA), unspecif ied mechanism (CMS-HCC); Other cerebrovascular vasospasm and vasoconstriction Start: 02-11-2024 End: 02-11-2024 Patient encounter procedure 02/11/2024 9:30 AM EST Office Visit [facility] [address] [facility] [address] [place] [address] Alpesh Trinh MD [address] [facility] [address] [place] [address] Arrived [facility] Comment on above: Arrived Start: 02-04-2024 End: 02-04-2024 Patient encounter procedure 02/04/2024 10:30 AM EST Office Visit [facility] [address] [facility] [address] [place] [address] Alpesh Trinh MD [address] [facility] [address] [place] [address] [facility] Start: 01-09-2024 End: 01-09-2024 Patient encounter procedure [facility] Comment on above: Arrived Start: 10-14-2023 COVID-19 Vaccine () COVID-19 Vaccine () [facility] Start: 10-14-2023 Influenza vaccination Influenza Vaccine (#1) [facility] Start: 10-04-2023 End: 10-03-2024 DXA Skeletal system Views for bone density DEXA bone density Imaging Routine Estrogen deficiency Expected: 10/04/2023 (Approximate), Expires: 10/03/2024 [facility] Work Phone: Comment on above: Expected: 10/04/2023 (Approximate), Expi res: 10/03/2024 Start: 10-04-2023 End: 10-04-2023 Patient encounter procedure 10/04/2023 1:00 PM EDT Office Visit [facility] [address] [facility] [address] [place] [id number] Alpesh Trinh MD [address] [place] [address] [place] [address] Arrived [facility] Comment on above: Arrived Start: 05-11-2023 Medicare Annual Wellness (AWV) Medicare Annual Wellness (AWV) [facility] Start: 04-09-2010 Administration of varicella zoster vaccine Zoster (Shingles) Vaccine (2 of 3) [facility] Start: 11-24-1999 Fall Risk Screening Fall Risk Screening [facility] Start: 1953 DTaP,Tdap and Td Vaccines (1 - Tdap) DTaP,Tdap and Td Vaccines (1 - Tdap) [facility] Start: 1946 Depression Screening Depression Screening [facility] Start: 1946 Tobacco Screening Tobacco Screening [facility] Immunizations Immunization Date Immunization Notes Care Provider Fa cility 12-07-2023 influenza, high dose seasonal, preservative-free Alpesh Trinh MD Work Phone: [facility] 12-07-2023 influenza virus vacc ine, unspecified formulation Alpesh Trinh MD Work Phone: [facility] 10-20-2022 Influenza, Seasonal, Quadrivalent, Adjuvanted Alpesh Trinh MD Work Phone: [facility] 10-20-2022 influenza virus vacc ine, unspecified formulation Alpesh Trinh MD Work Phone: [facility] 10-26-2021 Influenza, High-dose Seasonal, Quadrivalent, Preservative Free Alpesh Trinh MD Work Phone: [facility] 11-16-2020 Influenza, High-dose Seasonal, Quadrivalent, Preservative Free Alpesh Trinh MD Work Phone: [facility] 12-09-2019 Influenza, High-dose Seasonal, Quadrivalent, Preservative Free Alpseh Trinh MD Work Phone: [facility] 12-07-2018 influenza, high dose seasonal, preservative-free Alpesh Trinh MD Work Phone: [facility] 01-18-2018 pneumococcal conjuga te vaccine, 13 valent Alpesh Trinh MD Work Phone: [facility] 11-18-2017 Seasonal trivalent influenza vaccine, adjuvanted, preservative free Alpesh Trinh MD Work Phone: [facility] 11-22-2016 Seasonal trivalent influenza vaccine, adjuvanted, preservative free Alpesh Trinh MD Work Phone: [facility] 11-26-2015 influenza, high dose seasonal, preservative-free Alpesh Trinh MD Work Phone: [facility] 11-02-2014 pneumococcal polysaccharide vaccine, 23 valent Alpesh Trinh MD Work Phone: [facility] 11-02-2014 seasonal influenza, intradermal, preservative free Alpesh Trinh MD Work Phone: [facility] 11-16-2013 influenza, high dose seasonal, preservative-free Alpesh Trinh MD Work Phone: [facility] 11-12-2013 influenza, seasonal, injectable Alpesh Trinh MD Work Phone: [facility] 12-04-2012 influenza, seasonal, injectable Alpesh Trinh MD Work Phone: [facility] 11-14-2011 influenza virus vacc ine, whole virus Alpesh Trinh MD Work Phone: [facility] 11-28-2010 influenza virus vacc ine, whole virus Alpesh Trinh MD Work Phone: [facility] 02-12-2010 zoster vaccine, live Alpesh Trinh MD Work Phone: [facility] 02-12-2010 zoster vaccine, unspecified formulation Lima Mitchell MD Work Phone: [facility] 11-24-2009 influenza virus vacc ine, whole virus Alpesh Trinh MD Work Phone: [facility] 11-28-2006 influenza virus vacc ine, whole virus Alpesh Trinh MD Work Phone: [facility] 02-12-2005 pneumococcal polysaccharide vaccine, 23 valent Alpesh Trinh MD Work Phone: [facility] Healthcare Payers Date Payer Category Payer Self-pay 2023 Medicare (Managed Care) [employer] M [employer] ADVANTAGE [id number] 2023 Medicare [id number] 2019 Unknown GENERIC COMMERCI AL GENERIC COMMERCIAL [id number] 2019-Present [phone] [address] [address] [place] [address] [id number] 1999 Medicare [id number] 1959 Medicare [id number] 1959 Unknown [id number] 1934 Unknown [id number] 1934 Unknown [id number] 1259 1934 Unknown [id number] 1259 1934 Unknown [id number] 1259 1934 Unknown [id number] 1259 1934 Unknown [id number] 1259 Medicare Medicare Outpatient [id number] [id number] Unknown [id number] Unknown [id number] Unknown Regular Insurance [id number] Social History Date Type Detail Facility Start: 12-07-2022 [facility] Start: 12-07-2022 Tobacco use and exposure Smokeless tobacco non-user [facility] Start: 10-04-2023 End: 02-11-2024 Alcoholic beverage intake Lifetime non-drinker (finding) [facility] Start: 07-24-2018 End: 10-04-2023 History of Social function [facility] Start: 07-24-2018 End: 10-04-2023 Tobacco use panel [facility] Start: 1935 Sex assigned at Not on file [facility] consumption [facility] Start: 09-17-2014 End: 02-15-2024 Sex Female (finding) [facility] Start: 1935 Sex Assigned At Female F [facility] Clinical Notes 10-04-2023 to 02-20-2024 Telephone Encounter - Shalini Liz RN - 02/20/2024 11:15 AM ESTTelephone Encounter - Shalini Liz RN - 02/20/2024 11:15 AM ESTTelephone Encounter - Rosalie Chawla CMA - 02/20/2024 11:15 AM EST Note Date & Type Note Facility 02-20-2024 Miscellaneous Notes According to [employer] website, patient has not yet activated event monitor. Please call and ask patient if they received it and if they are able to complete the monitoring. That just means they have to send event monitor and not MCOT. It still has not been activated. Called son and he stated patient is already wearing a EM that was placed on her on 02/03/24. MA confirmed with stroke RN that [employer] ordered the first one that she is currrently wearing. Informed son to send back the second EM as we will get the report from [place] before her upcoming appointment. documented in this encounter [facility] 02-20-2024 Telephone encounter Note According to [employer] website, patient has not yet activated event monitor. Please call and ask patient if they received it and if they are able to complete the monitoring. [facility]-20-[facility]24 Telephone encounter Note That just means they have to send event monitor and not MCOT. It still has not been activated. [facility] Telephone encounter Note Called son and he stated patient is already wearing a EM that was placed on her on 02/03/24. MA confirmed with stroke RN that [employer] ordered the first one that she is currrently wearing. Informed son to send back the second EM as we will get the report from [place] before her upcoming appointment. [facility] 02-18-2024 Note [facility] Subjective Gloria Roque is a 88 y.o. year old female patient being seen for Hospital Follow-up, Hyperlipidemia, Hypertension, Valve Disorder, Atrial Fibrillation , and Palpitations Patient Active Problem List Diagnosis Acquired spondylolisthesis Age related osteoporosis Osteoporosis Aortic valve disorder Benign essential hypertension Cardiomegaly Chronic bronchitis (CMS/HCC) Degeneration of lumbar intervertebral disc Depressive disorder Diastolic dysfunction Gastroesophageal reflux disease without esophagitis Heart disease Hyperlipidemia Inflamed seborrheic keratosis Malignant tumor of sigmoid colon (CMS/HCC) Pure hypercholesterolemia Varicose veins of lower extremity Ataxic gait Left ventricular diastolic dysfunction, NYHA class 2 HPI The patient is a 88-year-old female with prior history of hypertension and diastolic heart failure who came to the hospital 02/03/2024 after she was found on the floor by her son after she fell. Apparently she fell few times before that. She was living on her own. The MRI of the brain revealed acute ischemic basal ganglia stroke. There was no significant findings on the CTA of the head and neck. Her echo showed normal left ventricle systolic function and no significant valvular abnormalities but significantly dilated left atrium. She was discharged on aspirin and Plavix for 21 days then aspirin alone, also she was discharged on atorvastatin. She was also found to have UTI and she was discharged on Ceftin. She was discharged with 30-day event monitor. She came again to the ED on 02/13/2024 with another fall. This time her EKG revealed atrial fibrillation with heart rate [address] and cervical CT spine showed no acute pathology. Also it was reported that the patient had some bradycardia during hospitalization. She was not started on oral anticoagulation waiting for cardiology evaluation as outpatient. She is undergoing physical therapy and she uses a walker. She denies recurrent falling since last admission. She denies chest pain or shortness of breath or dizziness or leg edema. She admits occasional brief palpitations without any other symptoms ROS All systems were reviewed and they were negative except for the positive findings noted above in the history Past Medical History: Diagnosis Date Abnormal ECG Arrhythmia Atrial fibrillation (CMS/HCC) Diastolic dysfunction Heart valve disease Hyperlipidemia Hypertension Stroke (CMS/HCC) Past Surgical History: Procedure Laterality Date BACK SURGERY Family History Problem Relation Name Age of Onset Cancer Father Colon cancer Sister Heart attack Brother Social History Tobacco Use Smoking status: Never Smokeless tobacco: Never Substance Use Topics Alcohol use: Not Currently Allergies Allergies Allergen Reactions Penicillins Other and Unknown Medications Current Outpatient Medications: aspirin 81 mg EC tablet, Take 81 mg by mouth in the morning., Disp: , Rfl: atorvastatin (Lipitor) 40 mg tablet, Take 40 mg by mouth at bedtime., Disp: , Rfl: clopidogrel (Plavix) 75 mg tablet, Take 75 mg by mouth in the morning., Disp: , Rfl: fish oil concentrate (Fish OiL) 120-180 mg capsule, Take by mouth in the morning., Disp: , Rfl: FLUoxetine (PROzac) 20 mg capsule, Take 20 mg by mouth in the morning., Disp: , Rfl: lisinopril 10 mg tablet, Take 10 mg by mouth in the morning., Disp: , Rfl: metoprolol succinate XL (Toprol-XL) 25 mg 24 hr tablet, Take 1 tablet by mouth in the morning., Disp: , Rfl: Prolia 60 mg/mL syringe, Inject 60 mg under the skin 1 (one) time., Disp: , Rfl: Objective Visit Vitals BP 97/63 (BP Location: Left arm) Pulse 87 Ht 1.638 m (5' 4.5 ) Wt 64.9 kg (143 lb) SpO2 93% BMI 24.17 kg/m??? Smoking Status Never BSA 1.72 m??? Physical exam: GENERAL: alert and oriented x3, well developed, in no acute distress. HEAD: atraumatic, normocephalic. EYES: NIKKY, EOMI. NECK: trachea midline, no JVD present, no carotid bruits present. CARDIAC: S1, S2 present. Irregular irregularity. no murmur, rubs, or gallops. RESPIRATORY: CTAB, no increased effort of breathing, no rales, rhonchi, or wheezing. ABDOMEN: soft, nontender, nondistended. EXTREMITIES: no lower extremity edema. No rash/skin discoloration present. NEURO: strength/sensation equal and symmetric in bilateral upper and lower extremities. PSYCH: appropriate mood, affect, and judgement. Recent Labs 02/15/2024 Wbc 7.7, hemoglobin 11.5, hematocrit 34.4, platelet 306 Sodium 137, potassium 3.9, BUN 9, creatinine 1.15, glucose 97, GFR 54, calcium 9, magnesium 1.9 ALT 22, AST 29 TSH 5.15, free T45.8, free T32.28 Imaging and other tests EK02/03/2024 showed most likely atrial flutter with variable AV conduction, left ventricle hypertrophy with ST-T changes EKG 02/13/2024 atrial fibrillation, LVH with ST-T ab (more content not included)... [facility] 02-11-2024 History of Present illness Narrative Images from the original note were not included. HPI Follow-up Additional comments: Admitted [facility] 02/03/24 dx: CVA,UTI discharged home 02/04/24 started on ASA, plavx x 21 days and Ceftin Has follow up appts with cardiology 02/18/24 and neurology 04/10/24 Last edited by Ayleen Gross LPN on 02/11/2024 9:30 AM. Subjective Patient ID: Gloria Roque is a 88 y.o. female who presents for Follow-up (Admitted [facility] 02/03/24 dx: CVA,UTI discharged home 02/04/24 started on ASA, plavx x 21 days and Ceftin/Has follow up appts with cardiology 02/18/24 and neurology 04/10/24). Flowsheet Row Documentation from 06/25/2023 in [facility] with Debi Pichardo MA Hospital Information ED, Hospital or Prison Facility Discharge? ED Patient has been contacted within 1 week of being seen in the ED Yes Discharge Date 06/24/23 Discharged To: Home Setting Discharge Hospital [place] Engagement Call Start Time 1643 Medications Discharge [...] Post CVA. I encouraged Rehab at a alf Facility. She is a fall risk at home, in fact has fallen several times since her recent hospital discharge. Frequent falls Degeneration of intervertebral disc of lumbar region, unspecified whether pain present - Handicap Placmonique 5 Years Follow up in about 4 weeks (around 03/10/2024) for Routine F/U. documented in this encounter [facility] 02-04-2024 Miscellaneous Notes ----- Message from CHARLI Gibson sent at 02/04/2024 4:57 PM EST ----- Regarding: [place] FU This is a patient with a R MCA ischemic stroke. Dr. Andre wants her to FU in Stroke clinic after 30 day cardiac event monitoring is completed. She can see Luz Maria Mitchell or fellow. She also needs referred to [facility]: Dr. Vick to be seen at [facility] [place] [facility] for recent stroke and abnormal echo. Please help arrange this referral/ follow up. If needed you can place referral order under my name. Thanks! Scheduled Called patient and left Vm Called [facility] floor, Ayleen and scheduled appt. Patient to be D/C 02/04/24 Tyree patients son is the POA documented [facility] this encounter [facility] Telephone encounter Note ----- Message from CHARLI Gibson sent at 02/04/2024 4:57 PM EST ----- Regarding: [facility] This is a patient with a R MCA ischemic stroke. Dr. Andre wants her to FU in Stroke clinic after 30 day cardiac event monitoring is completed. She can see Luz Maria Mitchell or fellow. She also needs referred to [facility]: Dr. Vick to be seen at [facility] [place] [facility] for recent stroke and abnormal echo. Please help arrange this referral/ follow up. If needed you can place referral order under my name. Thanks! [facility] 02-04-2024 Telephone encounter Note Scheduled Called patient and left Vm [facility], Ayleen and scheduled appt. Patient to be D/C 02/04/24 Tyree patients son is the POA [facility] 02-04-2024 Miscellaneous Notes What is the reason for the call? To schedule a hospital follow up. If appointment requested, what is the reason for the appointment? Dx: CVA Is there a referral in the chart? Yes Were they seen in the hospital? Yes What hospital were they seen at? [facility] What is a good call back number? Ayleen at [phone], extension [phone] Received call today 02/04/24 4:08 from Ayleen at [facility] ICU who stated that patient is going to be discharged soon today. I informed her that we are awaiting response back from clinical staff to schedule with our office and I can let them know to reach back out in regard to scheduling - she voiced understanding. Ayleen is requesting our office call patient's son, Tyree (DOA), at callback#: [phone]. Gloria needs FU in our clinic after 30 day cardiac event monitor is done. She also needs to be scheduled with Dr. Vick for outpatient cardiology eval. (See previous staff message) According to [employer] website, monitor has not been activated yet. Images from the original note were not included. Received fax from [employer]: Please advise. documented in this encounter [facility] 02-04-2024 Telephone encounter Note What is the reason for the call? To schedule a hospital follow up. If appointment requested, what is the reason for the appointment? Dx: CVA Is there a referral in the chart? Yes Were they seen in the hospital? Yes What hospital were they seen at? [facility] What is a good call back number? Ayleen at [phone], extension [phone] [facility] 02-04-2024 Telephone encounter Note Received call today 02/04/24 4:08 from Ayleen at [facility] ICU who stated that patient is going to be discharged soon today. I informed her that we are awaiting response back from clinical staff to schedule with our office and I can let them know to reach back out in regard to scheduling - she voiced understanding. Ayleen is requesting our office call patient's son, Tyree SEQUEIRA), at callback#: [phone]. [facility] 02-04-2024 Telephone encounter Note Gloria needs FU in our clinic after 30 day cardiac event monitor is done. She also needs to be scheduled with Dr. Vick for outpatient cardiology eval. (See previous staff message) [facility] Work Phone: 02-04-2024 Telephone encounter Note According to [employer] website, monitor has not been activated yet. [facility] 02-04-2024 Telephone encounter Note Images from the original note were not included. Received fax from [employer]: Please advise. [facility] 01-09-2024 History of Present illness Narrative Images from the original note were not included. HPI prolia injection Additional comments: From jonathan Last edited by Ayleen Gross LPN on 01/09/2024 9:02 AM. Subjective Patient ID: Gloria Roque is a 88 y.o. female who [facility] Subjective Gloria Roque is a 87 [...] F/U med changes. 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 Sherman LOPEZ et al. DHARA. 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 We discussed telling benítez people [...] 2023 documented in this encounter [facility] Evaluation note Diagnosis Age-related osteoporosis with current [...] Pure hypercholesterolemia [facility] Diagnosis Cerebrovascular accident (CVA) due [...] vasoconstriction [facility] information available [facility] Work Phone: InstructionsNot on filedocumented in this encounter [facility] filedocumented in this encounter [facility] filedocumented in this encounter [facility] Summary Purpose Family History No Family History Records FoundNo Family History Records FoundNo Family History Records FoundNo Family History Records FoundNo Family History Records FoundNo Family History Records FoundNo Family History Records Found Advance Directives No Advanced Directives Records FoundHealthcare Agents on File Name Relationship Healthcare Agent Relationship Communication Tyree Roque Son First Alternate Health Care Agent jourdan Coleman [place] Friend Second Alterna te Health Care Agent Healthcare Agents on File Name Relationship Healthcare Agent Relationship Communication Tyree Roque Son First Alternate Health Care Agent jourdan Coleman [place] Friend Second Alterna te Health Care Agent [email or web address] Advance Directive Response Recorded Date/ Time Advance Directives No October 3:32pm Additional Source Comments INFORMATION SOURCE (unrecogn ized section and content) DATE CREATED AUTHOR 03/02/2021 [facility] dical Specialist DATE CREATED AUTHOR AUTHOR'S ORGANIZ ATION 03/29/2022 [facility] DATE CREATED AUTHOR AUTHOR'S ORGANIZ ATION 02/08/2024 [facility] DATE CREATED AUTHOR AUTHOR'S ORGANIZ ATION 02/11/2024 [facility] dical Specialists EPIC DATE CREATED AUTHOR AUTHOR'S ORGANIZ ATION 02/14/2024 [facility] DATE CREATED AUTHOR AUTHOR'S ORGANIZ ATION 02/21/2024 [facility] DATE CREATED AUTHOR AUTHOR'S ORGANIZ ATION 02/24/2024 [facility] Care Teams (unrecognized sec tion and content) Continuous Process Rotary Drum Tanner Relationship Specialty Start Date End Date Alpesh Trinh MD [address] [facility] [address] [place] [address] PCP - General Internal Medicine 08/28/22 Continuous Process Rotary Drum Tanner Relationship Specialty Start Date End Date Alpesh Trinh MD [address] [facility] [address] [place] [address] PCP - General Internal Medicine 08/28/22 Continuous Process Rotary Drum Tanner Relationship Specialty Start Date End Date Alpesh Trinh MD [address] [facility] [address] [place] [address] PCP - General Internal Medicine 08/28/22 Continuous Process Rotary Drum Tanner Relationship Specialty Start Date End Date Alpesh Trinh MD [address] [facility] [address] [place] [address] PCP - General Internal Medicine 08/28/22 Continuous Process Rotary Drum Tanner Relationship Specialty Start Date End Date Alpesh Trinh MD [address] [facility] [address] [place] [address] PCP - General Internal Medicine 08/28/22 Continuous Process Rotary Drum Tanner Relationship Specialty Start Date End Date Alpesh Trinh MD [address] [facility] [address] [place] [address] PCP - General Internal Medicine 08/28/22Sunday, SuzyJASPREET [address] [facility] [address] [place] [address] Licensed Practical Nurse Family Medicine 02/11/24 Team Status: Inactive Member Role Status Dates Evelia Pineda MD Attending Provider Active Sta rt: February 04, 2024 End: February 04, 2024 Team Status: Inactive Member Role Status Dates Adilson Olmos MD Attending Provider Active Sta rt: February 13, 2024 End: February 13, 2024 Reason for Visit (unrecogniz ed section and content) Reason Comments prolia injection From [facility] Reason Comments Medicare Annual Wellness Visit Subsequen t Results labs Reason Comments Follow-up Admitted [facility] 4 dx: CVA,UTI discharged home 02/04/24 started on ASA, plavx x 21 days and CeftinHas follow up appts with cardiology 02/18/24 and neurology 04/10/24 Reason Onset Date Comments Hospital Follow-up 02/04/2024 Goals (unrecognized section and content) Goals may be documented in a n alternate section FOR RECORDS PERTAINING TO PATIENTS WHO ARE [...] BE BASED ON THE PRIMARY CLINICAL RECORDS. [employer] provides no warranty or guarantee of the accuracy or completeness of information in this document.
[2024-05-04 07:08] VITALS: BP 172/92
--- NOTE | 2024-05-04 07:10 | ED.GENADUL1 ---
HPI HPI - General Adult General Chief complaint: Extremity Injury, Upper Stated complaint: EXTREMITY INJURY Time Seen by Provider: 05/04/24 07:01 Source: patient Mode of arrival: ambulance Limitations: no limitations History of Present Illness HPI narrative: 88-year-old female presents for right shoulder pain. She reportedly [facility] the [facility] about 2 days ago. She is a poor historian, she is not entirely sure why she is here but [facility] called report to us. She is not complaining of headache or neck pain or leg pain. She points to the posterior right shoulder to indicate where it hurts. No anterior chest pain or elbow or wrist pain. Related Data Home Medications ?Medication ?Instructions ?Recorded ?Confirmed denosumab 60 mg/mL subcutaneous 60 mg subcut .monthly 06/24/23 05/04/24 syringe (Prolia) fluoxetine 20 mg capsule 20 mg PO DAILY 06/24/23 05/04/24 apixaban 5 mg tablet (Eliquis) 5 mg PO Q12H 05/04/24 05/04/24 carboxymethylcellulose 1 drp ophthalmic (eye) TID PRN dry 05/04/24 05/04/24 sod-hypromell 0.25 %-0.3 % eye eye(s) liquid gel drops (Lubricant Gel) metoprolol succinate 25 mg 25 mg PO Q12H 05/04/24 05/04/24 tablet,extended release 24 hr (Toprol XL) naproxen 250 mg tablet 250 mg PO BID PRN pain 05/04/24 05/04/24 Previous Rx's ?Medication ?Instructions ?Recorded atorvastatin 40 mg tablet (Lipitor) 40 mg PO DAILY #30 tabs 02/04/24 Allergies Allergy/AdvReac Type Severity Reaction Status Date / Time Penicillins Allergy Intermediate Blister Verified 05/04/24 06:06 Opioid HPI Opioid Management Most Recent Opioid Data: Last Pain Scale 2 02/04/24 09:05 02/04/24 Last Pain Intensity 2 02/04/24 09:05 02/04/24 Last ORT Total Score 0 02/13/24 17:44 02/13/24 Last ORT Risk Category Low Risk 02/13/24 17:44 02/13/24 Review of Systems ROS Narrative A ten point review of systems is negative except as noted above. [facility] Medical History (Updated 05/04/24 @ 08:05 by Emmanuel Stewart MD) A-fib ?I48.91 - Unspecified atrial fibrillation (ICD-10) Multiple falls ?R29.6 - Repeated falls (ICD-10) UTI (urinary tract infection) ?N39.0 - Urinary tract infection, site not specified (ICD-10) Elevated brain natriuretic peptide (BNP) level ?R79.89 - Other specified abnormal findings of blood chemistry (ICD-10) Elevated troponin ?R79.89 - Other specified abnormal findings of blood chemistry (ICD-10) Acute ischemic stroke ?I63.9 - Cerebral infarction, unspecified (ICD-10) Elevated CK ?R74.8 - Abnormal levels of other serum enzymes (ICD-10) Back pain ?M54.9 - Dorsalgia, unspecified (ICD-10) Multiple falls ?R29.6 - Repeated falls (ICD-10) Stroke ?I63.9 - Cerebral infarction, unspecified (ICD-10) HTN (hypertension) ?I10 - Essential (primary) hypertension (ICD-10) HLD (hyperlipidemia) ?E78.5 - Hyperlipidemia, unspecified (ICD-10) Family History (Updated 02/13/24 @ 17:37 by Martha Araujo RN) Father Family history of cancer Family history of hypertension Sister Family history of cancer Mother Family history of hypertension Brother Family history of myocardial infarction Family history of CHF (congestive heart failure) Social History (Updated 02/13/24 @ 17:37 by Martha Araujo, ELLY) Within the past year, how often did you have a drink containing alcohol: never Score interpretation: A score less than 3 is consistent with normal alcohol consumption. Smoking status: Never smoker Non-prescribed substance use: denies use Highest level of school completed/degree received: high school graduate Little interest or pleasure in doing things: not at all Feeling down, depressed, or hopeless: not at all Exam Narrative Exam Narrative: Nurses note and vital signs reviewed and patient is not hypoxic. General: The patient appears in no apparent distress. Patient is resting comfortably on cart. Skin: Warm, dry, no pallor noted. There is no rash noted. Head: Normocephalic, atraumatic Eye: Normal conjunctiva, no drainage Ears, Nose, Mouth, and Throat: oral mucosa is moist. Nares patent. Cardiovascular: Regular Rate and Rhythm Respiratory: Patient is in no distress, no accessory muscle use, lungs are clear to auscultation, no wheezing, rales or rhonchi Back: non-tender, including C-spine thoracic spine and lumbar spine GI: Soft and nontender Musculoskeletal: Hips are nontender and have full range of motion. No palpable tenderness to her lower extremities. Left arm has full range of motion as does the right. She seems to have some tenderness in the right posterior shoulder but there is no bruise or abrasion and the shoulder has full range of motion. Right elbow and wrist are nontender, radial pulse 2+ Neurological: A&O, normal speech; she knows her name and the year and the place but she is not entirely sure why she is here. Psychiatric: Cooperative Constitutional Vital Signs, click to edit/add: Last Vital Signs Temp 97.8 F 05/04/24 05:56 Pulse 98 H 05/04/24 05:56 Resp 16 05/04/24 05:56 BP 172/92 H 05/04/24 07:08 Pulse Ox 98 05/04/24 05:56 O2 Del Method Room Air 05/04/24 05:56 Course Vital Signs Vital signs: Vital Signs Temperature 97.8 F 05/04/24 05:56 Pulse Rate 98 H 05/04/24 05:56 Respiratory Rate 16 05/04/24 05:56 Blood Pressure 182/127 H 05/04/24 05:56 Pulse Oximetry 98 05/04/24 05:56 Oxygen Delivery Method Room Air 05/04/24 05:56 Temperature 97.8 F 05/04/24 05:56 Pulse Rate 98 H 05/04/24 05:56 Respiratory Rate 16 05/04/24 05:56 Blood Pressure 172/92 H 05/04/24 07:08 Pulse Oximetry 98 05/04/24 05:56 Oxygen Delivery Method Room Air 05/04/24 05:56 Medical Decision Making [facility] Narrative Medical decision making narrative: AlonzoK 8:05 am x-ray of the shoulder shows no acute findings and she is released back to residential. Findings were discussed with the patient. 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, mild narrowed subacromial space Discharge Plan Discharge Chief Complaint: Extremity Injury, Upper Clinical Impression: Contusion of right shoulder Patient Disposition: Home, Self-Care Time of Disposition Decision: 08:05 Condition: Good Mode of Transportation: Private Vehicle Prescriptions / Home Meds: No Action fluoxetine 20 mg capsule 20 mg PO DAILY Prolia 60 mg/mL syringe 60 mg SUBCUT .monthly atorvastatin [Lipitor] 40 mg tablet 40 mg PO DAILY Qty: 30 0RF Eliquis 5 mg tablet 5 mg PO Q12H Lubricant Gel 0.25-0.3 % drops, liquid gel 1 drp ophthalmic (eye) TID PRN (Reason: dry eye(s)) naproxen 250 mg tablet 250 mg PO BID PRN (Reason: pain) metoprolol succinate [Toprol XL] 25 mg tablet extended release 24 hr 25 mg PO Q12H Print Language: Malaysian Instructions: Contusion in Adults (ED) Referrals: SHARMAINE WILLS [Primary Care Provider] - 1 week
== END 2024-05-04 09:27 | disposition home or self-care (01) ==
PROVIDERS: Emergency Provider Emergency Medicine; PCP Internal Medicine
DX: S40.011A Contusion of right shoulder, initial encounter (principal); X58.XXXA Exposure to other specified factors, initial encounter; M19.011 Primary osteoarthritis, right shoulder
CPT/HCPCS: 73030; 93005; 99283

== ENCOUNTER 2024-06-07 20:14 | Emergency (ER) | payer MEDICARE, SELFPAY ==
[2024-06-07 20:19] VITALS: BP 140/67; PULSE 62; TEMP 36.6; O2SAT 95; BMI 24.1
--- NOTE | 2024-06-07 20:27 | ED.EAR1 ---
HPI - Ear Problem General Chief complaint: Ear Stated complaint: HEARING AIDE STUCK RIGHT EAR Time Seen by Provider: 06/07/24 20:19 Source: patient Mode of arrival: walk-in Limitations: no limitations History of Present Illness HPI Narrative: cc - foreign body right EAC The patient wears hearing aids and she said that she has a habit of sometimes partially removing them and then using her pinky fingertip to scratch her ear. She apparently pushed the conical rubber end of the hearing aid down into her ear. She was able to remove the outer portion of the hearing aid but the inner piece is stuck in the external auditory canal - she could not get it out. Related Data Home Medications ?Medication ?Instructions ?Recorded ?Confirmed denosumab 60 mg/mL subcutaneous 60 mg subcut .monthly 06/24/23 05/04/24 syringe (Prolia) fluoxetine 20 mg capsule 20 mg PO DAILY 06/24/23 05/04/24 apixaban 5 mg tablet (Eliquis) 5 mg PO Q12H 05/04/24 05/04/24 carboxymethylcellulose 1 drp ophthalmic (eye) TID PRN dry 05/04/24 05/04/24 sod-hypromell 0.25 %-0.3 % eye eye(s) liquid gel drops (Lubricant Gel) metoprolol succinate 25 mg 25 mg PO Q12H 05/04/24 05/04/24 tablet,extended release 24 hr (Toprol XL) naproxen 250 mg tablet 250 mg PO BID PRN pain 05/04/24 05/04/24 Previous Rx's ?Medication ?Instructions ?Recorded atorvastatin 40 mg tablet (Lipitor) 40 mg PO DAILY #30 tabs 02/04/24 Allergies Allergy/AdvReac Type Severity Reaction Status Date / Time Penicillins Allergy Intermediate Blister Verified 05/04/24 06:06 [facility] Medical History (Updated 06/07/24 @ 20:32 by Moe Natarajan) A-fib ?I48.91 - Unspecified atrial fibrillation (ICD-10) Multiple falls ?R29.6 - Repeated falls (ICD-10) UTI (urinary tract infection) ?N39.0 - Urinary tract infection, site not specified (ICD-10) Elevated brain natriuretic peptide (BNP) level ?R79.89 - Other specified abnormal findings of blood chemistry (ICD-10) Elevated troponin ?R79.89 - Other specified abnormal findings of blood chemistry (ICD-10) Acute ischemic stroke ?I63.9 - Cerebral infarction, unspecified (ICD-10) Elevated CK ?R74.8 - Abnormal levels of other serum enzymes (ICD-10) Back pain ?M54.9 - Dorsalgia, unspecified (ICD-10) Multiple falls ?R29.6 - Repeated falls (ICD-10) Stroke ?I63.9 - Cerebral infarction, unspecified (ICD-10) HTN (hypertension) ?I10 - Essential (primary) hypertension (ICD-10) HLD (hyperlipidemia) ?E78.5 - Hyperlipidemia, unspecified (ICD-10) Family History (Updated 02/13/24 @ 17:37 by Martha Araujo RN) Father Family history of cancer Family history of hypertension Sister Family history of cancer Mother Family history of hypertension Brother Family history of myocardial infarction Family history of CHF (congestive heart failure) Social History (Updated 02/13/24 @ 17:37 by Martha Araujo RN) Within the past year, how often did you have a drink containing alcohol: never Score interpretation: A score less than 3 is consistent with normal alcohol consumption. Smoking status: Never smoker Non-prescribed substance use: denies use Highest level of school completed/degree received: high school graduate Little interest or pleasure in doing things: not at all Feeling down, depressed, or hopeless: not at all Exam Narrative Exam Narrative: Nurses notes and vital signs reviewed and patient is not hypoxic. afebrile General: Well-appearing and in no apparent distress. Ears, Nose, Mouth, and Throat: Right external auditory canal -conical black rubber foreign body observed in the EAC. I cannot view the TM secondary to the occluded EAC. Left external auditory canal and TM are clear Oral mucosa is moist Cardiovascular: Normal peripheral perfusion. Respiratory: No accessory muscle use or respiratory distress. Musculoskeletal: normal ROM Neurological: A&O x4. No cranial nerve dysfunction observed. No truncal ataxia. Moves all extremities. Sensation intact. Psychiatric: Cooperative and interactive. Normal mood and affect. Constitutional Vital Signs, click to edit/add: Last Vital Signs Temp 97.8 F 06/07/24 20:19 Pulse 62 06/07/24 20:19 Resp 18 06/07/24 20:19 BP 140/67 06/07/24 20:19 Pulse Ox 95 06/07/24 20:19 O2 Del Method Room Air 06/07/24 20:19 Course Vital Signs Vital signs: Vital Signs Temperature 97.8 F 06/07/24 20:19 Pulse Rate 62 06/07/24 20:19 Respiratory Rate 18 06/07/24 20:19 Blood Pressure 140/67 06/07/24 20:19 Pulse Oximetry 95 06/07/24 20:19 Oxygen Delivery Method Room Air 06/07/24 20:19 Temperature 97.8 F 06/07/24 20:19 Pulse Rate 62 06/07/24 20:19 Respiratory Rate 18 06/07/24 20:19 Blood Pressure 140/67 06/07/24 20:19 Pulse Oximetry 95 06/07/24 20:19 Oxygen Delivery Method Room Air 06/07/24 20:19 Medical Decision Making MDM Narrative Medical decision making narrative: Using alligator forceps I was able to gently and effectively remove the foreign material from the right external auditory canal. It came out in 1 piece and on reinspection there is no additional material inside the external auditory canal. Right TM is normal Discharge Plan Discharge Chief Complaint: Ear Clinical Impression: Foreign body of ear, right Patient Disposition: Home, Self-Care Time of Disposition Decision: 20:31 Prescriptions / Home Meds: No Action fluoxetine 20 mg capsule 20 mg PO DAILY Prolia 60 mg/mL syringe 60 mg SUBCUT .monthly atorvastatin [Lipitor] 40 mg tablet 40 mg PO DAILY Qty: 30 0RF Eliquis 5 mg tablet 5 mg PO Q12H Lubricant Gel 0.25-0.3 % drops, liquid gel 1 drp ophthalmic (eye) TID PRN (Reason: dry eye(s)) naproxen 250 mg tablet 250 mg PO BID PRN (Reason: pain) metoprolol succinate [Toprol XL] 25 mg tablet extended release 24 hr 25 mg PO Q12H Print Language: Divehi Instructions: Ear Foreign Body (ED) Referrals: SHARMAINE WILLS [Primary Care Provider] - 1 week
--- NOTE | 2024-06-07 20:36 | PC.NURSE ---
pt lodged hearing aid into right ear.
== END 2024-06-07 20:39 | disposition home or self-care (01) ==
PROVIDERS: Emergency Provider Emergency Medicine; PCP Internal Medicine
DX: T16.1XXA Foreign body in right ear, initial encounter (principal); W44.G1XA Audio device entering into or through a natural orifice, initial encounter
CPT/HCPCS: 69200; 99284

== ENCOUNTER 2024-10-17 03:58 | Emergency (ER) | payer MEDICARE, SELFPAY ==
--- OUTSIDE RECORDS SUMMARY | 2024-03-31 05:10 | XMS_ITS ---
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 0 Reviewed date:05/01/2024 01:22:25 PM Interpretation: Performing Lab: Notes/Report: REASON FOR VISIT RIGHT ULNA FX Encounters Encounter Location Date Provider Diagnosis [facility] Office [address] [place] [address] [address] [place] [address] 03/31/2024 Santosh Freire Other fracture of lower end of right ulna, 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 RIGHT ULNA FX. * Medical History: Objective: * Vitals: Assessment: * Assessment: 1. 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
[2024-10-17] VITALS (16 sets, daily range): BP systolic 119–163; BP diastolic 65–92; PULSE 63–85; TEMP 36.9; O2SAT 93–100
--- OUTSIDE RECORDS SUMMARY | 2024-10-17 04:12 | XMS_ITS | Encounter Summary ---
Author Organization [facility] Address [address] [facility] [address] [place] [address] Care Team Providers Care Media Director Name Role Phone Alpesh Trinh MD Primary Care Provider [phone] Sunday, Suzy USPS LETTER CARRIER Unavailable [phone] Soheila Waller ACADEMIC SUPPORT ASSISTANT Unavailable [phone] Encounter Details Date Type Department Care Team (Late st Contact Info) Description 02/12/2024 Orders Only [facility] [address] [place] [id number] Unallocated, Noms Provider, [address] [place] [address] Social History Tobacco Use Types Packs/Day Years Used Date Smoking Tobacco: Never Smokeless Tobacco: Never Alcohol Use Standard Drinks/Week Comments Never 0 (1 standard drink = 0.6 oz pur e alcohol) PHQ-2 Answer Date Recorded Patient Health Questionnaire-2 Score 0 10/04/2023 Comments Unknown Sex and Gender Information Value Date Recorded Sex Assigned at Not on file Legal Sex Female 7:21 PM EDT Gender Identity Not on file Sexual Orientation Not on file documented as of this encounter Plan of Treatment Not on file documented as of this encounter Procedures Procedure Name Priority Date/Time Associated Diagnosis Comments ECG 12-LEAD Routine 02/12/2024 10:18 AM EST URINE CULTURE Routine 02/12/2024 10:15 AM EST CBC Routine 02/12/2024 10:02 AM EST CREATINE KINASE, TOTAL Routine 10:02 AM EST COMPREHENSIVE METABOLIC PANEL Routine 02/12/2024 10:02 AM EST documented in this encounter Results * ECG 12 lead (02/12/2024 10:18 AM EST) us Noms Provider Unallocated MD ECG ORDERABLES Fin al Result * URINE CULTURE (02/12/2024 10:15 AM EST) us Noms Provider Unallocated MD LAB BLOOD ORDERABLE S Final Result * Comprehensive metabolic panel (02/12/2024 10:02 AM EST) Blood Venous blood specimen / Unknown us Noms Provider Unallocated MD LAB BLOOD ORDERABLE S Final Result * CBC (02/12/2024 10:02 AM EST) Blood Venous blood specimen / Unknown us Noms Provider Unallocated MD LAB BLOOD ORDERABLE S Final Result * CK (02/12/2024 10:02 AM EST) Blood Venous blood specimen / Unknown us Noms Provider Unallocated MD LAB BLOOD ORDERABLE S Final Result documented in this encounter Visit Diagnoses Not on filedocumented in this encounter Care Teams Media Director Relationship Specialty Start Date End Date Alpesh Trinh MD [address] [place] [address] PCP - General Internal Medicine 08/28/22SundaySuzy LPN [address] [place] [address] Licensed Practical Nurse Family Medicine 02/11/24 03/14/24 Soheila Waller MIREYA [address] [place] [address] Winery Cellar Hand Family Medicine 02/11/24 03/14/24 documented as of this encounter
--- OUTSIDE RECORDS SUMMARY | 2024-10-17 04:12 | XMS_ITS | Encounter Summary ---
Author Organization [facility] Address [address] [facility] [place] [address] Care Team Providers Care Welfare Project Manager Name Role Phone Alpesh Trinh MD Primary Care Provider [phone] Sunday, Suzy SANITARIAN INSPECTOR Unavailable [phone] Soheila Waller LIFEGUARD Unavailable [phone] Encounter Details Date Type Department Care Team (Late st Contact Info) Description 02/11/2024 Abstract [facility] [address] [facility] [address] [place] [address] Alpesh Trinh MD [address] [facility] [address] [place] [address] Social History Tobacco Use Types Packs/Day Years [...] on file documented as of this encounter Visit Diagnoses Not on filedocumented in this encounter Care Teams Welfare Project Manager Relationship Specialty Start Date End Date Alpesh Trinh MD [address] [place] [address] PCP - General Internal Medicine 08/28/22Sunday, JASPREET Almonte [address] [place] [address] Licensed Practical Nurse Family Medicine 02/11/24 03/14/24 Soheila Waller, MIREYA [address] [place] [address] Jack Frame Tender Family Medicine 02/11/24 03/14/24 documented as of this encounter
--- OUTSIDE RECORDS SUMMARY | 2024-10-17 04:12 | XMS_ITS | Encounter Summary ---
Author Organization [facility] Address [address] [place] [address] Care Team Providers Care Scarifier Operator Name Role Phone Alpesh Trinh MD Primary Care Provider [phone] Sunday, Suzy INSTRUMENTATION FITTER Unavailable [phone] Soheila Waller STONEMASON Unavailable [phone] Encounter Details Date Type Department Care Team (Late st Contact Info) Description 02/12/2024 Clinisync Result Encounter [facility] External Department Unsolicited Shaikh Sullivan MD [address] [place] [id number] Social History Tobacco Use Types Packs/Day Years [...] Procedure Name Priority Date/Time Associated Diagnosis Comments VASC US CAROTID ARTERY DUPLEX BILATERAL 02/12/2024 9:52 AM EST documented in this encounter Results * Vascular US carotid artery duplex bilateral (02/12/2024 9:52 AM EST) Anatomical Region Laterality Modality Neck Ultrasound 02/12/2024 9:52 AM EST Narrative 02/12/2024 9:55 AM EST [address] [address] Ultrasound Report Signed Patient: HOWARD ROQUE MR#: [id number] : 1935 Acct:[id number] Age/Sex: 88 / F ADM Date: 02/08/24 Loc: US Attending Dr: Shaikh Nate Owens Ordering Physician: Shaikh Roman Sullivan Date of Service: 02/08/24 Procedure(s): US carotid duplex BI Accession Number(s): [id number] cc: ALPESH TRINH ; Shaikh Roman Sullivan [address] [address] Patient Name: HOWARD ROQUE MRN: [id number] date: 1935 Sex: F Assigned Patient Location: US Current Patient Location: US Accession/Order Number: [id number] Exam Date: 02/08/2024 17:40 Report Date: 02/12/2024 09:52 At the request of: SHAIKH NATE Procedure: US carotid duplex BI DUPLEX ULTRASOUND EXAMINATION OF THE CAROTID ARTERIES. COMPARISON: None. HISTORY / INDICATIONS: Evaluate carotid stenosis. TECHNIQUE: Bilateral common carotid arteries, extracranial internal and external carotid arteries are evaluated with james-scale imaging, color Doppler, and spectral analysis according to a standard protocol. ICA-CCA ratios are calculated with sales representative leather goods peak-systolic velocities and recorded. Vertebral arteries are evaluated in one segment to evaluate for patency and character of flow. Comparison with previous evaluation is performed when available. Unless otherwise specified, all velocities are measured in cm/sec. Carotid stenosis is reported according to validated velocity parameters, similar to NASCET criteria. FINDINGS: Right Carotid: Mild plaque was noted. Velocity measurements as follows: Internal Carotid Artery 79/16 and 72/13. ICA to CCA ratio: 1.5. Left Carotid: Mild plaque was noted. Velocity measurements as follows: Internal Carotid Artery 53/11 and 62/15. ICA to CCA ratio: 1.9. Antegrade flow was seen in both vertebral arteries. CONCLUSION: 1. Less than 50% stenosis of the right ICA. 2. Less than 50% stenosis of the left ICA. 3. Vertebral arteries are patent and demonstrate antegrade flow. Electronically authenticated by: Alonzo STEVENSON Date: 02/12/2024 09:52 Dictated By: Alonzo Stevenson M.D. Signed By: 02/12/24954 DD/ 1 TD/TT: Lead Technical Writer: Procedure Note Radiology, Radiologist, MD - 02/12/2024 [place] [address] Ultrasound Report Signed Patient: ALESSIA ROQUE#: [id number] : 5Acct:[id number] Age/Sex: 88 / FADM Date: 02/08/24 Loc: US Attending Dr: Shaikh Nate Owens Ordering Physician: Shaikh Roman Sullivan Date of Service: 02/08/24 Procedure(s): US carotid duplex BI Accession Number(s): [id number] cc: ALPESH TRINH ; Shaikh Roman Sullivan [address] [place] [address] Patient Name: HOWARD ROQUE MRN: [id number] date: 1935 Sex: F Assigned Patient Location: US Current Patient Location: US Accession/Order Number: [id number] Exam Date: 02/08/2024 17:40 Report Date: 02/12/2024 09:52 At the request of: SHAIKH NATE Procedure: US carotid duplex BI DUPLEX ULTRASOUND EXAMINATION OF THE CAROTID ARTERIES. COMPARISON: None. HISTORY / INDICATIONS: Evaluate carotid stenosis. TECHNIQUE: Bilateral common carotid arteries, extracranial internal and external carotid arteries are evaluated with james-scale imaging, color Doppler, and spectral analysis according to a standard protocol. ICA-CCA ratios are calculated with sales representative leather goods peak-systolic velocities and recorded. Vertebral arteries are evaluated in one segment to evaluate for patency andcharacter of flow. Comparison with previous evaluation is performed when available.Unless otherwise specified, all velocities are measured in cm/sec. Carotidstenosis is reported according to validated velocity parameters, similar to NASCET criteria. FINDINGS: Right Carotid: Mild plaque was noted. Velocity measurements as follows: Internal Carotid Artery 79/16 and 72/13. ICA to CCA ratio: 1.5. Left Carotid: Mild plaque was noted. Velocity measurements as follows: Internal Carotid Artery 53/11 and 62/15. ICA to CCA ratio: 1.9. Antegrade flow was seen in both vertebral arteries. CONCLUSION: 1. Less than 50% stenosis of the right ICA. 2. Less than 50% stenosis of the left ICA. 3. Vertebral arteries are patent and demonstrate antegrade flow. Electronically authenticated by: Alonzo STEVENSON Date: 02/12/2024 09:52 Dictated By: Alonzo Stevenson M.D. Signed By:02/12/24954 DD/ 1 TD/TT: Lead Technical Writer: us Shaikh Nate MUÑOZ IMG US PROCEDURES Final Result documented in this encounter Visit Diagnoses Not on filedocumented in this encounter Care Teams Scarifier Operator Relationship Specialty Start Date End Date Alpesh Trinh MD [address] [place] [address] PCP - General Internal Medicine 08/28/22Sunday, JASPREET Almonte [address] [place] [address] Licensed Practical Nurse Family Medicine 02/11/24 03/14/24 Soheila Waller, MIREYA [address] [place] [address] Baseball Club Manager Family Medicine 02/11/24 03/14/24 documented as of this encounter
--- OUTSIDE RECORDS SUMMARY | 2024-10-17 04:12 | XMS_ITS | Encounter Summary ---
Author Organization [facility] Address [address] [facility] [place] [address] Care Team Providers Care Dispensing And Measuring Optician Name Role Phone Alpesh Trinh MD Primary Care Provider Sunday, Suzy CHURN DRILLER Unavailable [phone] Soheila Waller GUM PULLER Unavailable [phone] Encounter Details Date Type Department Care Team (Late st Contact Info) Description 02/12/2024 Abstract [facility]red[facility] [address] [facility] [address] [place] [address] Alpesh Trinh MD [address] [facility] [address] [place] [address] Social History Tobacco Use Types Packs/Day Years [...] on filedocumented in this encounter Care Teams Dispensing And Measuring Optician Relationship Specialty Start Date End Date Alpesh Trinh MD [address] [place] [address] PCP - General Internal Medicine 08/28/22Sunday, JASPREET Almonte [address] [place] [address] Licensed Practical Nurse Family Medicine 02/11/24 03/14/24 Soheila Waller, MIREYA [address] [place] [address] Manager Business Management Family Medicine 02/11/24 03/14/24 documented as of this encounter
--- OUTSIDE RECORDS SUMMARY | 2024-10-17 04:12 | XMS_ITS | Encounter Summary ---
Author Organization [facility] Address [address] [facility] [place] [address] Care Team Providers Care Cotton Tier Name Role Phone Alpesh Trinh MD Primary Care Provider [phone] Sunday, Suzy IT PROGRAMMER ANALYST Unavailable [phone] Soheila Waller HELP DESK REP Unavailable [phone] Encounter Details Date Type Department Care Team (Late st Contact Info) Description 02/11/2024 Abstract [facility] Arredondo [facility] [address] [facility] 110 [place] [address] Alpesh Trinh MD [address] [facility] 110 [place] [address] Social History Tobacco Use Types Packs/Day Years [...] on filedocumented in this encounter Care Teams Cotton Tier Relationship Specialty Start Date End Date Alpesh Trinh MD [address] [place] [address] PCP - General Internal Medicine 08/28/22Sunday, JASPREET Almonte [address] [place] [address] Licensed Practical Nurse Family Medicine 02/11/24 03/14/24 Soheila Waller, MIREYA [address] [place] [address] Collar Shaper Operator Family Medicine 02/11/24 03/14/24 documented as of this encounter
--- OUTSIDE RECORDS SUMMARY | 2024-10-17 04:12 | XMS_ITS | Encounter Summary ---
Author Organization [facility] Address [address] [facility] [place] [address] Care Team Providers Care Sulfuric Acid Plant Supervisor Name Role Phone Alpesh Trinh MD Primary Care Provider [phone] Sunday, Suzy BRICK EXTRUDER OPERATOR Unavailable [phone] Soheila Waller BLUEPRINT TRIMMER Unavailable [phone] Encounter Details Date Type Department Care Team (Late st Contact Info) Description 02/11/2024 Abstract [facility] [place] Arredondo [facility] [address] [facility] 110 [place] [address] Alpesh Trinh MD [address] [facility] 110 [place] [address] Social History Tobacco Use Types Packs/Day Years [...] on filedocumented in this encounter Care Teams Sulfuric Acid Plant Supervisor Relationship Specialty Start Date End Date Alpesh Trinh MD [address] [place] [address] PCP - General Internal Medicine 08/28/22Sunday, JASPREET Almonte [address] [place] [address] Licensed Practical Nurse Family Medicine 02/11/24 03/14/24 Soheila Waller, MIREYA [address] [place] [address] Field Account Manager Family Medicine 02/11/24 03/14/24 documented as of this encounter
--- OUTSIDE RECORDS SUMMARY | 2024-10-17 04:12 | XMS_ITS | Encounter Summary ---
Author Organization [facility] Address [address] [place] [address] Care Team Providers Care Manager User Experience Name Role Phone Alpesh Trinh MD Primary Care Provider [phone] Sunday, Suzy CENTRIFUGAL CASTING MACHINE TENDER Unavailable [phone] Soheila Waller DE ICER Unavailable [phone] Encounter Details Date Type Department Care Team (Late st Contact Info) Description 02/11/2024 Orders Only [facility] [address] [place] [id number] Unallocated, Noms Provider, [address] [place] [address] Social History Tobacco Use Types Packs/Day Years [...] Procedure Name Priority Date/Time Associated Diagnosis Comments XR CHEST 1 VIEW Routine 02/11/2024 3:07 PM EST MRI BRAIN W & WO CONT Routine 02/11/2024 3:05 PM EST N-TERMINAL PROBNP Routine 02/11/2024 2:27 PM EST CBC Routine 02/11/2024 2:27 PM EST LIPID PANEL Routine 02/11/2024 2:27 PM EST documented in this encounter Results * XR chest 1 view (02/11/2024 3:07 PM EST) Anatomical Region Laterality Modality Chest Radiographic Janice ging us Noms Provider Unallocated MD IMG XR PROCEDURES F inal Result * MRI BRAIN W & WO CONT (02/11/2024 3:05 PM EST) Anatomical Region Laterality Modality Radiographic Janice ging us Noms Provider Unallocated MD IMG XR PROCEDURES F inal Result * CBC (02/11/2024 2:27 PM EST) Blood Venous blood specimen / Unknown us Noms Provider Unallocated MD LAB BLOOD ORDERABLE S Final Result * Lipid panel (02/11/2024 2:27 PM EST) Blood Venous blood specimen / Unknown us Noms Provider Unallocated MD LAB BLOOD ORDERABLE S Final Result * N-Terminal Probnp (02/11/2024 2:27 PM EST) Venous blood specimen / Unknown us Noms Provider Unallocated MD LAB BLOOD ORDERABLE S Final Result documented in this encounter Visit Diagnoses Not on filedocumented in this encounter Care Teams Manager User Experience Relationship Specialty Start Date End Date Alpesh Trinh MD [address] [place] [address] PCP - General Internal Medicine 08/28/22Sunday, JASPREET Almonte [address] [facility] [address] [place], [place] [address] Licensed Practical Nurse Family Medicine 02/11/24 03/14/24 Soheila Waller, MIREYA [address] [place] [address] Plug Drill Operator Family Medicine 02/11/24 03/14/24 documented as of this encounter
--- OUTSIDE RECORDS SUMMARY | 2024-10-17 04:12 | XMS_ITS | Encounter Summary ---
Author Organization [facility] Address [address] [facility] [place] [place] [address] Care Team Providers Care Jacket Changer Name Role Phone Alpesh Trinh MD Primary Care Provider [phone] Sunday, Suzy ULTRA SOUND TECHNICIAN Unavailable [phone] Soheila Waller COMPUTER REPAIR INSTRUCTOR Unavailable [phone] Encounter Details Date Type Department Care Team (Late st Contact Info) Description 02/11/2024 Abstract [facility] [address] [facility] 110 [place] [address] Alpesh Trinh MD [address] [facility] 110 [place] [address] Social History Tobacco Use Types Packs/Day Years [...] on filedocumented in this encounter Care Teams Jacket Changer Relationship Specialty Start Date End Date Alpesh Trinh MD [address] [place] [address] PCP - General Internal Medicine 08/28/22Sunday, JASPREET Almonte [address] [place] [address] Licensed Practical Nurse Family Medicine 02/11/24 03/14/24 Soheila Waller, MIREYA [address] [place] [address] Inhalation Therapy Teacher Family Medicine 02/11/24 03/14/24 documented as of this encounter
--- OUTSIDE RECORDS SUMMARY | 2024-10-17 04:13 | XMS_ITS | Encounter Summary ---
Author Organization [facility] Address [address] [place] [address] Care Team Providers Care Aquatics Instructor Name Role Phone Sharmaine Trinh MD Primary Care Provider [phone] Sunday, Suzy AIR MOTOR REPAIRER Unavailable [phone] Soheila Waller OCCUPATIONAL THERAPY SUPERVISOR Unavailable [phone] Encounter Details Date Type Department Care Team (Late st Contact Info) Description 09/18/2023 Clinisync Result Encounter [facility] External Department Unsolicited Provider, Generic External Data Social History Tobacco Use Types Packs/Day Years Used Date Smoking Tobacco: Never Smokeless Tobacco: Never Alcohol Use Standard Drinks/Week Comments Never 0 (1 standard drink = 0.6 oz pur e alcohol) Comments Unknown Sex and Gender Information Value Date Recorded Sex Assigned at Not on file Legal Sex Female 7:21 PM EDT Gender Identity Not on file Sexual Orientation Not on file documented as of this encounter Plan of Treatment Not on file documented as of this encounter Procedures Procedure Name Priority Date/Time Associated Diagnosis Comments XR WRIST 3+ VIEWS RIGHT 09/18/2023 11:16 AM EDT documented in this encounter Results * XR wrist 3+ views right (09/18/2023 11:16 AM EDT) Anatomical Region Laterality Modality Upper Extremities, Wrist Right Radiogr aphic Imaging 09/18/2023 11:1 6 AM EDT Narrative 09/18/2023 11:18 AM EDT The [address] [address] XRay Report Signed Patient: HOWARD ROQUE MR#: [id number] : 1935 Acct:[id number] Age/Sex: 87 / F ADM Date: 09/17/23 Loc: EC Attending Dr: Patt Johnson M.D. Ordering Physician: Patt Johnson M.D. Date of Service: 09/17/23 Procedure(s): XR wrist RT min 3V Accession Number(s): [id number] cc: SHARMAINE TRINH ; Patt Johnson M.D. The [place] [id number] Patient Name: HOWARD ROQUE MRN: [id number] date: 1935 Sex: F Assigned Patient Location: Current Patient Location: Accession/Order Number: [id number] Exam Date: 09/17/2023 08:40 Report Date: 09/18/2023 11:16 At the request of: PATT JOHNSON Procedure: XR wrist RT min 3V PROCEDURE: XR wrist RT min 3V HISTORY: RIGHT WRIST PAIN COMPARISON: XR wrist right 08/13/2023 FINDINGS: BONES:Stable alignment is an increasing density and callus formation of distal ulnar fracture. Intact radiocarpal joint. Degenerative changes of the scaphoid-trapezium joint of the wrist. SOFT TISSUES:No visible soft tissue swelling. EFFUSION:None visible. OTHER: Negative. XR/XR wrist RT min 3V IMPRESSION: 1. Stable alignment and ongoing bone healing of distal right ulnar fracture. Electronically authenticated by: PATT CHAPA Date: 09/18/2023 11:16 Dictated By: Patt Chapa M.D. Signed By: 09/18/23 1118 DD/ 1116 TD/TT: Math And Science Instructor: Procedure Note Radiology, Radiologist, MD - 09/18/2023 The [place] [id number] XRay Report Signed Patient: LAURA ROQUER#: [id number] : 5Acct:[id number] Age/Sex: 87 / FADM Date: 09/17/23 Loc: EC Attending Dr: Patt Johnson M.D. Ordering Physician: Patt Johnson M.D. Date of Service: 09/17/23 Procedure(s): XR wrist RT min 3V Accession Number(s): [id number] cc: SHARMAINE TRINH ; Patt Johnson M.D. [place] [address] Patient Name: HOWARD ROQUE MRN: [id number] date: 1935 Sex: F Assigned Patient Location: Current Patient Location: Accession/Order Number: [id number] Exam Date: 09/17/2023 08:40 Report Date: 09/18/2023 11:16 At the request of: PATT JOHNSON Procedure: XR wrist RT min 3V PROCEDURE: XR wrist RT min 3V HISTORY: RIGHT WRIST PAIN COMPARISON: XR wrist right 08/13/2023 FINDINGS: BONES:Stable alignment is an increasing density and callus formation ofdistal ulnar fracture. Intact radiocarpal joint. Degenerative changes of the scaphoid-trapezium joint of the wrist. SOFT TISSUES:No visible soft tissue swelling. EFFUSION:None visible. OTHER: Negative. XR/XR wrist RT min 3V IMPRESSION: 1. Stable alignment and ongoing bone healing of distal right ulnarfracture. Electronically authenticated by: PATT CHAPA Date: 09/18/2023 11:16 Dictated By: Patt Chapa M.D. Signed By:09/18/23 1118 DD/ 1116 TD/TT: Math And Science Instructor: us Generic External Data Provider IMG XR PROCEDURES Final Result documented in this encounter Visit Diagnoses Not on filedocumented in this encounter Care Teams Aquatics Instructor Relationship Specialty Start Date End Date Sharmaine Trinh MD [address] [place] [address] PCP - General Internal Medicine 08/28/22Sunday, JASPREET Almonte [address] [facility] [address] [place] [address] Licensed Practical Nurse Family Medicine 02/11/24 03/14/24 Soheila Waller, MIREYA [address] [place] [address] Supervisor [place] [employer] Family Medicine 02/11/24 03/14/24 documented as of this encounter
--- OUTSIDE RECORDS SUMMARY | 2024-10-17 04:13 | XMS_ITS | Encounter Summary ---
Author Organization [facility] Address [address] [facility] [place] [address] Care Team Providers Care Student Loan Counselor Name Role Phone Alpesh Trinh MD Primary Care Provider [phone] Sunday, Suzy EAP SPECIALIST Unavailable [phone] Soheila Waller ELEVATOR MECHANIC Unavailable [phone] Encounter Details Date Type Department Care Team (Late st Contact Info) Description 02/18/2024 Abstract [facility] [place] Arredondo [facility] [address] [facility] 110 [place] [address] Alpesh Trinh MD 112 [facility] 110 [place] [address] Social History Tobacco Use Types Packs/Day Years [...] on filedocumented in this encounter Care Teams Student Loan Counselor Relationship Specialty Start Date End Date Alpesh Trinh MD [address] [place] [address] PCP - General Internal Medicine 08/28/22Sunday, JASPREET Almonte [address] [place] [address] Licensed Practical Nurse Family Medicine 02/11/24 03/14/24 Soheila Waller, MIREYA [address] [place] [address] Direct Sales Professional Family Medicine 02/11/24 03/14/24 documented as of this encounter
--- OUTSIDE RECORDS SUMMARY | 2024-10-17 04:13 | XMS_ITS | Encounter Summary ---
Author Organization [facility] Address [address] [place] [address] Care Team Providers Care Hose Builder Name Role Phone Alpesh Trinh MD Primary Care Provider [phone] Sunday, Suzy MICROSOFT BI CONSULTANT Unavailable [phone] Soheila Waller SAP PPM CONSULTANT Unavailable [phone] Encounter Details Date Type Department Care Team (Late st Contact Info) Description 07/04/2023 Abstract [facility] [place] Arredondo [facility] [address] [facility] [address] [place] [address] Alpesh Trinh MD [address] [place] [facility] [address] [place] [address] Social History Tobacco Use Types Packs/Day Years [...] on filedocumented in this encounter Care Teams Hose Builder Relationship Specialty Start Date End Date Alpesh Trinh MD [address] [place] [facility] [address], [place] [address] PCP - General Internal Medicine 08/28/22Sunday, JASPREET Almonte 112 [facility] [address] [place] [address] Licensed Practical Nurse Family Medicine 02/11/24 03/14/24 Soheila Waller, MIREYA [address] [place] [address] Automotive Collision Estimator Family Medicine 02/11/24 03/14/24 documented as of this encounter
--- OUTSIDE RECORDS SUMMARY | 2024-10-17 04:13 | XMS_ITS | Encounter Summary ---
Author Organization [facility] Address [address] [facility] [place] [address] Care Team Providers Care Propagator Laborer Name Role Phone Alpesh Trinh MD Primary Care Provider [phone] Encounter Details Date Type Department Care Team (Late st Contact Info) Description 06/24/2024 Abstract [facility] [address] [facility] 110 [place] [address] Alpesh Trinh MD 112 [facility] 110 [place] [address] Social History Tobacco Use Types Packs/Day Years Used Date Smoking Tobacco: Never Smokeless Tobacco: Never Alcohol Use Standard Drinks/Week Comments Never 0 (1 standard drink = 0.6 oz pur e alcohol) B1300 Health Literacy Answer Date Recor ded How often do you need to hav e someone help you when you read instructions, pamphlets, or other written material from your doctor or pharmacy? Always 05/19/2024 Social Connection and Isolat ion Panel [NHANES] Answer Date Recorded In a typical week, how many times do you talk on the phone with family, friends, or neighbors? More than three times a week 05/19/2024 How often do you get togethe r with friends or relatives? Three times a week 05/19/2024 How often do you attend chur or anglican services? Never 05/19/2024 Do you belong to any clubs o r organizations such as adventism groups, unions, fraternal or athletic groups, or school groups? No 05/19/2024 How often do you attend meet ings of the clubs or organizations you belong to? Never 05/19/2024 Are you , , di vorced, , never , or living with a partner? 05/19/2024 AUDIT-C Answer Date Recorded Q1: How often do you have a drink containing alcohol? Never 05/19/2024 Q2: How many drinks containi ng alcohol do you have on a typical day when you are drinking? Patient does not drink Q3: How often do you have si x or more drinks on one occasion? Never 05/19/2024 Overall Financial Resource Strain (CARDIA) Answe r Date Recorded How hard is it for you to pa y for the very basics like food, housing, medical care, and heating? Not hard at all 05/19/2024 PHQ-2 Answer Date Recorded Patient Health Questionnaire-2 Score 0 06/23/2024 [facility] - Occupational Stress Questionnaire Answer Date Recorded Do you feel stress - tense, restless, nervous, or anxious, or unable to sleep at night because your mind is troubled all the time - these days? Very much 05/19/2024 Exercise Vital Sign Answer Date Recorde d On average, how many days pe r week do you engage in moderate to strenuous exercise (like a brisk walk)? 0 days 05/19/2024 On average, how many minutes do you engage in exercise at this level? 0 min 05/19/2024 Hunger Vital Sign Answer Date Recorded Within the past 12 months, y ou worried that your food would run out before you got the money to buy more. Never true 05/20/19 25 Within the past 12 months, t he food you bought just didn't last and you didn't have money to get more. Never true 05/19/2024 PRAPARE - Transportation Answer Date Re corded In the past 12 months, has l ack of transportation kept you from medical appointments or from getting medications? No 08/2024 In the past 12 months, has l ack of transportation kept you from meetings, work, or from getting things needed for daily living? No 05/19/2024 Housing Stability Vital Sign Answer Oc e Recorded In the last 12 months, was t here a time when you were not able to pay the mortgage or rent on time? No 05/19/2024 In the past 12 months, how m any times have you moved where you were living? 1 05/19/2024 At any time in the past [address] [facility], were you homeless or living in a jail (including now)? No 05/19/2024 Comments Unknown Sex and Gender Information Value Date Recorded Sex Assigned at Not on file Legal Sex Female 7:21 PM EDT Gender Identity Not on file Sexual Orientation Not on file documented as of this encounter Plan of Treatment Not on file documented as of this encounter Visit Diagnoses Not on filedocumented in this encounter Care Teams Propagator Laborer Relationship Specialty Start Date End Date Alpesh Tirnh MD 112 [facility] 110 [place] [address] PCP - General Internal Medicine 08/28/22 documented as of this encounter
--- OUTSIDE RECORDS SUMMARY | 2024-10-17 04:13 | XMS_ITS | Encounter Summary ---
Author Organization [facility] Address [address] [facility] [place] [place] [address] Care Team Providers Care Clean Up Helper Banquet Name Role Phone Alpesh Trinh MD Primary Care Provider [phone] Sunday, Suzy PRESSER HAND Unavailable [phone] Soheila Waller POST CLOSING SPECIALIST Unavailable [phone] Encounter Details Date Type Department Care Team (Late st Contact Info) Description 03/12/2024 Orders Only [facility] [address] [place] [address] Unallocated, Noms Provider, [address] [place] [address] Social History Tobacco Use Types Packs/Day Years [...] Procedure Name Priority Date/Time Associated Diagnosis Comments CARD HOLTER MONITOR RECORDING Routine 03/12/2024 7:55 AM EST documented in this encounter Results * CARD HOLTER MONITOR RECORDING (03/12/2024 7:55 AM EST) Anatomical Region Laterality Modality Radiographic Janice ging us Noms Provider Unallocated MD LOMELI XR PROCEDURES F inal Result documented in this encounter Visit Diagnoses Not on filedocumented in this encounter Care Teams Clean Up Helper Banquet Relationship Specialty Start Date End Date Alpesh Trinh MD [address] [place] [address] PCP - General Internal Medicine 08/28/22Sunday, JASPREET Almonte [address] [place] [address] Licensed Practical Nurse Family Medicine 02/11/24 03/14/24 Soheila Waller, MIREYA [address] [place] [address] Dietitian Research Family Medicine 02/11/24 03/14/24 documented as of this encounter
--- OUTSIDE RECORDS SUMMARY | 2024-10-17 04:13 | XMS_ITS | Encounter Summary ---
Author Organization [facility] Address [address] [facility] [place] [address] Care Team Providers Care Meat Clerk Name Role Phone Alpesh Trinh MD Primary Care Provider [phone] Encounter Details Date Type Department Care Team (Late st Contact Info) Description 05/21/2024 Abstract [facility] [place] [facility] [address] [facility] 110 [place] [address] Alpesh Trinh MD 112 [facility] 110 [place] [address] Social History Tobacco Use Types Packs/Day Years [...] How often do you attend chur or scientology services? Never 05/19/2024 Do you belong to any clubs o r organizations such as anabaptism groups, unions, fraternal or athletic groups, or [...] Date Recorded Patient Health Questionnaire-2 Score 0 05/21/2024 [facility] - Occupational Stress Questionnaire Answer Date Recorded [...] any time in the past 12 m [facility], were you homeless or living in a correction (including now)? No 05/19/2024 Comments Unknown Sex and Gender Information Value Date Recorded Sex Assigned at Not on file Legal Sex Female 7:21 PM EDT Gender Identity Not on file Sexual Orientation Not on file documented as of this encounter Functional Status * Over the past 2 weeks, how often have you been bothered by any of the following problems? Question Answer Date of Assessment Author Little interest or pleasure in doing things Not at all 05/21/2024 10:01 AM EDT Miya Mcmanus L PN Feeling down, depressed, or hopeless Not at all 05/21/2024 10:01 AM EDT Miya Mcmanus L PN Patient Health Questionnaire -2 Score 0 05/21/2024 10:01 AM EDT Miya Mcmanus L PN documented as of this encounter Plan of Treatment Not on file documented as of this encounter Visit Diagnoses Not on filedocumented in this encounter Care Teams Meat Clerk Relationship Specialty Start Date End Date Alpesh Trinh MD 112 [facility] 110 [place] [address] PCP - General Internal Medicine 08/28/22 documented as of this encounter
--- OUTSIDE RECORDS SUMMARY | 2024-10-17 04:13 | XMS_ITS | Encounter Summary ---
Author Organization [facility] Address [address] [facility] [place] [address] Care Team Providers Care Arch Support Maker Name Role Phone Alpesh Trinh MD Primary Care Provider [phone] Sunday, Suzy FIRESTOPPER TECHNICIAN Unavailable [phone] Soheila Waller SOD FARMER Unavailable [phone] Encounter Details Date Type Department Care Team (Late st Contact Info) Description 02/04/2024 Abstract [facility] [place] Arredondo [facility] [address] [facility] 110 [place] [address] Alpesh Trinh MD [address] [place] [facility] 110 [place] [address] Social History Tobacco Use Types Packs/Day Years [...] on filedocumented in this encounter Care Teams Arch Support Maker Relationship Specialty Start Date End Date Alpesh Trinh MD [address] [place] [address] PCP - General Internal Medicine 08/28/22Sunday, JASPREET Almonte [address] [place] [address] Licensed Practical Nurse Family Medicine 02/11/24 03/14/24 Soheila Waller, MIREYA [address] [place] [address] Double End Chucking Machine Operator Family Medicine 02/11/24 03/14/24 documented as of this encounter
--- OUTSIDE RECORDS SUMMARY | 2024-10-17 04:13 | XMS_ITS | Encounter Summary ---
Author Organization [facility] Address [address] [facility] [place] [address] Care Team Providers Care Management Technician Name Role Phone Alpesh Trinh MD Primary Care Provider [phone] Sunday, Suzy PROVIDER RELATIONS REPRESENTATIVE Unavailable [phone] Soheila Waller WASH OIL COOLER OPERATOR Unavailable [phone] Encounter Details Date Type Department Care Team (Late st Contact Info) Description 10/26/2023 Abstract [facility] [address] [facility] [address] [place] [id number] Alpesh Trinh MD [address] [facility] 110 [place] [address] Social History Tobacco Use Types Packs/Day Years [...] on filedocumented in this encounter Care Teams Management Technician Relationship Specialty Start Date End Date Alpesh Trinh MD [address] [place] [address] PCP - General Internal Medicine 08/28/22Sunday, JASPREET Almonte [address] [place] [address] Licensed Practical Nurse Family Medicine 02/11/24 03/14/24 Soheila Waller, MIREYA [address] [place] [address] Cotton Breeder Family Medicine 02/11/24 03/14/24 documented as of this encounter
--- OUTSIDE RECORDS SUMMARY | 2024-10-17 04:13 | XMS_ITS | Encounter Summary ---
Author Organization [facility] Address [address] [facility] [place] [address] Care Team Providers Care Production Packager Name Role Phone Alpesh Trinh MD Primary Care Provider [phone] Sunday, Suzy SHIPPING SUPPORT Unavailable [phone] Soheila Walelr FIRE INVESTIGATION MANAGER Unavailable [phone] Encounter Details Date Type Department Care Team (Late st Contact Info) Description 12/12/2022 Abstract [facility] [address] [facility] 110 [place] [address] Alpesh Trinh MD [address] [place] [facility] 110 [place] [address] Social History Tobacco Use Types Packs/Day Years [...] on filedocumented in this encounter Care Teams Production Packager Relationship Specialty Start Date End Date Alpesh Trinh MD [address] [place] [facility] [address] [place], [place] [id number] PCP - General Internal Medicine 08/28/22Sunday, JASPREET Almonte [address] [facility] [address] [place] [address] Licensed Practical Nurse Family Medicine 02/11/24 03/14/24 Soheila Waller, MIREYA [address] [place] [address] Lapel Padder Family Medicine 02/11/24 03/14/24 documented as of this encounter
--- OUTSIDE RECORDS SUMMARY | 2024-10-17 04:13 | XMS_ITS | Encounter Summary ---
Author Organization [facility] Address [address] [facility] [place] [address] Care Team Providers Care Die Trouble Shooter Name Role Phone Alpesh Trihn MD Primary Care Provider [phone] Sunday, Suzy SWIMMING POOL ATTENDANT Unavailable [phone] Soheila Waller RETAIL SELLING FLOOR LEADER Unavailable [phone] Encounter Details Date Type Department Care Team (Late st Contact Info) Description 01/31/2024 Abstract [facility] [address] [facility] [address] [place] [address] Alpesh Trinh MD [address] [place] [facility] [address] [place] [address] Social History Tobacco Use Types Packs/Day Years [...] on filedocumented in this encounter Care Teams Die Trouble Shooter Relationship Specialty Start Date End Date Alpesh Trinh MD [address] [place] [address] PCP - General Internal Medicine 08/28/22Sunday, JASPREET Almonte [address] [place] [address] Licensed Practical Nurse Family Medicine 02/11/24 03/14/24 Soheila Waller, MIREYA [address] [place] [address] Trestle Builder Family Medicine 02/11/24 03/14/24 documented as of this encounter
--- OUTSIDE RECORDS SUMMARY | 2024-10-17 04:13 | XMS_ITS | Encounter Summary ---
Author Organization [facility] Address [address] [facility] [place] [address] Care Team Providers Care Ribbon Blockmaker Name Role Phone Alpesh Trinh MD Primary Care Provider [phone] Encounter Details Date Type Department Care Team (Late st Contact Info) Description 07/01/2024 Abstract [facility] [address] [facility] [facility] 110 [place] [address] Alpesh Trinh MD [address] [place] [facility] 110 [place] [address] Social History Tobacco Use Types Packs/Day Years [...] How often do you attend chur or latter-day services? Never 05/19/2024 Do you belong to any clubs o r organizations such as tenriism groups, unions, fraternal or athletic groups, or [...] Recorded Patient Health Questionnaire-2 Score 0 06/23/2024 [facility] - Occupational Stress Questionnaire Answer Date Recorded [...] any time in the past 12 m [facility], were you homeless or living in a longterm (including now)? No 05/19/2024 Comments Unknown Sex and Gender Information Value Date Recorded Sex Assigned at Not on file Legal Sex Female 7:21 PM EDT Gender Identity Not on file Sexual Orientation Not on file documented as of this encounter Plan of Treatment Not on file documented as of this encounter Visit Diagnoses Not on filedocumented in this encounter Care Teams Ribbon Blockmaker Relationship Specialty Start Date End Date Alpesh Trinh MD [address] [facility] [address] [place] [address] PCP - General Internal Medicine 08/28/22 documented as of this encounter
--- OUTSIDE RECORDS SUMMARY | 2024-10-17 04:13 | XMS_ITS | CCD ---
Author Organization [facility] Care Team Providers Care Medical Coder Name Role Phone DR ALPESH TRINH Primary Care Unavailable PAY, DR COOMBS Admitting Unavailable PAY, DR COOMBS Attending Unavailable PAY, DR COOMBS Consulting Unavailable Alpesh Trinh MD Primary Care Provider [phone] Unavailable Primary Care Provider Unavailabl e Sunday Suzy VOGEL Unavailable Evelia Pineda Attending Unavailable Evelia Pineda Admitting Unavailable Adilson Olmos Admitting Unavailable Adilson Olmos Attending Unavailable Evelia Pineda MD Attending Provider [phone] Adilson Olmos MD Attending Provider [phone] Unavailable Primary Care Provider Unavailabl e CARSON JACOBS Referring Unava ilable BELLA MITCHELL Referring Unavailable CHELLY PEREIRA Attending Unavailable ALPESH TRINH Attending Unavailable ALPESH TRINH Attending Unavailable ALPESH TRINH Referring Unavailable ALPESH TRINH Attending Unavailable ALPESH TRINH Attending Unavailable ALPESH TRINH Attending Unavailable RITCHIE TAMAYO Attending Unavailable RITCHIE TAMAYO Attending Unavailable PALLAVI WILKERSON Attending Unavailable MARTY MORGAN Referring Unavailable RITCHIE TAMAYO Attending Unavailable Allergies Allergy Classification Reported Allergen(s) Allergy Type Date of Onset Reaction(s) Facility (5 sources) Penicillins; Translations: [PENICILLINS] Drug allergy (disorder) 3 Other (See Comments) [facility] Repository (18 sources) Penicillin V Drug Allergy 3 Unknown [facility] (18 sources) Penicillins Drug Allergy 4 Unknown [facility] (1 source) Penicillins Propensity to adverse reactions to drug 4 Other (See Comments) [facility] Medications Current Medications Medication Drug Class(es) Dates Sig (Normalized) Sig (Original) apixaban 5 mg oral tablet (10 sources) Factor Xa Inhibitor Start: 04-04-2024 take 1 tablet by mouth in the morning apixaban (Eliquis) 5 MG tablet Indications: Essential (primary) hypertension , Heart disease Take 1 tablet (5 mg) by mouth in the morning and 1 tablet (5 mg) before bedtime. 180 tablet 3 04/04/2024 Active aspirin 81 mg delayed release oral tablet (10 sources) Platelet Aggregation Inhibitor, Nonsteroidal Anti-inflammatory Drug take 1 tablet by mouth in the morning aspirin 81 MG EC tablet Take 81 mg by mouth in the morning. Active atorvastatin 40 mg oral tablet (12 sources) HMG-CoA Reductase Inhibitor Start: 02-04-2024 take 1 tablet by mouth once daily atorvastatin (Lipitor) 40 MG tablet Indications: Essential (primary) hypertension , Heart disease Take 1 tablet (40 mg) by mouth Daily 100 tablet 3 04/04/2024 Active benzonatate 100 mg oral capsule (3 sources) Non-narcotic Antitussive Start: 06-23-2024 End: 07-13-2024 take 1 capsule by mouth three times daily as needed for cough benzonatate (Tessalon Perles) 100 MG capsule Indications: Acute bronchitis, unspecified organism Take 1 capsule (100 mg) by mouth 3 (three) times a day as needed for cough for up to 20 days Do not crush or chew. 30 capsule 1 06/23/2024 07/13/2024 Active busPIRone hydrochloride 10 mg oral tablet (8 sources) Start: 09-22-2024 take 2 tablets by mouth in the morning busPIRone (Buspar) 10 MG tablet Indications: Generalized anxiety disorder with panic attacks Take 2 tablets (20 mg) by mouth in the morning and 2 tablets (20 mg) before bedtime. 120 tablet 5 09/22/2024 Active Start: 06-05-2024 End: 09-22-2024 take 2 tablets by mouth in the morning busPIRone (Buspar) 10 MG tablet Indications: Generalized anxiety disorder with panic attacks Take 2 tablets (20 mg) by mouth in the morning and 2 tablets (20 mg) before bedtime. 120 tablet 2 06/05/2024 09/22/2024 Discontinued Start: 05-21-2024 take 1 tablet by augustina th in the morning busPIRone (Buspar) 10 MG tablet Indications: Generalized anxiety disorder with panic attacks (CMS/HCC) Take 1 tablet (10 mg) by mouth in the morning and 1 tablet (10 mg) before bedtime. 60 tablet 2 05/21/2024 Active Start: 05-21-2024 take 1 tablet by augustina th in the morning busPIRone (Buspar) 10 MG tablet Indications: Generalized anxiety disorder with panic attacks (CMS/HCC) Take 1 tablet (10 mg) by mouth in the morning and 1 tablet (10 mg) before bedtime. 60 tablet 2 05/21/2024 Active cefuroxime 500 mg oral tablet (2 [...] 75 mg by mouth Daily 02/04/2024 Active 1 ml denosumab 60 mg/ml prefilled syringe (10 sources) RANK Ligand Inhibitor Start: 06-23-2024 denosumab (Prolia) 60 MG/ML solution prefilled syringe Indications: Age-related osteoporosis without current pathological fracture ADMINISTER 60MG(1 INJECTION) UNDER THE SKIN ONCE EVERY 6 MONTHS 1 mL 06/23/2024 Active inject 1 mL by subcutaneous inje ction once denosumab (PROLIA) 60 mg/mL syringe injection Inject 1 mL (60 mg total) under the skin once. Active dextran 70 1 mg/ml / hypromellose 3 mg/ml ophthalmic solution (7 sources) Plasma Volume Business Development Executive dextran 70-hypromell ose (artificial tears) 0.1-0.3 % ophthalmic solution Administer 2 drops into both eyes 3 (three) times a day as needed for dry eyes Active 24 hr dilTIAZem hydrochloride 120 mg extended release oral capsule (7 sources) Calcium Channel Radha Start: 05-13-19 End: 05-13-19 26 take 1 capsule by mouth once daily, then take 1 capsule by mouth every twenty-four hours dilTIAZem CD (Cardizem CD) 120 MG 24 hr capsule Take 120 mg by mouth Daily 05/12/2024 05/12/2025 Active ferrous sulfate (7 sources) Ferrous Sulfate (IRON PO) Active FLUoxetine 20 mg oral capsule (20 sources) Serotonin Reuptake Inhibitor Start: 02-19-19 take 1 capsule by mouth once daily FLUoxetine (PROzac) 20 mg capsule Take 1 capsule every day by oral route for 90 days. 02/19/2023 Active furosemide 20 mg oral tablet (18 sources) Loop Diuretic Start: 05-13-19 End: 05-13-19 take 1 tablet by mouth every other day furosemide (Lasix) 20 MG tablet Take 20 mg by mouth every other day 05/12/2024 05/12/2025 Active End: 05-08-2024 furosemide (LASIX) 20 mg tab let 05/08/2024 Discontinued (Discontinued by another clinician) hydrOXYzine hydrochloride 10 mg oral tablet (1 source) Antihistamine Start: 07-08-2024 take 1 tablet by mouth every eight hours hydrOXYzine HCl (Atarax) 10 MG tablet Indications: Dermatitis Take 1 tablet (10 mg) by mouth every 8 (eight) hours if needed for itching or allergies for up to 7 days 21 tablet 07/08/2024 Active levoFLOXacin 500 mg oral tablet (3 sources) Quinolone Antimicrobial Start: 07-29-2024 End: 08-05-2024 take 1 tablet by mouth once daily levoFLOXacin (Levaquin) 500 MG tablet Indications: Acute bronchitis, unspecified organism Take 1 tablet (500 mg) by mouth Daily for 7 days 7 tablet 07/29/2024 08/05/2024 Active Start: 06-23-2024 End: 06-30-2024 take 1 tablet by mouth once daily levoFLOXacin (Levaquin) 500 MG tablet Indications: Acute bronchitis, unspecified organism Take 1 tablet (500 mg) by mouth Daily for 7 days 7 tablet 06/23/2024 06/30/2024 Active metoprolol tartrate 25 mg oral tablet (20 sources) beta-Adrenergic Radha Start: 04-04-2024 End: 05-21-2024 take 1 tablet by mouth once metoprolol tartrate (Lopressor) 25 MG tablet Indications: Essential (primary) hypertension (CMS/HCC) Take 1 tablet (25 mg) by mouth 1 (one) time for 1 dose 50 tablet 3 04/04/2024 05/21/2024 Discontinued Start: 08-30-2023 End: 05-08-2024 take 0.5 tablet by mouth once daily metoprolol tartrate (LOPRESSOR) 25 mg tablet Take 0.5 tablets every day by oral route for 90 days. 08/30/2023 05/08/2024 Discontinued (Formulary change) take 0.5 tablet by m outh every twenty-four hours metoprolol succinate XL (TOPROL XL) 25 mg 24 hr tablet Take 0.5 tablets (12.5 mg total) by mouth. Active take 1 tablet by augustina th every twenty-four hours in the morning metoprolol succinate XL (Toprol-XL) 25 MG 24 hr tablet Take 12.5 mg by mouth in the morning and 12.5 mg before bedtime. Do not crush or chew.. Active rd-sp-hf-mzkp-nzmnx-P-herb 2 93 (ALIVE [employer] [place]) 18 mg iron- 240 mcg-120 mcg tablet (2 sources) ai-bt-lh-iron-fo lic-K-herb 293 (ALIVE [employer]) 18 mg iron- 240 mcg-120 mcg tablet Active naproxen sodium 220 mg oral tablet (7 sources) Nonsteroidal Anti-inflammato ry Drug take 1 tablet by mouth twice daily as needed for pain naproxen sodium (Aleve) 220 MG tablet Take 220 mg by mouth 2 (two) times a day as needed for mild pain, fever or headaches Active Completed/Discontinued Medications Medication Drug Class(es) Dates Sig (Normalized) Sig (Original) acetaminophen 325 mg / HYDROcodone bitartrate 5 mg oral tablet (1 source) Opioid Agonist End: 05-08-2024 HYDROcodone-acetamin ophen (NORCO) 5-325 mg per tablet Take 1 tablet every 6-8 hours by oral route as needed for 1 day. 05/08/2024 Discontinued (Discontinued by another clinician) acetaminophen 325 mg / oxyCODONE hydrochloride 5 mg oral tablet (1 source) Opioid Agonist End: 05-08-2024 oxyCODONE-acetaminop hen (PERCOCET) 5-325 mg per tablet 05/08/2024 Discontinued (Discontinued by another clinician) lisinopril 10 mg oral tablet (11 sources) Angiotensin Converting Enzyme Inhibitor Start: 08-30-2023 End: 05-08-2024 take 1 tablet by mouth once daily lisinopriL (PRINIVIL,ZESTRIL) 10 mg tablet Take 1 tablet every day by oral route for 30 days. 08/30/2023 05/08/2024 Discontinued (Discontinued by another clinician) omeprazole 20 mg delayed release oral capsule (4 sources) Proton Pump Inhibitor End: 05-08-2024 omeprazole (PriLOSEC) 20 mg capsule 05/08/2024 Discontinued (Discontinued by another clinician) 28 actuat teriparatide 0.02 mg/actuat pen injector (6 sources) Parathyroid Hormone Analog Start: 01-14-2024 End: 05-08-2024 inject 0.08 mL by subcutaneous injection once daily teriparatide (FORTEO) 20 mcg/dose (600mcg/2.4mL) injection INJECT 0.08 ml SUBCUTANEOUSLY (UNDER THE SKIN) DAILY 01/14/2024 05/08/2024 Discontinued (Discontinued by another clinician) Start: 01-09-2024 inject 0.08 mL by eubanks [...] skin Daily 2.24 mL 2 01/09/2024 Active traMADol hydrochloride 50 mg oral tablet (1 source) Opioid Agonist End: 05-08-2024 traMADoL (ULTRAM) 50 mg tablet Take by oral route as needed for 7 days. 05/08/2024 Discontinued (Discontinued by another clinician) Problems Active Problems Problem Classification Problem Date Documented Date Episodic/Chronic Acute bronchitis (8 sources) Acute bronchitis; Translations: [Acute bronchitis, unspecified] Onset: 06-23-2024 06-23-2024 Episodic Acute cerebrovascular disease (17 sources) 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; Translations: [Cerebral infarction due to unspecified occlusion or stenosis of unspecified cerebral artery] Onset: 02-12-2024 02-11-2024 Chronic Acute cerebrovascular disease (1 source) Acute cerebrovascular disease Onset: 02-04-2024 Administrative/social admission (4 sources) Patient encounter status; Translations: [Other specified counseling] 10-04-2023 Episodic Anxiety disorders (10 sources) Generalized anxiety disorder; Translations: [Generalized anxiety disorder] Onset: 05-21-2024 05-21-2024 Chronic Cancer of colon (20 sources) Malignant tumor of sigmoid colon; Translations: [Malignant neoplasm of sigmoid colon] Onset: 04-18-2016 12-07-2022 Chronic Cardiac dysrhythmias (11 sources) Longstanding persistent atrial fibrillation; Translations: [Longstanding persistent atrial fibrillation] Onset: 02-18-2024 05-21-2024 Chronic Chronic kidney disease (4 sources) Chronic kidney disease stage 3A ; Translations: [Chronic kidney disease, stage 3a (HCC) (CMS/HCC)] 10-04-2023 Chronic Chronic obstructive pulmonary disease and bronchiectasis (20 sources) Chronic bronchitis; Translations: [Unspecified chronic bronchitis] Onset: 10-30-2011 12-07-2022 Chronic Disorders of lipid metabolism (20 sources) Pure hypercholesterolemia; Translations: [Pure hypercholesterolemia, unspecified] Onset: 10-30-2011 Resolved: 10-04-2023 12-07-2022 Chronic Esophageal disorders (20 sources) Gastroesophageal reflux disease without esophagitis; Translations: [Gastro-esophageal reflux disease without esophagitis] Onset: 02-06-2018 12-07-2022 Chronic Essential hypertension (20 sources) Essential (primary) hypertension; Translations: [Benign essential hypertension] Onset: 10-30-2011 12-07-2022 Chronic Heart valve disorders (20 sources) Aortic valve disorder; 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, unspecified] Onset: 11-01-2011 12-07-2022 Chronic Late effects of cerebrovascular disease (9 sources) Memory impairment; Translations: [Memory deficit following cerebral infarction] Onset: 05-21-2024 05-21-2024 Chronic Menopausal disorders (2 sources) Decreased estrogen level; Translations: [Other primary ovarian failure] 10-04-2023 Chronic Mood disorders (20 sources) Depressive disorder; Translations: [Depressive disorder] Onset: [...] 02-12-2024 Chronic Other and ill-defined heart disease (20 sources) Cardiomegaly; Translations: [Cardiomegaly] Onset: 04-18-2016 12-07-2022 Chronic Other and ill-defined heart disease (20 sources) Diastolic dysfunction; Translations: [Other ill-defined heart diseases] Onset: 09-18-2022 12-07-2022 Chronic Other and ill-defined heart disease (20 sources) Heart disease; Translations: [Heart disease, unspecified] Onset: 01-22-2018 12-07-2022 Chronic Other and ill-defined heart disease (20 sources) Left ventricular diastolic dysfunction ; Translations: [Other ill-defined heart diseases] Onset: 12-07-2022 12-07-2022 Chronic Pathological fracture (4 sources) Pathological fracture due to osteoporosis; Translations: [Age-related osteoporosis with current pathological fracture, unspecified site, subsequent encounter for fracture with nonunion] 01-09-2024 Episodic Residual codes; unclassified (2 sources) Memory impairment; Translations: [Other amnesia] 05-09-2024 Episodic Residual codes; unclassified (3 sources) Other amnesia; Translations: [Other amnesia] Onset: 05-08-2024 Episodic Spondylosis; intervertebral disc disorders; other back problems (20 sources) Degeneration of lumbar intervertebral disc; Translations: [Degeneration of intervertebral disc of lumbar region] Onset: 01-22-2018 12-07-2022 Chronic Unclassified (3 sources) COUGH, UNSPECIFIED; Translations: [COUGH, UNSPECIFIED] Onset: 11-08-2021 Unclassified (2 sources) Longstanding persistent atrial fibrillation; Translations: [Longstanding persistent atrial fibrillation] Onset: 02-23-2024 Unclassified (2 sources) Hospital Follow-up; Translations: [Hospital Follow-up] Onset: 02-18-2024 Unclassified (2 sources) Valve Disorder; Translations: [Valve Disorder] Onset: 02-18-2024 Viral infection (1 source) COVID-19; Translations: [COVID-19] Onset: 11-08-2021 Past or Other Problems Problem Classification Problem Date Documented Date Episodic/Chronic Cardiac dysrhythmias (2 sources) Palpitations; Translations: [Palpitations] Onset: 02-18-2024 Episodic Fracture of upper limb (7 sources) Closed fracture of distal end of ulna; Translations: [Unspecified fracture of lower end of unspecified ulna, initial encounter for closed fracture] Onset: 05-21-2024 05-21-2024 Episodic Other acquired deformities (20 sources) Acquired spondylolisthesis; Translations: [Spondylolisthesis, site unspecified] Onset: 05-30-2016 12-07-2022 Episodic Other acquired deformities (18 sources) Lumbar spondylolisthesis; Translations: [Spondylolisthesis, lumbar region] Onset: 12-07-2022 12-07-2022 Episodic Other aftercare (1 source) Other assisted (current) drug therapy; Translations: [OTH IT SOFTWARE DEVELOPER CURRENT DRUG THERAPY] Onset: 11-08-2021 Episodic Other circulatory disease (9 sources) History of cerebrovascular accident; Translations: [Personal history of transient ischemic attack (TIA), and cerebral infarction without residual deficits] Onset: 05-21-2024 05-21-2024 Episodic Other circulatory disease (8 sources) Orthostatic hypotension; Translations: [Orthostatic hypotension] Onset: 05-19-2024 05-21-2024 Episodic Other circulatory disease (1 source) Orthostatic hypotension; Translations: [Orthostatic hypotension] Onset: 05-19-2024 Episodic Other connective tissue disease (11 sources) Recurrent falls ; Translations: [Repeated falls] Onset: 02-23-2024 02-11-2024 Episodic Other nervous system disorders (20 sources) Ataxic gait; Translations: [Ataxic gait] Onset: 07-02-2023 07-02-2023 Episodic Other skin disorders (20 sources) Inflamed seborrheic keratosis; Translations: [Inflamed seborrheic keratosis] Onset: 04-18-2016 12-07-2022 Episodic Other upper respiratory infections (1 source) Acute upper respiratory infection, unspecified; Translations: [ACUTE UP RESPIRATORY INFECTION UNS] Onset: 11-08-2021 Episodic Residual codes; unclassified (1 source) Pain, unspecified; Translations: [Pain, unspecified] Onset: 02-07-2024 Episodic Residual codes; unclassified (9 sources) Bilateral lower limb edema; Translations: [Localized edema] Onset: 05-19-2024 05-21-2024 Episodic Residual codes; unclassified (2 sources) Localized edema; Translations: [Localized edema] Onset: 05-12-2024 Episodic Unclassified (1 source) COUGH, UNSPECIFIED; Translations: [COUGH, UNSPECIFIED] Onset: 11-07-2021 Varicose veins of lower extremity (20 sources) Venous varices; Translations: [Asymptomatic varicose veins of unspecified lower extremity] Onset: 04-18-2016 12-07-2022 Episodic Results Test Name Value Interpretation Reference Range Facility Office Visiton 08-07-2024 Follow-up visit [id number] Gloria Roque 1935 F Date Provider Department Center 08/07/2024 RITCHIE RIZZO Family History Problem Relation Age of Onset Cancer Father Colon cancer Sister Heart attack Brother Family Status - Relation Status Age at Father Sister Brother Level of Service:79020 [place] OFFICE/OUTPATIENT ESTABLISHED MOD MDM 30 MIN Reason for Visit and Comments: Stroke [872053] Atrial Fibrillation [80] - Denies palpitations and bleeding on Eliquis. Valve Disorder [3372] Hypertension [946179] - Metoprolol was held by [facility] staff this morning due to BP of 102/60. Edema [[id number]] - Improving. She's down 5# since visit in April 2024. [facility] Office Visiton 05-12-2024 Follow-up visit [id number] Gloria Roque 1935 F Date Provider Department Center 05/12/2024 RITCHIE RIZZO Family History Problem Relation Age of Onset Cancer Father Colon cancer Sister Heart attack Brother Family Status - Relation Status Age at Father Sister Brother Level of Service:70024 AR OFFICE/OUTPATIENT ESTABLISHED MOD MDM 30 MIN Reason for Visit and Comments: Hypertension [214150] Hyperlipidemia [182] Atrial Fibrillation [80] Palpitations [094888] [facility] 36on 05-02-2024 35 Son called and left message stating his mother fell at the snf. She has been weak s/p Toprol increase. He would like it cut back. I then [facility] with [facility] and she said patient's BP has been in the 130's-140's systolic. HR's in the 70's. Dr. Tamayo is on vacation starting today. I advised Kee Lr and son Tyree that they could cut metoprolol back in 12.5mg bid until her apt on 05/12/2024. They will continue to track BP and HR and send list with her to her apt on 05/12. I also sent a message to [place] to ask if her Holter monitor could be extended. Waiting to hear back. [facility] Telephoneon 04-29-2024 Telephone [id number] Gloria Roque 1935 F Date Provider Department Center 04/29/2024 MIKE MONTEJO Family History Problem Relation Age of Onset Cancer Father Colon cancer Sister Heart attack Brother Family Status - Relation Status Age at Father Sister Brother [facility] 29on 02-18-2024 28 Addended by: RITCHIE TAMAYO on: 02/23/2024 07:55 PM Modules accepted: Orders [facility] Office Visiton 02-18-2024 Follow-up visit [id number] Gloria Roque 1935 F Date Provider Department Center 02/18/2024 [id number] TAMAYO Family History Problem Relation Age of Onset Cancer Father Colon cancer Sister Heart attack Brother Family Status - Relation Status Age at Father Sister Brother Level of Service:69273 AR OFFICE/OUTPATIENT ESTABLISHED MOD MDM 30 MIN Reason for Visit and Comments: Hospital Follow-up [832] - Discharged from [facility] a few weeks ago for CVA. Discharged on aspirin and Plavix x21 days. Hyperlipidemia [182] Hypertension [920378] Valve Disorder [3372] Atrial Fibrillation [80] - She presented to [facility] ED again on 02/13/2024 for fall and found to be in afib. She was not started on Eliquis due to very frequent falls. She denies lightheadedness/sync ope. Palpitations [335074] - Does feel palpitations but not more than usual for her. [facility] Urine Cultureon 02-13-2024 Bacteria identified Cx Nom (U) ORGANISM: Pseudomonas aeruginosa (O:PSEAER) [place] Count 10,000 Aerobic MARIUM Charge ([id number]) ----- [...] RESISTANT TO ALL B-LACTAM DRUGS. PERFORMED BY: [place] [address] PATHOLOGIST PRE ASSEMBLY WIRER MARTITA FLORENTINO M.D. Normal [facility] Comment on above: Performed By: #### C UU #### [address] Urine Cultureon 02-04-2024 Bacteria identified Cx Nom (U) <9,000 colonies/ml mixed bacterial skin contaminants 2 Days PERFORMED BY: [place] [address] PATHOLOGIST PRE ASSEMBLY WIRER MARTITA FLORENTINO M.D. Normal [facility] Comment on above: Performed By: #### C UU #### [facility] [address] Urine cultureOrdered By: Elaine Pineda on 02-04-2024 Bacteria identified Cx Nom (U) Urine culture [facility] VAS US CAROTID ARTERY DUPLE X BILATERALon 07-13-2023 VAS US CAROTID ARTERY DUPLEX BILATERAL FINDINGS: Right [...] Garland MD Normal Not Available [facility]14 SARS-CoV-2 (COVID-19) RNA REYNALDO+probe Ql (Unsp spec) Detected Critically abnormal NOT DETECTED [facility] Comment on above: Result Comment: This test is not yet approved or cleared by the [place] FDA. When there are no FDA-approved or cleared tests available, and other criteria are met, FDA can make tests available under an emergency access mechanism called an Emergency Use Authorization (EUA). The EUA for this test is supported by the Processing Inspector of Health and Human Service's declaration that [...] used). Performed By: #### C VDTB #### [facility] [address] [place], [place] [address] Dr. Leslie Tejeda Complete Blood Counton 03-01 Erythrocyte distribution width (RBC) [Ratio] 12.4 % Normal 11.0-15.0 [facility] Comment on above: Performed By: #### C BC LIPD, CMP #### [facility] [address] [place], [place] [id number] Hematocrit (Bld) [Volume fraction] 38.4 % Normal 35.0-47.0 [facility]er Comment on above: Performed By: #### C BC LIPD, CMP #### [facility] [address] [facility] [place] [id number] Hemoglobin (Bld) [Mass/Vol] 12.7 g/dL Normal 11.6-15.5 [facility] Comment on above: Performed By: #### C HERNAN LIPD, CMP #### [facility] [address] [facility] [place] [id number] MCH (RBC) [Entitic mass] 31.7 pg Normal 27.0-33.0 [facility] Comment on above: Performed By: #### C HERNAN LIPD, CMP #### [facility] [address] [facility] [place] [id number] MCHC (RBC) [Mass/Vol] 33.1 g/dL Normal 32.0-36.0 [facility] Comment on above: Performed By: #### C BC LIPD, CMP #### [facility] [address] [facility] [place] [id number] MCV (RBC) [Entitic vol] 96 fL Normal 80-100 [facility] Comment on above: Performed By: #### C BC, LIPD, CMP #### [facility] [address] [facility] [place] [id number] Platelet mean volume (Bld) [Entitic vol] 9.70 fL Normal 7.50-12.50 [facility] Comment on above: Performed By: #### C BC, LIPD, CMP #### [facility] [address] [facility] [place] [id number] Platelets (Bld) [#/Vol] 240 10*3/uL Normal 140-400 [facility] Comment on above: Performed By: #### C BC, LIPD, CMP #### [facility] [address] [place], [place] [id number] RBC (Bld) [#/Vol] 4.01 10*6/uL Normal 3.90-5.20 [facility] Comment on above: Performed By: #### C BC LIPD, CMP #### [facility] [address] [place], [place] [id number] RDW-SD 43.9 fL Normal 37.0-50.0 [facility] Comment on above: Performed By: #### C BC LIPD, CMP #### [facility] [address] [place], [place] [id number] WBC (Bld) [#/Vol] 5.1 10*3/uL Normal 3.8-11.0 [facility] Comment on above: Performed By: #### C BC LIPD, CMP #### [facility] [address] [place], [place] [id number] [facility] 03-01-2021 Albumin [Mass/Vol] 4.1 g/dL Normal 3.6-5.1 [facility] Comment on above: Performed By: #### C BC LIPD, CMP #### [facility] [address] [place], [place] [id number] Albumin/Globulin [Mass ratio] 1.7 {ratio} Normal 1.0-2.5 [facility] Comment on above: Performed By: #### C BC, LIPD, CMP #### [facility] [address] [place], [place] [id number] ALP [Catalytic activity/Vol] 58 U/L Normal 35-119 [facility] Comment on above: Performed By: #### C BC, LIPD, CMP #### [facility] [address] [place], [place] [id number] ALT [Catalytic activity/Vol] 9 U/L Normal 6-33 [facility] Comment on above: Result Comment: 01/12 Female reference range changed. Performed By: #### C BC, LIPD, CMP #### [facility] [address] [place], [place] [id number] Anion gap [Moles/Vol] 15 mmol/L Normal 12-20 [facility] Comment on above: Result Comment: Effmirna ctive 02/17/2019 reference range changed. Performed By: #### C ERNIE BECERRA, CMP #### [facility] [address] [facility] [address] [facility] [place] [id number] AST [Catalytic activity/Vol] 14 U/L Normal 9-34 [facility] Comment on above: Performed By: #### C HERNAN LIPD, CMP #### [facility] [address] [facility] [place] [id number] Bilirubin [Mass/Vol] 0.42 mg/dL Normal 0.30-1.20 [facility] Comment on above: Performed By: #### C ERNIE BECERRA, CMP #### [facility] [address] [facility] [place] [id number] BUN/CREA 23 Ratio High 6-22 [facility] Comment on above: Performed By: #### C HERNAN LIPShraddha, CMP #### [facility] [address] [facility] [place] [id number] Calcium [Mass/Vol] 9.4 mg/dL Normal 8.6-10.2 [facility] Comment on above: Performed By: #### C HERNAN LIPD, CMP #### [facility] [address] [facility] [place] [id number] Chloride [Moles/Vol] 102 mmol/L Normal 98-107 [facility] Comment on above: Performed By: #### C HERNAN LIPD, CMP #### [facility] [address] [facility] [place] [id number] CO2 [Moles/Vol] 25 mmol/L Normal 20-31 [facility] Comment on above: Performed By: #### C HERNAN LIPD, CMP #### [facility] [address] [facility] [place] [id number] Creatinine [Mass/Vol] 0.9 mg/dL Normal 0.6-1.4 [facility] Comment on above: Performed By: #### C HERNAN LIPD, CMP #### [facility] [address] [place], [place] [id number] eGFRAA 71 mL/min/1.73m2 Normal >60 [facility] [employer] Comment on above: Performed By: #### ERNIE GRIGSBY, CMP #### [facility] [address] [place], [place] [id number] eGFRNAA 59 mL/min/1.73m2 Low >60 [facility] Comment on above: Performed By: #### ERNIE GRIGSBY, CMP #### [facility] [address] [place], [place] [id number] Globulin (S) [Mass/Vol] 2.4 g/dL Normal 1.9-3.7 [facility] Comment on above: Performed By: #### ERNIE GRIGSBY, CMP #### [facility] [address] [place], [place] [id number] Glucose [Mass/Vol] 96 mg/dL Normal 65-99 [facility] Comment on above: Result Comment: For FASTING Glucose --- ADA reference ranges: Normal 65-99 mg/dl Prediabetes 100-125 Diabetes >/= 126 Performed By: #### ERNIE GRIGSBY, CMP #### [facility] [address] [place], [place] [id number] Potassium [Moles/Vol] 4.3 mmol/L Normal 3.5-5.5 [facility] Comment on above: Performed By: #### ERNIE GRIGSBY, CMP #### [facility] [address] [place], [place] [id number] Protein [Mass/Vol] 6.5 g/dL Normal 6.1-8.1 [facility] Comment on above: Performed By: #### Renan BCEERRA LIPShraddha, CMP #### [facility] [address] [place], [place] [id number] Sodium [Moles/Vol] 138 mmol/L Normal 135-146 [facility] Comment on above: Performed By: #### Renan BECERRA LIPD, CMP #### [facility] [address] [place], [place] [id number] Urea nitrogen [Mass/Vol] 21 mg/dL Normal 7-25 [facility] Comment on above: Performed By: #### ERNIE GRIGSBY, CMP #### [facility] [address] [place], [place] [id number] Lipid Panelon 03-01-2021 Cholesterol [Mass/Vol] 242 mg/dL High 125-200 [facility] Comment on above: Result Comment: Low risk < 200mg/dL Borderline risk 201-239 mg/dl High risk > or equal to 240 Performed By: #### C BC, LIPD, CMP #### [facility] [address] [place], [place] [id number] Cholesterol in HDL [Mass/Vol] 64 mg/dL Normal >40 [facility] Comment on above: Result Comment: High Cardiovascular Risk HDL <40 mg/dL Low Cardiovascular Risk HDL > or equal to 60 mg/dl Performed By: #### C BC, LIPD, CMP #### [facility] [address] [place], [place] [id number] Cholesterol in LDL [Mass/Vol] 166 mg/dL Normal [facility] Comment on above: Result Comment: LDL ATP III CLASSIFICATION LDL less than 100 mg/dl Optimal LDL 100-129 mg/dl Near or above optimal LDL 130-159 Borderline high LDL 160-189 High LDL greater than 189 mg/dl Very High Performed By: #### C BC, LIPD, CMP #### [facility] [address] [place], [place] [id number] Cholesterol in VLDL [Mass/Vol] 12 mg/dL Normal [facility] Comment on above: Performed By: #### C BC, LIPD, CMP #### [facility] [address] [place], [place] [id number] Cholesterol.total/C holesterol in HDL [Mass ratio] 4 {ratio} Normal [facility] Comment on above: Performed By: #### C BC, LIPD, CMP #### [facility] [address] [place], [place] [id number] Triglyceride [Mass/Vol] 60 mg/dL Normal 30-150 [facility] Comment on above: Result Comment: TRIG ATPIII CLASSIFICATIONS TRIG less than 150 mg/dl Normal TRIG 150-199 mg/dl Borderline High TRIG 200-500 mg/dl High TRIG greather than 500 mg/dl Very High Performed By: #### C BC, LIPD, CMP #### [facility] [address] [place], [place] [id number] TSHon 03-01-2021 TSH Qn 3.13 m[IU]/L Normal 0.40-4.50 [facility] Comment on above: Order Comment: [facility] performed at: QPT, [facility], [address], [address], [place], [address], Dragger: Joao Graham MD [facility] Collection Date/Time: [facility] Results Received Date/Time: [facility] Reported Date/Time: Performed By: #### T #### [facility] Default [address] [place] [address] Vital Signs Date Time Vital Sign Value Performing Clinician Facility 06-23-2024 16:130400 Body height 163.8 cm Alpesh Trinh MD Work Phone: [facility] 06-23-2024 16:13-0400 Body mass index (BMI) [Ratio] 22.31 kg/m2 Alpesh Trinh MD Work Phone: [facility] 06-23-2024 16:13-0400 Body weight 59.88 kg Alpesh Trinh MD Work Phone: [facility] 06-23-2024 16:13-0400 Diastolic blood pressure 68 mm[Hg] Alpesh Trinh MD Work Phone: [facility] 06-23-2024 16:13-0400 Heart rate 66 /min Alpesh Trinh MD Work Phone: [facility] 06-23-2024 16:13-0400 SaO2% (BldA) [Mass fraction] 97 % Alpesh Trinh MD Work Phone: [facility] 06-23-2024 16:13-0400 Systolic blood pressure 126 mm[Hg] Alpesh Trinh MD Work Phone: [facility] 05-21-2024 10:02040 Body height 163.8 cm Chelly AUGUSTIN Work Phone: [facility] 05-21-2024 10:02-0400 Body mass index (BMI) [Ratio] 23.93 kg/m2 Chelly Hemmer PA Work Phone: [facility] 05-21-2024 10:02-0400 Body weight 64.23 kg Chelly Hemmer PA Work Phone: [facility] 05-21-2024 10:02-0400 Diastolic blood pressure 76 mm[Hg] Chelly Hemmer PA Work Phone: [facility] 05-21-2024 10:02-0400 Heart rate 74 /min Chelly Hemmer PA Work Phone: [facility] 05-21-2024 10:02-0400 Respiratory rate 16 /min Chelly Hemmer PA Work Phone: [facility] 05-21-2024 10:02-0400 SaO2% (BldA) [Mass fraction] 96 % Chelly Hemmer PA Work Phone: [facility] 05-21-2024 10:02-0400 Systolic blood pressure 122 mm[Hg] Chelly Hemmer PA Work Phone: [facility] 05-08-2024 10:03-0400 Body weight 64.86 kg Bella Mitchell MD Work Phone: [facility] 05-08-2024 10:03-0400 Diastolic blood pressure 73 mm[Hg] Bella Mitchell MD Work Phone: [facility] 05-08-2024 10:03-0400 Heart rate 75 /min Bella Mitchell MD Work Phone: [facility] 05-08-2024 10:03-0400 Systolic blood pressure 141 mm[Hg] Bella Mitchell MD Work Phone: [facility] 02-11-2024 09:30-0500 Body height 163.8 cm Alpesh Trinh MD Work Phone: [facility] 02-11-2024 09:30-0500 Body mass index (BMI) [Ratio] 24.17 kg/m2 Alpesh Trinh MD Work Phone: [facility] 02-11-2024 09:30-0500 Body weight 64.86 kg Alpesh Trinh MD Work Phone: [facility] 02-11-2024 09:30-0500 Diastolic blood pressure 64 mm[Hg] Alpesh Trinh MD Work Phone: [facility] 02-11-2024 09:30-0500 Heart rate 58 /min Alpesh Trinh MD Work Phone: [facility] 02-11-2024 09:30-0500 SaO2% (BldA) [Mass fraction] 96 % Alpesh Trinh MD Work Phone: [facility] 02-11-2024 09:30-0500 Systolic blood pressure 114 mm[Hg] Alpesh Trinh MD Work Phone: [facility] 01-09-2024 09:02-0500 Body height 163.8 cm Alpesh Trinh MD Work Phone: [facility] 01-09-2024 09:02-0500 Body mass index (BMI) [Ratio] 24 kg/m2 Alpesh Trinh MD Work Phone: [facility] 01-09-2024 09:02-0500 Body weight 64.41 kg Alpesh Trinh MD Work Phone: [facility] 01-09-2024 09:02-0500 Diastolic blood pressure 70 mm[Hg] Alpesh Trinh MD Work Phone: [facility] 01-09-2024 09:02-0500 Heart rate 68 /min Alpesh Trinh MD Work Phone: [facility] 01-09-2024 09:02-0500 SaO2% (BldA) [Mass fraction] 96 % Alpesh Trinh MD Work Phone: [facility] 01-09-2024 09:02-0500 Systolic blood pressure 130 mm[Hg] Alpesh Trinh MD Work Phone: [facility] 10-04-2023 12:59-0400 Body height 163.8 cm Alpesh Trinh MD Work Phone: [facility] 10-04-2023 12:59-0400 Diastolic blood pressure 74 mm[Hg] Alpesh Trinh MD Work Phone: [facility] 10-04-2023 12:59-0400 Heart rate 74 /min Alpesh Trinh MD Work Phone: [facility] 10-04-2023 12:59-0400 SaO2% (BldA) [Mass fraction] 96 % Alpesh Trinh MD Work Phone: [facility] 10-04-2023 12:59-0400 Systolic blood pressure 130 mm[Hg] Alpesh Trinh MD Work Phone: [facility] Healthcare Encounters Encounter Date Encounter Type Care Provider Facility Start: 10-09-2024 End: 10-09-2024 Telephone encounter Shalini Liz RN [facility] of [facility] Start: 09-20-2024 End: 09-22-2024 Refill [facility]UST[facility] Comment on above: Generalized anxiety disorder with panic attacks Start: 09-18-2024 End: 09-18-2024 [facility] Start: 08-07-2024 End: 08-07-[address] [facility] Start: 07-28-2024 End: 08-04-2024 Telephone encounter Alpesh Trinh MD Work Phone: [facility] Start: 07-01-2024 End: 07-01-2024 Telephone encounter Chelly AUGUSTIN Work Phone: [facility] Start: 06-23-2024 End: 06-23-2024 Assay of hemosiderin, quant Alpesh Trinh MD Work Phone: [facility] Healthcare Work Phone: Start: 06-23-2024 End: 06-23-2024 Patient encounter procedure Alpesh Trinh MD Work Phone: [facility] Comment on above: Routine general medi zach examination at health care facility (Primary Dx); ACP (advance care planning); Cerebrovascular accident (CVA) due to embolism of cerebral artery (CMS/HCC); Left ventricular diastolic dysfunction, NYHA class 2; Longstanding persistent atrial fibrillation (CMS/HCC); Chronic kidney disease, stage 3a (HCC) (CMS/HCC); Malignant neoplasm of sigmoid colon (CMS/HCC); Acute bronchitis, unspecified organism Start: 06-23-2024 End: 06-23-2024 ambulatory ALPESH Quezada JOHANN Not Available Start: 05-21-2024 End: 05-21-2024 Bamboo flowsheet Chelly AUGUSTIN Work Phone: [facility] Start: 05-21-2024 End: 05-21-2024 [email or web address] Chelly Pereira PA Work Phone: [facility] Start: 05-21-2024 End: 05-21-2024 Office outpatient visit 25 minutes Chelly AUGUSTIN Work Phone: [facility] Comment on above: Benign essential hyp ertension (CMS/HCC) (Primary Dx); Edema of both legs; Generalized anxiety disorder with panic attacks (CMS/HCC); History of CVA (cerebrovascular accident); 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 Start: 05-08-2024 End: 05-08-2024 Office outpatient visit 25 minutes Bella Mitchell MD Work Phone: [facility], [facility] Department of [facility] Comment on above: Acute right MCA stro ke (CMS-HCC) (Primary Dx); Memory deficit Start: 05-08-2024 End: 05-08-2024 ambulatory BELLA MITCHELL [facility] Start: 02-20-2024 End: 02-20-2024 Telephone encounter Shalini Liz RN [facility] Start: 02-18-2024 End: 02-18-[address] [facility] Start: 02-13-2024 End: 02-13-2024 ambulatory Adilson Olmos Facility:[facility] Start: 02-13-2024 End: 02-13-2024 Departed Referred Evelia Pineda MD Work Phone: [facility] Start: 02-12-2024 End: 02-12-2024 Orders Only [...] ALPESH TRINH Not Available Start: 02-07-2024 ambulatory [facility] Start: 02-04-2024 End: 02-04-2024 ambulatory Evelia Pineda Facility:[facility] Start: 02-04-2024 End: 02-04-2024 Departed Referred Evelia Pineda MD Work Phone: [facility] Start: 02-04-2024 End: 02-18-2024 Telephone encounter Bella Mitchell MD Work Phone: [facility] Comment on above: Hospital Follow-up Start: 02-04-2024 End: 02-07-2024 Emergency department patient visit [facility] Start: 01-09-2024 End: 01-09-2024 [...] End: 11-07-[address] ALPESH TRINH Facility:[facility] Procedures Date Procedure Procedure Detail Performing Clinician Start: 02-04-2024 Urine culture Evelia Cruz MD Work Phone: Plan of Treatment Date Care Activity Detail Author Start: 05-08-2025 Tobacco Screening Tobacco Screening [facility] Start: 10-13-2024 Influenza vaccination [facility] Start: 10-03-2024 Medicare Annual Wellness (AWV) Medicare Annual Wellness (AWV) [facility] Start: 06-23-2024 End: 06-23-2024 Patient encounter procedure 06/23/2024 4:30 PM EDT Office Visit [facility] [address] [facility] [address] [place] [address] Alpesh Trinh MD [address] [place] [address] [place] [address] [facility] Start: 05-21-2024 End: 05-21-2024 Patient encounter procedure 05/21/2024 10:00 AM EDT Office Visit [facility] [address] [place] [address] [place] [address] Chelly Pereira PA [address] [place] [address] [place] [address] Arrived [facility] Comment on above: Arrived Start: 04-10-2024 End: 04-10-2024 Patient encounter procedure 04/10/2024 11:30 AM EST Office Visit [facility] [address] [place] [phone] Paul Loera MD [address] [place] [address], [address] [address] [facility] Start: 02-13-2024 Urine culture [facility] Start: 02-13-2024 Bacteria identified in Urine by Culture Urine Culture [facility] Start: 02-12-2024 End: 02-11-2025 Wireless Telemetry (In Office) [facility] Work Phone: Comment on above: Expected: 02/12/2024, Expires: Start: 02-12-2024 End: 02-12-2024 Professional / ancillary services management 02/12/2024 12:15 PM EST Ancillary Procedure [facility] [address] [place] [id number] Cerebrovascular accident (CVA), unspecified mechanism (CMS-HCC); Other cerebrovascular vasospasm and vasoconstriction [facility] Comment on above: Cerebrovascular accident (CVA), unspecif ied mechanism (CMS-HCC); Other cerebrovascular vasospasm and vasoconstriction Start: 02-11-2024 End: 02-11-2024 Patient encounter procedure 02/11/2024 9:30 AM EST Office Visit [facility] [address] [facility] [address] [place] [address] Alpesh Trinh MD [address] [facility] [address] [place] [address] Arrived [facility] Comment on above: Arrived Start: 02-04-2024 End: 02-04-2024 Patient encounter procedure 02/04/2024 10:30 AM EST Office Visit [facility] [address] [facility] [address] [place] [address] Alpesh Trinh MD [address] [facility] [address] [place] [address] [facility] Start: 01-09-2024 End: 01-09-2024 Patient encounter procedure [facility] Comment on above: Arrived Start: 10-14-2023 COVID-19 Vaccine ( season) COVID-19 Vaccine ( season) [facility] Start: 10-14-2023 Influenza vaccination Influenza Vaccine (#1) [facility] Start: 10-04-2023 End: 10-03-2024 DXA Skeletal system Views for bone density DEXA bone density Imaging Routine Estrogen deficiency Expected: 10/04/2023 (Approximate), Expires: 10/03/2024 [facility] Work Phone: Comment on above: Expected: 10/04/2023 (Approximate), Expi res: 10/03/2024 Start: 10-04-2023 End: 10-04-2023 Patient encounter procedure 10/04/2023 1:00 PM EDT Office Visit [facility] [address] [place] [address] [place] [address] Alpesh Trinh MD [address] [place] [address] [place] [address] Arrived [facility] Comment on above: Arrived Start: 05-11-2023 Medicare Annual Wellness (AWV) Medicare Annual Wellness (AWV) [facility] Start: 04-09-2010 Administration of varicella zoster vaccine [facility] Start: 11-24-1999 Fall Risk Screening Fall Risk Screening [facility] Start: 1953 DTaP,Tdap and Td Vaccines (1 - Tdap) DTaP,Tdap and Td Vaccines (1 - Tdap) [facility] Start: 1946 Depression Screening Depression Screening [facility] Start: 1946 Tobacco Screening Tobacco Screening [facility] Immunizations Immunization Date Immunization Notes Care Provider Fa cili 12-07-2023 influenza, high dose seasonal, preservative-free Alpesh Trinh MD Work Phone: [facility] 12-07-2023 influenza virus vacc ine, unspecified formulation Alpesh Trinh MD Work Phone: [facility] 10-20-2022 Influenza, Seasonal, Quadrivalent, Adjuvanted Alpesh Trinh MD Work Phone: [facility] 10-20-2022 influenza virus vacc ine, unspecified formulation Alpesh Trinh MD Work Phone: [facility] 10-26-2021 Influenza, High-dose Seasonal, Quadrivalent, Preservative Free Alpesh Trinh MD Work Phone: [facility] 11-16-2020 Influenza, High-dose Seasonal, Quadrivalent, Preservative Free Alpesh Trinh MD Work Phone: [facility] 12-09-2019 Influenza, High-dose Seasonal, Quadrivalent, Preservative Free Alpesh Trinh MD Work Phone: [facility] 12-07-2018 influenza, high dose gabriele, preservative-free Alpesh Trinh MD Work Phone: [facility] 01-18-2018 pneumococcal conjuga te vaccine, 13 valent Alpesh Trinh MD Work Phone: [facility] 11-18-2017 Seasonal trivalent influenza vaccine, adjuvanted, preservative free Alpesh Trinh MD Work Phone: [facility] 11-22-2016 Seasonal trivalent influenza vaccine, adjuvanted, preservative free Alpesh Trinh MD Work Phone: [facility] 11-26-2015 influenza, high dose gabriele, preservative-free Alpesh Trinh MD Work Phone: [facility] 11-02-2014 pneumococcal polysaccharide vaccine, 23 valent Alpesh Trinh MD Work Phone: [facility] 11-02-2014 seasonal influenza, intradermal, preservative free Alpesh Trinh MD Work Phone: [facility] 11-16-2013 influenza, high dose seasonal, preservative-free Alpesh Trinh MD Work Phone: [facility] 11-12-2013 influenza, seasonal, injectable Alpesh Trinh MD Work Phone: [facility] 12-04-2012 influenza, seasonal, injectable Alpesh Trinh MD Work Phone: [facility] 11-14-2011 influenza virus vacc ine, whole virus Alpesh Trinh MD Work Phone: [facility] 11-28-2010 influenza virus vacc ine, whole virus Alpesh Trinh MD Work Phone: [facility] 02-12-2010 zoster vaccine, live Alpesh Trinh MD Work Phone: [facility] 02-12-2010 zoster vaccine, unspecified formulation Bella Mitchell MD Work Phone: [facility] 11-24-2009 influenza virus vacc ine, whole virus Alpesh Trinh MD Work Phone: [facility] 11-28-2006 influenza virus vacc ine, whole virus Alpesh Trinh MD Work Phone: [facility] 02-12-2005 pneumococcal polysaccharide vaccine, 23 valent Alpesh Trinh MD Work Phone: [facility] Healthcare Payers Date Payer Category Payer Self-pay 2023 Medicare (Managed Care) [employer]AGE [id number] 2023 Medicare HMO [id number] 2023 Private Health Insurance [id number] 2019 Unknown [employer]IC [employer]CIAL [id number] 2019-Present [phone] [address] [address] [place] [address] [id number] 1999 Medicare [id number] 1959 Medicare [id number] 1959 Unknown [id number] 1934 Unknown [id number] 2.16.840.1.231577.3.579.2 .593 1934 Unknown [id number] 2.16.840.1.614854.3.579.2 .1286 1934 Unknown [id number] 2.16.840.1.226424.3.579.2 .1286 1934 Unknown [id number] 2.16.840.1.001081.3.579.2 .1286 1934 Unknown [id number] 2.16.840.1.575145.3.579.2 .1286 1934 Unknown [id number] 2.16.840.1.777007.3.579.2 .1286 1934 Unknown [id number] 2.16840.1.890127.3.579.2 .1286 1934 Unknown [id number] 2.840.1.087061.3.579.2 .1259 1934 Unknown [id number] 2.16.840.1.507438.3.579.2 .1259 1934 Unknown [id number] 2.840.1.269820.3.579.2 .1259 1934 Unknown [id number] 2.16840.1.549426.3.579.2 .1259 1934 Unknown [id number] 2.16840.1.150084.3.579.2 .1259 1934 Unknown [id number] 2.16.840.1.456633.3.579.2 .1259 1934 Unknown [id number] 2.16840.1.511197.3.579.2 .1259 Medicare Medicare Outpatient [id number] Unknown [id number] 2.16840.1.091610.3.579.2 .531 Unknown [id number] 2.16840.1.287243.3.579.2 .531 Unknown Regular Insurance [id number] Social History Date Type Detail Facility Start: 12-07-2022 End: 05-08-2024 Tobacco smoking status NHIS Never smoked tobacco [facility] Start: 12-07-2022 End: 05-08-2024 Tobacco use and exposure Smokeless tobacco non-user [facility] Start: 10-04-2023 End: 06-23-2024 Alcoholic beverage intake Lifetime non-drinker (finding) [facility] Start: 10-04-2023 End: 05-08-2024 History of Social function [facility] Start: 10-04-2023 End: 05-08-2024 Tobacco use panel [facility] Start: 1935 Sex assigned at Not on file [facility] Tobacco smoking stat [facility] Tobacco smoking consumption unknown [facility] Childcare Unknown [facility] Start: 09-17-2014 End: 02-15-2024 Sex Female (finding) [facility] Start: 1935 Sex Assigned At Female [facility] Start: 05-08-2024 Alcoholic beverage intake [facility] Do you belong to any clubs or organizations such as latter day groups, unions, fraternal or athletic groups, or school groups? No [facility] Are you now , , , , never or living with a partner? [facility] How often to you hav e a drink containing alcohol? Never [facility] Do you feel stress - tense, restless, nervous, or anxious, or unable to sleep at night because your mind is troubled all the time - these days [OSQ] Very much [facility] (I/We) worried wheth er (my/our) food would run out before (I/we) got money to buy more. Never true [facility] How often do you nee d to have someone help you when you read instructions, pamphlets, or other written material from your doctor or pharmacy [SILS] Always [facility] Functional Status Date Assessment Result Facility 06-23-2024 Patient Health [facility] ionnaire 2 item (PHQ-2) [Reported] [facility] Clinical Notes 10-04-2023 to 10-09-2024 Telephone Encounter - Shalini Liz RN - 10/09/2024 11:13 AM EDTTelephone Encounter - Shalini Liz RN - 10/09/2024 11:13 AM EDTTelephone Encounter - CHARLI Maya - 09/22/2024 9:28 AM EDT Note Date & Type Note Facility 10-09-2024 Miscellaneous Notes error documented in this encounter [facility] 10-09-2024 Telephone encounter Note error [facility] 09-22-2024 Telephone encounter Note Buspar sent. [facility] 09-22-2024 Miscellaneous Notes Buspar sent. documented in this encounter [facility] 09-18-2024 Note CLINICAL NEUROPSYCHO LOG[facility], [address] [place] [id number] Ms. Gloria Roque was seen for a neuropsychological evaluation on 09/18/2024. Testing start and end time(s): 10:24 - 11:58 Scoring start and end time(s): 12:15, - 12:30, 13:09 - 14:09 A report describing the results of this evaluation will be posted when completed. Uriah Yo B.A. Community Mental Health Worker [facility] Neuropsychology [facility] 09-18-2024 Note [id number] Miya Roque 1935 F Date Provider Department Center 09/18/2024 [id number] Family History Problem Relation Age of Onset Cancer Father Colon cancer Sister Heart attack Brother Family Status - Relation Status Age at Father Sister Brother Reason for Visit and Comments: cognitive difficulties [Other] [facility] 08-07-[address] Cardiology - [facility] Subjective Gloria Roque is a 88 y.o. year old female patient being seen for Hospital Follow-up, Valve Disorder, Atrial Fibrillation ,Palpitations, Hyperlipidemia, Hypertension, Patient Active Problem List Diagnosis Acquired spondylolisthesis Age related osteoporosis Osteoporosis Aortic valve disorder Benign essential hypertension Cardiomegaly Chronic bronchitis (CMS/HCC) Degeneration of lumbar intervertebral disc Depressive disorder Diastolic dysfunction Gastroesophageal reflux disease without esophagitis Heart disease Hyperlipidemia Inflamed seborrheic keratosis Malignant tumor of sigmoid colon (CMS/HCC) Pure hypercholesterolemia Varicose veins of lower extremity Ataxic gait Left ventricular diastolic dysfunction, NYHA class 2 Stroke (CMS/HCC) Longstanding persistent atrial fibrillation (CMS/HCC) Falls frequently Edema of both legs Orthostatic hypotension Acute bronchitis due to other specified organisms Closed fracture of distal end of ulna Generalized anxiety disorder with panic attacks History of CVA (cerebrovascular accident) 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 She states that she has been doing well. She denies any chest pain or shortness of breath at rest or with exertion. She walks with a walker. She denies dizziness or falling since last visit. She denies orthopnea or paroxysmal nocturnal dyspnea. She had legs edema at some point however that responded very well to Lasix and Aldactone. Her son reports that this morning her blood pressure was in 100 therefore the nurse in assisted living did not give her the Toprol-XL. Patient reports that she does not drink enough water 05/12/2024 Patient is here today with her son for follow-up visit. Her son reported that 2 weeks ago she fell off the toilet. Patient denies dizziness but she thinks that she had general weakness. She is not walking. Physical therapy ordered by the PCP but waiting for insurance approval. She has been having mild legs edema. She was previously on Lasix which she was taken off it while she was in the hospital. Other than that she denies chest pain or shortness of breath at rest or with exertion. She denies orthopnea or paroxysmal nocturnal dyspnea or palpitations. Her son reports that she drinks water better than before 02/18/2024 The patient is a 88-year-old female with [...] occasional brief palpitations without any other symptoms Review of systems All systems were reviewed and they were [...] Other and Unknown Medications Current Outpatient Medications: apixaban (Eliquis) 5 mg tablet, Take 1 tablet (5 mg) by mouth two times daily., Disp: 60 tablet, Rfl: 11 atorvastatin (Lipitor) 40 mg tablet, Take 40 mg by mouth at bedtime., Disp: , Rfl: busPIRone (Buspar) 10 mg tablet, Take 20 mg by mouth two times daily., Disp: , Rfl: dilTIAZem CD (Cardizem CD) 120 mg 24 hr capsule, Take 1 capsu (more content not included)... [facility] 07-28-2024 Telephone encounter Note Called and lm on to give a call back or to actually call [facility] as this is the pharmacy we are using for the prolia injections [phone] [facility] 07-28-2024 Miscellaneous Notes Called and lm on to give a call back or to actually call [facility] as this is the pharmacy we are using for the prolia injections [phone] Patients jose raul prado called stating that he went to [facility] to try to picking machine operator the prolia and they told him it was going to be 800 dollars. He said that he didn't know if there was something that was done before hand that only made it about 100 dollars. He said he does need an answer by today to let them know if he is going to pick it up or not. documented in this encounter [facility] 07-28-2024 Telephone encounter Note Patients jose raul prado called stating that he went to [facility] to try to picking machine operator the prolia and they told him it was going to be 800 dollars. He said that he didn't know if there was something that was done before hand that only made it about 100 dollars. He said he does need an answer by today to let them know if he is going to pick it up or not. [facility] 07-01-2024 Telephone encounter Note My Chart Message [facility] 07-01-2024 Miscellaneous Notes My Chart Message documented in this encounter [facility] 06-23-2024 History of Present illness Narrative HPI Medicare Annual Wellness Visit Subsequent Additional comments: Pt has had a cough, with wheezing the last 1-2 weeks Last edited by Ayleen Gross LPN on 06/23/2024 4:28 PM. Images from the original note were not included. Subjective : HPI Medicare Annual Wellness Visit Subsequent Additional comments: Pt has had a cough, with wheezing the last 1-2 weeks Last edited by Ayleen Gross LPN on 06/23/2024 4:28 PM. Chief Complaint: Gloria Roque is an 88 y.o. female here for an annual wellness visit. I have reviewed and reconciled the history and medication list with the patient today. Current Outpatient Medications Medication Sig Dispense Refill apixaban (Eliquis) 5 MG tablet Take 1 tablet (5 mg) by mouth in the morning and 1 tablet (5 mg) before bedtime. 180 tablet 3 atorvastatin (Lipitor) 40 MG tablet Take 1 tablet (40 mg) by mouth Daily 100 tablet 3 busPIRone (Buspar) 10 MG tablet Take 2 tablets (20 mg) by mouth in the morning and 2 tablets (20 mg) before bedtime. 120 tablet 2 denosumab (Prolia) 60 MG/ML solution prefilled syringe ADMINISTER 60MG(1 INJECTION) UNDER THE SKIN ONCE EVERY 6 MONTHS 1 mL 0 dextran 70-hypromellose (artificial tears) 0.1-0.3 % ophthalmic solution Administer 2 drops into both eyes 3 (three) times a day as needed for dry eyes dilTIAZem CD (Cardizem CD) 120 MG 24 hr capsule Take 120 mg by mouth Daily Ferrous Sulfate (IRON PO) FLUoxetine (PROzac) 20 MG capsule TAKE 1 CAPSULE BY MOUTH DAILY 100 capsule 3 furosemide (Lasix) 20 MG tablet Take 20 mg by mouth every other day metoprolol succinate XL (Toprol-XL) 25 MG 24 hr tablet Take 12.5 mg by mouth in the morning and 12.5 mg before bedtime. Do not crush or chew.. naproxen sodium (Aleve) 220 MG tablet Take 220 mg by mouth 2 (two) times a day as needed for mild pain, fever or headaches No current facility-administered medications for this visit. [...] of Falling, Immediate or Within 3 Months: No Secondary Diagnosis: No Ambulatory Aid: Crutches/cane/walker Health Risk Assessment Form Do you need help eating, bathing, using the toilet, dressing, or getting around your home?: No Can you prepare your own meals?: No Can you do your own housework without help?: No Can you shop for groceries or clothes without help?: No Do you exercise for about 20 minutes 3 or more days a week?: Yes How confident are you that you can control and manage most of your health problems?: Somewhat confident Can you mange your money, credit cards and accounts, pay bills and taxes?: No Cognitive Screening Three Word Registration: Apple, Watch, Afshan Clock Drawing: Normal Clock - 2 Three Word Recall: 2/3 words correct - 2 Total Score (0-5 Points): 4 Pain Assessment Pain Score: 0 - No pain Advance Care Planning Do you have a living will?: Yes Do you have a medical power of commercial attorney?: Yes Who is your medical power of commercial attorney?: son Objective : BP 126/68 Pulse 66 Ht 5' 4.5 Wt 132 lb SpO2 97% BMI 22.31 kg/m No results found. Physical Exam Assessment/Plan : The following health maintenance schedule was reviewed with the patient and provided in printed form in the after visit summary: Health Maintenance Topic Date Due Influenza Vaccine Completed Pneumococcal Vaccine: 65+ Years Completed Advance Care [...] a living will and durable power of commercial attorney for healthcare. We discussed telling benítez people about their advance directives such as close family members, and requested a copy to scan into the patient's EHR. An advance directive packet was offered to the patient. Assessment/Plan Diagnoses and all orders for this visit: Routine general medical examination at health care facility ACP (advance care planning) Cerebrovascular accident (CVA) due to embolism of cerebral artery (CMS/HCC) Left ventricular diastolic dysfunction, NYHA class 2 Longstanding persistent atrial fibrillation (CMS/HCC) Chronic kidney disease, stage 3a (HCC) (CMS/HCC) Malignant neoplasm of sigmoid colon (CMS/HCC) Acute bronchitis, unspecified organism - levoFLOXacin (Levaquin) 500 MG tablet; Take 1 tablet (500 mg) by mouth Daily for 7 days - benzonatate (Tessalon Perles) 100 MG capsule; Take 1 capsule (100 mg) by mouth 3 (three) times a day as needed for cough for up to 20 days Do not crush or chew. Follow up in about 6 months (around 12/24/2024). No orders of the defined types were placed in this encounter. Electronically signed by Alpesh Trinh MD on June 23, 2024 documented in this encounter [facility] 05-21-2024 History of Present illness Narrative Images from the original note were not included. HPI Edema Additional comments: She did see [facility] for this and they did prescribe a water pill and compression stockings. They are improving slowly but does c/o back of bilateral legs (right worse than left) Last edited by Miya Mcmanus LPN on 05/21/2024 10:01 AM. Subjective Patient ID: Gloria Roque is a 88 y.o. female who presents for anxiety. Gloria is present today with son for evaluation of anxiety. Admits she is having more frequent panic attacks, she is getting them at least once a day, gets SOB, heart rate increases, BP increases, she is restless at night. Then forgets that she even had them. Patient states that she feels like the anxiety just builds up. States does have a lift chair. Occasionally elevating her legs, but now with consistency. Pt living in an Assisted Living. Here with son, Tyree. Current Outpatient Medications on File Prior to Visit Medication Sig Dispense Refill dilTIAZem CD (Cardizem CD) 120 MG 24 hr capsule Take 120 mg by mouth Daily furosemide (Lasix) 20 MG tablet Take 20 mg by mouth every other day apixaban (Eliquis) 5 MG tablet Take 1 tablet (5 mg) by mouth in the morning and 1 tablet (5 mg) before bedtime. 180 tablet 3 atorvastatin (Lipitor) 40 MG tablet Take 1 tablet (40 mg) by mouth Daily 100 tablet 3 denosumab (Prolia) 60 MG/ML solution prefilled syringe Inject 60 mg under the skin 1 (one) time dextran 70-hypromellose (artificial tears) 0.1-0.3 % ophthalmic solution Administer 2 drops into both eyes 3 (three) times a day as needed for dry eyes Ferrous Sulfate (IRON PO) FLUoxetine (PROzac) 20 MG capsule TAKE 1 CAPSULE BY MOUTH DAILY 100 capsule 3 metoprolol tartrate (Lopressor) 25 MG tablet Take 1 tablet (25 mg) by mouth 1 (one) time for 1 dose 50 tablet 3 naproxen sodium (Aleve) 220 MG tablet Take 220 mg by mouth 2 (two) times a day as needed for mild pain, fever or headaches No current facility-administered medications on file prior to visit. I have reviewed and reconciled the history and medication list with the patient today. Allergies Allergen Reactions Penicillin V Unknown Penicillins Unknown Social History Tobacco Use Smoking status: Never Smokeless tobacco: Never Vaping Use Vaping status: Never Used Substance Use Topics Alcohol use: Never Family History Problem Relation Name Age of Onset Cancer Mother Hypertension Father Heart disease Father Past Medical History: Diagnosis Date Aortic valve disorder Depression (CMS/HCC) Hypercholesteremia (CMS/HCC) Hypertension (CMS/HCC) Osteoporosis (CMS/HCC) Past Surgical History: Procedure Laterality Date CATARACT EXTRACTION Bilateral 2013 COLONOSCOPY 2007 VL VERTEBROPLASTY/KYPHOPLASTY 2015 Visit Vitals BP 122/76 Pulse 74 Resp 16 Ht 5' 4.5 Wt 141 lb 9.6 oz SpO2 96% BMI 23.93 kg/m Smoking Status Never BSA 1.71 m Review of Systems Constitutional: Negative for chills, fatigue and fever. Respiratory: Negative for cough, shortness of breath and wheezing. Cardiovascular: Positive for leg swelling. Negative for chest pain and palpitations. Gastrointestinal: Negative for abdominal pain, constipation, diarrhea, nausea and vomiting. Skin: Negative for rash. Psychiatric/Behavioral: Positive for confusion. The patient is nervous/anxious. Objective Physical Exam Constitutional: General: She is not in acute distress. Appearance: Normal appearance. She is well-developed. HENT: Head: Normocephalic and atraumatic. Right Ear: Decreased hearing noted. Left Ear: Decreased hearing noted. Eyes: General: No scleral icterus. Conjunctiva/sclera: Conjunctivae normal. Cardiovascular: Rate and Rhythm: Normal rate and regular rhythm. Heart sounds: Normal heart sounds. No murmur heard. Pulmonary: Effort: Pulmonary effort is normal. No respiratory distress. Breath sounds: Normal breath sounds. No wheezing, rhonchi or rales. Musculoskeletal: Right lower leg: Edema present. Left lower leg: Edema present. Skin: General: Skin is warm and dry. Neurological: General: No focal deficit present. Mental Status: She is alert and oriented to person, place, and time. Psychiatric: Mood and Affect: Mood is anxious (Mildly). Behavior: Behavior is withdrawn. Cognition and Memory: Cognition is impaired. Comments: Speech is clear Assessment/Plan Diagnoses and all orders for this visit: Benign essential hypertension (CMS/HCC) Patient's blood pressure is currently well controlled. Continue with current medications and I will continue to monitor. Goal BP remains less than 130/80. She is currently on Toprol XL 12.5 bid through Cardiology. The lower dosage has been better tolerated than the 25 mg dosage. Edema of both legs Continue compression stockings, elevation prn, Furosemide every other day as per Cardiology's instruction. Generalized anxiety disorder with panic attacks (CMS/HCC) - busPIRone (Buspar) 10 MG tablet; Take 1 tablet (10 mg) by mouth in the morning and 1 tablet (10 mg) before bedtime. Discussed treatment options with pt and her son. Due to potential interaction between Fluoxetine and Metoprolol, will hold off on increasing that and add Buspar 10 mg twice a day. Will recheck mood in 4 weeks. Consider decreasing or possibly discontinuing Fluoxetine in the future. History of CVA (cerebrovascular accident) Comments: Rt MCA H/o, follows with Cardiology. Advised prior CVA's can cause negative effects on mood and cognition. 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 Advised that this evaluation should be helpful determining any next steps regarding treatment for her mood. Falls frequently Is living in an Assisted Living facility. She is aware that she needs to keep her panic button on at all times. Paper work for facility and order forms completed and signed. Last Neurology and Cardiology notes were reviewed prior to visit and discussed with pt's son today. Follow up in about 4 weeks (around 06/18/2024) for Medication Follow Up. documented in this encounter [facility] 05-12-[address] Cardiology - [facility] Subjective Gloria Roque is a 88 [...] Left ventricular diastolic dysfunction, NYHA class 2 Stroke (CMS/HCC) Longstanding persistent atrial fibrillation (CMS/HCC) Falls frequently HPI 05/12/2024 Patient is here today with her son for follow-up visit. Her son reported that 2 weeks ago she fell off the toilet. Patient denies dizziness but she thinks that she had general weakness. She is not walking. Physical therapy ordered by the PCP but waiting for insurance approval. She has been having mild legs edema. She was previously on Lasix which she was taken off it while she was in the hospital. Other than that she denies chest pain or shortness of breath at rest or with exertion. She denies orthopnea or paroxysmal nocturnal dyspnea or palpitations. Her son reports that she drinks water better than before 02/18/2024 The patient is a 88-year-old female with [...] occasional brief palpitations without any other symptoms Review of Systems Cardiovascular: Positive for palpitations. All systems were reviewed and they were [...] Other and Unknown Medications Current Outpatient Medications: apixaban (Eliquis) 5 mg tablet, Take 1 tablet (5 mg) by mouth two times daily., Disp: 60 tablet, Rfl: 11 atorvastatin (Lipitor) 40 mg tablet, Take 40 mg by mouth at bedtime., Disp: , Rfl: FLUoxetine (PROzac) 20 mg capsule, Take 20 mg by mouth in the morning., Disp: , Rfl: metoprolol succinate XL (Toprol-XL) 25 mg 24 hr tablet, Take 1 tablet (25 mg) by mouth two times daily. Do not crush or chew. (Patient taking differently: Take 25 mg by mouth in the morning. Do not crush or chew.), Disp: 180 tablet, Rfl: 3 Prolia 60 mg/mL syringe, Inject 60 mg under the skin 1 (one) time., Disp: , Rfl: Objective Visit Vitals BP 152/85 (BP Location: Left arm, Patient Position: Sitting) Pulse 96 Ht 1.626 m (5' 4 ) Wt 60.8 kg (134 lb) SpO2 98% BMI 23.00 kg/m??? Smoking Status Never BSA 1.66 m??? Physical exam: GENERAL: alert and oriented x3, well developed, in no acute distress. HEAD: atraumatic, normocephalic. EYES: NIKKY, EOMI. NECK: trachea midline, no JVD present, no carotid bruits present. CARDIAC: S1, S2 present. Irregular irregularity. no murmur, rubs, or gallops. RESPIRATORY: CTAB, no increased effort of breathing, n (more content not included)... [facility] 05-08-2024 History of Present illness Narrative Images from the original note were not included. [facility] [address] [facility] [id number] Patient: Gloria Roque Date of : 1935 Encounter Date: 05/08/2024 No care hospice team lead to display Reason for visit: History of Present Illness: Subjective: Gloria Roque is an 88 y.o. female with past medical history significant for recently diagnosed afib on Eliquis, right MCA distribution stroke in January 2024 who is following after their recent hospitalization. The patient went to SNF and then is now living in [place]. She has been following up with cardiology and her BB is being uptitrating to control her heart rate. The patient is able to walk to the bathroom, able to feed herself. She needs with bathing. She no longer drives. She reports shortness of breath and leg swelling. She has an appointment on Sunday with her balance staff inspector. Gloria Roque is accompanied in the office by her child. Past Medical, Family, Surgical, and Social History Update: The following portions of the patient's history were reviewed and updated as appropriate: allergies, current medications, past family history, past medical history, past social history, past surgical history and problem list. Review of Systems Review of Systems Constitutional: Positive for malaise/fatigue. Negative for decreased appetite, weight gain and weight loss. HENT: Positive for hearing loss. Negative for nosebleeds. Eyes: Positive for blurred vision and vision loss in left eye. Negative for double vision, vision loss in right eye and visual disturbance. Cardiovascular: Positive for leg swelling and palpitations. Negative for irregular heartbeat, near-syncope and syncope. Respiratory: Positive for shortness of breath and wheezing. Negative for sleep disturbances due to breathing. Endocrine: Positive for cold intolerance. Hematologic/Lymphatic: Negative for bleeding problem. Does not bruise/bleed easily. Skin: Negative for poor wound healing. Musculoskeletal: Positive for arthritis, back pain and muscle weakness. Negative for falls, muscle cramps, myalgias and neck pain. Gastrointestinal: Negative for dysphagia. Neurological: Positive for dizziness, headaches, light-headedness, loss of balance and weakness. Negative for aphonia, difficulty with concentration, disturbances in coordination, focal weakness, numbness, paresthesias, seizures, sensory change and vertigo. Psychiatric/Behavioral: Positive for depression and memory loss. Negative for altered mental status. The patient is nervous/anxious. The patient does not have insomnia. History reviewed. No pertinent past medical history. History reviewed. No pertinent family history. History reviewed. No pertinent surgical history. Current Outpatient Medications Medication Sig Dispense Refill FLUoxetine (PROzac) 20 mg capsule Take 1 capsule every day by oral route for 90 days. furosemide (LASIX) 20 mg tablet HYDROcodone-acetaminophen (NORCO) 5-325 mg per tablet Take 1 tablet every 6-8 hours by oral route as needed for 1 day. lisinopriL (PRINIVIL,ZESTRIL) 10 mg tablet Take 1 tablet every day by oral route for 30 days. metoprolol succinate XL (TOPROL XL) 25 mg 24 hr tablet Take 0.5 tablets (12.5 mg total) by mouth. metoprolol tartrate (LOPRESSOR) 25 mg tablet Take 0.5 tablets every day by oral route for 90 days. [id number] 293 ([employer]) 18 mg iron- 240 mcg-120 mcg tablet omeprazole (PriLOSEC) 20 mg capsule oxyCODONE-acetaminophen (PERCOCET) 5-325 mg per tablet teriparatide (FORTEO) 20 mcg/dose (600mcg/2.4mL) injection INJECT 0.08 ml SUBCUTANEOUSLY (UNDER THE SKIN) DAILY traMADoL (ULTRAM) 50 mg tablet Take by oral route as needed for 7 days. No current facility-administered medications for this visit. (All medications reviewed and updated by provider since last office visit or hospitalization) Tobacco History: Social History Tobacco Use Smoking Status Never Smokeless Tobacco Never (If patient a smoker, smoking cessation counseling offered) Social History: Social History Substance and Sexual Activity Alcohol Use Defer Allergies: Allergies Allergen Reactions Penicillins Other (See Comments) Objective: There were no vitals taken for this visit. Last Neuro Imaging: MR brain without contras 02/07/2024 Right MCA stroke. Chronic white matter disease. Physical Exam: Neurology Physical Exam NIH Stroke Scale 1a Level of consciousness: 0=alert; keenly responsive 1b. LOC questions: 1=Performs one task correctly 1c. LOC commands: 0=Performs both tasks correctly 2. Best Gaze: 0=normal 3. Visual: 0=No visual loss 4. Facial Palsy: 0=Normal symmetric movement 5a. Motor left arm: 0=No drift, limb holds 90 (or 45) degrees for full 10 seconds 5b. Motor right arm: 0=No drift, limb holds 90 (or 45) degrees for full 10 seconds 6a. motor left le=No drift, limb holds 90 (or 45) degrees for full 10 seconds 6b Motor right le=No drift, limb holds 90 (or 45) degrees for full 10 seconds 7. Limb Ataxia: 0=Absent 8. Sensory: 0=Normal; no sensory loss 9. Best Language: 0=No aphasia, normal 10. Dysarthria: 0=Normal 11. Extinction and Inattention: 0=No abnormality Total: 1 General Appearance: Alert, active, cooperative, and in no distress Head: Normocephalic, without obvious abnormality, atraumatic Eyes: conjunctivae/corneas clear. PERRL, EOM's intact. ENT: ENT exam normal Neck: supple, symmetrical, trachea midline Lungs: Non-labored Heart: regular rate and rhythm Extremities: extremities normal, atraumatic, no cyanosis or edema Skin: Skin color, texture, turgor normal. No rashes or lesions Neurologic: Refer to NIHSS. NIHSS1 MRS: 3 PHQ9: Depression Screening Risk Factor Management: Hypertension target range 130-140/70-80 Lipid range - LDL < 70 and checked every 6 months, fasting Diabetes - HgB A1C <7 Assessment/Plan: Patient Active Problem List Diagnosis Age related osteoporosis Aortic valve disorder Ataxic gait Benign essential hypertension Cardiomegaly Chronic bronchitis (CMS-HCC) Degeneration of intervertebral disc of lumbar region Depressive disorder Diastolic dysfunction Gastroesophageal reflux disease without esophagitis Heart disease Hyperlipidemia Inflamed seborrheic keratosis Left ventricular diastolic dysfunction, NYHA class 2 Malignant neoplasm of sigmoid colon (CMS-HCC) Pure hypercholesterolemia Spondylolisthesis, acquired Varicose veins of lower extremity The patient is an 88 year old with medical history of right MCA territory stroke, HTN and recently discovered afib on Eliquis who is following up with us post her recent hospitalization. The patient is residing in [facility]. She needs some help with her ADLs. She uses a walker to walk. Son is concerned about her memory issues. Neuropsychiatry tested provided. Son will also like to continue therapy and he will find out which group comes to the facility and see if the insurance will cover it. If the insurance covers it he will call our office for order. Also recommend daily weigh to see if the patient's Eliquis dose needs to be adjusted. All of this plan was communicated to the patient and her son, who reported his understanding. Follow up with me in 6 months. In addition I did review the signs/ symptoms of stroke including BE FAST (B) balance issues, (E) acute eye/ vision changes, (F) facial droop, (A) Arm/ leg weakness, (S) speech disturbance and (T) time to call 911 if these symptoms occur. This note was completed using a voice form tamper operator system. Every effort was made to ensure accuracy; however, inadvertent computerized form tamper operator errors may be present Attending Attestation: I saw the patient. I participated and was physically present during the critical/benítez portions of the service. I was directly involved in the management and treatment plan of the patient. I reviewed the resident's note. documented in this encounter [facility] 05-08-2024 Instructions Marty Morgan DO - 05/08/2024 10:00 AM EDT Have the facility weigh her weekly to help adjust her medication such as Eliquis. Referral to neuropsychiatric tested provided in regard to memory issues. Call the office with therapy group information and we can provide the referral if you find out that your insurance covers a specific group that goes into your facility. Follow up with your balance staff inspector for afib management and other cardiac issues Follow up with PCP regularly Follow up with us in 6 months or sooner if needed. documented in this encounter [facility] 02-20-2024 Miscellaneous Notes According to [employer] website, [...] 02/03/24. MA confirmed with stroke RN that [facility] the first one that she is currrently wearing. Informed son to send back the second EM as we will get the report from [place] before her upcoming appointment. documented in this encounter [facility] 02-20-2024 Telephone encounter Note According to [employer] website, patient has not yet activated event monitor. Please call and ask patient if they received it and if they are able to complete the monitoring. [employer] 02-20-2024 Telephone encounter Note That just means they have to send event monitor and not [facility]. It still has not been activated. [facility] [employer] 02-20-2024 Telephone encounter Note Called son and he stated patient is already wearing a EM that was placed on her on 02/03/24. MA confirmed with stroke RN that [facility] ordered the first one that she is currrently wearing. Informed son to send back the second EM as we will get the report from [facility] [place] before her upcoming appointment. [facility] [employer] 02-18-[address] Cardiology - [facility] Subjective Gloria Roque is a 88 [...] with ST-T ab (more content not included)... [facility] 02-11-2024 History of Present illness Narrative [...] 04/10/24). Flowsheet Row Documentation from 06/25/2023 in [facility] with Debi Pichardo [place] Hospital Information ED, Hospital or Residential Facility Discharge? ED Patient has been contacted within 1 week of being seen in the ED Yes Discharge Date 06/24/23 Discharged To: Home Setting Discharge Hospital [facility] Engagement Call Start Time 1643 Medications [...] 2008 VL VERTEBROPLASTY/KYPHOPLASTY 2015 Visit Vitals BP 114/64 [...] Post CVA. I encouraged Rehab at a group home Facility. She is a fall risk at home, in fact has fallen several times since her recent hospital discharge. Frequent falls Degeneration of intervertebral disc of lumbar region, unspecified whether pain present - Handicap Placard 5 Years Follow up in about 4 weeks (around 03/10/2024) for Routine F/U. documented in this encounter [facility] 02-04-2024 Miscellaneous Notes ----- Message from CHARLI Gibson sent at 02/04/2024 4:57 PM EST ----- Regarding: [facility] This is a patient with a R MCA ischemic stroke. Dr. Andre wants her to FU in Stroke clinic after 30 day cardiac event monitoring is completed. She can see Luz Maria Mitchell or fellow. She also needs referred to [facility]: Dr. Vick to be seen at his [facility] for recent stroke and abnormal echo. Please help arrange this referral/ follow up. If needed you can place referral order under my name. Thanks! Scheduled Called patient and left Vm Called [facility]- ICU floor, Ayleen and scheduled appt. Patient to be D/C 02/04/24 Tyree patients son is the POA documented in this encounter [facility] 02-04-2024 Telephone encounter Note ----- Message from CHARLI Gibson sent at 02/04/2024 4:57 PM EST ----- Regarding: [facility] This is a patient with a R MCA ischemic stroke. Dr. Andre wants her to FU in Stroke clinic after 30 day cardiac event monitoring is completed. She can see Paula, Luz Maria or fellow. She also needs referred to [facility]: Dr. Vick to be seen at his [facility] for recent stroke and abnormal echo. Please help arrange this referral/ follow up. If needed you can place referral order under my name. Thanks! [facility] 02-04-2024 Telephone encounter Note Scheduled Called patient and left Vm Called [facility] floor, Ayleen and scheduled appt. Patient to be D/C 02/04/24 Tyree patients son is the POA [facility] 02-04-2024 Miscellaneous Notes What is the reason for the call? To schedule a hospital follow up. If appointment requested, what is the reason for the appointment? Dx: CVA Is there a referral in the chart? Yes Were they seen in the hospital? Yes What hospital were they seen at? [facility] What is a good call back number? Ayleen at [phone], extension [phone] Received call today 02/04/24 4:08 from Ayleen at [facility] ICU who stated that patient is going to be discharged soon today. I informed her that we are awaiting response back from clinical staff to schedule with our office and I can let them know to reach back out in regard to scheduling - she voiced understanding. Ayleen is requesting our office call patient's son, Tyree SEQUEIRA), at callback#: [phone]. Gloria needs FU in our clinic after 30 day cardiac event monitor is done. She also needs to be scheduled with Dr. Vick for outpatient cardiology eval. (See previous staff message) According to [employer] website, monitor has not been activated yet. Images from the original note were not included. Received fax from [employer]: Please advise. documented in this encounter [employer] 02-04-2024 Telephone encounter Note What is the reason for the call? To schedule a hospital follow up. If appointment requested, what is the reason for the appointment? Dx: CVA Is there a referral in the chart? Yes Were they seen in the hospital? Yes What hospital were they seen at? [facility] What is a good call back number? Ayleen at [phone], extension [phone] [employer] 02-04-2024 Telephone encounter Note Received call today 02/04/24 4:08 from Ayleen at [facility] ICU who stated that patient is going to be discharged soon today. I informed her that we are awaiting response back from clinical staff to schedule with our office and I can let them know to reach back out in regard to scheduling - she voiced understanding. Ayleen is requesting our office call patient's son, Tyree SEQUEIRA), at callback#: [phone]. [employer] 02-04-2024 Telephone encounter Note Gloria needs FU in our clinic after 30 day cardiac event monitor is done. She also needs to be scheduled with Dr. Vick for outpatient cardiology eval. (See previous staff message) [employer] Work Phone: 02-04-2024 Telephone encounter Note According to [employer] website, monitor has not been activated yet. [employer] 02-04-2024 Telephone encounter Note Images from the original note were not included. Received fax from [employer]: Please advise. [employer] 01-09-2024 History of Present illness Narrative Images from the original note were not included. HPI prolia injection Additional comments: From jonathan Last edited by Ayleen Gross LPN on 01/09/2024 9:02 AM. Subjective Patient ID: Gloria Roque is a 88 y.o. female who presents for prolia injection (From [employer] ). Subjective Gloria Roque is a 87 [...] F/U med changes. documented in this encounter [facility] 12-25-2023 Telephone encounter Note No notes for encounter [facility] Work Phone: 12-25-2023 Miscellaneous Notes No notes for encounter documented in this encounter [facility] 10-04-2023 History of Present illness [...] Do you have a medical power of commercial attorney?: Yes Who is your medical power of commercial attorney?: son Objective : BP 130/74 Pulse [...] equation in the estimation of LDL-C. Sherman SS et al. DHARA. 2013;310(19): 9769-8750 (http://education.[employer] .[employer]/faq/IPP892) CHOL/HDLC RATIO 07/06/2023 3.7 <5.0 (calc) Final [...] a living will and durable power of commercial attorney for healthcare. We discussed telling benítez [...] October 04, 2023 documented in this encounter [facility] Healthcare Evaluation note Diagnosis Age-related osteoporosis with [...] [facility] information [facility] Work Phone: Evaluation note* Diagnosis Acute right MCA stroke (CMS-HCC)- Primary Unspecified cerebral artery occlusion with cerebral infarction Memory deficit Memory loss [facility] this [facility] Diagnosis Benign essential hypertension (CMS/HCC)- Primary Essential hypertension, benign Edema of both legs Edema Generalized anxiety disorder with panic attacks (CMS/HCC) History of CVA (cerebrovascular accident) Transient ischemic attack (TIA), and cerebral infarction without residual deficits Memory deficit after cerebral infarction Falls frequently Personal history of fall [facility] Diagnosis Routine general medical examination at health care facility- Primary Routine general medical examination at a health care facility ACP (advance care planning) Other specified counseling Cerebrovascular accident (CVA) due to embolism of cerebral artery (CMS/HCC) Left ventricular diastolic dysfunction, NYHA class 2 Longstanding persistent atrial fibrillation (CMS/HCC) Chronic kidney disease, stage 3a (HCC) (CMS/HCC) Malignant neoplasm of sigmoid colon (CMS/HCC) Malignant neoplasm of sigmoid colon Acute bronchitis, unspecified organism [facility] Diagnosis Acute bronchitis, unspecified organism [facility]* Diagnosis Generalized anxiety disorder with panic attacks documented in this encounter [facility]ructionsNot on filedocumented in this encounterPro[facility]ica [facility] SystemInstructionsNot on filedocumented in this encounterProMedica Health SystemInstructionsNot on filedocumented in this encounterProMedica Health SystemInstructionsNot on filedocumented in this [facility]Pro[facility] Summary Purpose Family History No Family History Records FoundNo Family History Records FoundNo Family History Records FoundNo Family History Records FoundNo Family History Records FoundNo Family History Records FoundNo Family History Records Found Advance Directives Healthcare Agents on File Name Relationship Healthcare Agent Relationship Communication Tyree Raman First Alternate Health Care Agent jourdan Roque Friend Second Alterna te Health Care Agent m Healthcare Agents on File Name Relationship Healthcare Agent Relationship Communication Tyree Raman First Alternate Health Care Agent jourdan Roque Friend Second Alterna te Health Care Agent [email or web address] Advance Directive Response Recorded Date/ Time Advance Directives No October 3:32pm Healthcare Agents on File Name Relationship Healthcare Agent Relationship Communication Tyree Raman First Alternate Health Care Agent jourdan Roque Friend Second Alterna te Health Care Agent m Healthcare Agents on File Name Relationship Healthcare Agent Relationship Communication Tyree Raman First Alternate Health Care Agent jourdan Roque Friend Second Alterna te Health Care Agent m Healthcare Agents on File Name Relationship Healthcare Agent Relationship Communication Tyree Raman First Alternate Health Care Agent jourdan Orellana Second Alterna te Health Care Agent m Healthcare Agents on File Name Relationship Healthcare Agent Relationship Communication Tyree Raman First Alternate Health Care Agent jourdan Orellana Second Alterna te Health Care Agent m Healthcare Agents on File Name Relationship Healthcare Agent Relationship Communication Tyree Raman First Alternate Health Care Agent jourdan Orellana Second Alterna te Health Care Agent m Healthcare Agents on File Name Relationship Healthcare Agent Relationship Communication Tyree Raman First Alternate Health Care Agent jourdan Orellana Second Alterna te Health Care Agent m Additional Source Comments INFORMATION SOURCE (unrecogn ized section and content) DATE CREATED AUTHOR 03/02/2021 [facility] dical Specialist DATE CREATED AUTHOR AUTHOR'S ORGANIZ ATION 03/29/2022 [facility] DATE CREATED AUTHOR AUTHOR'S ORGANIZ ATION 02/21/2024 [facility] DATE CREATED AUTHOR AUTHOR'S ORGANIZ ATION 05/18/2024 [facility] DATE CREATED AUTHOR AUTHOR'S ORGANIZ ATION 05/18/2024 [facility] DATE CREATED AUTHOR AUTHOR'S ORGANIZ ATION 06/24/2024 [facility] dical Specialists EPIC DATE CREATED AUTHOR AUTHOR'S ORGANIZ ATION 09/20/2024 [facility] Care Teams (unrecognized sec tion and content) Medical Coder Relationship Specialty Start Date End Date Alpesh Trinh MD [address] [facility] [address] [place] [address] PCP - General Internal Medicine 08/28/22 Medical Coder Relationship Specialty Start Date End Date Alpesh Trinh MD [address] [facility] [address] [place] [address] PCP - General Internal Medicine 08/28/22 Medical Coder Relationship Specialty Start Date End Date Alpesh Trinh MD [address] [facility] [address] [place] [address] PCP - General Internal Medicine 08/28/22 Medical Coder Relationship Specialty Start Date End Date Alpesh Trinh MD [address] [facility] [address] [place] [address] PCP - General Internal Medicine 08/28/22 Medical Coder Relationship Specialty Start Date End Date Alpesh Trinh MD [address] [facility] [address] [place] [address] PCP - General Internal Medicine 08/28/22 Medical Coder Relationship Specialty Start Date End Date Alpesh Trinh MD [address] [facility] [address] [place] [address] PCP - General Internal Medicine 08/28/22SundaySuzy LPN [address] [place] [address] Licensed Practical Nurse Family Medicine 02/11/24 Team Status: Inactive Member Role Status Dates Evelia Pineda MD Attending Provider Active Sta rt: February 04, 2024 End: February 04, 2024 Team Status: Inactive Member Role Status Dates Adilson Olmos MD Attending Provider Active Sta rt: February 13, 2024 End: February 13, 2024 Medical Coder Relationship Specialty Start Date End Date Alpesh Trinh MD [address] [place] [address] PCP - General Internal Medicine 08/28/22 Medical Coder Relationship Specialty Start Date End Date Alpesh Trinh MD [address] [facility] [address] [place] [address] PCP - General Internal Medicine 08/28/22 Medical Coder Relationship Specialty Start Date End Date Alpesh Trinh MD [address] [facility] [address] [place] [address] PCP - General Internal Medicine 08/28/22 Medical Coder Relationship Specialty Start Date End Date Alpesh Trinh MD [address] [facility] [address] [place] [address] PCP - General Internal Medicine 08/28/22 Medical Coder Relationship Specialty Start Date End Date Alpesh Trinh MD [address] [facility] [address] [place] [address] PCP - General Internal Medicine 08/28/22 Medical Coder Relationship Specialty Start Date End Date Alpesh Trinh MD [address] [facility] [address] [place] [address] PCP - General Internal Medicine 08/28/22 Reason [...] Reason Onset Date Comments Hospital Follow-up 02/04/2024 Reason Comments Edema She did see cardilog y for this and they did prescribe a water pill and compression stockings. They are improving slowly but does c/o back of bilateral legs (right worse than left) Reason Comments Medicare Annual Wellness Visit Subsequen t Pt has had a cough, with wheezing the last 1-2 weeks Reason Comments Med Refill Goals (unrecognized section and content) Goals may [...] BE BASED ON THE PRIMARY CLINICAL RECORDS. [employer] [facility]. provides no warranty or guarantee of the accuracy or completeness of information in this document.
--- OUTSIDE RECORDS SUMMARY | 2024-10-17 04:13 | XMS_ITS | Encounter Summary ---
Author Organization [facility] Address [address] [facility] [place] [address] Care Team Providers Care Assembler Golf Wood Head Name Role Phone Alpesh Trinh MD Primary Care Provider [phone] Sunday, Suzy ARCH CUSHION PRESS OPERATOR Unavailable [phone] Soheila Waller DAY SPA MANAGER Unavailable [phone] Encounter Details Date Type Department Care Team (Late st Contact Info) Description 10/10/2023 Abstract [facility] [place] [facility] [address] [facility] [address] [place] [address] Alpesh Trinh MD [address] [facility] [address] [place] [address] Social History Tobacco Use Types Packs/Day Years [...] on filedocumented in this encounter Care Teams Assembler Golf Wood Head Relationship Specialty Start Date End Date Alpesh Trinh MD [address] [place] [address] PCP - General Internal Medicine 08/28/22Sunday, JASPREET Almonte [address] [place] [address] Licensed Practical Nurse Family Medicine 02/11/24 03/14/24 Soheila Waller, MIREYA [address] [place] [address] Fitter Machinist Family Medicine 02/11/24 03/14/24 documented as of this encounter
--- OUTSIDE RECORDS SUMMARY | 2024-10-17 04:13 | XMS_ITS | Encounter Summary ---
Author Organization [facility] Address [address] [facility] [place] [place] [address] Care Team Providers Care Promotional Marketing Analyst Name Role Phone Alpesh Trinh MD Primary Care Provider [phone] Sunday, Suzy METAL ENGINEERING PROCESS WORKER Unavailable [phone] Soheila Waller AN EMPLOYEE SPONSOR OR ADVOCATE AND Unavailable [phone] Encounter Details Date Type Department Care Team (Late st Contact Info) Description 01/29/2024 Orders Only [facility] [place] [facility] [address] [place] [address] [place] [id number] Ayleen Gross LPN [address] [place] [address] Estrogen deficiency; Rib pain Social History Tobacco Use Types Packs/Day Years [...] documented as of this encounter Visit Diagnoses Diagnosis Estrogen deficiency Other ovarian failure Rib pain Unspecified chest pain documented in this encounter Care Teams Promotional Marketing Analyst Relationship Specialty Start Date End Date Alpesh Trinh MD [address] [place] [address] [place] [address] PCP - General Internal Medicine 08/28/22Sunday, JASPREET Almonte [address] [place] [address] Licensed Practical Nurse Family Medicine 02/11/24 03/14/24 Soheila Waller, MIREYA [address] [place] [address] [facility] Family Medicine 02/11/24 03/14/24 documented as of this encounter
--- OUTSIDE RECORDS SUMMARY | 2024-10-17 04:13 | XMS_ITS | Encounter Summary ---
Author Organization [facility] Address [address] [place] [address] Care Team Providers Care Insurance Agency Owner Name Role Phone Alpesh Trinh MD Primary Care Provider [phone] Encounter Details Date Type Department Care Team (Late st Contact Info) Description 06/09/2024 Abstract [facility] [address] [place] [address] Shye Dawson LPN [address] [place] [address] Social History Tobacco Use Types Packs/Day Years [...] How often do you attend chur or confucianism services? Never 05/19/2024 Do you belong to any clubs o r organizations such as buddhist groups, unions, fraternal or athletic groups, or [...] Recorded Patient Health Questionnaire-2 Score 0 05/21/2024 [facility] - Occupational Stress Questionnaire Answer Date [...] any time in the past 12 m [facility], were you homeless or living in a long term (including now)? No 05/19/2024 Comments Unknown Sex and Gender Information Value Date Recorded Sex Assigned at Not on file Legal Sex Female 7:21 PM EDT Gender Identity Not on file Sexual Orientation Not on file documented as of this encounter Plan of Treatment Not on file documented as of this encounter Visit Diagnoses Not on filedocumented in this encounter Care Teams Insurance Agency Owner Relationship Specialty Start Date End Date Alpesh Trinh MD 112 [facility] 110 [place] [address] PCP - General Internal Medicine 08/28/22 documented as of this encounter
--- OUTSIDE RECORDS SUMMARY | 2024-10-17 04:13 | XMS_ITS | Encounter Summary ---
Author Organization [facility] Address [address] [place] [address] Care Team Providers Care Waiter Waitress Name Role Phone Sharmaine Trinh MD Primary Care Provider [phone] Sunday, Suzy RAMPMAN Unavailable [phone] Soheila Waller MANAGER ACQUISITION Unavailable [phone] Encounter Details Date Type Department Care Team (Late st Contact Info) Description 08/14/2023 Clinisync Result Encounter [facility] External Department Unsolicited [...] Diagnosis Comments XR WRIST 3+ VIEWS RIGHT 08/14/2023 7:19 AM EDT documented in this encounter Results * XR wrist 3+ views right (08/14/2023 7:19 AM EDT) Anatomical Region Laterality Modality Upper Extremities, Wrist Right Radiogr aphic Imaging 08/14/2023 7:19 AM EDT Narrative 08/14/2023 7:21 AM EDT The [address] [address] XRay Report Signed Patient: HOWARD ROQUE MR#: [id number] : 1935 Acct:[id number] Age/Sex: 87 / F ADM Date: 08/13/23 Loc: EC Attending Dr: Patt Johnson M.D. Ordering Physician: Patt Johnson M.D. Date of Service: 08/13/23 Procedure(s): XR wrist RT min 3V Accession Number(s): [id number] cc: SHARMAINE TRINH ; Patt Johnson M.D. The [address] [address] Patient Name: HOWARD ROQUE MRN: [id number] date: 1935 Sex: F Assigned Patient Location: Current Patient Location: Accession/Order Number: [id number] Exam Date: 08/13/2023 09:05 Report Date: 08/14/2023 07:19 At the request of: PATT JOHNSON Procedure: XR wrist RT min 3V PROCEDURE: XR wrist RT min 3V HISTORY: RIGHT WRIST PAIN COMPARISON: XR wrist right 07/30/2023 FINDINGS: BONES:Prior distal ulna fracture with callus formation along the margins. Minimal angulation; stable. Moderate degenerative changes of the scaphoid-trapezium joint. SOFT TISSUES:Cast material has been removed. EFFUSION:None visible. OTHER: Negative. XR/XR wrist RT min 3V IMPRESSION: 1. Stable alignment since and ongoing bone healing of distal ulnar fracture. Electronically authenticated by: PATT CHAPA Date: 08/14/2023 07:19 Dictated By: Patt Chapa M.D. Signed By: 08/14/23720 DD/ 8 TD/TT: Swatch Paster: Procedure Note Radiology, Radiologist, MD - 08/14/[address] [address] XRay Report Signed Patient: LAURA ROQUER#: [id number] : 5Acct:[id number] Age/Sex: 87 / FADM Date: 08/13/23 Loc: EC Attending Dr: Patt Johnson M.D. Ordering Physician: Patt Johnson M.D. Date of Service: 08/13/23 Procedure(s): XR wrist RT min 3V Accession Number(s): [id number] cc: SHARMAINE TRINH ; Patt Johnson M.D. [place] [id number] Patient Name: HOWARD ROQUE MRN: [id number] date: 1935 Sex: F Assigned Patient Location: Current Patient Location: Accession/Order Number: [id number] Exam Date: 08/13/2023 09:05 Report Date: 08/14/2023 07:19 At the request of: PATT JOHNSON Procedure: XR wrist RT min 3V PROCEDURE: XR wrist RT min 3V HISTORY: RIGHT WRIST PAIN COMPARISON: XR wrist right 07/30/2023 FINDINGS: BONES:Prior distal ulna fracture with callus formation along the margins. Minimal angulation; stable. Moderate degenerative changes of the scaphoid-trapezium joint. SOFT TISSUES:Cast material has been removed. EFFUSION:None visible. OTHER: Negative. XR/XR wrist RT min 3V IMPRESSION: 1. Stable alignment since and ongoing bone healing of distal ulnarfracture. Electronically authenticated by: PATT CHAPA Date: 08/14/2023 07:19 Dictated By: Patt Chapa M.D. Signed By:08/14/23720 DD/ 8 TD/TT: Swatch Paster: us Generic External Data Provider IMG XR PROCEDURES Final Result documented in this encounter Visit Diagnoses Not on filedocumented in this encounter Care Teams Waiter Waitress Relationship Specialty Start Date End Date Sharmaine Trinh MD [address] [facility] [address] [place] [address] PCP - General Internal Medicine 08/28/22Sunday, JASPREET Almonte [address] [place] [address] Licensed Practical Nurse Family Medicine 02/11/24 03/14/24 Soheila Waller, MIREYA [address] [place] [address] Leaflet Distributor Family Medicine 02/11/24 03/14/24 documented as of this encounter
--- OUTSIDE RECORDS SUMMARY | 2024-10-17 04:13 | XMS_ITS | Encounter Summary ---
Author Organization [facility] Address [address] [facility] [place] [address] Care Team Providers Care Tubular Splitting Machine Tender Name Role Phone Alpesh Trinh MD Primary Care Provider [phone] Sunday, Suzy LIFT MECHANIC Unavailable [phone] Soheila Waller MAINFRAME ANALYST Unavailable [phone] Encounter Details Date Type Department Care Team (Late st Contact Info) Description 02/15/2024 Abstract [facility] [place] [facility] [address] [facility] 110 [place] [address] Alpesh Trinh MD [address] [place] [facility] 110 [place] [address] Social History Tobacco Use Types Packs/Day Years [...] on filedocumented in this encounter Care Teams Tubular Splitting Machine Tender Relationship Specialty Start Date End Date Alpesh Trinh MD [address] [place] [address] PCP - General Internal Medicine 08/28/22Sunday, JASPREET Almonte [address] [place] [address] Licensed Practical Nurse Family Medicine 02/11/24 03/14/24 Soheila Waller, MIREYA [address] [place] [address] Industrial Engineer Family Medicine 02/11/24 03/14/24 documented as of this encounter
--- OUTSIDE RECORDS SUMMARY | 2024-10-17 04:13 | XMS_ITS | Encounter Summary ---
Author Organization [facility] Address [address] [facility] [place] [address] Care Team Providers Care Hat Block Bench Hand Name Role Phone Alpesh Trinh MD Primary Care Provider [phone] Encounter Details Date Type Department Care Team (Late st Contact Info) Description 08/07/2024 Abstract [facility] [address] [facility] 110 [place] [address] Alpesh Trinh MD 112 [place] 110 [place] [address] Social History Tobacco Use Types Packs/Day Years [...] How often do you attend chur or protestant services? Never 05/19/2024 Do you belong to any clubs o r organizations such as quaker groups, unions, fraternal or athletic groups, or [...] Recorded Patient Health Questionnaire-2 Score 0 06/23/2024 [facility] - Occupational Stress Questionnaire Answer Date Recorded [...] any time in the past 12 m [facility], were you homeless or living in a care home (including now)? No 05/19/2024 Comments Unknown Sex and Gender Information Value Date Recorded Sex Assigned at Not on file Legal Sex Female 7:21 PM EDT Gender Identity Not on file Sexual Orientation Not on file documented as of this encounter Plan of Treatment Not on file documented as of this encounter Visit Diagnoses Not on filedocumented in this encounter Care Teams Hat Block Bench Hand Relationship Specialty Start Date End Date Alpesh Trinh MD 112 [facility] 110 [place] [address] PCP - General Internal Medicine 08/28/22 documented as of this encounter
--- OUTSIDE RECORDS SUMMARY | 2024-10-17 04:13 | XMS_ITS | Clinical Summary ---
Author Organization [facility] Address [address] [place] [address] Care Team Providers Care Sand Car Worker Name Role Phone Alpesh Trinh MD Primary Care Provider Allergies Active Allergy Reactions Criticality Noted Date Comments Penicillins Other,Unknown 01/30/2014 Medications atorvastatin (Lipitor) 40 mg tablet Take 40 mg by mouth at bedtime. 4 Active FLUoxetine (PROzac) 20 mg capsule Take 20 mg by mouth in the morning. 5 Active Prolia 60 mg/mL syringe Inject 60 mg under the skin 1 (one) time. 4 Active apixaban (Eliquis) 5 mg tabletIndication s:Longstanding persistent atrial fibrillation (CMS/HCC) Take 1 tablet (5 mg) by mouth two times daily. 60 tablet 11 5 Active metoprolol succinate XL (Toprol-XL) 25 mg 24 hr tabletIndication s:Permanent atrial fibrillation (CMS/HCC) Take 1 tablet (25 mg) by mouth two times daily. Do not crush or chew. 180 tablet 3 5 04/29/19 26 Active Additional Information Patient taking differently: 12.5 mgoral 2 times daily, Do not crush or chew., Reported on 08/07/2024 dilTIAZem CD (Cardizem CD) 120 mg 24 hr capsuleIndicatio ns:Longstanding persistent atrial fibrillation (CMS/HCC) Take 1 capsule (120 mg) by mouth once daily as directed. 90 capsule 3 5 05/13/19 Active spironolactone (Aldactone) 25 mg tabletIndication s:Edema, unspecified type Take 1 tablet (25 mg) by mouth in the morning. 90 tablet 3 5 07/23/19 26 Active furosemide (Lasix) 20 mg tabletIndication s:Edema, unspecified type Take 1 tablet (20 mg) by mouth in the morning. 90 tablet 3 5 08/02/19 Active busPIRone (Buspar) 10 mg tablet Take 20 mg by mouth two times daily. 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 025 Edema of both legs 05/19/2024 Orthostatic hypotension 05/19/2024 Longstanding persistent atrial fibrillation 02/12 Falls frequently 02/23/2024 Ataxic gait 07/02/2023 Gastroesophageal reflux disease without esophagi tis 02/06/2018 09/18/2022 Degeneration of lumbar intervertebral disc 01/2209/18/2022 Acquired spondylolisthesis 05/30/201609/18 Depressive disorder 04/18/2016 09/18/2022 Inflamed seborrheic keratosis 04/18/2016 Malignant tumor of sigmoid colon 04/18/2016 09/18/2022 Pure hypercholesterolemia 04/18/20162022 Varicose veins of lower extremity 04/18/2016 09/18/2022 Age related osteoporosis 04/13/2016 023 Aortic valve disorder 11/01/2011 09/18/2022 Overview (09/18/2022): MILD 10/26/2011 Osteoporosis 10/30/2011 09/18/2022 Essential hypertension 10/30/2011 Chronic bronchitis 10/30/2011 09/18/2022 Stroke Resolved Problems Problem Noted Date Diagnosed Date Resolved Date Left ventricular diastolic d ysfunction, NYHA class 2 12/07/2022 08/07/2024 Diastolic dysfunction 09/18/2022 09/18/20222024 Heart disease 01/22/2018 09/18/2022 08/07/2024 Cardiomegaly 04/18/2016 09/18/2022 08/07/2024 Hyperlipidemia 10/30/2011 09/18/2022 08/07/2024 Encounters Date Type Department Care Team Description 09/18/2024 8:45 AM EDT Evaluation [facility] Outpatient Rehabilitation Services - Neuropsychology [address] [place] [address] [place] [address] Miya Vasquez, PhD Other amnesia (Primary Dx) 08/07/2024 10:40 AM EDT Office Visit [address] [place] [phone] Ventura Tamayo MD 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 (CMS/HCC) (Primary Dx); Longstanding persistent atrial fibrillation (CMS/HCC); Aortic valve disorder; Orthostatic hypotension; Essential hypertension; Pure hypercholesterolemia 08/01/[address] [place] [address] Calli Moore MA Edema, unspecified type 07/29/2024 Orders Only [address] [place] [phone] Bren Castro MA Essential hypertension (Primary Dx) 07/29/[address] [place] [address] Bren Castro MA 07/25/[address] [place] [phone] Susan Lance MA 07/22/2024 Orders Only [address] [place] [address] Bren Castro MA Edema of both legs; Edema, unspecified type 07/17/2024 Telephone [facility] [address] [place] [address] Bren Castro MA 07/17/2024 Orders Only [facility] [address] [place] [address] Bren Castro MA Edema, unspecified type from Last 3 Months Family History Medical History Relation Name Comments Heart attack Brother Cancer Father Colon cancer Sister Relation Name Status Comments Brother Father Sister Social History Tobacco Use Types Packs/Day Years Used Date Smoking Tobacco: Never Smokeless Tobacco: Never Alcohol Use Standard Drinks/Week Comments Not Currently 0 (1 standard drink = 0.6 oz pur e alcohol) [place] Safety & Environment Answer Date Rec orded Fear of Current or Ex-Partner Not on file Emotionally Abused Not on file 04/05/2023 Physically Abused Not on file 04/05/2023 Sexually Abused Not on file 04/05/2023 Physically or Sexually Abused Not on file Comments Unknown Sex and Gender Information Value Date Recorded Sex Assigned at Female 02/07/2024 9:58 AM EST Legal Sex Female 10:43 PM EDT Gender Identity Female 02/07/2024 9:58 AM EST Sexual Orientation Heterosexual or Straight 01/13 9:58 AM EST Last Filed Vital Signs Vital Sign Reading Time Taken Comments Blood Pressure 109/73 08/07/2024 10:34 AM EDT Pulse 74 08/07/2024 10:34 AM EDT Temperature - - Respiratory Rate - - Oxygen Saturation 100% 08/07/2024 10:34 AM EDT Inhaled Oxygen Concentration - - Weight 58.5 kg (129 lb) 08/07/2024 10:34 AM EDT Height 162.6 cm (5' 4 ) 08/07/2024 10:34 AM EDT Body Mass Index 22.14 08/07/2024 10:34 AM EDT Plan of Treatment Health Maintenance Due Date Last Done Comments Medicare Annual Wellness (AWV) 1935 Depression Screening 1947 Adult Tetanus 1956 Zoster Vaccines (1 of 2) 1984 02/12/2010 Fall Risk Screening 11/24/1999 COVID-19 Vaccine ( season) 2024 12/29/2021, 12/20/2020, 04/02/2020, Additional history exists Influenza Vaccine (#1) 2024 4, 10/20/2022, 10/26/2021, Additional history exists Pneumococcal Vaccine: 50+ Years Completed 01/18/2018, 11/02/2014, 02/12/2005 HIB Vaccines Aged Out No longer eligi ble based on patient's age to complete this topic HPV Vaccines Aged Out No longer eligi ble based on patient's age to complete this topic IPV Vaccines Aged Out No longer eligi ble based on patient's age to complete this topic Meningococcal B Vaccine Aged Out No l onger eligible based on patient's age to complete this topic Meningococcal Vaccine Aged Out No melquiades katie eligible based on patient's age to complete this topic Rotavirus Vaccines Aged Out No longer eligible based on patient's age to complete this topic Insurance [facility] MEDICARE ADVANTAGE Care Teams Sand Car Worker Relationship Specialty Start Date End Date Alpesh Trinh MD PCP - General Internal Medicine 09/18/22
--- OUTSIDE RECORDS SUMMARY | 2024-10-17 04:13 | XMS_ITS | Encounter Summary ---
Author Organization [facility] Address [address] [facility] [place] [address] Care Team Providers Care Car Dryer Name Role Phone Alpesh Trinh MD Primary Care Provider [phone] Sunday, Suzy SOLAR PROJECT MANAGER Unavailable [phone] Soheila Waller HAIR DESIGNER Unavailable [phone] Encounter Details Date Type Department Care Team (Late st Contact Info) Description 06/05/2023 Abstract [facility] [place] [facility] [address] [facility] 110 [place] [address] Alpesh Trinh MD [address] [place] [facility] [address] [place] [address] Social History Tobacco Use Types Packs/Day Years [...] on filedocumented in this encounter Care Teams Car Dryer Relationship Specialty Start Date End Date Alpesh Trinh MD [address] [place] [facility] [address] [place], [place] [address] PCP - General Internal Medicine 08/28/22Sunday, JASPREET Almonte 112 [facility] [address] [place] [address] Licensed Practical Nurse Family Medicine 02/11/24 03/14/24 Soheila Waller, MIREYA [address] [place] [address] Mounted Police Officer Family Medicine 02/11/24 03/14/24 documented as of this encounter
--- OUTSIDE RECORDS SUMMARY | 2024-10-17 04:13 | XMS_ITS | Encounter Summary ---
Author Organization [facility] Address [address] [facility] [place] [address] Care Team Providers Care Hod Carrier Name Role Phone Alpesh Trinh MD Primary Care Provider [phone] Sunday, Szuy SISTER SUPERIOR Unavailable [phone] Soheila Waller FUNERAL DIRECTOR AND EMBALMER Unavailable [phone] Encounter Details Date Type Department Care Team (Late st Contact Info) Description 01/09/2024 Abstract [facility] [place] [facility] [address] [facility] 110 [place] [address] Alpesh Trinh MD [address] [facility] [address] [place] [address] Social History Tobacco Use Types Packs/Day Years [...] on filedocumented in this encounter Care Teams Hod Carrier Relationship Specialty Start Date End Date Alpesh Trinh MD [address] [place] [address] PCP - General Internal Medicine 08/28/22Sunday, JASPREET Almonte [address] [place] [address] Licensed Practical Nurse Family Medicine 02/11/24 03/14/24 Soheila Waller, MIREYA [address] [place] [address] Teletypesetter Operator Family Medicine 02/11/24 03/14/24 documented as of this encounter
--- OUTSIDE RECORDS SUMMARY | 2024-10-17 04:13 | XMS_ITS | Encounter Summary ---
Author Organization [facility] Address [address] [place] [address] Care Team Providers Care Cook Italian Style Food Name Role Phone Alpesh Trinh MD Primary Care Provider [phone] Sunday, Suzy ASSOCIATE THEATRE PROFESSOR Unavailable [phone] Soheila Waller CAR BRACER Unavailable [phone] Encounter Details Date Type Department Care Team (Late st Contact Info) Description 10/29/2023 Clinisync Result Encounter [facility] External Department Unsolicited [...] Diagnosis Comments XR WRIST 3+ VIEWS RIGHT 10/29/2023 4:14 PM EDT documented in this encounter Results * XR wrist 3+ views right (10/29/2023 4:14 PM EDT) Anatomical Region Laterality Modality Upper Extremities, Wrist Right Radiogr aphic Imaging 10/29/2023 4:14 PM EDT Narrative 10/29/2023 4:16 PM EDT [address] [address] XRay Report Signed Patient: HOWARD ROQUE MR#: [id number] : 1935 Acct:[id number] Age/Sex: 87 / F ADM Date: 10/29/23 Loc: EC Attending Dr: Santosh Johnson M.D. Ordering Physician: Santosh Johnson M.D. Date of Service: 10/29/23 Procedure(s): XR wrist RT min 3V Accession Number(s): [id number] cc: ALPESH TRINH ; Santosh Johnson M.D. [address] [address] Patient Name: HOWARD ROQUE MRN: [id number] date: 1935 Sex: F Assigned Patient Location: Current Patient Location: Accession/Order Number: [id number] Exam Date: 10/29/2023 09:35 Report Date: 10/29/2023 16:14 At the request of: SANTOSH JOHNSON Procedure: XR wrist RT min 3V EXAM: XR wrist RT min 3V HISTORY: RIGHT WRIST PAIN COMPARISON: 09/17/2023 TECHNIQUE: 3 views the right wrist were obtained. FINDINGS: Again seen is the comminuted fracture involving the distal ulnar metaphysis. There is been slight interval worsening of the impaction fracture fragments and interval increase in the slight radial angulation of the distal fracture fragment. No significant osseous healing is identified. There is no other evidence of an acute fracture or dislocation. There is prominent narrowing of the joint spaces at the distal scaphoid bone. XR/XR wrist RT min 3V IMPRESSION: There has been interval worsening of the slightly impacted comminuted fracture of the distal ulna, with worsening of position and alignment, as described above. There is also very little evidence of ongoing osseous healing. Electronically authenticated by: ALVA KENNEDY Date: 10/29/2023 16:14 Dictated By: Alva Kennedy M.D. Signed By: 10/29/23 1616 DD/ 1614 TD/TT: Medical Education Coordinator: Procedure Note Radiology, Radiologist, MD - 10/29/2023 The [place] [id number] XRay Report Signed Patient: ALESSIA ROQUE#: [id number] : 5Acct:[id number] Age/Sex: 87 / FADM Date: 10/29/23 Loc: EC Attending Dr: Santosh Johnson M.D. Ordering Physician: Santosh Johnson M.D. Date of Service: 10/29/23 Procedure(s): XR wrist RT min 3V Accession Number(s): [id number] cc: ALPESH TRINH ; Santosh Johnson M.D. The [address] [address] Patient Name: HOWARD ROQUE MRN: [id number] date: 1935 Sex: F Assigned Patient Location: Current Patient Location: Accession/Order Number: [id number] Exam Date: 10/29/2023 09:35 Report Date: 10/29/2023 16:14 At the request of: SANTOSH JOHNSON Procedure: XR wrist RT min 3V EXAM: XR wrist RT min 3V HISTORY: RIGHT WRIST PAIN COMPARISON: 09/17/2023 TECHNIQUE: 3 views the right wrist were obtained. FINDINGS: Again seen is the comminuted fracture involving the distal ulnar metaphysis. There is been slight interval worsening of the impactionfracture fragments and interval increase in the slight radial angulation of thedistal fracture fragment. No significant osseous healing is identified. There isno other evidence of an acute fracture or dislocation. There is prominent narrowing of the joint spaces at the distal scaphoid bone. XR/XR wrist RT min 3V IMPRESSION: There has been interval worsening of the slightly impacted comminutedfracture of the distal ulna, with worsening of position and alignment, as described above. There is also very little evidence of ongoing osseous healing. Electronically authenticated by: ALVA KENNEDY Date: 10/29/2023 16:14 Dictated By: Alva Kennedy M.D. Signed By:10/29/231615 DD/ 13 TD/TT: Medical Education Coordinator: us Generic External Data Provider IMG XR PROCEDURES Final Result documented in this encounter Visit Diagnoses Not on filedocumented in this encounter Care Teams Cook Italian Style Food Relationship Specialty Start Date End Date Alpesh Trinh MD [address] [place], [place] [phone] PCP - General Internal Medicine 08/28/22Sunday, JASPREET Almonte [address] [place] [address] Licensed Practical Nurse Family Medicine 02/11/24 03/14/24 Soheila Waller, MIREYA [address] [place] [address] Clinic Receptionist Family Medicine 02/11/24 03/14/24 documented as of this encounter
--- OUTSIDE RECORDS SUMMARY | 2024-10-17 04:13 | XMS_ITS | Clinical Summary ---
Author Organization [employer] Address [id number] [address] [place] [address] Care Team Providers Care Assistant Wrestling Coach Name Role Phone Unavailable Primary Care Provider Unavailabl e Allergies Active Allergy Reactions Criticality Noted Date Comments Penicillins Other (See Comments) 01/30/2014 Medications aw-fw-pm-iron-folic -K-herb 293 (ALIVE WOMEN'S ENERGY) 18 mg iron- 240 mcg-120 mcg tablet A ctive FLUoxetine (PROzac) 20 mg capsule Take 1 capsule every day by oral route for 90 days. 4 Active metoprolol succinate XL (TOPROL XL) 25 mg 24 hr tablet Take 0.5 tablets (12.5 mg total) by mouth. Active denosumab (PROLIA) 60 mg/mL syringe injection Inject 1 mL (60 mg total) under the skin once. Active atorvastatin (LIPITOR) 40 mg tablet Take 1 tablet (40 mg total) by mouth in the morning. Active apixaban (ELIQUIS) 5 mg tabletIndications:p revent thromboembolism in chronic atrial fibrillation Take 1 tablet (5 mg total) by mouth in the morning and 1 tablet (5 mg total) before bedtime. Indications: treatment to prevent blood clots in chronic atrial fibrillation. Active Active Problems Problem Noted Date Diagnosed Date Ataxic gait 07/02/2023 Left ventricular diastolic dysfunction, NYHA cla ss 2 12/07/2022 Diastolic dysfunction 09/18/2022 Gastroesophageal reflux disease without esophagi tis 02/06/2018 Degeneration of intervertebral disc of lumbar re gion 01/22/2018 Heart disease 01/22/2018 Spondylolisthesis, acquired 05/30/2016 Cardiomegaly 04/18/2016 Depressive disorder 04/18/2016 Inflamed seborrheic keratosis 04/18/2016 Malignant neoplasm of sigmoid colon 04/18/2016 Pure hypercholesterolemia 04/18/2016 Varicose veins of lower extremity 04/18/2016 Aortic valve disorder 11/01/2011 Overview (03/10/2024): MILD 10/26/2011 MILD 10/26/2011 Age related osteoporosis 10/30/2011 Benign essential hypertension 10/30/2011 Chronic bronchitis 10/30/2011 Hyperlipidemia 10/30/2011 Encounters Date Type Department Care Team Description 10/09/2024 Telephone [facility], A Department of [facility] [address] [facility] [address] [place] [address] Shalini Liz RN from Last 3 Months Social History Tobacco Use Types Packs/Day Years Used Date Smoking Tobacco: Never Smokeless Tobacco: Never Alcohol Use Standard Drinks/Week Comments Defer 0 (1 standard drink = 0.6 oz pur e alcohol) Childcare Answer Date Recorded Childcare Unknown 07/24/2018 Employment Answer Date Recorded Employment Unknown 07/24/2018 Hunger Screening Answer Date Recorded Within the past 12 months we worried whether our food would run out before we got money to buy more. Never True 05/08/2024 Within the past 12 months th e food we bought just didn't last and we didn't have money to get more. Never True 05/08/2024 Comments Unknown Sex and Gender Information Value Date Recorded Sex Assigned at Not on file Legal Sex Female 11:39 AM EDT Gender Identity Not on file Sexual Orientation Not on file Last Filed Vital Signs Vital Sign Reading Time Taken Comments Blood Pressure 141/73 05/08/2024 10:03 AM EDT Pulse 75 05/08/2024 10:03 AM EDT Temperature - - Respiratory Rate - - Oxygen Saturation - - Inhaled Oxygen Concentration - - Weight 64.9 kg (143 lb) 05/08/2024 10:03 AM EDT Height - - Body Mass Index - - Plan of Treatment Health Maintenance Due Date Last Done Comments Depression Screening 1947 DTaP,Tdap and Td Vaccines (1 - Tdap) 1953 Fall Risk Screening 11/24/1999 Zoster (Shingles) Vaccine (1 of 2) 04/09/2010 02/12/2010 COVID-19 Vaccine (5 - 2024-2 6 season) 2024 12/29/2021, 12/20/2020, 04/02/2020, Additional history exists Influenza Vaccine 10/13/2024 12/07/2023, , 10/26/2021, Additional history exists Tobacco Screening 05/08/2025 05/08/2024 Medical Devices Not on file Insurance [employer]IC[employer]
--- OUTSIDE RECORDS SUMMARY | 2024-10-17 04:13 | XMS_ITS | Encounter Summary ---
Author Organization [facility] Address [address] [place] [address] Care Team Providers Care Electric Motor Repair Supervisor Name Role Phone Alpesh Trinh MD Primary Care Provider [phone] Sunday, Suzy EMERGENCY MAN Unavailable [phone] Soheila Waller AUTOMOTIVE SALES EXECUTIVE Unavailable [phone] Encounter Details Date Type Department Care Team (Late st Contact Info) Description 10/19/2023 Clinisync Result Encounter [facility] External Department Unsolicited Alpesh Trinh MD [address] [place], [place] [address] Social History Tobacco Use Types Packs/Day Years [...] Name Priority Date/Time Associated Diagnosis Comments XR DEXA AXIAL SKELETON 10/19/2023 11:42 AM EDT documented in this encounter Results * XR DEXA AXIAL SKELETON (10/19/2023 11:42 AM EDT) Anatomical Region Laterality Modality Other 10/19/2023 11:4 2 AM EDT Narrative 10/19/2023 11:45 AM EDT [address] [address] XRay Report Signed Patient: GLORIA ROQUE MR#: [id number] : 1935 Acct:[id number] Age/Sex: 87 / F ADM Date: 10/19/23 Loc: RAD Attending Dr: ALPESH TRINH Ordering Physician: ALPESH TRINH Date of Service: 10/19/23 Procedure(s): XR DEXA axial skeleton Accession Number(s): [id number] cc: ALPESH TRINH [address] [address] Patient Name: GLORIA ROQUE MRN: [id number] date: 1935 Sex: F Assigned Patient Location: [facility] Current Patient Location: [facility] Accession/Order Number: [id number] Exam Date: 10/19/2023 09:00 Report Date: 10/19/2023 11:42 At the request of: ALPESH TRINH Procedure: XR DEXA axial skeleton EXAMINATION: XR DEXA axial skeleton HISTORY: Estrogen Deficiency E28.39 COMPARISON: DEXA bone densitometry 09/20/2020 TECHNIQUE: Dual-energy X-ray absorptiometry (DXA) was performed. FINDINGS: SPINE ANALYSIS: Average bone mineral density is 0.869 g/cm2. T-score (standard deviation relative to young adult mean): -2.6 . +5.0% change since prior study. HIP ANALYSIS: Lowest bone mineral density is within the left femoral neck, 0.694 g/cm2. T-score (standard deviation relative to young adult mean): -2.5 . +2.6% change since prior study. XR/XR DEXA axial skeleton IMPRESSION: World Health Organization Classification: Osteoporosis - High Fracture Risk FRAX: Cannot calculate. Pharmacologic treatment recommendations * No uniform recommendation applies to all patients. Management plans must be individualized. * Consider initiating pharmacologic treatment in postmenopausal women and men >= 50 years of age who have the following: Primary fracture prevention: * T-score <= - 2.5 at the femoral neck, total hip, lumbar spine, 33% radius (some uncertainty with existing data) by DXA. * Low bone mass (osteopenia: T-score between - 1.0 and - 2.5) at the femoral neck or total hip by DXA with a 10-year hip fracture risk >= 3% or a 10-year major osteoporosis-related fracture risk >= 20% (i.e., clinical vertebral, hip, forearm, or proximal humerus) based on the US-adapted FRAXregistered model. Secondary fracture prevention: * Fracture of the hip or vertebra regardless of BMD [4, 5]. * Fracture of proximal humerus, pelvis, or distal forearm in persons with low bone mass (osteopenia: T-score between - 1.0 and - 2.5). The decision to treat should be individualized in persons with a fracture of the proximal humerus, pelvis, or distal forearm who do not have osteopenia or low BMD [12, 13]. Esdras MS, Abdulaziz SL, Delphine KL, Edu EM, Jonathon KG, AJ, Daniel ES. The clinician's guide to prevention and treatment of osteoporosis. Osteoporos Int. 2021;33(10):4912-0185. doi: 10.1007/x36168-856-18707-t. Epub 2021Jun 09. Erratum in: Osteoporos Int. 2021Sep 08;: PMID: [id number]; PMCID: [id number]. Electronically authenticated by: SANTOSH CHAPA Date: 10/19/2023 11:42 Dictated By: Santosh Chapa M.D. Signed By: 10/19/23 1145 DD/ 1142 TD/TT: Labor Gang Supervisor: Procedure Note Radiology, Radiologist, MD - 10/19/[address] [address] XRay Report Signed Patient: ALESSIA ROQUE#: [id number] : 5Acct:[id number] Age/Sex: 87 / FADM Date: 10/19/23 Loc: RAD Attending Dr: ALPESH TRINH Ordering Physician: ALPESH TRINH Date of Service: 10/19/23 Procedure(s): XR DEXA axial skeleton Accession Number(s): [id number] cc: ALPESH TRINH [address] [address] Patient Name: GLORIA ROQUE MRN: [id number] date: 1935 Sex: F Assigned Patient Location: RAD Current Patient Location: RAD Accession/Order Number: [id number] Exam Date: 10/19/2023 09:00 Report Date: 10/19/2023 11:42 At the request of: ALPESH TRINH Procedure: XR DEXA axial skeleton EXAMINATION: XR DEXA axial skeleton HISTORY: Estrogen Deficiency E28.39 COMPARISON: DEXA bone densitometry 09/20/2020 TECHNIQUE: Dual-energy X-ray absorptiometry (DXA) was performed. FINDINGS: SPINE ANALYSIS: Average bone mineral density is 0.869 g/cm2. T-score (standard deviation relative to young adult mean): -2.6 . +5.0% change since prior study. HIP ANALYSIS: Lowest bone mineral density is within the left femoral neck, 0.694 g/cm2. T-score (standard deviation relative to young adult mean): -2.5 . +2.6% change since prior study. XR/XR DEXA axial skeleton IMPRESSION: World Health Organization Classification: Osteoporosis - High FractureRisk FRAX: Cannot calculate. Pharmacologic treatment recommendations * No uniform recommendation applies to all patients. Management plans mustbe individualized. * Consider initiating pharmacologic treatment in postmenopausal women andmen >= 50 years of age who have the following: Primary fracture prevention: * T-score <= - 2.5 at the femoral neck, total hip, lumbar spine, 33%radius (some uncertainty with existing data) by DXA. * Low bone mass (osteopenia: T-score between - 1.0 and - 2.5) at thefemoral neck or total hip by DXA with a 10-year hip fracture risk >= 3% or [id number] major osteoporosis-related fracture risk >= 20% (i.e., clinical vertebral, hip, forearm, or proximal humerus) based on the US-adapted FRAXregisteredmodel. Secondary fracture prevention: * Fracture of the hip or vertebra regardless of BMD [4, 5]. * Fracture of proximal humerus, pelvis, or distal forearm in persons withlow bone mass (osteopenia: T-score between - 1.0 and - 2.5). The decision totreat should be individualized in persons with a fracture of the proximalhumerus, pelvis, or distal forearm who do not have osteopenia or low BMD [12, 13]. Esdras MS, Abdulaziz SL, Delphine KL, Edu EM, Jonathon KG, AJ,Daniel ES. The clinician's guide to prevention and treatment of osteoporosis.Osteoporos Int. 2021;33(10):8474-4641. doi: 10.1007/y42965-103-89983-k. Ep. Erratum in: Osteoporos Int. 2021Sep 08;: PMID: [id number]; PMCID: [id number]. Electronically authenticated by: SANTOSH CHAPA Date: 10/19/2023 11:42 Dictated By: Santosh Chapa M.D. Signed By:10/19/23 1145 DD/ 1142 TD/TT: Labor Gang Supervisor: Alpesh Trinh MD [facility] Final Result documented in this encounter Visit Diagnoses Not on filedocumented in this encounter Care Teams Electric Motor Repair Supervisor Relationship Specialty Start Date End Date Alpesh Trinh MD [address] [place] [address] PCP - General Internal Medicine 08/28/22SundaySuzy LPN [address] [place] [address] Licensed Practical Nurse Family Medicine 02/11/24 03/14/24 Soheila Waller, MIREYA [address] [place] [address] Trenching Machine Operator Family Medicine 02/11/24 03/14/24 documented as of this encounter
--- OUTSIDE RECORDS SUMMARY | 2024-10-17 04:13 | XMS_ITS | Encounter Summary ---
Author Organization [facility] tem Address [id number] [address] [place] [address] Care Team Providers Care Cadd Drafter Name Role Phone Unavailable Primary Care Provider Unavailabl e Encounter Details Date Type Department Care Team (Late st Contact Info) Description 10/09/2024 Telephone [facility], A Department of [facility] [address] [facility] [address] [place] [address] Shalini Liz, RN Social History Tobacco Use Types Packs/Day Years [...] on file documented as of this encounter Miscellaneous Notes * Telephone Encounter - Shalini Liz RN - 10/09/2024 11:13 AM EDT error documented in this encounter Plan of Treatment Not on file documented as of this encounter Visit Diagnoses Not on filedocumented in this encounter
--- OUTSIDE RECORDS SUMMARY | 2024-10-17 04:13 | XMS_ITS | Encounter Summary ---
Author Organization [facility] Address [address] [place] [address] Care Team Providers Care Real Estate Officer Name Role Phone Alpesh Trinh MD Primary Care Provider [phone] Sunday, Suzy DENTAL HYGIENE PROFESSOR Unavailable [phone] Soheila Waller PRECISION ASSEMBLY INSPECTOR Unavailable [phone] Encounter Details Date Type Department Care Team (Late st Contact Info) Description 01/01/2024 Clinisync Result Encounter [facility] External Department Unsolicited [...] Diagnosis Comments XR WRIST 3+ VIEWS RIGHT 01/01/2024 5:45 AM EST documented in this encounter Results * XR wrist 3+ views right (01/01/2024 5:45 AM EST) Anatomical Region Laterality Modality Upper Extremities, Wrist Right Radiogr aphic Imaging 01/01/2024 5:45 AM EST Narrative 01/01/2024 5:47 AM EST The [address] [address] XRay Report Signed Patient: HOWARD ROQUE MR#: [id number] : 1935 Acct:[id number] Age/Sex: 88 / F ADM Date: 12/31/23 Loc: EC Attending Dr: Santosh Johnson M.D. Ordering Physician: Santosh Johnson M.D. Date of Service: 12/31/23 Procedure(s): XR wrist RT min 3V Accession Number(s): [id number] cc: ALPESH TRINH ; Santosh Johnson M.D. The [address] [address] Patient Name: HOWARD ROQUE MRN: [id number] date: 1935 Sex: F Assigned Patient Location: Current Patient Location: Accession/Order Number: [id number] Exam Date: 12/31/2023 08:57 Report Date: 01/01/2024 05:45 At the request of: SANTOSH JOHNSON Procedure: XR wrist RT min 3V 3 views of the right wrist INDICATION: Pain COMPARISON: 10/29/2023 XR/XR wrist RT min 3V IMPRESSION: Displaced distal ulna fracture in worsened alignment compared to prior without significant interval healing. 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 Joint alignment is intact. Soft tissue swelling about the wrist. Electronically authenticated by: MOOKIE VACA Date: 01/01/2024 05:45 Dictated By: Mookie Vaca M.D. Signed By: 01/01/24 0547 DD/ 0545 TD/TT: Braid Maker: Procedure Note Radiology, Radiologist, - 01/01/[address] [address] XRay Report Signed Patient: LAURA ROQUER#: [id number] : 5Acct:[id number] Age/Sex: 88 / FADM Date: 12/31/23 Loc: EC Attending Dr: Santosh Johnson M.D. Ordering Physician: Santosh Johnson M.D. Date of Service: 12/31/23 Procedure(s): XR wrist RT min 3V Accession Number(s): [id number] cc: ALPESH TRINH ; Santosh Johnson M.D. [place] [id number] Patient Name: HOWARD ROQUE MRN: [id number] date: 1935 Sex: F Assigned Patient Location: Current Patient Location: Accession/Order Number: [id number] Exam Date: 12/31/2023 08:57 Report Date: 01/01/2024 05:45 At the request of: SANTOSH JOHNSON Procedure: XR wrist RT min 3V 3 views of the right wrist INDICATION: Pain COMPARISON: 10/29/2023 XR/XR wrist RT min 3V IMPRESSION: Displaced distal ulna fracture in worsened alignment compared to priorwithout significant interval healing. Moderate to severe degenerative changes ofthe triscaphe joint. Joint alignment is intact. Soft tissue swelling about the wrist. Electronically authenticated by: MOOKIE VACA Date: 01/01/2024 05:45 Dictated By: Mookie Vaca M.D. Signed By:01/01/2447 DD/ TD/TT: Braid Maker: Generic External Data Provider IMG XR PROCEDURES Final Result documented in this encounter Visit Diagnoses Not on filedocumented in this encounter Care Teams Real Estate Officer Relationship Specialty Start Date End Date Alpesh Trinh MD [address] [place] [address] PCP - General Internal Medicine 08/28/22SundaySuzy LPN [address] [place] [address] Licensed Practical Nurse Family Medicine 02/11/24 03/14/24 Soheila Waller LSW [address] [place] [address] Microstrategy Developer Family Medicine 02/11/24 03/14/24 documented as of this encounter
--- OUTSIDE RECORDS SUMMARY | 2024-10-17 04:13 | XMS_ITS | Encounter Summary ---
Author Organization [facility] Address [address] [facility] [place] [address] Care Team Providers Care Consulting Sales Executive Name Role Phone Alpesh Trinh MD Primary Care Provider [phone] Sunday, Suzy COATER OPERATOR INSULATION BOARD Unavailable [phone] Soheila Waller INDUSTRIAL CLEANER Unavailable [phone] Encounter Details Date Type Department Care Team (Late st Contact Info) Description 10/26/2023 Abstract [facility] [address] [facility] [address] [place] [address] Alpesh Trinh MD [address] [facility] [address] [place] [address] Social History Tobacco Use Types Packs/Day Years [...] on filedocumented in this encounter Care Teams Consulting Sales Executive Relationship Specialty Start Date End Date Alpesh Trinh MD [address] [place] [address] PCP - General Internal Medicine 08/28/22Sunday, JASPREET Almonte [address] [place] [address] Licensed Practical Nurse Family Medicine 02/11/24 03/14/24 Soheila Waller, MIREYA [address] [place] [address] Supervising Fire Marshal Family Medicine 02/11/24 03/14/24 documented as of this encounter
--- OUTSIDE RECORDS SUMMARY | 2024-10-17 04:13 | XMS_ITS | Encounter Summary ---
Author Organization [facility] Address [address] [facility] [place] [address] Care Team Providers Care Vehicle Body Sander Name Role Phone Alpesh Trinh MD Primary Care Provider [phone] Sunday, Suzy CORE ANALYSIS OPERATOR Unavailable [phone] Soheila Waller GAS PROVER Unavailable [phone] Encounter Details Date Type Department Care Team (Late st Contact Info) Description 01/17/2024 Abstract [facility] [place] [facility] [address] [facility] [address] [place] [address] Alpesh Trinh MD [address] [facility] [address] [place] [address] Social History Tobacco Use Types Packs/Day Years [...] on filedocumented in this encounter Care Teams Vehicle Body Sander Relationship Specialty Start Date End Date Alpesh Trinh MD [address] [place] [address] PCP - General Internal Medicine 08/28/22Sunday, JASPREET Almonte [address] [place] [address] Licensed Practical Nurse Family Medicine 02/11/24 03/14/24 Soheila Waller, MIREYA [address] [place] [address] State Manager Family Medicine 02/11/24 03/14/24 documented as of this encounter
--- OUTSIDE RECORDS SUMMARY | 2024-10-17 04:13 | XMS_ITS | Encounter Summary ---
Author Organization [employer] Address [facility]-[id number] [address] [place] [address] Care Team Providers Care Package Clerk Name Role Phone Unavailable Primary Care Provider Unavailabl e Encounter Details Date Type Department Care Team (Late st Contact Info) Description 02/07/2024 Orders Only [employer] [employer] External Film Storage [facility] [place] [address] Transcribe, Orders Support User Pain (Primary Dx) Social History Tobacco Use Types Packs/Day Years Used Date Smoking Tobacco: Never Assessed Childcare Answer Date Recorded Childcare Unknown 07/24/2018 Employment Answer Date Recorded Employment Unknown 07/24/2018 Comments Unknown Sex and Gender Information Value Date Recorded Sex Assigned at Not on file Legal Sex Female 11:39 AM EDT Gender Identity Not on file Sexual Orientation Not on file documented as of this encounter Plan of Treatment Not on file documented as of this encounter Results * MR brain without contrast (02/04/2024 10:10 AM EST) us Scanning Provider External IMG MRI ORDERABLES Fi nal Result * CT angiogram carotid (02/03/2024 5:40 PM EST) us Scanning Provider External IMG CT ORDERABLES Fin al Result * CT angiogram head (02/03/2024 5:35 PM EST) us Scanning Provider External IMG CT ORDERABLES Fin al Result * CT brain without contrast (02/03/2024 1:45 PM EST) us Scanning Provider External IMG CT ORDERABLES Fin al Result documented in this encounter Visit Diagnoses Diagnosis Pain- Primary Generalized pain documented in this encounter
--- OUTSIDE RECORDS SUMMARY | 2024-10-17 04:13 | XMS_ITS | Continuity of Care Document ---
Author Organization [facility] up Address [address] [place] [id number] Insurance Providers Payer Plan Claims Address Claims Phone Policy Number Group Number Relation Employer Guarantor Name Guarantor Guarantor Address Guarantor Phone Medic are Outpa tient [id number] [place] 1935 [address] [facility] [place] [address] Human a MCR PFFS [id number] [place] 1935 [address] [place] [address] Regul ar Insur [employer] [id number] [facility] [address] [place] 1935 [address] [place] [address] Problems Condition ICD9 code ICD10 code SNOMED code Start Date End Date S tatus Results No Results Allergies, adverse reactions, alerts Substance Reaction Date Status Type No allergies have been recorded Non Drug Medications No administered medications reported Vital Signs No vital signs reported Social History No smoking Hx information available
--- OUTSIDE RECORDS SUMMARY | 2024-10-17 04:13 | XMS_ITS | Encounter Summary ---
Author Organization [facility] Address [address] [place] [address] Care Team Providers Care Decorating Machine Tender Name Role Phone Alpesh Trinh MD Primary Care Provider [phone] Sunday, Suzy PITCH FILLER Unavailable [phone] Soheila Waller MILK DELIVERY DRIVER Unavailable [phone] Encounter Details Date Type Department Care Team (Late st Contact Info) Description 07/30/2023 Clinisync Result Encounter [facility] External Department Unsolicited [...] Diagnosis Comments XR WRIST 3+ VIEWS RIGHT 07/30/2023 4:42 PM EDT documented in this encounter Results * XR wrist 3+ views right (07/30/2023 4:42 PM EDT) Anatomical Region Laterality Modality Upper Extremities, Wrist Right Radiogr aphic Imaging 07/30/2023 4:42 PM EDT Narrative 07/30/2023 4:44 PM EDT The [address] [address] XRay Report Signed Patient: HOWARD ROQUE MR#: [id number] : 1935 Acct:[id number] Age/Sex: 87 / F ADM Date: 07/30/23 Loc: Attending Dr: Santosh Johnson M.D. Ordering Physician: Santosh Johnson M.D. Date of Service: 07/30/23 Procedure(s): XR wrist RT min 3V Accession Number(s): [id number] cc: ALPESH TRINH ; Santosh Johnson M.D. The [place] [id number] Patient Name: HOWARD ROQUE MRN: [id number] date: 1935 Sex: F Assigned Patient Location: Current Patient Location: Accession/Order Number: [id number] Exam Date: 07/30/2023 09:02 Report Date: 07/30/2023 16:42 At the request of: SANTOSH JOHNSON Procedure: XR wrist RT min 3V EXAM: XR wrist RT min 3V HISTORY: RIGHT WRIST PAIN COMPARISON: 07/10/2023 TECHNIQUE: 3 views of the right wrist are performed. FINDINGS: Casting material obscures fine bony detail. The distal ulnar fracture demonstrates similar alignment. No definite signs of healing are seen through the cast. There are degenerative changes within the wrist and at the first CMC joint. XR/XR wrist RT min 3V IMPRESSION: No significant change in alignment to the distal ulnar fracture. Degenerative changes within the hand and wrist. Electronically authenticated by: HASMUKH GONSALEZ Date: 07/30/2023 16:42 Dictated By: Hasmukh Gonsalez M.D. Signed By: 07/30/231643 DD/ 41 TD/TT: Meal Packer: Procedure Note Radiology, Radiologist, MD - 07/30/[address] [address] XRay Report Signed Patient: LAURA ROQUER#: [id number] : 5Acct:[id number] Age/Sex: 87 / FADM Date: 07/30/23 Loc: EC Attending Dr: Santosh Johnson M.D. Ordering Physician: Santosh Johnson M.D. Date of Service: 07/30/23 Procedure(s): XR wrist RT min 3V Accession Number(s): [id number] cc: ALPESH TRINH ; Santosh Johnson M.D. [place] [id number] Patient Name: HOWARD ROQUE MRN: [id number] date: 1935 Sex: F Assigned Patient Location: Current Patient Location: Accession/Order Number: [id number] Exam Date: 07/30/2023 09:02 Report Date: 07/30/2023 16:42 At the request of: SANTOSH JOHNSON Procedure: XR wrist RT min 3V EXAM: XR wrist RT min 3V HISTORY: RIGHT WRIST PAIN COMPARISON: 07/10/2023 TECHNIQUE: 3 views of the right wrist are performed. FINDINGS: Casting material obscures fine bony detail. The distal ulnar fracture demonstrates similar alignment. No definite signs of healing are seenthrough the cast. There are degenerative changes within the wrist and at the first CMCjoint. XR/XR wrist RT min 3V IMPRESSION: No significant change in alignment to the distal ulnar fracture. Degenerative changes within the hand and wrist. Electronically authenticated by: HASMUKH GONSALEZ Date: 07/30/2023 16:42 Dictated By: Hasmukh Gonsalez M.D. Signed By:07/30/234 DD/ 41 TD/TT: Meal Packer: us Generic External Data Provider IMG XR PROCEDURES Final Result documented in this encounter Visit Diagnoses Not on filedocumented in this encounter Care Teams Decorating Machine Tender Relationship Specialty Start Date End Date Alpesh Trinh MD [address] [facility] [address] [place] [address] PCP - General Internal Medicine 08/28/22Sunday, JASPREET Almonte [address] [facility] [address] [place] [address] Licensed Practical Nurse Family Medicine 02/11/24 03/14/24 Soheila Waller LSW [address] [place] [address] Creative Writing English Professor Family Medicine 02/11/24 03/14/24 documented as of this encounter
--- OUTSIDE RECORDS SUMMARY | 2024-10-17 04:13 | XMS_ITS | Encounter Summary ---
Author Organization [facility] Address [address] [facility] [place] [address] Care Team Providers Care Data Security Coordinator Name Role Phone Alpesh Trinh MD Primary Care Provider [phone] Sunday, Suzy WAGE AND HOUR INVESTIGATOR Unavailable [phone] Soheila Waller CRACKING UNIT OPERATOR Unavailable [phone] Encounter Details Date Type Department Care Team (Late st Contact Info) Description 02/12/2024 Abstract [facility] [place] [facility] [address] [facility] [address] [place] [address] Alpesh Trinh MD [address] [facility] [address] [place] [address] Social History Tobacco Use Types Packs/Day Years [...] on filedocumented in this encounter Care Teams Data Security Coordinator Relationship Specialty Start Date End Date Alpesh Trinh MD [address] [place] [address] PCP - General Internal Medicine 08/28/22Sunday, JASPREET Almonte [address] [place] [address] Licensed Practical Nurse Family Medicine 02/11/24 03/14/24 Soheila Waller, MIREYA [address] [place] [address] Histology Assistant Family Medicine 02/11/24 03/14/24 documented as of this encounter
--- OUTSIDE RECORDS SUMMARY | 2024-10-17 04:13 | XMS_ITS | Encounter Summary ---
Author Organization [facility] Address [address] [facility] [place] [address] Care Team Providers Care Jig Grinder Name Role Phone Alpesh Trinh MD Primary Care Provider Sunday, Suzy TESTER FOOD PRODUCTS Unavailable [phone] Soheila Waller FIELD LABORER Unavailable [phone] Encounter Details Date Type Department Care Team (Late st Contact Info) Description 02/12/2024 Abstract [facility] [place] [facility] [address] [facility] 110 [place] [address] Alpesh Trinh MD [address] [facility] 110 [place] [address] Social History Tobacco Use Types Packs/Day Years [...] on filedocumented in this encounter Care Teams Jig Grinder Relationship Specialty Start Date End Date Alpesh Trinh MD [address] [place] [address] PCP - General Internal Medicine 08/28/22Sunday, JASPREET Almonte [address] [place] [address] Licensed Practical Nurse Family Medicine 02/11/24 03/14/24 Soheila Waller, MIREYA [address] [place] [address] Parking Meter Installer Family Medicine 02/11/24 03/14/24 documented as of this encounter
--- OUTSIDE RECORDS SUMMARY | 2024-10-17 04:13 | XMS_ITS | Encounter Summary ---
Author Organization [facility] Address [address] [facility] [place] [address] Care Team Providers Care Textiles Sales Representative Name Role Phone Alpesh Trinh MD Primary Care Provider [phone] Sunday, Suzy WEIGHER AND CRUSHER Unavailable [phone] Soheila Waller INSTRUCTIONAL SPECIALIST Unavailable [phone] Encounter Details Date Type Department Care Team (Late st Contact Info) Description 07/30/2023 Orders Only [facility] [address] [place] [id number] Unallocated, Noms Provider, [address] [place] [address] Social History Tobacco Use Types Packs/Day Years [...] Procedure Name Priority Date/Time Associated Diagnosis Comments HOLTER MONITOR 48HR Routine 07/21/2023 11:14 AM EDT documented in this encounter Results * HOLTER MONITOR 48HR (07/21/2023 11:14 AM EDT) Anatomical Region Laterality Modality Radiographic Janice ging us Noms Provider Unallocated MD LOMELI XR PROCEDURES F inal Result documented in this encounter Visit Diagnoses Not on filedocumented in this encounter Care Teams Textiles Sales Representative Relationship Specialty Start Date End Date Alpesh Trinh MD [address] [place], [place] [id number] PCP - General Internal Medicine 08/28/22SundaySuzy LPN [address] [place] [address] Licensed Practical Nurse Family Medicine 02/11/24 03/14/24 Soheila Waller, MIREYA [address] [place] [address] Apartment Maintenance Family Medicine 02/11/24 03/14/24 documented as of this encounter
--- OUTSIDE RECORDS SUMMARY | 2024-10-17 04:13 | XMS_ITS | Encounter Summary ---
Author Organization [facility] Address [address] [facility] [place] [address] Care Team Providers Care Gas Plant Operator Name Role Phone Alpesh Trinh MD Primary Care Provider [phone] Encounter Details Date Type Department Care Team (Late st Contact Info) Description 06/24/2024 Abstract [facility] [place] [facility] [address] [facility] 110 [place] [address] Alpesh Trinh MD [address] [facility] 110 [place] [address] Social History Tobacco Use Types Packs/Day Years [...] How often do you attend chur or sabianism services? Never 05/19/2024 Do you belong to any clubs o r organizations such as latter-day groups, unions, fraternal or athletic groups, or [...] Recorded Patient Health Questionnaire-2 Score 0 06/23/2024 [facility] - Occupational Stress Questionnaire Answer Date Recorded [...] any time in the past 12 m [facility], were you homeless or living in [...] on filedocumented in this encounter Care Teams Gas Plant Operator Relationship Specialty Start Date End Date Alpesh Trinh MD 112 [facility] 110 [place] [address] PCP - General Internal Medicine 08/28/22 documented as of this encounter
--- OUTSIDE RECORDS SUMMARY | 2024-10-17 04:13 | XMS_ITS | Clinical Summary ---
Author Organization [facility] Address [address] [place] [address] Care Team Providers Care [employer] Humanities Teacher Name Role Phone Alpesh Trinh MD Primary Care Provider [phone] Allergies Active Allergy Reactions Criticality Noted Date Comments Penicillin V Unknown 12/07/2022 Penicillins Unknown 01/30/2014 Medications FLUoxetine (PROzac) 20 MG capsuleIndicatio ns:Major depressive disorder, single episode, unspecified TAKE 1 CAPSULE BY MOUTH DAILY 100 capsule 3 02/14/19 25 Active atorvastatin (Lipitor) 40 MG tabletIndication s:Essential (primary) hypertension,Hea rt disease Take 1 tablet (40 mg) by mouth Daily 100 tablet 3 04/04/19 25 Active apixaban (Eliquis) 5 MG tabletIndication s:Essential (primary) hypertension,Hea rt disease Take 1 tablet (5 mg) by mouth in the morning and 1 tablet (5 mg) before bedtime. 180 tablet 3 04/04/19 25 Active dilTIAZem CD (Cardizem CD) 120 MG 24 hr capsule Take 120 mg by mouth Daily 05/13/19 25 026 Active Ferrous Sulfate (IRON PO) Active furosemide (Lasix) 20 MG tablet Take 20 mg by mouth every other day 05/13/19 25 026 Active dextran 70-hypromellose (artificial tears) 0.1-0.3 % ophthalmic solution Administer 2 drops into both eyes 3 (three) times a day as needed for dry eyes Active naproxen sodium (Aleve) 220 MG tablet Take 220 mg by mouth 2 (two) times a day as needed for mild pain, fever or headaches Active metoprolol succinate XL (Toprol-XL) 25 MG 24 hr tablet Take 12.5 mg by mouth in the morning and 12.5 mg before bedtime. Do not crush or chew.. Active denosumab (Prolia) 60 MG/ML solution prefilled syringeIndicatio ns:Age-related osteoporosis without current pathological fracture ADMINISTER 60MG(1 INJECTION) UNDER THE SKIN ONCE EVERY 6 MONTHS 1 mL 06/24/19 25 Active hydrOXYzine HCl (Atarax) 10 MG tabletIndication s:Dermatitis Take 1 tablet (10 mg) by mouth every 8 (eight) hours if needed for itching or allergies for up to 7 days 21 tablet 07/09/19 25 Active busPIRone (Buspar) 10 MG tabletIndication s:Generalized anxiety disorder with panic attacks Take 2 tablets (20 mg) by mouth in the morning and 2 tablets (20 mg) before bedtime. 120 tablet 5 09/23/19 25 Active busPIRone (Buspar) 10 MG tabletIndication s:Generalized anxiety disorder with panic attacks Take 2 tablets (20 mg) by mouth in the morning and 2 tablets (20 mg) before bedtime. 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 025 Edema of both legs 05/19/2024 Orthostatic hypotension 05/19/2024 Falls frequently 02/23/2024 Longstanding persistent atrial fibrillation 02/12 Ataxic gait 07/02/2023 Asymptomatic varicose veins, unspecified lateral ity 12/07/2022 Left ventricular diastolic dysfunction, NYHA cla ss 2 12/07/2022 Spondylolisthesis at L4-L5 level 12/07/2022 Diastolic dysfunction 09/18/2022 Gastroesophageal reflux disease without esophagi tis 02/06/2018 Degeneration of intervertebral disc of lumbar re gion 01/22/2018 Heart disease 01/22/2018 Acquired spondylolisthesis 05/30/2016 Varicose veins of lower extremity 04/18/2016 Cardiomegaly 04/18/2016 Depressive disorder 04/18/2016 Inflamed seborrheic keratosis 04/18/2016 Malignant neoplasm of sigmoid colon 04/18/2016 Pure hypercholesterolemia 04/18/2016 Age related osteoporosis 04/13/2016 Aortic valve disorder 11/01/2011 Overview (12/07/2022): MILD 10/26/2011 MILD 10/26/2011 Benign essential hypertension 10/30/2011 Chronic bronchitis 10/30/2011 Osteoporosis 10/30/2011 Resolved Problems Problem Noted Date Diagnosed Date Resolved Date Hyperlipidemia 10/30/2011 10/04/2023 Encounters Date Type Department Care Team Description 09/20/[facility]24 [facility] [address] [facility] [address] [place] [address] Chelly Salomon PA Generalized anxiety disorder with panic attacks 08/07/2024 Abstract [facility] [address] [facility] [address] [place] [address] Alpesh Trinh MD 07/28/2024 Telephone [facility] [address] [facility] [address] [place] [address] Alpesh Trinh MD from Last 3 Months Immunizations Immunization Administration Dates Next Due Influenza Whole 11/14/2011, 1,11/24/2009,11/28 Influenza, High Dose Seasona l, Preservative Free 12/07/2023,12/07/2018,11/26/2015,11/16 Influenza, High-dose Seasona l, Quadrivalent, Preservative Free 10/26/2021,11/16/2020,12/09/2019 Influenza, Seasonal, Quadriv alent, Adjuvanted 10/20/2022 Influenza, seasonal, injectable 11/12/2013,12/04 Influenza, seasonal, intrade rmal, preservative free 11/02/2014 Influenza, trivalent, adjuvanted 11/18/2017,11/12 Pneumococcal Conjugate PCV 13 01/18/2018 Pneumococcal Polysaccharide PPSV23 11/02/2014, Zoster, live 02/12/2010 Family History Medical History Relation Name Comments Heart disease Father Hypertension Father Cancer Mother Relation Name Status Comments Father Mother Social History Tobacco Use Types Packs/Day Years Used Date Smoking Tobacco: Never Smokeless Tobacco: Never Tobacco Cessation:Counseling Given: Not Answered Alcohol Use Standard Drinks/Week Comments Never 0 [...] 05/19/2024 How often do you attend chur ch or presybeterian services? Never 05/19/2024 Do you belong to any clubs o r organizations such as temple groups, unions, fraternal or athletic groups, or [...] Recorded Patient Health Questionnaire-2 Score 0 06/23/2024 [facility] [place] [facility] Occupat ional Health - Occupational Stress Questionnaire Answer Date Recorded [...] any time in the past 12 m [facility], were you homeless or living in a jail (including now)? No 05/19/2024 Comments Unknown Sex and Gender Information Value Date Recorded Sex Assigned at Not on file Legal Sex Female 7:21 PM EDT Gender Identity Not on file Sexual Orientation Not on file Last Filed Vital Signs Vital Sign Reading Time Taken Comments Blood Pressure 126/68 06/23/2024 4:13 PM EDT Pulse 66 06/23/2024 4:13 PM EDT Temperature - - Respiratory Rate 16 05/21/2024 10:02 AM EDT Oxygen Saturation 97% 06/23/2024 4:13 PM EDT Inhaled Oxygen Concentration - - Weight 59.9 kg (132 lb) 06/23/2024 4:13 PM EDT Height 163.8 cm (5' 4.5 ) 06/23/2024 4:13 PM EDT Body Mass Index 22.31 06/23/2024 4:13 PM EDT Plan of Treatment Health Maintenance Due Date Last Done Comments Influenza Vaccine (#1) 2024 4, 10/20/2022, 10/26/2021, Additional history exists Pneumococcal Vaccine: 65+ Years Completed 01/18/2018, 11/02/2014, 02/12/2005 Insurance [facility] MEDIC[facility] ADVANTAGE Advance Directives Healthcare Agents on File Name Relationship Healthcare Agent Relationship Communication Tyree Roque Son First Alternate Health Care Agent jourdan Roque Friend Second Alterna te Health Care Agent Care Teams [employer] Humanities Teacher Relationship Specialty Start Date End Date Alpesh Trinh MD [address] [place] [address] PCP - General Internal Medicine 08/28/22
--- OUTSIDE RECORDS SUMMARY | 2024-10-17 04:13 | XMS_ITS | Encounter Summary ---
Author Organization [facility] Address [address] [place] [address] Care Team Providers Care Management Analyst Name Role Phone Sharmaine Trinh MD Primary Care Provider [phone] Sunday, Suzy MARKETING SERVICES MANAGER Unavailable [phone] Soheila Waller NON DESTRUCTIVE TESTING INSPECTOR Unavailable [phone] Encounter Details Date Type Department Care Team (Late st Contact Info) Description 07/03/2023 Clinisync Result Encounter [facility] External Department Unsolicited [...] Diagnosis Comments XR WRIST 3+ VIEWS RIGHT 07/03/2023 8:22 AM EDT documented in this encounter Results * XR wrist 3+ views right (07/03/2023 8:22 AM EDT) Anatomical Region Laterality Modality Upper Extremities, Wrist Right Radiogr aphic Imaging 07/03/2023 8:22 AM EDT Narrative 07/03/2023 8:25 AM EDT The [address] [address] XRay Report Signed Patient: HOWARD ROQUE MR#: [id number] : 1935 Acct:[id number] Age/Sex: 87 / F ADM Date: 07/02/23 Loc: EC Attending Dr: Patt Johnson M.D. Ordering Physician: Patt Johnson M.D. Date of Service: 07/02/23 Procedure(s): XR wrist RT min 3V Accession Number(s): [id number] cc: SHARMAINE TRINH ; Patt Johnson M.D. The [address] [address] Patient Name: HOWARD ROQUE MRN: [id number] date: 1935 Sex: F Assigned Patient Location: Current Patient Location: Accession/Order Number: [id number] Exam Date: 07/02/2023 11:55 Report Date: 07/03/2023 08:22 At the request of: PATT JOHNSON Procedure: XR wrist RT min 3V PROCEDURE: XR wrist RT min 3V HISTORY: RIGHT WRIST PAIN COMPARISON: XR form right 06/24/2023 FINDINGS: BONES:Transverse fracture through distal ulna at the diametaphyseal junction with 2.5 mm medial displacement of the distal fragment. 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 SOFT TISSUES:Mild soft tissue swelling. Images were obtained to cast material. EFFUSION:None visible. OTHER: Negative. XR/XR wrist RT min 3V IMPRESSION: 1. Acute mildly displaced fracture of the distal ulna, with greater displacement than seen on the prior study. Electronically authenticated by: PATT CHAPA Date: 07/03/2023 08:22 Dictated By: Patt Chapa M.D. Signed By: 07/03/23824 DD/ 1 TD/TT: Truckman: Procedure Note Radiology, Radiologist, MD - 07/03/[address] [address] XRay Report Signed Patient: ALESSIA ROQUE#: [id number] : 5Acct:[id number] Age/Sex: 87 / FADM Date: 07/02/23 Loc: EC Attending Dr: Patt Johnson M.D. Ordering Physician: Patt Johnson M.D. Date of Service: 07/02/23 Procedure(s): XR wrist RT min 3V Accession Number(s): [id number] cc: SHARMAINE TRINH ; Patt Johnson M.D. [place] [id number] Patient Name: HOWARD ROQUE MRN: [id number] date: 1935 Sex: F Assigned Patient Location: EC Current Patient Location: Accession/Order Number: [id number] Exam Date: 07/02/2023 11:55 Report Date: 07/03/2023 08:22 At the request of: PATT JOHNSON Procedure: XR wrist RT min 3V PROCEDURE: XR wrist RT min 3V HISTORY: RIGHT WRIST PAIN COMPARISON: XR form right 06/24/2023 FINDINGS: BONES:Transverse fracture through distal ulna at the diametaphysealjunction with 2.5 mm medial displacement of the distal fragment. 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 SOFT TISSUES:Mild soft tissue swelling. Images were obtained to castmaterial. EFFUSION:None visible. OTHER: Negative. XR/XR wrist RT min 3V IMPRESSION: 1. Acute mildly displaced fracture of the distal ulna, with greater displacement than seen on the prior study. Electronically authenticated by: PATT CHAPA Date: 07/03/2023 08:22 Dictated By: Patt Chapa M.D. Signed By:07/03/23824 DD/ 1 TD/TT: Truckman: us Generic External Data Provider IMG XR PROCEDURES Final Result documented in this encounter Visit Diagnoses Not on filedocumented in this encounter Care Teams Management Analyst Relationship Specialty Start Date End Date Sharmaine Trinh MD [address] [facility] 110 [place], [place] [id number] PCP - General Internal Medicine 08/28/22Sunday, JASPREET Almonte [address] [facility] [address] [place] [address] Licensed Practical Nurse Family Medicine 02/11/24 03/14/24 Soheila Waller, MIREYA [address] [place] [address] Marine Steamfitter Family Medicine 02/11/24 03/14/24 documented as of this encounter
--- OUTSIDE RECORDS SUMMARY | 2024-10-17 04:13 | XMS_ITS | Encounter Summary ---
Author Organization [facility] Address [address] [place] [address] Care Team Providers Care Tile Setter Name Role Phone Alpesh Trinh MD Primary Care Provider [phone] Sunday, Suzy WORKING FOREMAN Unavailable [phone] Soheila Waller PUBLIC RELATIONS COUNSELOR Unavailable [phone] Encounter Details Date Type Department Care Team (Late st Contact Info) Description 10/02/2022 Orders Only [facility] [place] [facility] [address] [place] [address] A, Unknown Practice [address] [place] [phone] Social History Tobacco Use Types Packs/Day Years Used Date Smoking Tobacco: Never Assessed Comments Unknown Sex and Gender Information Value Date Recorded Sex Assigned at Not on file Legal Sex Female 7:21 PM EDT Gender Identity Not on file Sexual Orientation Not on file documented as of this encounter Plan of Treatment Not on file documented as of this encounter Procedures Procedure Name Priority Date/Time Associated Diagnosis Comments ECHO 2D/3D RYAN W/WO CONTRAST Routine 09/29/2022 8:34 AM EDT documented in this encounter Results * ECHO 2D/3D RYAN W/WO CONTRAST (09/29/2022 8:34 AM EDT) Anatomical Region Laterality Modality Radiographic Janice ging us Unknown Practice A IMG XR PROCEDURES Final Resul t documented in this encounter Visit Diagnoses Not on filedocumented in this encounter Care Teams Tile Setter Relationship Specialty Start Date End Date Alpesh Trinh MD [address] [place] [address] PCP - General Internal Medicine 08/28/22Sunday, JASPREET Almon[address] [facility] [address] [place] [address] Licensed Practical Nurse Family Medicine 02/11/24 03/14/24 Soheila Waller, MIREYA [address] [place] [address] Paraprofessional Education Assistant Family Medicine 02/11/24 03/14/24 documented as of this encounter
--- OUTSIDE RECORDS SUMMARY | 2024-10-17 04:13 | XMS_ITS | Encounter Summary ---
Author Organization [facility] Address [address] [facility] [place] [address] Care Team Providers Care Imitation Marble Mechanic Name Role Phone Alpesh Trinh MD Primary Care Provider [phone] Sunday, Suzy BIAS CUTTER Unavailable [phone] Soheila Waller SPIRAL MACHINE OPERATOR Unavailable [phone] Encounter Details Date Type Department Care Team (Late st Contact Info) Description 08/02/2023 Orders Only [facility] [address] [place] [id number] Unallocated, Noms Provider, [address] [place] [address] Social History Tobacco Use Types Packs/Day Years [...] Procedure Name Priority Date/Time Associated Diagnosis Comments ELECTROCARDIOGRAM REPORT Routine 024 10:47 AM EDT documented in this encounter Results * Electrocardiogram Report (07/27/2023 10:47 AM EDT) us Noms Provider Unallocated MD IN CLINIC/BEDSIDE O RDERABLES Final Result documented in this encounter Visit Diagnoses Not on filedocumented in this encounter Care Teams Imitation Marble Mechanic Relationship Specialty Start Date End Date Alpesh Trinh MD [address] [place], [place] [address] PCP - General Internal Medicine 08/28/22Sunday, JASPREET Almonte [address] [place] [address] Licensed Practical Nurse Family Medicine 02/11/24 03/14/24 Soheila Waller, MIREYA [address] [place] [address] Knockout Machine Operator Family Medicine 02/11/24 03/14/24 documented as of this encounter
--- OUTSIDE RECORDS SUMMARY | 2024-10-17 04:13 | XMS_ITS | Encounter Summary ---
Author Organization [facility] Address [address] [facility] [place] [address] Care Team Providers Care Dispute Resolution Analyst Name Role Phone Alpesh Trinh MD Primary Care Provider [phone] Sunday, Suzy COLLECTIONS ASSOCIATE Unavailable [phone] Soheila Waller 6TH GRADE TEACHER Unavailable [phone] Encounter Details Date Type Department Care Team (Late st Contact Info) Description 02/18/2024 Abstract [facility] [address] [facility] [address] [place] [address] Alpesh Trinh MD [address] [place] [facility] [address] [place] [address] Social History Tobacco Use Types Packs/Day Years [...] on filedocumented in this encounter Care Teams Dispute Resolution Analyst Relationship Specialty Start Date End Date Alpesh Trinh MD [address] [place] [address] PCP - General Internal Medicine 08/28/22Sunday, JASPREET Almonte [address] [place] [address] Licensed Practical Nurse Family Medicine 02/11/24 03/14/24 Soheila Waller, MIREYA [address] [place] [address] Appeals Assistant Family Medicine 02/11/24 03/14/24 documented as of this encounter
--- OUTSIDE RECORDS SUMMARY | 2024-10-17 04:13 | XMS_ITS | Patient Health Record ---
Author Organization [facility] Address [address] [place] [address] Care Team Providers Care Band Salvager Name Role Phone FreireSantosh antony Unavailable [phone] Roselyn Anguiano Unavailable [phone] Results Component Value Reference Range Notes SCC- WRIST 3 VIEW RIGHT 7311 0 Reviewed date:02/19/2024 02:43:18 PM Interpretation: Performing Lab: Notes/Report: Reason For Referral Reason PLEASE CONTACT SIMI MONDRAGON FOR BONE STIMULATOR Diagnosis 1 Other fracture of lo wer end of right ulna, subsequent encounter for closed fracture with delayed healing (S52.691G) Diagnosis 2 Other fracture of lo wer end of right ulna, 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) Referral Organization [facility] Offic e Referring Provider First Name Roselyn Referring Provider Last Name Annmarie Referring Provider Speciality Physician Nurse First Aid [facility] Referred Address [address] [place] [address],[address],[place], [place],[address], General Notes Pauline Casey 10/29/2023 11:41:45 AM >all clinical sent to [facility] Referral Priority Routine Medications Medication SIG (Take, Route, Frequency, Duration) Notes Start Date End Date Status Calcium 500+D Active Social History Tobacco Use: Social History Observation Description Date Details (start date - stop date) Never Smoker NA - NA AUDIT-C (Standard) Question Answer Notes Did you have a drink containing alcohol in the p ast year? 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) Active confirmed Problem 38495986 Other fracture of lower end of right ulna, subsequent encounter for closed fracture with delayed healing (S52.691G) Active confirmed Vital Signs Height 5'5 in 12/31/2023 Weight 141 lbs 12/31/2023 BMI 23.46 12/31/2023 Encounters Encounter Location Date Provider Diagnosis [facility] [address] [place] [address] 10/29/2023 Roselyn Anguiano Other fracture of lower end of right ulna, subsequent encounter for closed fracture with nonunion S52.691K [facility] [address] [place] [address] 12/31/2023 Santosh Freire Other fracture of lower end of right ulna, subsequent encounter for closed fracture with delayed healing S52.691G Assessments Encounter Date Diagnosis (ICD Code) Assessment Notes Treatment Notes Treatment Clinical Notes Section Notes 10/29/2023 Other fracture of lower end of right ulna, subsequent encounter for closed fracture with nonunion (ICD-10 - S52.691K) 12/31/2023 Other fracture of lower end of right ulna, subsequent encounter for closed fracture with delayed healing (ICD-10 - S52.691G) 10/29/2023 Other Patient is now approximately 4 months out from injury with a non union of her distal ulna fracture on x-ray. I have ordered a bone stimulator and she can also continue to wear her wrist brace with activity. We will see her back in 2 months to repeat x-rays and reassess her progress. 12/31/2023 Other For delayed union of her right distal ulna fracture we will continue with the bone stimulator. She will use the wrist brace only when she is active. She will follow-up in 3 months to repeat x-rays and reassess her progress. Import medication Plan Of Treatment Pending Test Test Name Order Date BONE STIMULATOR 10/29/2023 SCC- WRIST 3 VIEW RIGHT 38724 07/02/2023 SCC- WRIST 3 VIEW RIGHT 93852 07/30/2023 SCC- WRIST 3 VIEW RIGHT 42300 08/13/2023 SCC- WRIST 3 VIEW RIGHT 22623 09/17/2023 SCC- WRIST 3 VIEW RIGHT 03084 10/29/2023 Dexa Bone Density 07/30/2023 Insurance Providers Payer Name Payer Address Payer Phone Subscriber Number Group Number Insured Name Patient Relationship to Insured Coverage Start Date Coverage End Date Medicare [employer] [address] [address] [place] [address] [phone] [id number] HOWARD HOGUE Self - patient is the insured
--- OUTSIDE RECORDS SUMMARY | 2024-10-17 04:13 | XMS_ITS | Encounter Summary ---
Author Organization [facility] Address [address] [facility] [place] [address] Care Team Providers Care Bridge Maintenance Worker Name Role Phone Alpesh Trinh MD Primary Care Provider [phone] Sunday, Suzy RECREATION THERAPY TEACHER Unavailable [phone] Soheila Waller MANIFOLD BUILDER Unavailable [phone] Encounter Details Date Type Department Care Team (Late st Contact Info) Description 02/19/2024 Abstract [facility] [address] [facility] [address] [place] [address] Alpesh Trinh MD [address] [place] [facility] [address] [place] [address] Social History Tobacco Use Types Packs/Day Years [...] on filedocumented in this encounter Care Teams Bridge Maintenance Worker Relationship Specialty Start Date End Date Alpesh Trinh MD [address] [place] [address] PCP - General Internal Medicine 08/28/22Sunday, JASPREET Almonte [address] [place] [address] Licensed Practical Nurse Family Medicine 02/11/24 03/14/24 Soheila Waller, MIREYA [address] [place] [address] Brickmason Family Medicine 02/11/24 03/14/24 documented as of this encounter
--- OUTSIDE RECORDS SUMMARY | 2024-10-17 04:13 | XMS_ITS | Encounter Summary ---
Author Organization [facility] Address [address] [place] [address] Care Team Providers Care Ross Carrier Driver Name Role Phone Alpesh Trinh MD Primary Care Provider [phone] Sunday, Suzy EDGER TECHNICIAN Unavailable [phone] Soheila Waller LANDSCAPE SPECIALIST Unavailable [phone] Encounter Details Date Type Department Care Team (Late st Contact Info) Description 06/14/2023 Clinisync Result Encounter [facility] External Department Unsolicited Chelly Salomon, CHARLI [address] [place], [place] [address] Social History Tobacco Use Types Packs/Day Years [...] Name Priority Date/Time Associated Diagnosis Comments XR RIBS BILATERAL MIN 4 VIEWS W PA CHEST 13984 06/14/2023 12:53 PM EDT documented in this encounter Results * XR RIBS BILATERAL MIN 4 VIEWS W PA CHEST 05171 (06/14/2023 12:53 PM EDT) Anatomical Region Laterality Modality Radiographic Janice ging 06/14/2023 12:5 3 PM EDT Narrative 06/14/2023 12:55 PM EDT [address] [address] XRay Report Signed Patient: HOWARD ROQUE MR#: [id number] : 1935 Acct:[id number] Age/Sex: 87 / F ADM Date: 06/14/23 Loc: RAD Attending Dr: CHELLY SALOMON Ordering Physician: CHELLY SALOMON Date of Service: 06/14/23 Procedure(s): XR ribs BI min 4V w CXR1V Accession Number(s): [id number] cc: ALPESH TRINH ; CHELLY SALOMON [address] [address] Patient Name: HOWARD ROQUE MRN: [id number] date: 1935 Sex: F Assigned Patient Location: [facility] Current Patient Location: [facility] Accession/Order Number: [id number] Exam Date: 06/14/2023 12:15 Report Date: 06/14/2023 12:53 At the request of: CHELLY SALOMON Procedure: XR ribs BI min 4V w CXR1V EXAMINATION: XR ribs BI min 4V w CXR1V HISTORY: rib pain R07.81 COMPARISON: No relevant comparison available. FINDINGS: LUNGS: No significant pulmonary parenchymal abnormalities. PLEURA: No pneumothorax, effusion, or pleural thickening. MEDIASTINUM: No visible mass or adenopathy. Aortic atherosclerosis CARDIAC: Mild cardiomegaly RIBS: No acute rib fracture OTHER: Retrocardiac opacity suggesting a small hiatal hernia XR/XR ribs BI min 4V w CXR1V IMPRESSION: Clear lungs Cardiomegaly No acute rib fracture Electronically authenticated by: GLADYS WERNER Date: 06/14/2023 12:53 Dictated By: Gladys Werner M.D. Signed By: 06/14/23 1255 DD/ 1253 TD/TT: Inventory Technician: Procedure Note Radiology, Radiologist, - 06/14/2023 [facility] [place] [id number] XRay Report Signed Patient: ALESSIA ROQUE#: [id number] : 5Acct:[id number] Age/Sex: 87 / FADM Date: 06/14/23 Loc: RAD Attending Dr: CHELLY SALOMON Ordering Physician: CHELLY SALOMON Date of Service: 06/14/23 Procedure(s): XR ribs BI min 4V w CXR1V Accession Number(s): [id number] cc: ALPESH TRINH ; CHELLY SALOMON [facility] [place] [address] Patient Name: HOWARD ROQUE MRN: [id number] date: 1935 Sex: F Assigned Patient Location: [facility] Current Patient Location: [facility] Accession/Order Number: [id number] Exam Date: 06/14/2023 12:15 Report Date: 06/14/2023 12:53 At the request of: CHELLY SALOMON Procedure: XR ribs BI min 4V w CXR1V EXAMINATION: XR ribs BI min 4V w CXR1V HISTORY: rib pain R07.81 COMPARISON: No relevant comparison available. FINDINGS: LUNGS: No significant pulmonary parenchymal abnormalities. PLEURA: No pneumothorax, effusion, or pleural thickening. MEDIASTINUM: No visible mass or adenopathy. Aortic atherosclerosis CARDIAC: Mild cardiomegaly RIBS: No acute rib fracture OTHER: Retrocardiac opacity suggesting a small hiatal hernia XR/XR ribs BI min 4V w CXR1V IMPRESSION: Clear lungs Cardiomegaly No acute rib fracture Electronically authenticated by: GLADYS WERNER Date: 06/14/2023 12:53 Dictated By: Gladys Werner M.D. Signed By:06/14/23 1252 DD/ 1256 TD/TT: Inventory Technician: Chelly Salomon PA IMG XR PROCEDURES Final Result documented in this encounter Visit Diagnoses Not on filedocumented in this encounter Care Teams Ross Carrier Driver Relationship Specialty Start Date End Date Alpesh Trinh MD [address] [place] [address] PCP - General Internal Medicine 08/28/22Sunday, JASPREET Almonte [address] [place] [address] Licensed Practical Nurse Family Medicine 02/11/24 03/14/24 Soheila Waller, MIREYA [address] [place] [address] Precision Machining Instructor Family Medicine 02/11/24 03/14/24 documented as of this encounter
--- OUTSIDE RECORDS SUMMARY | 2024-10-17 04:13 | XMS_ITS | Encounter Summary ---
Author Organization [facility] Address [address] [place] [place] [address] Care Team Providers Care Superintendent Greens Name Role Phone Sharmaine Trinh MD Primary Care Provider [phone] Sunday, Suzy HIGH SCHOOL MATH TEACHER Unavailable [phone] Soheila Waller CARVING MACHINE OPERATOR Unavailable [phone] Encounter Details Date Type Department Care Team (Late st Contact Info) Description 07/27/2023 Clinisync Result Encounter [facility] External Department Unsolicited Sharmaine Trinh MD [address] [place], [place] [address] Social History Tobacco Use Types Packs/Day Years [...] Procedure Name Priority Date/Time Associated Diagnosis Comments CA HOLTER MONITOR 2-7 DAYS 07/27/2023 11:06 AM EDT documented in this encounter Results * CA HOLTER MONITOR 2-7 DAYS (07/27/2023 11:06 AM EDT) Anatomical Region Laterality Modality Other 07/27/2023 11:0 6 AM EDT Narrative 07/27/2023 6:31 PM EDT [facility] [place] [id number] Cardiology Report Signed Patient: HOWARD ROQUE MR#: [id number] : 1935 Acct:[id number] Age/Sex: 87 / F ADM Date: 07/18/23 Loc: CARD Attending Dr: SHARMAINE TRINH Ordering Physician: SHARMAINE TRINH Date of Service: 07/18/23 Procedure(s): CA holter montior 2-7 days Accession Number(s): [id number] cc: SHARMAINE TRINH [facility] Test Date: 2023-07-27 Pat Name: HOWARD ROQUE Department: Room: - Gender: Female Artillery Officer: : 1935 Requested By: SHARMAINE TRINH Order Number: [id number] Reading MD: JAMES STORY Interpretive Statements Predominant rhythm is sinus w/ average rate of 70 bpm Tachycardia - max rate of 124 bpm (PSVT) - 10 episodes of PSVT w/ longest duration of 30sec - longest episode of 3min 48sec w/ rates between 106-113 bpm Bradycardi - min rate of 47 bpm - longest episode of 1h 54min 26sec w/ rates between 51-56 bpm Ventricular ectopy - 26 PVC Patient triggered events: 2 - associated w/ VE and SVE - associated w/ lightheadedness - associated w/ normal rate Impression: Predominant rhythm is sinus w/ average rate of 70 bpm Fastest rate of 124 bpm (PSVT) and slowest rate of 47 bpm Longest episode of sinus tachycardia was 3min 48sec w/ rates between 106-113bpm Longest episode of snus bradycardia was 1h 54min 26sec w/ rates between 51-56bpm 26 PVC No atrial fib No pauses or blocks Electronically Signed On 07-27-2023 18:30:41 EDT by JAMES STORY Dictated By: James Story D.O. Signed By: 07/27/23183007/27/23 183 DD/ 1106 TD/TT: Golf Coach: Procedure Note Radiology, Radiologist, MD - 07/27/2023 [place] [address] Cardiology Report Signed Patient: ALESSIA ROQUE#: [id number] : 5Acct:[id number] Age/Sex: 87 / FADM Date: 07/18/23 Loc: CARD Attending Dr: SHARMAINE TRINH Ordering Physician: SHARMAINE TRINH Date of Service: 07/18/23 Procedure(s): CA holter montior 2-7 days Accession Number(s): [id number] cc: SHARMAINE TRINH [facility] Test Date: 2023-07-27 Pat Name: HOWARD ROQUE Department: Room: - Gender: Female Artillery Officer: : 1935 Requested By: SHARMAINE TRINH Order Number: [id number] Reading MD: JAMES STORY Interpretive Statements Predominant rhythm is sinus w/ average rate of 70 bpm Tachycardia - max rate of 124 bpm (PSVT) - 10 episodes of PSVT w/ longest duration of 30sec - longest episode of 3min 48sec w/ rates between 106-113 bpm Bradycardi - min rate of 47 bpm - longest episode of 1h 54min 26sec w/ rates between 51-56 bpm Ventricular ectopy - 26 PVC Patient triggered events: 2 - associated w/ VE and SVE - associated w/ lightheadedness - associated w/ normal rate Impression: Predominant rhythm is sinus w/ average rate of 70 bpm Fastest rate of 124 bpm (PSVT) and slowest rate of 47 bpm Longest episode of sinus tachycardia was 3min 48sec w/ rates between 106-113bpm Longest episode of snus bradycardia was 1h 54min 26sec w/ rates between 51-56bpm 26 PVC No atrial fib No pauses or blocks Electronically Signed On 07-27-2023 18:30:41 EDT by JAMES STORY Dictated By: James Story D.O. Signed By:07/27/23183007/27/23 183 DD/ 1106 TD/TT: Golf Coach: us Sharmaine Trinh MD [facility] Final Result documented in this encounter Visit Diagnoses Not on filedocumented in this encounter Care Teams Superintendent Greens Relationship Specialty Start Date End Date Sharmaine Trinh MD [address] [place] [address] PCP - General Internal Medicine 08/28/22Sunday, JASPREET Almonte [address] [place] [address] Licensed Practical Nurse Family Medicine 02/11/24 03/14/24 Soheila Waller, MIREYA [address] [place] [address] Perinatal Educator Family Medicine 02/11/24 03/14/24 documented as of this encounter
--- NOTE | 2024-10-17 04:16 | PC.NURSE ---
this patient arrives via ems from [facility], this patient says I was walking with my walker and lost my footing and I hit the wall. this patient has laceration juts above her left eye without any active bleeding. this patient is alert and oriented x 4 this patient denies any LOC after this fall tonight. this patient also complains of left middle finger pain. this patient voices no other complaints, needs and shows no signs of distress. the nurse from [facility] said that she call this patient's son Tyree and is aware of this patient is here. this nurse also said that Tyree will remain at home..
[2024-10-17] MEDS: ACETAMINOPHEN 325 MG TABLET 650 MG PO (04:39)
--- NOTE | 2024-10-17 04:56 | ED_ITS ---
HPI HPI - Fall General Chief Complaint: Fall Stated Complaint: FALL Time Seen by Provider: 10/17/24 04:20 History of Present Illness HPI Narrative: This 88-year-old female is transferred from [facility] for evaluation of a fall. The patient was allegedly walking in her room to the bathroom using her walker when she lost her balance and fell against the wall. She sustained approximately 1.5 cm laceration to the lateral aspect of her left eyebrow. She denies any loss of consciousness. She denies any headache or neck pain. She has no focal weakness numbness or tingling. She denies any neck, hip or back pain. She states she was able to walk after the fall. According to her records she is on Eliquis. Related Data Home Medications ?Medication ?Instructions ?Recorded ?Confirmed denosumab 60 mg/mL subcutaneous 60 mg subcut .monthly 06/24/23 05/04/24 syringe (Prolia) fluoxetine 20 mg capsule 20 mg PO DAILY 06/24/2304/13 apixaban 5 mg tablet (Eliquis) 5 mg PO Q12H 05/04/24 0 05/04/24 carboxymethylcellulose 1 drp ophthalmic (eye) TID P RN dry 05/04/24 05/04/24 sod-hypromell 0.25 %-0.3 % eye eye(s) liquid gel drops (Lubricant Gel) metoprolol succinate 25 mg 25 mg PO Q12H 05/04/2404/13 tablet,extended release 24 hr (Toprol XL) naproxen 250 mg tablet 250 mg PO BID PRN pain 05/0405/04/24 Previous Rx's ?Medication ?Instructions ?Recorded atorvastatin 40 mg tablet (Lipitor) 40 mg PO DAILY #30 tabs 02/04/24 Allergies Allergy/AdvReac Type Severity Reaction Status Date / Time Penicillins Allergy Intermediate Blister Verified 10/17/24 03:59 Opioid HPI Opioid Management Most Recent Pain and Opioid Data: Last Pain Scale 2 02/04/24, 09:05 Last Pain Intensity 2 02/04/24, 09:05 Last ORT Total Score 0 02/13/24, 17:44 Last ORT Risk Category Low Risk 02/13/24, 17:44 Review of Systems ROS Status of ROS 10 or more systems reviewed and unremark able except as noted in history and below [facility] Medical History (Updated 10/17/24 @ 05:30 by Gin Wright MD) A-fib ?I48.91 - Unspecified atrial fibrillation (ICD-10) Multiple falls ?R29.6 - Repeated falls (ICD-10) UTI (urinary tract infection) ?N39.0 - Urinary tract infection, site not specified (ICD-10) Elevated brain natriuretic peptide (BNP) level ?R79.89 - Other specified abnormal findings of blood chemistry (ICD-10) Elevated troponin ?R79.89 - Other specified abnormal findings of blood chemistry (ICD-10) Acute ischemic stroke ?I63.9 - Cerebral infarction, unspecified (ICD-10) Elevated CK ?R74.8 - Abnormal levels of other serum enzymes (ICD-10) Back pain ?M54.9 - Dorsalgia, unspecified (ICD-10) Multiple falls ?R29.6 - Repeated falls (ICD-10) Stroke ?I63.9 - Cerebral infarction, unspecified (ICD-10) HTN (hypertension) ?I10 - Essential (primary) hypertension (ICD-10) HLD (hyperlipidemia) ?E78.5 - Hyperlipidemia, unspecified (ICD-10) Family History (Updated 02/13/24 @ 17:37 by Martha Araujo RN) Father Family history of cancer Family history of hypertension Sister Family history of cancer Mother Family history of hypertension Brother Family history of myocardial infarction Family history of CHF (congestive heart failure) Social History (Updated 02/13/24 @ 17:37 by Martha Araujo RN) Within the past year, how often did you have a drink containing alcohol: never Score interpretation: A score less than 3 is consistent with normal alcohol consumption. Smoking status: Never smoker Non-prescribed substance use: denies use Highest level of school completed/degree received: high school graduate Little interest or pleasure in doing things: not at all Feeling down, depressed, or hopeless: not at all Exam Narrative Exam Narrative: Vital signs and Nursing Notes reviewed: Patient is afebrile with a normal pulse, blood pressure is elevated at 163/86, she is not hypoxic with pulse ox of 100% on room air General: Awake, alert, oriented, well-appearing elderly female, no acute distress, lying comfortably on the stretcher-GCS 15 HEENT: Normocephalic, 1.5 cm laceration to the lateral aspect of the left eyebrow, mild local ecchymosis noted, pupils are equal and reactive, vision is grossly intact, there is no dental injury or appreciable nasal bone injury Neck: Supple, no midline bony vertebral tenderness or step-off Chest: Lungs are clear to auscultation with good air entry, there is no wheezing rhonchi or rales appreciated no accessory muscle use, patient is speaking in complete sentences-no chest wall tenderness to palpation CVS: Regular rate and rhythm S1-S2, no murmurs rubs or gallops, pulses are brisk and equal bilaterally ABD: Soft, nondistended, nontender, no rebound guarding or rigidity, bowel so unds are normal, no pulsatile masses appreciated Extremities: Moving all extremities, no lower extremity tenderness or swelling noted, negative Homans' sign, pulses are brisk and equal bilaterally Skin: Normal in appearance without rash,pallor, petechiae or purpura Neuro: No focal deficits, speech is clear, aircraft landing gear inspector strength is intact, cognition is intact, moving upper and lower extremities equally Constitutional Vital Signs, click to edit/add: Last Vital Signs Temp 98.5 F 10/17/24 03:59 Pulse 85 10/17/24 04:52 Resp 18 10/17/24 04:52 BP 132/80 10/17/24 06:30 Pulse Ox 93 L 10/17/24 06:30 O2 Del Method Room Air 10/17/24 03:59 Course Vital Signs Vital signs: Vital Signs Temperature 98.5 F 10/17/24 03:59 Pulse Rate 63 10/17/24 03:59 Respiratory Rate 18 10/17/24 03:59 Blood Pressure 132/78 10/17/24 03:59 Pulse Oximetry 98 10/17/24 03:59 Oxygen Delivery Method Room Air 10/17/24 03:59 Temperature 98.5 F 10/17/24 03:59 Pulse Rate 85 10/17/24 04:52 Respiratory Rate 18 10/17/24 04:52 Blood Pressure 132/80 10/17/24 06:30 Pulse Oximetry 93 L 10/17/24 06:30 Oxygen Delivery Method Room Air 10/17/24 03:59 MDM - Fall MDM Narrative Medical decision making narrative: This 88-year-old female is brought to the emergency department by EMS from the extended care facility where she currently lives in assisted living. Patient states she was ambulating to the bathroom with her walker when she lost her footing and fell striking the left side of her eyebrow on the wall. She was able to ambulate after the fall. Her GCS is 15. She has no focal deficits. She has a 1.5 cm laceration in the left lateral eyebrow area that was closed with sutures. She was medicated with Tylenol. CT scan of the brain and cervical spine was ordered and is pending at the time of shift change. She remains hemodynamically and neurologically stable. She will be signed out to the incoming physician for further disposition based on her CT scans. Discharge Plan Discharge Chief Complaint: Fall Clinical Impression: Fall from standing, Laceration of face Condition: Good Prescriptions / Home Meds: No Action fluoxetine 20 mg capsule 20 mg PO DAILY Prolia 60 mg/mL syringe 60 mg SUBCUT .monthly atorvastatin [Lipitor] 40 mg tablet 40 mg PO DAILY Qty: 30 0RF Eliquis 5 mg tablet 5 mg PO Q12H Lubricant Gel 0.25-0.3 % drops, liquid gel 1 drp ophthalmic (eye) TID PRN (Reason: dry eye(s)) naproxen 250 mg tablet 250 mg PO BID PRN (Reason: pain) metoprolol succinate [Toprol XL] 25 mg tablet extended release 24 hr 25 mg PO Q12H Print Language: Comoran Instructions: Care For Your Stitches (ED), Fall Prevention for Older Adults (ED), Fall Prevention (ED), Facial Laceration (ED) Additional Instructions: Sutures can be removed in 5 to 7 days. Keep the area covered with a sterile Band-Aid and apply bacitracin topically daily. Referrals: SHARMAINE WILLS [Primary Care Provider, Internal Medicine] - 1 week Procedures ED Procedure Instructions Procedures Procedures: Procedure note: Facial laceration repair; the laceration in the left eyebrow was infiltrated with 1% lidocaine and copiously irrigated with normal saline, 6, 4-0 Ethilon sutures were placed into the laceration with good wound edge approximation and control of bleeding. Patient tolerated procedure well. A bacitracin dressing was applied topically
[2024-10-17] MEDS: LIDOCAINE HCL 1% 100 MG/10 ML MDV INJ (05:18)
[2024-10-17] MEDS: BACITRACIN 0.9 GM PACKET 1 PACKET TOPICAL (05:41)
--- NOTE | 2024-10-17 08:04 | XR_ITS ---
The [address] [address] Patient Name: HOWARD HOGUE MRN: [id number] date: 1935 Sex: F Assigned Patient Location: ER Current Patient Location: Accession/Order Number: [id number] Exam Date: 10/17/2024 08:07 Report Date: 10/17/2024 08:43 At the request of: MILY VAUGHN DO Procedure: XR finger LT min 2V XR finger LT min 2V 10/17/2024 8:11 AM SIGNS AND SYMPTOMS: Pain in left third digit with swelling after fall PROTOCOL: Frontal, lateral, and oblique radiographs of the left third digit COMPARISON: None FINDINGS: No fracture or dislocation. There is mild narrowing of the distal interphalangeal joint. There is soft tissue swelling along the dorsum of the proximal interphalangeal joint. XR/XR finger LT min 2V IMPRESSION: No fracture or dislocation. Soft tissue swelling is noted along the dorsum of the proximal interphalangeal joint. Impression dictated by: Jeremy Sena M.D. 10/17/2024 8:43 AM Dictation Location: [place] [address] Electronically authenticated by: [id number] Y Date: 10/17/2024 08:43
== END 2024-10-17 08:31 | disposition home or self-care (01) ==
PROVIDERS: Emergency Provider Emergency Medicine; PCP Internal Medicine
DX: S01.112A Laceration without foreign body of left eyelid and periocular area, initial encounter (principal); S09.8XXA Other specified injuries of head, initial encounter; S63.613A Unspecified sprain of left middle finger, initial encounter; W18.39XA Other fall on same level, initial encounter; Z79.01 Long term (current) use of anticoagulants
CPT/HCPCS: 12011; 29130; 70450; 72125; 73140; 76376; 99284